=== PATIENT | female | born 2000 | race Caucasian/White ===

== ENCOUNTER → 2022-05-12 10:30 | Outpatient (BNVA) | payer MEDICAID, SELFPAY | PROVIDERS: PCP Nurse Practitioner Family; Referring Provider Nurse Practitioner Family; Visit Provider Internal Medicine | DX: E07.9 Disorder of thyroid, unspecified (principal); E03.8 Other specified hypothyroidism; E06.3 Autoimmune thyroiditis; Z98.890 Other specified postprocedural states; R53.83 Other fatigue | CPT/HCPCS: 36415; 82784; 83516; 84439; 84443; 84480 ==

== ENCOUNTER 2022-05-27 17:57 | Emergency (ER) | payer MEDICAID, SELFPAY ==
[2022-05-27 18:14] VITALS: PULSE 97; RESP 16; TEMP 36.8; O2SAT 98
[2022-05-27 19:12] LABS: Alanine Aminotransferase 10 U/L (0-33); Alkaline Phosphatase 49 U/L (35-105); Anion Gap 16.3 (5-19); Aspartate Amino Transferase 17 U/L (0-32); Blood Urea Nitrogen 10 mg/dL (6-20); Calcium 8.2 mg/dL (8.5-10.5); Carbon Dioxide 25 mmol/L (22-29); Chloride 104 mmol/L (98-107); Globulin 2.5 g/dL (1.3-4.6); Glomerular Filtration Rate 69.3 mL/min (90-130); Glucose 89 mg/dL (65-115); Lipase 26 U/L (13-60); Osmolality Calculated 291 mOsm/kg (285-295); Potassium 4.3 mmol/L (3.5-5.1); Sodium 141 mmol/L (136-145); Total Bilirubin 1.3 mg/dL (0.15-1.2); Total Protein 7.5 g/dL (6.6-8.7)
[2022-05-27 19:25] LABS: Basophils % 0.3 %; Eosinophils % 0.4 %; Hematocrit 39.9 % (37.0-47.0); Hemoglobin 13.1 g/dL (11.5-15.3); Lymphocytes # 0.7 10^3/uL (0.8-4.8); Lymphocytes % 7.7 %; Mean Corpuscular HGB Conc 32.8 g/dL (30.0-36.0); Mean Corpuscular Hemoglobin 30.3 pg (28.0-34.0); Mean Corpuscular Volume 92.1 fl (81-99); Mean Platelet Volume 10.1 fL (7.4-10.4); Monocytes # 0.3 10^3/uL (0.2-0.9); Monocytes % 3.6 %; Neutrophils # 8.31 10^3/uL (1.8-7.7); Nucleated Red Blood Cells % 0 %; Platelet Count 247 10^3/cmm (130-400); Red Blood Count 4.33 10^6/uL (4.1-5.3); Red Cell Distribution Width 16.1 % (12.1-15.1); White Blood Count 9.6 10^3/uL (4.0-10.0)
--- NOTE | 2022-05-27 21:38 | W.ED.ABDPA2 ---
HPI - Abdominal Pain General: Chief Complaint: Abdominal Pain Stated Complaint: left abd pain Time Seen by Provider: 05/27/22 21:38 [facility] ED PFSH: Surgical History History of thyroid surgery Course Vital Signs: Vital signs: Vital Signs Temperature 98.2 F 05/27/22 18:14 Pulse Rate 97 05/27/22 18:14 Respiratory Rate 16 05/27/22 18:14 Pulse Oximetry 98 05/27/22 18:14 MDM - Abdominal Pain Lab Data 05/27/22 18:30 05/27/22 18:30 Labs/Radiology: Laboratory Results WBC 9.6 10^3/uL (4.0-10.0) 05/27/22 18:30 RBC 4.33 10^6/uL (4.1-5.3) 05/27/22 18:30 Hgb 13.1 g/dL (11.5-15.3) 05/27/22 18:30 Hct 39.9 % (37.0-47.0) 05/27/22 18:30 MCV 92.1 fl (81-99) 05/27/22 18:30 MCH 30.3 pg (28.0-34.0) 05/27/22 18:30 MCHC 32.8 g/dL (30.0-36.0) 05/27/22 18:30 RDW 16.1 % (12.1-15.1) H 05/27/22 18:30 Plt Count 247 10^3/cmm (130-400) 05/27/22 18:30 MPV 10.1 fL (7.4-10.4) 05/27/22 18:30 Neut % (Auto) 87.0 % 05/27/22 18:30 Lymph % (Auto) 7.7 % 05/27/22 18:30 [place] % (Auto) 3.6 % 05/27/22 18:30 Eos % (Auto) 0.4 % 05/27/22 18:30 Baso % (Auto) 0.3 % 05/27/22 18:30 Neut # (Auto) 8.31 10^3/uL (1.8-7.7) H 05/27/22 18:30 Lymph # (Auto) 0.7 10^3/uL (0.8-4.8) L 05/27/22 18:30 [place] # (Auto) 0.3 10^3/uL (0.2-0.9) 05/27/22 18:30 Eos # (Auto) 0.0 10^3/uL (0.0-0.8) 05/27/22 18:30 Baso # (Auto) 0.0 10^3/uL (0.0-0.1) 05/27/22 18:30 Nucleated RBC % (auto) 0 % 05/27/22 18:30 Nucleated RBCs # 0.0 /100WBC 05/27/22 18:30 Sodium 141 mmol/L (136-145) 05/27/22 18:30 Potassium 4.3 mmol/L (3.5-5.1) 05/27/22 18:30 Chloride 104 mmol/L (98-107) 05/27/22 18:30 Carbon Dioxide 25 mmol/L (22-29) 05/27/22 18:30 Anion Gap 16.3 (5-19) 05/27/22 18:30 BUN 10 mg/dL (6-20) 05/27/22 18:30 Creatinine 1.0 mg/dL (0.5-0.9) H 05/27/22 18:30 GFR Calculation 69.3 mL/min (90-130) L 05/27/22 18:30 Glucose 89 mg/dL (65-115) 05/27/22 18:30 Calculated Osmolality 291 mOsm/kg (285-295) 05/27/22 18:30 Calcium 8.2 mg/dL (8.5-10.5) L 05/27/22 18:30 Total Bilirubin 1.3 mg/dL (0.15-1.2) H 05/27/22 18:30 AST 17 U/L (0-32) 05/27/22 18:30 ALT 10 U/L (0-33) 05/27/22 18:30 Alkaline Phosphatase 49 U/L (35-105) 05/27/22 18:30 Total Protein 7.5 g/dL (6.6-8.7) 05/27/22 18:30 Albumin 5.0 g/dL (3.5-5.2) 05/27/22 18:30 Globulin 2.5 g/dL (1.3-4.6) 05/27/22 18:30 Lipase 26 U/L (13-60) 05/27/22 18:30 Discharge Plan Discharge Condition: Stable Prescriptions: No Action levothyroxine [Synthroid] 200 mcg tablet 500 mcg PO DAILY prednisone 20 mg tablet 20 mg PO DAILY 7 Days Qty: 7 0RF Referrals: Annie Cadet FNP [Primary Care Provider] - Coding Level of Care Code ED [facility] for Ayazg Kadie
--- NOTE | 2022-05-27 22:20 | W.ED.ABDPA2 ---
HPI - Abdominal Pain General: Chief Complaint: Abdominal Pain Stated Complaint: left abd pain Time Seen by Provider: 05/27/22 21:38 Source: patient Mode of arrival: ambulatory Limitations: no limitations History of Present Illness: 21-year-old female states she been having left lower quadrant abdominal pain throughout the day states pain is been sharp in nature has been in for 4 out of 10 she has had an appendectomy she denies any fever denies any dysuria she denies any vomiting or diarrhea she denies any worsening improving factors. Associated Symptoms: Denies chills, dysuria and fever(s) Review of Systems Const: Denies: fever(s), chills, body aches or change in appetite Eyes: Denies: blurry vision or eye discomfort ENMT: Denies: throat pain or dental pain Card: Denies: chest pain Resp: Denies: dyspnea GI: Reports: abdominal pain : Denies: dysuria Musc: Denies: neck pain or back pain Skin/Breast: Denies: rash Neuro: Denies: headache(s) Psych: Denies: depression Alok/Lymph: Denies: easy bruising All/Imm: Denies: urticaria PFSH ED PFSH: Surgical History History of thyroid surgery Social History (Updated 05/27/22 @ 22:20 by Dev Portillo MD) Substance/Drug Use: never Physical Exam Const: COMMON NORMALS: no acute distress, patient oriented x3 and healthy appearing HENMT: COMMON NORMALS: normocephalic and atraumatic HEAD & SCALP: normocephalic and atraumatic Eye: COMMON NORMALS: Equal, round and reactive pupils present and EOMs intact bilaterally PUPIL: Yes Equal, round and reactive pupils present Neck/C-Spine: COMMON NORMALS: full ROM and supple Chest: COMMONS NORMALS: normal inspection of the chest and normal palpation of entire chest wall Resp: COMMON NORMALS: normal respiratory effort, No retractions, No use of accessory muscles and clear to auscultation bilaterally AUSCULTATION: clear to auscultation bilaterally Cardio: COMMON NORMALS: regular rate, regular rhythm and No murmurs present (Cardio) RATE: regular rate RHYTHM: regular rhythm GI: COMMON NORMALS: Normal to inspection, nondistended, normoactive bowel sounds present, Soft to palpation, non-tender and no masses PALPATION: Yes Soft to palpation Extremity: COMMON NORMALS: normal to inspection and full ROM Neuro: COMMON NORMALS: patient oriented x3, moves all extremities and no focal motor deficits Psych: COMMON NORMALS: mental status grossly normal, Normal thought process present and cooperative THOUGHT PROCESS: Normal thought process present Skin: COMMON NORMALS: no rashes or lesions noted and no wounds GENERAL SKIN EXAM: no rashes or lesions noted Course Vital Signs: Vital signs: Vital Signs Temperature 98.2 F 05/27/22 18:14 Pulse Rate 92 05/27/22 22:33 Respiratory Rate 17 05/27/22 22:33 Blood Pressure 109/68 05/27/22 22:33 Pulse Oximetry 95 05/27/22 22:33 Oxygen Delivery Me thod 05/27/22 22:33 MDM - Abdominal Pain Medical Decision Making Abdominal pain in the left lower quadrant could be an ovarian cyst. Her exam at discharge is benign she has no signs of acute surgical abdomen. Blood work here is normal urinalysis normal she is not she is stable for discharge she is to follow-up with PCP and return if worsening. Lab Data 05/27/22 18:30 05/27/22 18:30 Labs/Radiology: Laboratory Results WBC 9.6 10^3/uL (4.0-10.0) 05/27/22 18:30 RBC 4.33 10^6/uL (4.1-5.3) 05/27/22 18:30 Hgb 13.1 g/dL (11.5-15.3) 05/27/22 18:30 Hct 39.9 % (37.0-47.0) 05/27/22 18:30 MCV 92.1 fl (81-99) 05/27/22 18:30 MCH 30.3 pg (28.0-34.0) 05/27/22 18:30 MCHC 32.8 g/dL (30.0-36.0) 05/27/22 18:30 RDW 16.1 % (12.1-15.1) H 05/27/22 18:30 Plt Count 247 10^3/cmm (130-400) 05/27/22 18:30 MPV 10.1 fL (7.4-10.4) 05/27/22 18:30 Neut % (Auto) 87.0 % 05/27/22 18:30 Lymph % (Auto) 7.7 % 05/27/22 18:30 [place] % (Auto) 3.6 % 05/27/22 18:30 Eos % (Auto) 0.4 % 05/27/22 18:30 Baso % (Auto) 0.3 % 05/27/22 18:30 Neut # (Auto) 8.31 10^3/uL (1.8-7.7) H 05/27/22 18:30 Lymph # (Auto) 0.7 10^3/uL (0.8-4.8) L 05/27/22 18:30 [place] # (Auto) 0.3 10^3/uL (0.2-0.9) 05/27/22 18:30 Eos # (Auto) 0.0 10^3/uL (0.0-0.8) 05/27/22 18:30 Baso # (Auto) 0.0 10^3/uL (0.0-0.1) 05/27/22 18:30 Nucleated RBC % (auto) 0 % 05/27/22 18:30 Nucleated RBCs # 0.0 /100WBC 05/27/22 18:30 Sodium 141 mmol/L (136-145) 05/27/22 18:30 Potassium 4.3 mmol/L (3.5-5.1) 05/27/22 18:30 Chloride 104 mmol/L (98-107) 05/27/22 18:30 Carbon Dioxide 25 mmol/L (22-29) 05/27/22 18:30 Anion Gap 16.3 (5-19) 05/27/22 18:30 BUN 10 mg/dL (6-20) 05/27/22 18:30 Creatinine 1.0 mg/dL (0.5-0.9) H 05/27/22 18:30 GFR Calculation 69.3 mL/min (90-130) L 05/27/22 18:30 Glucose 89 mg/dL (65-115) 05/27/22 18:30 Calculated Osmolality 291 mOsm/kg (285-295) 05/27/22 18:30 Calcium 8.2 mg/dL (8.5-10.5) L 05/27/22 18:30 Total Bilirubin 1.3 mg/dL (0.15-1.2) H 05/27/22 18:30 AST 17 U/L (0-32) 05/27/22 18:30 ALT 10 U/L (0-33) 05/27/22 18:30 Alkaline Phosphatase 49 U/L (35-105) 05/27/22 18:30 Total Protein 7.5 g/dL (6.6-8.7) 05/27/22 18:30 Albumin 5.0 g/dL (3.5-5.2) 05/27/22 18:30 Globulin 2.5 g/dL (1.3-4.6) 05/27/22 18:30 Lipase 26 U/L (13-60) 05/27/22 18:30 HCG, Qual Negative (Negative) 05/27/22 22:13 Urine Color Dark yellow (Yellow) 05/27/22 22:13 Urine Appearance Clear (CLEAR) 05/27/22 22:13 Urine pH 5 (5-7) 05/27/22 22:13 Ur Specific [place] 1.020 (1.005-1.030) 05/27/22 22:13 Urine Protein Neg (Negative) 05/27/22 22:13 Urine Glucose (UA) Norm (Normal) 05/27/22 22:13 Urine Ketones Negative (Negative) 05/27/22 22:13 Urine Blood Neg (Negative) 05/27/22 22:13 Urine Nitrate Negative (Negative) 05/27/22 22:13 Urine Bilirubin Neg (Negative) 05/27/22 22:13 Urine Urobilinogen 1 mg/dL (Negative) H 05/27/22 22:13 Ur Leukocyte Esterase Negative (Negative) 05/27/22 22:13 Discharge Plan Discharge Patient Disposition: Home Clinical Impression: Abdominal pain Condition: Stable Prescriptions: New Naprosyn 500 mg tablet 500 mg PO BID PRN (Reason: pain) Qty: 20 0RF No Action levothyroxine [Synthroid] 200 mcg tablet 500 mcg PO DAILY prednisone 20 mg tablet 20 mg PO DAILY 7 Days Qty: 7 0RF Discharge Orders: Discharge ED (Routine); Ordered 05/27/22 Ordered By: Dev Portillo Referrals: Annie Cadet FNP [Primary Care Provider] - Discharge Diet: Advance as tolerated Discharge Activity: Resume usual activity Patient Instructions: Abdominal Pain (ED) Coding Level of Care Code ED Health Care / Medical [employer] Titles for Jim Engle
[2022-05-27 22:21] LABS: Add Urine Microscopic? NO; Charge for UA Resulting for Rev
[2022-05-27 22:28] VITALS: RESP 18
[2022-05-27] MEDS: morphine 4 mg/mL SDV 1 mL IVP (22:28)
[2022-05-27] MEDS: ondansetron 2 mg/ML SDV 2 mL 4 MG IVP (22:28)
[2022-05-27 22:32] LABS: Bilirubin Urine Neg (Negative); Blood Urine Neg (Negative); Glucose Urine UA Norm (Normal); Ketones Urine Negative (Negative); Leukocyte Esterase Urine Negative (Negative); Nitrate Urine Negative (Negative); Protein Urine Neg (Negative); Urine Appearance Clear (CLEAR); Urine Color Dark Yellow (Yellow); Urobilinogen Urine 1 mg/dL (Negative); pH Urine 5 (5-7)
[2022-05-27 22:33] VITALS: BP 109/68; PULSE 92; RESP 17; O2SAT 95
[2022-05-27 22:47] LABS: HCG Qualitative Urine. Negative (Negative)
[2022-05-27 23:21] VITALS: BP 98/64; PULSE 78; RESP 14; O2SAT 98
== END 2022-05-27 23:25 | disposition home or self-care (01) ==
PROVIDERS: Emergency Provider Emergency Medicine; PCP Nurse Practitioner Family
DX: R10.32 Left lower quadrant pain (principal)
CPT/HCPCS: 36415; 80053; 81003; 81025; 83690; 85025; 96374; 96375; 99284; J2270; J2405

== ENCOUNTER → 2022-06-01 14:31 | Outpatient (BNVA) | payer MEDICAID, SELFPAY | PROVIDERS: PCP Nurse Practitioner Family; Visit Provider Nurse Practitioner Family | DX: R10.9 Unspecified abdominal pain (principal); E07.9 Disorder of thyroid, unspecified | CPT/HCPCS: 74018; 84439 ==

== ENCOUNTER 2022-06-20 15:35 | Outpatient (CLI) | payer MEDICAID, SELFPAY ==
[2022-06-20 16:46] LABS: Free T4 Free Thyroxine 0.77 ng/dL (0.82-1.77)
== END 2022-06-20 15:36 | disposition home or self-care (01) ==
LOC: LAB 15:40
PROVIDERS: PCP Nurse Practitioner Family; Visit Provider Internal Medicine
DX: E07.9 Disorder of thyroid, unspecified (principal); E03.8 Other specified hypothyroidism; E06.3 Autoimmune thyroiditis; Z98.890 Other specified postprocedural states; R53.83 Other fatigue
CPT/HCPCS: 36415; 84439

== ENCOUNTER 2022-06-24 07:39 | Outpatient (CLI) | payer MEDICAID, SELFPAY ==
--- NOTE | 2022-06-24 07:49 | CTR_ITS ---
PROCEDURE INFORMATION: Exam: CT Abdomen And Pelvis Without Contrast Exam date and time: 06/24/2022 8:03 AM Age: 21 years old Clinical indication: Abdominal pain; Localized; Left upper quadrant (luq) TECHNIQUE: Imaging protocol: Computed tomography of the abdomen and pelvis without contrast. Radiation optimization: All CT scans at this facility use at least one of these dose optimization techniques: automated exposure control; mA and/or kV adjustment per patient size (includes targeted exams where dose is matched to clinical indication); or iterative reconstruction. REPORTING DATA: Count of CT and Cardiac NM exams in prior 12 months: This patient has received 0 known CTs and 0 known cardiac nuclear medicine studies in the 12 months prior to the current study. COMPARISON: CR XR KUB [id number] 06/01/2022 2:37 PM RADIATION DOSE METRICS: Total DLP (mGy-cm): 246.11 FINDINGS: Lungs: Lung bases are clear. Liver: Normal. No mass. Gallbladder and bile ducts: Gallbladder has been removed. Bile ducts are not appreciably dilated. Pancreas: Unremarkable. Main pancreatic duct is not significantly dilated. Spleen: Normal. No splenomegaly. Adrenal glands: Normal. No mass. Kidneys and ureters: Normal. No hydronephrosis. Stomach and bowel: There is a moderate degree of retained stool throughout the colon that may reflect some degree of constipation. Remainder of the GI tract is unremarkable. Appendix: No evidence of appendicitis. Intraperitoneal space: Unremarkable. No free air. No significant fluid collection. Vasculature: Unremarkable. No abdominal aortic aneurysm. Lymph nodes: Unremarkable. No enlarged lymph nodes. Urinary bladder: Tiny solitary air bubble within the nondependent portion the urinary bladder which is otherwise unremarkable and in the absence of recent instrumentation is often incidental in females and may be due to incompetent urethra. Reproductive: There is an IUD situated centrally within the uterus. Uterus is otherwise unremarkable. Bones/joints: Unremarkable. No acute fracture. Soft tissues: Unremarkable. CT/CT abdomen pelvis wo con [id number] IMPRESSION: 1. No acute findings within the abdomen or pelvis. 2. Moderate degree of retained stool throughout the large bowel. Please correlate for constipation. 3. Small solitary air bubble in the urinary bladder of doubtful clinical significance as discussed above.
== END 2022-06-24 07:40 | disposition home or self-care (01) ==
PROVIDERS: PCP Nurse Practitioner Family; Visit Provider Nurse Practitioner Family
DX: R10.9 Unspecified abdominal pain (principal)
CPT/HCPCS: 74176

== ENCOUNTER 2022-07-01 17:13 | Emergency (ER) | payer MEDICAID, SELFPAY ==
[2022-07-01 17:25] VITALS: BP 102/61; PULSE 77; RESP 14; TEMP 36.6; O2SAT 100; BMI 19.0
--- NOTE | 2022-07-01 17:57 | W.ED.HA ---
HPI - Headache General: Chief Complaint: Headache Stated Complaint: head pain Time Seen by Provider: 07/01/22 17:33 History of Present Illness: Patient is a 21-year-old female who comes to the ED with headache. Patient does not have a history of migraine headaches. She states that approximately 5 days ago she developed a headache with nausea and vomiting and light sensitivity and it went away within 24 hours and she was fine for the next couple days. Then yesterday she developed a severe headache that she rates a 10 out of 10 at its located behind her eyes bilaterally. She describes it as a throbbing type headache. She endorses nausea and vomiting and sensitivity to light. She went and saw walk-in clinic yesterday and they gave her a shot of a nausea med and Toradol and she states that it did not help her headache at all. Today she still having 10 out of 10 headache with nausea. Denies any neurological symptoms such as vision changes, numbness tingling or weakness to 1 side of her body or face. Denies any other symptoms. Patient did state that she used to have bad headaches when she was younger, but those went away once she got glasses at 10 years old. Associated symptoms: Reports nausea and vomiting; Deny chest pain, fever(s) or rash Review of Systems Const: Denies: fever(s), chills or fatigue Eyes: Reports: photophobia; Denies: change in vision or eye discomfort ENMT: Denies: throat pain, odynophagia, nasal discharge or nasal congestion Card: Denies: chest pain, palpitations, edema, swelling of feet/ankles, dyspnea on exertion or orthopnea Resp: Denies: dyspnea, productive cough or non-productive cough GI: Reports: nausea and vomiting; Denies: abdominal pain, diarrhea, constipation or hematochezia : Denies: flank pain, dysuria or hematuria Musc: Denies: neck pain, back pain or extremity swelling Skin/Breast: Denies: rash or new lesions Neuro: Reports: headache(s); Denies: numbness in extremities or weakness in extremities PFS ED PFSH: Medical History Celiac disease No pertinent family history Surgical History History of thyroid surgery Social History Substance/Drug Use: never Physical Exam Const: COMMON NORMALS: patient oriented x3, healthy appearing and alert GENERAL APPEARANCE: cooperative HENMT: COMMON NORMALS: normocephalic HEAD & SCALP: normocephalic MOUTH: Normal oral and palatal mucosa present THROAT: posterior oropharynx normal and uvula midline Eye: COMMON NORMALS: Equal, round and reactive pupils present, EOMs intact bilaterally and conjunctivae normal CONJUNCTIVA: Yes conjunctivae normal PUPIL: Yes Equal, round and reactive pupils present Neck/C-Spine: COMMON NORMALS: supple GENERAL: Yes normal visual inspection Resp: COMMON NORMALS: normal respiratory effort, No retractions, No use of accessory muscles and clear to auscultation bilaterally AUSCULTATION: clear to auscultation bilaterally Cardio: COMMON NORMALS: regular rate, regular rhythm, S1 normal heart sound present, S2 normal heart sound present, No gallops present (Cardio), No clicks present (Cardio), No murmurs present (Cardio) and Peripheral pulses 2+ throughout RATE: regular rate RHYTHM: regular rhythm HEART SOUNDS: S1 normal heart sound present and S2 normal heart sound present PERIPHERAL PULSES: Peripheral pulses 2+ throughout GI: COMMON NORMALS: Normal to inspection, nondistended, normoactive bowel sounds present, Soft to palpation, non-tender and no masses PALPATION: Yes Soft to palpation : COMMON NORMALS: Yes no CVA tenderness BLADDER/KIDNEY EXAM: Yes no CVA tenderness Back/Pelvis: COMMON NORMALS: no CVA tenderness Extremity: COMMON NORMALS: normal to inspection Neuro: COMMON NORMALS: patient oriented x3, CN's II-XII intact bilaterally, moves all extremities, no focal motor deficits and no sensory deficits noted SENSORIUM/ORIENTATION: Yes alert COORDINATION/BALANCE: [id number] test normal SPEECH: speech normal GAIT: Yes Normal gait present COORDINATION: [id number] test normal Skin: GENERAL SKIN EXAM: dry skin Course Vital Signs: Vital signs: Vital Signs Temperature 98 F 07/01/22 17:25 Pulse Rate 88 07/01/22 18:05 Respiratory Rate 16 07/01/22 18:05 Blood Pressure 110/75 07/01/22 18:05 Pulse Oximetry 99 07/01/22 18:05 Oxygen Delivery Me thod Room Air 07/01/22 18:05 MDM - Headache Medical Decision Making Patient is a 21-year-old female comes to the ED with migraine headache. She is having nausea, vomiting and sensitivity to light. Vitals are stable. Neuro exam shows no deficits. Rest of exam is benign and patient appears nontoxic in no acute distress or pain. Head CT was obtained since this is the first time she has had migraines. Head CT showed no acute findings. After patient received IV migraine meds her headache improved greatly. Her headache went from a 10 out of 10 to a 4 out of 10. She feels a lot better and is ready to be discharged home. She was diagnosed with migraine headache and told to follow-up with her PCP in the next week for reevaluation. Return to ED precautions given. Patient understood and agreed with plan. Lab Data Radiology Impressions Head CT 07/01/22 18:04 IMPRESSION: No acute intracranial abnormality. Laboratory Results HCG, Qual Negative (Negative) 07/01/22 18:17 Discharge Plan Discharge Patient Disposition: Home Clinical Impression: Migraine Qualifiers: Migraine type: without aura Status migrainosus presence: without status migrainosus Intractability: not intractable Qualified Code(s): G43.009 - Migraine without aura, not intractable, without status migrainosus Condition: Stable Prescriptions: No Action prednisone 20 mg tablet 20 mg PO DAILY 7 Days Qty: 7 0RF levothyroxine [Synthroid] 300 mcg tablet 600 mcg PO DAILY Qty: 180 1RF levothyroxine [Synthroid] 150 mcg tablet 150 mcg PO DAILY Qty: 90 1RF Naprosyn 500 mg tablet 500 mg PO BID PRN (Reason: pain) Qty: 20 0RF Discharge Orders: Discharge ED (Routine); Ordered 07/01/22 Ordered By: Clement Pearson Referrals: Annie Cadet FNP [Primary Care Provider] - Discharge Diet: Regular Discharge Activity: Increase activity as tolerated Patient Instructions: Migraine Headache (ED) Activity Restrictions/Additional Instructions: Follow-up with medical provider as directed in the next 5 to 7 days for reevaluation. Continue taking all home medications as previously prescribed. Return to the ER or your medical provider if condition worsens. Please read and understand discharge instructions. Thank you for choosing [facility] for your healthcare needs today. Please realize this is an emergency room and that we are providing you with a medical screening exam and this may not be complete and all inclusive of all the testing and or work up that you may need to determine your ailment or severity of your illness. It is very important that you follow up as instructed or that you return to the Emergency Department should you have concerns or if your condition changes or worsens in any way. Coding Level of Care Code ED [employer] for Jim Engle
--- NOTE | 2022-07-01 18:04 | CTR_ITS ---
PROCEDURE INFORMATION: Exam: CT Head Without Contrast Exam date and time: 07/01/2022 6:21 PM Age: 21 years old Clinical indication: Pain; Headache; Migraine; Without aura; Does respond to medication; Severity not specified; Patient HX: No recent trauma; Additional info: First migraine headache TECHNIQUE: Imaging protocol: Computed tomography of the head without contrast. Radiation optimization: All CT scans at this facility use at least one of these dose optimization techniques: automated exposure control; mA and/or kV adjustment per patient size (includes targeted exams where dose is matched to clinical indication); or iterative reconstruction. REPORTING DATA: Count of CT and Cardiac NM exams in prior 12 months: This patient has received [address] and 0 known cardiac nuclear medicine studies in the 12 months prior to the current study. COMPARISON: No relevant prior studies available. RADIATION DOSE METRICS: Total DLP (mGy-cm): 1093.68 FINDINGS: Brain: Normal. No hemorrhage. Unremarkable white matter. No mass effect. Cerebral ventricles: No ventriculomegaly. Paranasal sinuses: Visualized sinuses are unremarkable. No fluid levels. Mastoid air cells: Visualized mastoid air cells are well aerated. Bones/joints: Unremarkable. No acute fracture. Soft tissues: Unremarkable. CT/CT head wo con* [id number] IMPRESSION: No acute intracranial abnormality.
[2022-07-01 18:05] VITALS: BP 110/75; PULSE 88; RESP 16; O2SAT 99
[2022-07-01 18:41] LABS: HCG Qualitative Urine. Negative (Negative)
[2022-07-01] MEDS: metoclopramide 5 mg/mL SDV 2 mL 10 MG IVP (18:42)
[2022-07-01] MEDS: diphenhydrAMINE 50 mg/mL SDV 1mL 25 MG IVP (18:43)
[2022-07-01] MEDS: sodium chloride 0.9% 1,000 ML 999 ML IV (18:44)
[2022-07-01] MEDS: SUMAtriptan 6 mg/0.5 mL SDV SUBCUT (18:44)
== END 2022-07-01 20:07 | disposition home or self-care (01) ==
PROVIDERS: Emergency Provider Physician Assistant; PCP Nurse Practitioner Family
DX: G43.009 Migraine without aura, not intractable, without status migrainosus (principal)
CPT/HCPCS: 70450; 81025; 96372; 96374; 96375; 99284; J1200; J2765; J3030; J7030

== ENCOUNTER 2022-07-12 13:03 | Outpatient (CLI) | payer MEDICAID, SELFPAY ==
[2022-07-12 14:26] LABS: Free T4 Free Thyroxine 1.58 ng/dL (0.82-1.77)
== END 2022-07-12 13:04 | disposition home or self-care (01) ==
LOC: LAB 13:05
PROVIDERS: PCP Nurse Practitioner Family; Visit Provider Internal Medicine
DX: E03.8 Other specified hypothyroidism (principal); E06.3 Autoimmune thyroiditis
CPT/HCPCS: 36415; 84439

== ENCOUNTER 2022-09-06 08:43 | Outpatient (CLI) | payer OTHER, MEDICAID, SELFPAY ==
--- NOTE | 2022-09-06 08:55 | XRR_ITS ---
PROCEDURE INFORMATION: Exam: XR Right Hip Exam date and time: 09/06/2022 9:01 AM Age: 22 years old Clinical indication: Hip pain; Right hip; Additional info: Hip joint pain, right TECHNIQUE: Imaging protocol: Radiologic exam of the right hip. Views: 1 view hip with pelvis when performed. COMPARISON: CT abdomen pelvis wo con [id number] 06/24/2022 8:03 AM FINDINGS: Tubes, catheters and devices: An intrauterine device projects over the central pelvis. Bones/joints: Unremarkable. No acute fracture. Joint spaces are normal. Soft tissues: Unremarkable. XR/XR hip RT 2-3V wo/w pel* [id number] IMPRESSION: No acute findings.
== END 2022-09-06 08:44 | disposition home or self-care (01) ==
LOC: RAD 08:45
PROVIDERS: PCP Nurse Practitioner Family; Visit Provider Nurse Practitioner Family
DX: M25.551 Pain in right hip (principal)
CPT/HCPCS: 73502

== ENCOUNTER 2022-09-15 12:56 | Outpatient (CLI) | payer MEDICAID, SELFPAY | END 2022-09-15 12:57 | disposition home or self-care (01) | PROVIDERS: PCP Nurse Practitioner Family; Visit Provider Internal Medicine | DX: E03.8 Other specified hypothyroidism (principal); E06.3 Autoimmune thyroiditis | CPT/HCPCS: 36415; 84439 ==

== ENCOUNTER 2022-09-15 15:33 | Emergency (ER) | payer OTHER, MEDICAID, SELFPAY | END 2022-09-15 15:48 | disposition home or self-care (01) | LOC: ER 15:47 | PROVIDERS: Emergency Provider Family Medicine; PCP Nurse Practitioner Family | DX: E03.9 Hypothyroidism, unspecified (principal); E06.3 Autoimmune thyroiditis | CPT/HCPCS: 99282 ==

== ENCOUNTER 2022-09-15 16:03 | Emergency (ER) | payer OTHER, MEDICAID, SELFPAY ==
[2022-09-15 16:15] VITALS: BP 97/71; PULSE 93; RESP 15; O2SAT 99
[2022-09-15 16:17] VITALS: TEMP 37
--- NOTE | 2022-09-15 16:24 | ED_ITS ---
HPI - Recheck/Abnormal Lab/Rx General: Chief Complaint: Recheck/Abnormal Lab/Rx Stated Complaint: sent by ava Time Seen by Provider: 09/15/22 16:05 Source: patient Mode of arrival: ambulatory History of Present Illness: 22-year-old female with a known history of severe hypothyroidism. She had been being monitored by Dr. Goins and is on orals has been no change in her medicine recently but she has been more tired she is chronically constipated this is unchanged. She had a free T4 done today which is extremely low whereas her previous one was euthyroid. Your free T4 today was 0.1 ng/dL. Her previous free T4 in June of this year was 1.58 ng/dL. Returns today for: called because of abnormal lab/test Symptoms since prior visit: no new symptoms Associated symptoms: none Review of Systems Const: Denies: fever(s), chills, body aches, change in appetite, fatigue or malaise ENMT: Denies: throat pain, ear or mastoid pain, nasal discharge or nasal congestion Card: Denies: chest pain, edema, dyspnea on exertion or orthopnea Resp: Denies: dyspnea, productive cough or non-productive cough GI: Reports: constipation; Denies: abdominal pain, nausea, vomiting, hematemesis, coffee ground emesis, diarrhea, bloating, hematochezia or melena : Denies: flank pain, difficulty voiding, dysuria, urinary frequency or urinary urgency Skin/Breast: Denies: rash or pruritus PFSH ED PFSH: Medical History Celiac disease No pertinent family history Surgical History History of thyroid surgery Social History Substance/Drug Use: never Physical Exam Const: GENERAL APPEARANCE: cooperative and comfortable ORIE NTATION/CONSCIOUSNESS: Yes awake, Yes oriented to person, Yes oriented to place and Yes oriented to time HENMT: COMMON NORMALS: normocephalic, atraumatic and hearing grossly normal bilaterally HEAD & SCALP: normocephalic and atraumatic Resp: COMMON NORMALS: normal respiratory effort, No retractions, No use of accessory muscles and clear to auscultation bilaterally AUSCULTATION: clear to auscultation bilaterally Cardio: COMMON NORMALS: regular rate, regular rhythm and No murmurs present (Cardio) RATE: regular rate RHYTHM: regular rhythm GI: COMMON NORMALS: Soft to palpation and No hepatosplenomegaly present AUSCULTATION: Yes normoactive bowel sounds PALPATION: Yes Soft to palpation, No Tenderness to palpation present (GI), No Guarding due to palpation present (GI) and Yes No hepatosplenomegaly present : COMMON NORMALS: Yes no CVA tenderness BLADDER/KIDNEY EXAM: Yes no CVA tenderness Back/Pelvis: COMMON NORMALS: no CVA tenderness Extremity: COMMON NORMALS: normal to inspection, capillary refill normal, no clubbing, cyanosis or edema, no calf tenderness and no pedal edema Neuro: SENSORIUM/ORIENTATION: Yes oriented to person, Yes oriented to place and Yes oriented to time Skin: COMMON NORMALS: no rashes or lesions noted GENERAL SKIN EXAM: no rashes or lesions noted Course Vital Signs: Vital signs: Vital Signs Temperature 98.6 F 09/15/22 16:17 Pulse Rate 93 09/15/22 16:15 Respiratory Rate 15 09/15/22 16:15 Blood Pressure 97/71 09/15/22 16:15 Pulse Oximetry 99 09/15/22 16:15 Oxygen Delivery Me thod Room Air 09/15/22 16:15 MDM - Recheck/Abnormal Lab/Rx Medical Decision Making Patient is profoundly hypothyroid but she is not myxedematous at this point. She has previously had her T4 this low I discussed with Dr. Gonis previously it is a slow they doubled her Synthroid and recheck her in a week. I do not think she needs hospitalization at this point she is stable and comfortable no signs hyponatremia hypoglycemia or myxedema coma. She is awake and alert with no altered mental status Dr. Goins concurs recommends doubling her Synthroid and rechecking in a week in the office return if she has further problems we did give her handouts on signs and symptoms to watch for. Medical Records I reviewed the patient's medical records. Lab Data I reviewed the patient's lab results. 09/15/22 16:42 09/15/22 16:42 Laboratory Results WBC 6.5 10^3/uL (4.0-10.0) 09/15/22 16:42 RBC 4.39 10^6/uL (4.1-5.3) 09/15/22 16:42 Hgb 12.6 g/dL (11.5-15.3) 09/15/22 16:42 Hct 38.9 % (37.0-47.0) 09/15/22 16:42 MCV 88.6 fl (81-99) 09/15/22 16:42 MCH 28.7 pg (28.0-34.0) 09/15/22 16:42 MCHC 32.4 g/dL (30.0-36.0) 09/15/22 16:42 RDW 15.6 % (12.1-15.1) H 09/15/22 16:42 Plt Count 226 10^3/cmm (130-400) 09/15/22 16:42 MPV 10.5 fL (7.4-10.4) H 09/15/22 16:42 Neut % (Auto) 52.3 % 09/15/22 16:42 Lymph % (Auto) 41.5 % 09/15/22 16:42 [place] % (Auto) 4.6 % 09/15/22 16:42 Eos % (Auto) 0.8 % 09/15/22 16:42 Baso % (Auto) 0.5 % 09/15/22 16:42 Neut # (Auto) 3.38 10^3/uL (1.8-7.7) 09/15/22 16:42 Lymph # (Auto) 2.7 10^3/uL (0.8-4.8) 09/15/22 16:42 [place] # (Auto) 0.3 10^3/uL (0.2-0.9) 09/15/22 16:42 Eos # (Auto) 0.1 10^3/uL (0.0-0.8) 09/15/22 16:42 Baso # (Auto) 0.0 10^3/uL (0.0-0.1) 09/15/22 16:42 Nucleated RBC % (auto) 0 % 09/15/22 16:42 Nucleated RBCs # 0.0 /100WBC 09/15/22 16:42 Sodium 139 mmol/L (136-145) 09/15/22 16:42 Potassium 4.0 mmol/L (3.5-5.1) 09/15/22 16:42 Chloride 102 mmol/L (98-107) 09/15/22 16:42 Carbon Dioxide 28 mmol/L (22-29) 09/15/22 16:42 Anion Gap 13.0 (5-19) 09/15/22 16:42 BUN 10 mg/dL (6-20) 09/15/22 16:42 Creatinine 1.0 mg/dL (0.5-0.9) H 09/15/22 16:42 GFR Calculation 68.7 mL/min (90-130) L 09/15/22 16:42 Glucose 95 mg/dL (65-115) 09/15/22 16:42 Calculated Osmolality 287 mOsm/kg (285-295) 09/15/22 16:42 Calcium 8.1 mg/dL (8.5-10.5) L 09/15/22 16:42 Total Bilirubin 0.5 mg/dL (0.15-1.2) 09/15/22 16:42 AST 15 U/L (0-32) 09/15/22 16:42 ALT 7 U/L (0-33) 09/15/22 16:42 Alkaline Phosphatase 45 U/L (35-105) 09/15/22 16:42 Total Protein 7.0 g/dL (6.6-8.7) 09/15/22 16:42 Albumin 4.8 g/dL (3.5-5.2) 09/15/22 16:42 Globulin 2.2 g/dL (1.3-4.6) 09/15/22 16:42 TSH 363.30 uIU/mL (0.27-4.20) H 09/15/22 16:42 Random Cortisol 7.56 ug/dL (2.47-19.5) 09/15/22 16:42 Discharge Plan Discharge Patient Disposition: Home 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 Goins as well as your physical exam and presenting vital signs in the emergency room. At this time she recommends doubling your dose of Synthroid for 1 week and rechecking your levels in a week. You are given handouts regarding hypothyroidism and myxedema. If y ou develop any of the symptoms or noticed significant change return to the emergency room to be reevaluated. 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
[2022-09-15 16:47] LABS: Basophils % 0.5 %; Eosinophils # 0.1 10^3/uL (0.0-0.8); Eosinophils % 0.8 %; Hematocrit 38.9 % (37.0-47.0); Hemoglobin 12.6 g/dL (11.5-15.3); Lymphocytes # 2.7 10^3/uL (0.8-4.8); Lymphocytes % 41.5 %; Mean Corpuscular HGB Conc 32.4 g/dL (30.0-36.0); Mean Corpuscular Hemoglobin 28.7 pg (28.0-34.0); Mean Corpuscular Volume 88.6 fl (81-99); Mean Platelet Volume 10.5 fL (7.4-10.4); Monocytes # 0.3 10^3/uL (0.2-0.9); Monocytes % 4.6 %; Neutrophils # 3.38 10^3/uL (1.8-7.7); Neutrophils % 52.3 %; Nucleated Red Blood Cells % 0 %; Platelet Count 226 10^3/cmm (130-400); Red Blood Count 4.39 10^6/uL (4.1-5.3); Red Cell Distribution Width 15.6 % (12.1-15.1); White Blood Count 6.5 10^3/uL (4.0-10.0)
[2022-09-15 17:20] LABS: Cortisol Random 7.56 ug/dL (2.47-19.5)
[2022-09-15 17:21] LABS: Alanine Aminotransferase 7 U/L (0-33); Albumin Level 4.8 g/dL (3.5-5.2); Alkaline Phosphatase 45 U/L (35-105); Aspartate Amino Transferase 15 U/L (0-32); Blood Urea Nitrogen 10 mg/dL (6-20); Calcium 8.1 mg/dL (8.5-10.5); Carbon Dioxide 28 mmol/L (22-29); Chloride 102 mmol/L (98-107); Globulin 2.2 g/dL (1.3-4.6); Glomerular Filtration Rate 68.7 mL/min (90-130); Glucose 95 mg/dL (65-115); Osmolality Calculated 287 mOsm/kg (285-295); Sodium 139 mmol/L (136-145); Total Bilirubin 0.5 mg/dL (0.15-1.2)
== END 2022-09-15 18:09 | disposition home or self-care (01) ==
PROVIDERS: Emergency Provider Family Medicine; PCP Nurse Practitioner Family
DX: E03.9 Hypothyroidism, unspecified (principal); E06.3 Autoimmune thyroiditis
CPT/HCPCS: 36415; 80053; 82533; 84443; 85025; 99283

== ENCOUNTER 2022-09-22 06:42 | Day surgery (SDC) | payer OTHER, MEDICAID, SELFPAY ==
[2022-09-20 12:08] VITALS: BMI 21.1
--- NOTE | 2022-09-22 06:56 | P.ANESASSM_ITS ---
Pre-Anesthetic Assessment Height/Weight: Height 1.63 m Weight 55.792 kg Preop Diagnosis: celiac disease Operation Date: 09/22/22 07:50 Proposed Procedures p EGD [id number],K90(Not Applicable) - Clemente Billings MD Familial anesthetic complications: none Was Beta Maru taken within 24 hours: N/A Was Clonidine taken within 24 hours: N/A Social No alcohol and No tobacco Exam alert, oriented x 3, clear to auscultation bilaterally and regular rate & rhythm Airway Submandibular: within normal limits Cervical ROM: within normal limits Mallampati: Class II Dentition: full Comments: Comments: missing Pulmonary None reported CV/HEM None reported None reported Hepatic None reported GI None reported Metabolic Thyroid Disease [facility] [place] None reported Neuropsych None reported Anesthetic Plan ASA status: 2 Anesthesia: MAC Medications/Allergies Home Medications Medication Instructions Recorded Confirmed Last Taken Type lactulose 10 gram oral packet 10 g PO DAILY PRN constipation #15 08/09/22 09/20/22 09/15/22 Rx ea naproxen 500 mg tablet (Naprosyn) 500 mg PO BID PRN pain 09/13/22 09/20/22 Unknown History levothyroxine 200 mcg capsule 1,400 mcg PO DAILY 09/20/22 09/20/22 09/20/22 History (Tirosint) Allergies Allergy/AdvReac Type Severity Reaction Status Date / Time amoxicillin Allergy ADR-Nausea Verified 09/20/22 12:05 Penicillins Allergy ADR-Nausea Verified 09/20/22 12:05 [facility] Anesthesia Medical History Celiac disease No pertinent family history Surgical History History of thyroid surgery Social History Substance/Drug Use: never Female Reproductive History Date of last menstrual period: 11/23/21 Data Anesthesia Cardiac Studies: No Data to Display
[2022-09-22 07:01] VITALS: BP 100/75; PULSE 90; RESP 16; TEMP 36.8; O2SAT 98
--- NOTE | 2022-09-22 07:01 | W.PM.OPSUD ---
Surgery/Procedure H&P Update DATE OF PROCEDURE: September 22, 2022 DATE H&P PERFORMED: 09/13/22 CHANGES TO PREVIOUS DOCUMENTATION: I have evaluated the patient this morning, there is no changes since last hospital visit. No changes in physical exam. Procedure is still indicated. PREOP DIAGNOSIS: celiac disease PRIMARY INDICATION FOR PROCEDURE: Evaluation for celiac disease. PLANNED PROCEDURE: Operation Date: 09/22/22 07:50 Proposed Procedures p EGD [id number],K90(Not Applicable) - Clemente Billings MD
[2022-09-22] MEDS: sodium chloride 0.9% 1,000 ML 30 ML IV (07:09)
[2022-09-22 07:59] VITALS: BP 89/62; PULSE 76; RESP 17; TEMP 36.5; O2SAT 98
[2022-09-22 08:12] VITALS: BP 91/57; PULSE 75; RESP 17; TEMP 36.5; O2SAT 99
[2022-09-22 11:05] LABS: OR HCG Qualitative Urine Negative (Negative)
--- NOTE | 2022-09-22 15:18 | ANE.PACU2 ---
Inpatient post-anesthesia follow up: Airway intact: Yes Vital signs: Temperature 97.7 F Pulse Rate 75 Respiratory Rate 17 Blood Pressure 91/57 Pulse Oximetry 99 Oxygen Delivery Me thod Room Air Oxygen Flow Rate Fraction of Inspir ed Oxygen Hydration adequate: Yes Nausea and vomiting: No Pain level: 1 Mental status: Baseline
== END 2022-09-22 08:32 | disposition home or self-care (01) ==
PROVIDERS: Anesthesiology; PCP Nurse Practitioner Family; Visit Provider Surgery
PROC: 0DJ08ZZ Inspection of Upper Intestinal Tract, Via Natural or Artificial Opening Endoscopic (ICD-10-PCS; CPT 43235; principal; 2022-09-22 07:50)
DX: K90.0 Celiac disease (principal); K29.50 Unspecified chronic gastritis without bleeding; B96.81 Helicobacter pylori [H. pylori] as the cause of diseases classified elsewhere; E03.9 Hypothyroidism, unspecified
CPT/HCPCS: 12345; 43239; 81025; 84703; 88305; J2704; J7030

== ENCOUNTER 2022-09-23 16:17 | Outpatient (CLI) | payer OTHER, MEDICAID, SELFPAY ==
--- NOTE | 2022-09-23 16:26 | XRR_ITS ---
PROCEDURE INFORMATION: Exam: XR Complete Acute Abdomen Series Including Chest Exam date and time: 09/23/2022 4:28 PM Age: 22 years old Clinical indication: Abdominal pain; Generalized; Patient HX: Abdomen pain after edg and biopsy; Additional info: Abd pain after egd TECHNIQUE: Imaging protocol: Radiologic exam. Complete acute abdomen series, including 2 or more views of the abdomen and a single view chest. COMPARISON: CT abdomen pelvis con [id number] 06/24/2022 8:03 AM FINDINGS: Tubes, catheters and devices: An intrauterine device is seen in the central pelvis. Lungs: Normal. No consolidation. Pleural spaces: Normal. No pleural effusions. No pneumothorax. Heart/Mediastinum: Normal. No cardiomegaly. Gastrointestinal tract: Normal. No bowel dilation. Intraperitoneal space: There are right upper quadrant clips. No free air. Bones/joints: Normal. No acute fracture. Soft tissues: Normal. XR/XR abdomen 3V [id number] IMPRESSION: No acute findings.
== END 2022-09-23 16:18 | disposition home or self-care (01) ==
PROVIDERS: PCP Nurse Practitioner Family; Visit Provider Surgery
DX: R10.9 Unspecified abdominal pain (principal)
CPT/HCPCS: 74021

== ENCOUNTER 2022-09-26 13:16 | Outpatient (CLI) | payer OTHER, MEDICAID, SELFPAY | END 2022-09-26 13:17 | disposition home or self-care (01) | PROVIDERS: PCP Nurse Practitioner Family; Visit Provider Internal Medicine | DX: R53.83 Other fatigue (principal); E03.8 Other specified hypothyroidism; E06.3 Autoimmune thyroiditis | CPT/HCPCS: 84439; 84443 ==

== ENCOUNTER 2022-10-12 16:32 | Outpatient (CLI) | payer OTHER, MEDICAID, SELFPAY ==
[2022-10-12 20:37] LABS: Free T4 Free Thyroxine 0.22 ng/dL (0.82-1.77)
== END 2022-10-12 16:33 | disposition home or self-care (01) ==
PROVIDERS: PCP Nurse Practitioner Family; Visit Provider Internal Medicine
DX: R53.83 Other fatigue (principal)
CPT/HCPCS: 84439; 84443

== ENCOUNTER 2022-10-13 15:06 | Inpatient (IN) | payer OTHER, MEDICAID, SELFPAY ==
[2022-10-13 15:33] VITALS: BMI 22.1
[2022-10-13 16:00] VITALS: BP 104/68; PULSE 53; RESP 16; TEMP 36.6; O2SAT 98
[2022-10-13 17:46] VITALS: BP 104/68; PULSE 53; RESP 16; TEMP 36.6; O2SAT 98
[2022-10-13 18:04] VITALS: O2SAT 95
--- NOTE | 2022-10-13 18:09 | P.HP_ITS ---
Providers/Chief Complaint Admitting Physician: Gilles Berry MD Primary Care Provider: Annie Cadet Chief Complaint: Myxedema With out coma History of Present Illness Farhad Ardon is a 22 year old female with past medical history of hypothyroidism post thyroidectomy, recent diagnosis of H. pylori on treatment, Alireza's thyroiditis was sent in as a direct admit from endocrine office. Patient complains of feeling anxious, palpitations, tired, intolerance to cold which has been getting worse over last 2 to 3 weeks. Patient states her dose of levothyroxine as an outpatient has been trended up gradually over last few months because of uncontrolled hypothyroidism. Currently she is taking 1400 mcg of levothyroxine without any benefit. Patient denies of having uncontrolled hypothyroidism to this extent anytime in [facility]. She is 2 para 2 with youngest child born 11 months ago. She denies of having any headache, any breast discharge, dysuria, diarrhea but does complain of on and off constipation. Today as an outpatient she was found to have a TSH level of more than 200 hence admission was sought for IV levothyroxine treatment. Patient complains of feeling anxious. Review of Systems General: Reports: 10 or more systems reviewed and unremarkable except in HPI and below Const: Denies: fever(s), chills, body aches, change in appetite, change in weight, malaise, night sweats, diaphoresis, change in sleep pattern, daytime sleepiness or snoring Eyes: Denies: change in vision, blurry vision, photophobia, eye discomfort or eye discharge ENMT: Denies: throat pain, enlarged tonsils, hoarseness, mouth pain, oral sores, dry mouth, tinnitus, nasal congestion or post nasal drip Card: Denies: chest pain, palpitations, irregular heart rhythm, edema, swelling of feet/ankles, lightheadedness, syncope, pre-syncope, dyspnea on exertion, orthopnea, leg pain with exertion or acrocyanosis Resp: Denies: dyspnea, productive cough, non-productive cough, wheezing, stridor, pain on inspiration, change in phlegm color, hemoptysis or chest congestion GI: Denies: abdominal pain, nausea, vomiting, hematemesis, coffee ground emesis, dysphagia, heartburn, diarrhea, constipation, bloating, GI cramping, change in bowel habits, pain on defecation, hematochezia or melena : Denies: flank pain, dysuria, urinary frequency, urinary urgency, urinary hesitancy, nocturia or hematuria Musc: Denies: neck pain, back pain, extremity pain, joint pain, joint swelling, joint redness, joint stiffness or limited range of motion Neuro: Denies: headache(s), numbness in extremities, weakness in extremities, sensory changes, lack of coordination, difficulty walking, frequent falls, dizziness, vertigo, confusion, Slurred speech present, difficulty communicating thoughts or seizure-like activity Psych: Denies: anxiety, depression, mood swings, panic attacks, hopelessness or irritability Endo: Denies: polyuria, polydipsia, tired all the time, cold intolerance, excessive sweating, flushing or heat intolerance Alok/Lymph: Denies: easy bruising or easy bleeding All/Imm: Denies: tongue swelling, facial swelling or acute wheezing Medications/Allergies Home Medications Medication Instructions Recorded Confirmed Last Taken Type lactulose 10 gram oral packet 10 g PO DAILY PRN constipation #15 08/09/22 10/13/22 09/15/22 Rx ea naproxen 500 mg tablet (Naprosyn) 500 mg PO BID PRN pain 09/13/22 10/13/22 Unknown History levothyroxine 200 mcg capsule 1,400 mcg PO DAILY 09/20/22 10/13/22 09/21/22 History (Tirosint) clarithromycin 500 mg tablet 500 mg PO BID 14 days #28 tabs 10/06/22 10/13/22 Unknown Rx ketorolac 10 mg tablet 10 mg PO TID PRN 10/06/22 10/13/22 Unknown History metronidazole 500 mg tablet 500 mg PO BID 14 days #28 tabs 10/06/22 10/13/22 Unknown Rx pantoprazole 40 mg tablet,delayed 40 mg PO BID 14 days #28 tabs 10/06/22 10/13/22 Unknown Rx release (Protonix) sucralfate 1 gram tablet (Carafate) 1 g PO Q6H #14 tabs 10/06/22 10/13/22 Unknown Rx tizanidine 4 mg capsule 4 mg PO BID PRN 10/06/22 10/13/22 Unknown History Allergies Allergy/AdvReac Type Severity Reaction Status Date / Time amoxicillin Allergy ADR-Nausea Verified 10/13/22 14:03 Penicillins Allergy ADR-Nausea Verified 10/13/22 14:03 PFSH Acute PFSH: Medical History (Updated 10/13/22 @ 18:16 by Gilles Berry MD) Celiac disease 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 No pertinent family history Severe hypothyroidism Surgical History (Updated 10/13/22 @ 18:12 by Gilles Berry MD) History of laparoscopic appendectomy History of laparoscopic cholecystectomy History of myringotomy History of thyroid surgery History of tonsillectomy and adenoidectomy Social History (Updated 10/13/22 @ 18:17 by Gilles Berry MD) Smoking and tobacco status: never smoked Alcohol intake: never Substance/Drug Use: never Caregiver/support person: Yes Lives independently: Yes Household members: family Housing: House Marital status: Current occupational status: employed Vitals/I&O/Wt Last Vital Signs Temp 97.9 F 10/13/22 16:00 Pulse 53 L 10/13/22 16:00 Resp 16 10/13/22 16:00 BP 104/68 10/13/22 16:00 Pulse Ox 98 10/13/22 16:00 O2 Del Method Room Air 10/13/22 15:33 Weight last 48 hrs Weight 56.699 kg Physical Exam Narrative: General: No acute distress, AO x3, anxious HEENT: PERRLA, pupils bilaterally equal and reactive Chest: Normal vesicular breath sounds, no added sounds, equal good air entry bilaterally CVS: S1-S2 regular, no murmurs, bradycardia, no gallops, no rubs Abdomen: Soft, nontender, no organomegaly, bowel sounds present Neuro: No focal deficits, no facial deformity, AO x3, power 5/5 in all limbs A&P Assessment and plan (1) Severe hypothyroidism: (2) H. 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 pylori. Severe hypothyroidism: Patient complains of fatigue, anxiety, constipation, cold intolerance and found to have bradycardia. Patient is awake and alert. Appreciate TSH and free T4 levels. Check cortisol level. If cortisol level is appropriate we will start patient on levothyroxine at 65 mcg daily dose as per body weight and endocrine recommendations. We will check thyroid panel every 48 hours. Telemetry monitoring. Check anti-TPO, thyroglobulin. H. pylori: Recently diagnosed with biopsy. Continue outpatient treatment of erythromycin, metronidazole, pantoprazole and Carafate. Check iron panel, CBC, CMP, vitamin B12, folate, cortisol level, urinalysis, beta-hCG, Start on Xanax 0.5 twice daily as needed. Full code Regular diet. Low probability of VTE. Early ambulation. Attestations Medical Necessity Statement*: Admission for more than 2 midnights for management of severe hypothyroidism with symptoms concerning for myxedema without coma with failure of outpatient treatment Diagnoses Severe hypothyroidism E03.9 H. 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
[2022-10-13] MEDS: clarithromycin 500 mg Tablet PO (18:46)
[2022-10-13] MEDS: pantoprazole DR 40 mg Tablet PO (18:46)
[2022-10-13] MEDS: metroNIDAZOLE 500 MG Tablet PO (18:46)
[2022-10-13] MEDS: sucralfate 1 gm Tablet PO ×2 (18:46→23:27)
[2022-10-13] MEDS: sodium chloride 0.9% 1,000 ML 50 ML IV (18:49)
[2022-10-13 19:28] LABS: Basophils % 0.5 %; Eosinophils # 0.1 10^3/uL (0.0-0.8); Eosinophils % 2.2 %; Hematocrit 33.8 % (36-47); Lymphocytes # 3.1 10^3/uL (0.8-4.8); Lymphocytes % 52.4 %; Mean Corpuscular HGB Conc 33.1 g/dL (30-55); Mean Corpuscular Hemoglobin 29.6 pg (27-33); Mean Corpuscular Volume 89.4 fl (85-98); Mean Platelet Volume 10.4 fL (7.4-10.4); Monocytes # 0.2 10^3/uL (0.2-0.9); Monocytes % 4.1 %; Neutrophils # 2.39 10^3/uL (1.8-7.7); Neutrophils % 40.6 %; Nucleated Red Blood Cells % 0 %; Platelet Count 233 10^3/cmm (157-399); Red Blood Count 3.78 10^6/uL (3.85-5.65); Red Cell Distribution Width 17.4 % (12.1-15.1); White Blood Count 5.88 10^3/uL (3.29-11.43)
[2022-10-13 20:00] VITALS: BP 103/71; PULSE 82; RESP 17; TEMP 36.8; O2SAT 97
[2022-10-13 20:15] LABS: Procalcitonin 0.03 ng/mL (0-0.5); Vitamin B12 460 pg/mL (232-1245)
[2022-10-13] MEDS: ondansetron 2 mg/ML SDV 2 mL 4 MG IVP (20:23)
[2022-10-13] MEDS: ALPRAZolam 0.5 mg Tablet PO (20:24)
[2022-10-13 20:26] LABS: Alanine Aminotransferase 8 U/L (0-33); Albumin Level 4.6 g/dL (3.5-5.2); Alkaline Phosphatase 40 U/L (35-105); Anion Gap 14.8 (5-19); Aspartate Amino Transferase 17 U/L (0-32); Blood Urea Nitrogen 10 mg/dL (6-20); Calcium 8.3 mg/dL (8.5-10.5); Carbon Dioxide 26 mmol/L (22-29); Chloride 103 mmol/L (98-107); Creatinine Clr Calc Pharmacy 83.0586; Globulin 2.2 g/dL (1.3-4.6); Glomerular Filtration Rate 77.6 mL/min (90-130); Glucose 80 mg/dL (65-115); Iron 52 ug/dL (37-145); Osmolality Calculated 288 mOsm/kg (285-295); Percent Saturation 17.7 % (20-50); Potassium 3.8 mmol/L (3.5-5.1); Sodium 140 mmol/L (136-145); Total Bilirubin 0.7 mg/dL (0.15-1.2); Total Iron Binding Capacity 293 mcg/dl; Total Protein 6.8 g/dL (6.6-8.7); Unsaturated Iron Binding 241 ug/dL (112-347)
[2022-10-13 21:21] LABS: Cortisol Random 3.32 ug/dL (2.47-19.5)
[2022-10-13 22:00] VITALS: PULSE 56
[2022-10-13] MEDS: hydrocortisone 100 mg/2 mL SDV 50 MG IVP (22:09)
[2022-10-13] MEDS: levothyroxine 100 mcg SDV 65 MCG IVP (22:24)
[2022-10-13 23:47] VITALS: BP 107/76; PULSE 88; RESP 15; TEMP 36.8; O2SAT 97
[2022-10-14] VITALS (11 sets, daily range): BP systolic 93–109; BP diastolic 59–72; PULSE 53–84; RESP 15–19; TEMP 36.6–36.8; O2SAT 96–100; BMI 23.3
[2022-10-14 04:49] LABS: Basophils % 0.3 %; Eosinophils % 0.3 %; Hematocrit 34.8 % (36-47); Lymphocytes # 1.5 10^3/uL (0.8-4.8); Lymphocytes % 22.3 %; Mean Corpuscular HGB Conc 32.2 g/dL (30-55); Mean Corpuscular Hemoglobin 28.7 pg (27-33); Mean Corpuscular Volume 89.2 fl (85-98); Monocytes # 0.1 10^3/uL (0.2-0.9); Monocytes % 1.9 %; Neutrophils # 5.09 10^3/uL (1.8-7.7); Neutrophils % 74.6 %; Nucleated Red Blood Cells % 0 %; Platelet Count 232 10^3/cmm (157-399); Red Cell Distribution Width 17.3 % (12.1-15.1); White Blood Count 6.82 10^3/uL (3.29-11.43)
[2022-10-14 05:13] LABS: Alanine Aminotransferase 8 U/L (0-33); Albumin Level 4.3 g/dL (3.5-5.2); Alkaline Phosphatase 38 U/L (35-105); Anion Gap 13.3 (5-19); Aspartate Amino Transferase 17 U/L (0-32); Blood Urea Nitrogen 11 mg/dL (6-20); Calcium 8.1 mg/dL (8.5-10.5); Carbon Dioxide 25 mmol/L (22-29); Chloride 106 mmol/L (98-107); Globulin 2.2 g/dL (1.3-4.6); Glomerular Filtration Rate 55.7 mL/min (90-130); Glucose 112 mg/dL (65-115); Osmolality Calculated 290 mOsm/kg (285-295); Potassium 4.3 mmol/L (3.5-5.1); Sodium 140 mmol/L (136-145); Total Bilirubin 0.9 mg/dL (0.15-1.2); Total Protein 6.5 g/dL (6.6-8.7)
[2022-10-14 05:14] LABS: Chol HDL Ratio 2.14 mg/dL (0.0-4.40); Cholesterol 137 mg/dL (0-200); HDL Cholesterol 64 mg/dL (60-100); LDL Cholesterol Calculated 66 mg/dL (50-129); LDL HDL Ratio 1.03 RATIO (0.00-3.22); Magnesium 2.2 mg/dL (1.7-2.3); Phosphorus 4.3 mg/dL (2.5-4.5); Triglycerides 36 mg/dL (0-150); VLDL Cholestrol Calculation 7 mg/dL (0-30)
[2022-10-14 05:17] LABS: Estmated Average Glucose 105; Hemoglobin A1C 5.3 % (4.0-6.0)
[2022-10-14] MEDS: sucralfate 1 gm Tablet PO ×4 (05:20→22:45)
[2022-10-14 05:35] LABS: Folate Level 11.4 ng/mL (4.8-37.3)
[2022-10-14] MEDS: metroNIDAZOLE 500 MG Tablet PO ×2 (08:50→17:55)
[2022-10-14] MEDS: pantoprazole DR 40 mg Tablet PO ×2 (08:50→17:55)
[2022-10-14] MEDS: clarithromycin 500 mg Tablet PO ×2 (08:50→17:55)
--- NOTE | 2022-10-14 08:59 | PC.CHAP ---
Pastoral Care Encounter/Spiritual Assessment Type of Contact [] Declined recovery manager visit [] Patient/Family/Request visit [] Outpatient visit [] Follow-up visit [] Physician referral [] Code/Alert [x] Routine visit [] Staff referral [] Actively dying [] Patient sleeping [] Family support [] [] Out of room [] Palliative care [] [] Receiving care in room [] Pre-surgical visit [] Trauma [] Long length of stay [] ICU visit [] Other: Relational/Emotional Strength [x] Patient feels connected with others/family/visitors/staff [] Distress [] Loneliness/isolation [] Abandonment Spirituality of Patient [x] Person of [place] [] Attends Anglican of their [place] [x] Believes in Prayer [] Reads Bible or Amish materials [] There are Spiritual issues to be addressed Supervisory Lifeguard Interventions [x] Prayer [x] Active listening [] Non-anxious presence [x] Spiritual/emotional support [] Crisis/trauma care [] Spiritual counseling [] Bereavement support [] Provided bereavement packet [] Provided Bible/devotional materials [] Provided toy/stuffed animal, coloring book to patient or family member [] Provided Communion [] Anointing/[place] [] Salvation [x] Completed spiritual assessment [] Other: Impact on Illness or Injury [] Angry [] Fearful [] Anxious [] Often cries [] Exhaustion [] Unable to work [] Unable to attend zoroastrianism [] Unable to walk/stand [] Unable to read [] Unable to drive [] Unable to eat/drink [] Unable to sleep [] Unable to be with family [] Patient intubated [] Other: Summary Time spent with patient 5 min
[2022-10-14 10:05] LABS: Add Urine Microscopic? YES; Bilirubin Urine Neg (Negative); Blood Urine Neg (Negative); Glucose Urine UA Norm (Normal); Ketones Urine Negative (Negative); Leukocyte Esterase Urine Trace (Negative); Nitrate Urine Negative (Negative); Protein Urine Neg (Negative); Urine Appearance Clear (CLEAR); Urine Color Yellow (Yellow); Urobilinogen Urine Norm (Negative); pH Urine 6 (5-7)
[2022-10-14 10:06] LABS: Bacteria Urine 1+ /hpf; RBC Urine RARE /hpf (0-2); Squamous Epithelial Cell Urine 0-4 /hpf (0-5); WBC Urine 0-4 /hpf (0-5)
[2022-10-14] MEDS: ondansetron 2 mg/ML SDV 2 mL 4 MG IVP ×2 (10:09→18:04)
[2022-10-14] MEDS: morphine 4 mg/mL SDV 1 mL 2 MG IVP ×2 (11:24→19:42)
[2022-10-14] MEDS: sodium chloride 0.9% 1,000 ML 50 ML IV (15:11)
--- NOTE | 2022-10-14 16:19 | PM.PN ---
Subjective Subjective: Noted events overnight. Overnight patient had a restful night. Did had 1 episode of vomiting after taking her medications overnight. Today morning nauseous but no vomiting. Denies any headache. Blood work appreciated.Shows stable CBC, CMP showing mildly elevated creatinine of 1.2. Overnight patient did receive 50 mg of hydrocortisone and then IV levothyroxine. Vitals/I&O/Wt Last Vital Signs Temp 98.0 F 10/14/22 11:10 Pulse 74 10/14/22 14:00 Resp 16 10/14/22 11:24 BP 103/68 10/14/22 11:10 Pulse Ox 100 10/14/22 11:10 O2 Del Method Room Air 10/13/22 23:47 10/14/22 10/14/22 10/14/22 06:59 14:59 22:59 Intake Total 1480 / 1480 Balance 1480 / 1480 Weight last 48 hrs Weight 59.874 kg Weight 56.699 kg Physical Exam Narrative: General: No acute distress, AO x3, anxious HEENT: PERRLA, pupils bilaterally equal and reactive Chest: Normal vesicular breath sounds, no added sounds, equal good air entry bilaterally CVS: S1-S2 regular, no murmurs, bradycardia, no gallops, no rubs Abdomen: Soft, nontender, no organomegaly, bowel sounds present Neuro: No focal deficits, no facial deformity, AO x3, power 5/5 in all limbs Data 10/14/22 04:33 10/14/22 04:33 Micro: Microbiology 10/13/22 18:38 Blood Culture - Preliminary Blood SPECIMEN COLLECTED 10/13/22 18:38 Blood Culture - Preliminary Blood SPECIMEN COLLECTED A&P Assessment and plan (1) Severe hypothyroidism: (2) H. 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 pylori. Severe hypothyroidism: Patient complains of fatigue, anxiety, constipation, cold intolerance and found to have bradycardia. Patient is awake and alert. Less anxious today. Not bradycardic today. By temperature better controlled. Cortisol level borderline low. Given 50 mg of IV cortisone. Continue with levothyroxine at 65 mcg daily. We will check thyroid panel every 48 hours. Telemetry monitoring for arrhythmias or tachycardia. Check anti-TPO, thyroglobulin. H. pylori: Recently diagnosed with biopsy. Continue outpatient treatment of erythromycin, metronidazole, pantoprazole and Carafate. Zofran as needed for nausea and vomiting. Continue on Xanax 0.5 twice daily as needed. Full code Regular diet. Low probability of VTE. Early ambulation. Attestations Medical Necessity Statement*: Requires further hospitalization for management of severe hypothyroidism with failure to outpatient treatment while thyroid profile is monitored. Diagnoses Severe hypothyroidism E03.9 H. 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
[2022-10-14] MEDS: levothyroxine 100 mcg SDV 65 MCG IVP (17:17)
[2022-10-14] MEDS: ALPRAZolam 0.5 mg Tablet PO (18:04)
[2022-10-14] MEDS: tizanidine 4 mg Tablet PO (19:41)
[2022-10-15] VITALS (10 sets, daily range): BP systolic 90–99; BP diastolic 46–63; PULSE 52–83; RESP 15–18; TEMP 36.2–36.6; O2SAT 57–99; BMI 24.4
[2022-10-15 05:01] LABS: Basophils % 0.5 %; Eosinophils # 0.1 10^3/uL (0.0-0.8); Eosinophils % 1.6 %; Hematocrit 30.8 % (36-47); Lymphocytes # 2.7 10^3/uL (0.8-4.8); Lymphocytes % 43.8 %; Mean Corpuscular HGB Conc 32.1 g/dL (30-55); Mean Corpuscular Volume 90.3 fl (85-98); Mean Platelet Volume 10.7 fL (7.4-10.4); Monocytes # 0.3 10^3/uL (0.2-0.9); Monocytes % 4.7 %; Neutrophils # 3.05 10^3/uL (1.8-7.7); Neutrophils % 49.1 %; Nucleated Red Blood Cells % 0 %; Platelet Count 216 10^3/cmm (157-399); Red Blood Count 3.41 10^6/uL (3.85-5.65); Red Cell Distribution Width 17.6 % (12.1-15.1); White Blood Count 6.21 10^3/uL (3.29-11.43)
[2022-10-15 05:23] LABS: Phosphorus 3.4 mg/dL (2.5-4.5)
[2022-10-15 05:24] LABS: Alanine Aminotransferase 9 U/L (0-33); Albumin Level 3.7 g/dL (3.5-5.2); Alkaline Phosphatase 32 U/L (35-105); Anion Gap 9.8 (5-19); Aspartate Amino Transferase 15 U/L (0-32); Blood Urea Nitrogen 9 mg/dL (6-20); Calcium 7.1 mg/dL (8.5-10.5); Carbon Dioxide 26 mmol/L (22-29); Chloride 109 mmol/L (98-107); Globulin 1.7 g/dL (1.3-4.6); Glomerular Filtration Rate 46.6 mL/min (90-130); Glucose 91 mg/dL (65-115); Magnesium 2.1 mg/dL (1.7-2.3); Osmolality Calculated 290 mOsm/kg (285-295); Potassium 3.8 mmol/L (3.5-5.1); Sodium 141 mmol/L (136-145); Total Bilirubin 0.8 mg/dL (0.15-1.2); Total Protein 5.4 g/dL (6.6-8.7)
[2022-10-15 05:29] LABS: Cortisol Random 3.05 ug/dL (2.47-19.5)
[2022-10-15] MEDS: sucralfate 1 gm Tablet PO (06:12)
[2022-10-15] MEDS: cosyntropin 0.25 mg SDV IVP (08:28)
[2022-10-15] MEDS: levothyroxine 100 mcg SDV 65 MCG IVP (08:42)
[2022-10-15] MEDS: morphine 4 mg/mL SDV 1 mL 2 MG IVP ×2 (08:43→17:08)
[2022-10-15] MEDS: tizanidine 4 mg Tablet PO ×2 (08:43→20:40)
[2022-10-15] MEDS: hydrocortisone 100 mg/2 mL SDV IVP (08:43)
[2022-10-15] MEDS: ketorolac 10 mg Tablet PO ×2 (08:48→17:08)
[2022-10-15] MEDS: clarithromycin 500 mg Tablet PO ×2 (08:48→17:28)
[2022-10-15] MEDS: pantoprazole DR 40 mg Tablet PO ×2 (08:48→17:28)
[2022-10-15] MEDS: metroNIDAZOLE 500 MG Tablet PO ×2 (08:48→17:28)
[2022-10-15] MEDS: ondansetron 2 mg/ML SDV 2 mL 4 MG IVP ×2 (08:49→17:30)
[2022-10-15 09:05] LABS: Cosyntropin Baseline 12.76 mcg/dL
[2022-10-15 09:53] LABS: Potassium, Radom Urine 40 mmol/L; Urine Creatinine 336 mg/dL (28-217); Urine Random Chloride 111 mmol/L; Urine Random Sodium 102 mmol/L
[2022-10-15] MEDS: sodium chloride 0.9% 1,000 ML 50 ML IV (10:56)
[2022-10-15] MEDS: magnesium hydroxide 30 mL UDC PO (13:14)
[2022-10-15] MEDS: levothyroxine 100 mcg SDV 50 MCG IVP (14:03)
--- NOTE | 2022-10-15 14:56 | P.PN_ITS ---
Subjective Subjective: Overnight patient was hypotensive with systolic blood pressures in 80s though patient was asymptomatic. Today morning examination patient states she is feeling better, laying comfortably in bed complaining of constipation. States she is not feeling cold. On telemetry patient has been bradycardic. She is not really sure about the urine output but she thinks she peed less yesterday though since today morning has been to the bathroom twice. Patient denies of any bleeding. Blood work appreciated for hemoglobin of 9.9 down from 11.2 yesterday, CMP showing creatinine up to 1.4 from 1.2 yesterday, TSH of 353 and free T4 improving to 0.4, family service center director cortisol of 3.05. Vitals/I&O/Wt Last Vital Signs Temp 97.8 F 10/15/22 07:20 Pulse 52 L 10/15/22 11:07 Resp 18 10/15/22 11:07 BP 95/57 10/15/22 11:07 Pulse Ox 98 10/15/22 11:07 O2 Del Method Room Air 10/15/22 07:20 10/14/22 10/15/22 10/15/22 22:59 06:59 14:59 Intake Total 360 / 1840 1327.5 / 1327.5 Balance 360 / 1840 1327.5 / 1327.5 Weight last 48 hrs Weight 62.596 kg Weight 59.874 kg Weight 56.699 kg Physical Exam Narrative: General: No acute distress, AO x3, pallor present HEENT: PERRLA, pupils bilaterally equal and reactive Chest: Normal vesicular breath sounds, no added sounds, equal good air entry bilaterally CVS: S1-S2 regular, no murmurs, bradycardia, no gallops, no rubs Abdomen: Soft, nontender, no organomegaly, bowel sounds present Neuro: No focal deficits, no facial deformity, AO x3, power 5/5 in all limbs Data 10/15/22 04:14 10/15/22 04:14 Micro: Microbiology 10/13/22 18:38 Blood Culture - Preliminary Blood NEGATIVE TO DATE 10/13/22 18:38 Blood Culture - Preliminary Blood NEGATIVE TO DATE A&P Assessment and plan (1) Severe hypothyroidism: (2) H. 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 pylori. Severe hypothyroidism: Patient complains of fatigue, anxiety, constipation, cold intolerance and found to have bradycardia. Patient is awake and alert. Continues to have bradycardia, no hypothermia. No random family service center director cortisol level. Concerns for adrenal insufficiency in setting of severe hypothyroidism. ACTH stimulation test. Care discussed in detail with outpatient meteorological observer Dr. Goins. She recommends to repeat stimulation test once free T4 levels normal. Agreeable with starting patient on hydrocortisone 1 mg/kg body weight every 12 hourly. Increasing dose of levothyroxine to 88 mcg daily. Daily free T4 levels. We will stop Carafate. Check ESR, CRP. Acute kidney injury: Creatinine up to 1.4. Most likely in setting of relative hypotension along with hypothyroidism Medical reconciliation done for nephrotoxic drugs. Check urine lites, urine creatinine. Continue with IV fluids at 50 cc/h. Appreciate electrolyte levels. Mild hypocalcemia today to 7.1. Check renal ultrasound. Check PTH. H. pylori: Recently diagnosed with biopsy. Continue outpatient treatment of erythromycin, metronidazole, pantoprazole. Zofran as needed for nausea and vomiting. History of celiac disease: Anti-gliad IgG levels elevated. Bowel regimen. Continue on Xanax 0.5 twice daily as needed. Full code Regular diet. Low probability of VTE. Early ambulation. Patient's care plan discussed in detail with her at bedside. Tried calling her [id number] on [phone] but not able to get low. Have left a voice message. Attestations Medical Necessity Statement*: Requires further hospitalization for management of severe hypothyroidism with concerns for adrenal insufficiency with failure of outpatient treatment Diagnoses Severe hypothyroidism E03.9 H. 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
[2022-10-15 15:51] LABS: Calcium 7.2 mg/dL (8.5-10.5)
[2022-10-15 15:57] LABS: Parathyroid Hormone 37.6 pg/mL (15-65)
[2022-10-15] MEDS: calcium gluconate 0.9% NaCL 1 GM/50 ML PREMIX IV (16:15)
[2022-10-15] MEDS: hydrocortisone 100 mg/2 mL SDV 60 MG IVP (17:29)
[2022-10-15] MEDS: ALPRAZolam 0.5 mg Tablet PO (19:36)
[2022-10-15] MEDS: bisacodyl 5 mg Tablet 10 MG PO (19:52)
[2022-10-16] VITALS (11 sets, daily range): BP systolic 94–133; BP diastolic 57–83; PULSE 52–95; RESP 16–17; TEMP 36.2–37; O2SAT 96–98; BMI 24.4
[2022-10-16 04:57] LABS: Basophils % 0.1 %; Hematocrit 30.5 % (36-47); Lymphocytes # 1.4 10^3/uL (0.8-4.8); Lymphocytes % 13.2 %; Mean Corpuscular HGB Conc 32.8 g/dL (30-55); Mean Corpuscular Hemoglobin 29.4 pg (27-33); Mean Corpuscular Volume 89.7 fl (85-98); Mean Platelet Volume 10.6 fL (7.4-10.4); Monocytes # 0.4 10^3/uL (0.2-0.9); Neutrophils % 81.9 %; Nucleated Red Blood Cells % 0 %; Platelet Count 223 10^3/cmm (157-399); Red Cell Distribution Width 17.7 % (12.1-15.1); White Blood Count 10.37 10^3/uL (3.29-11.43)
[2022-10-16 05:31] LABS: Alanine Aminotransferase 12 U/L (0-33); Alkaline Phosphatase 34 U/L (35-105); Anion Gap 13.9 (5-19); Aspartate Amino Transferase 16 U/L (0-32); Blood Urea Nitrogen 12 mg/dL (6-20); Calcium 7.5 mg/dL (8.5-10.5); Carbon Dioxide 24 mmol/L (22-29); Chloride 109 mmol/L (98-107); Free T4 Free Thyroxine 0.58 ng/dL (0.82-1.77); Globulin 1.7 g/dL (1.3-4.6); Glomerular Filtration Rate 55.7 mL/min (90-130); Glucose 115 mg/dL (65-115); Magnesium 2.1 mg/dL (1.7-2.3); Osmolality Calculated 297 mOsm/kg (285-295); Potassium 3.9 mmol/L (3.5-5.1); Sodium 143 mmol/L (136-145); Total Bilirubin 0.7 mg/dL (0.15-1.2); Total Protein 5.7 g/dL (6.6-8.7)
[2022-10-16] MEDS: hydrocortisone 100 mg/2 mL SDV 60 MG IVP ×2 (05:35→18:10)
[2022-10-16] MEDS: levothyroxine 100 mcg SDV 88 MCG IVP (08:25)
[2022-10-16] MEDS: pantoprazole DR 40 mg Tablet PO ×2 (10:00→18:13)
[2022-10-16] MEDS: metroNIDAZOLE 500 MG Tablet PO ×2 (10:00→18:13)
[2022-10-16] MEDS: clarithromycin 500 mg Tablet PO ×2 (10:00→18:13)
[2022-10-16] MEDS: lactulose oral liq 20 gm/30 mL UDC 10 GM PO (10:02)
[2022-10-16] MEDS: ondansetron 2 mg/ML SDV 2 mL 4 MG IVP ×2 (11:20→18:18)
[2022-10-16] MEDS: ketorolac 10 mg Tablet PO (12:15)
--- NOTE | 2022-10-16 15:20 | P.PN_ITS ---
Subjective Subjective: No acute events overnight. Seen today morning sitting up in chair. Having her food. States feeling better but more tired today. Denies any nausea vomiting, headache. Had bowel movement today. Blood work shows stable CBC, CMP showing creatinine improving to 1.2, calcium improving to 7.5, T4 improving to 0.58 and free T3 of 1. Vitals/I&O/Wt Last Vital Signs Temp 98.5 F 10/16/22 12:00 Pulse 76 10/16/22 14:00 Resp 16 10/16/22 12:00 BP 101/65 10/16/22 12:00 Pulse Ox 97 10/16/22 12:00 O2 Del Method Room Air 10/16/22 12:00 10/16/22 10/16/22 10/16/22 06:59 14:59 22:59 Intake Total 110 / 2087.5 840 / 840 Output Total 200 / 200 Balance -90 / 1887.5 840 / 840 Weight last 48 hrs Weight 62.596 kg Weight 62.596 kg Physical Exam Narrative: General: No acute distress, AO x3, pallor present HEENT: PERRLA, pupils bilaterally equal and reactive Chest: Normal vesicular breath sounds, no added sounds, equal good air entry bilaterally CVS: S1-S2 regular, no murmurs, bradycardia, no gallops, no rubs Abdomen: Soft, nontender, no organomegaly, bowel sounds present Neuro: No focal deficits, no facial deformity, AO x3, power 5/5 in all limbs Data 10/16/22 04:35 10/16/22 04:35 A&P Assessment and plan (1) Severe hypothyroidism: (2) H. 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 pylori. Severe hypothyroidism: Patient complains of fatigue, anxiety, constipation, cold intolerance and found to have bradycardia. Patient is awake and alert. Continues to have bradycardia, no hypothermia. No random spanish language lecturer cortisol level. Concerns for adrenal insufficiency in setting of severe hypothyroidism. ACTH stimulation test. Care discussed in detail with outpatient document analyst Dr. Goins. She recommends to repeat stimulation test once free T4 levels normal. Agreeable with starting patient on hydrocortisone 1 mg/kg body weight every 12 hourly. Increasing dose of levothyroxine to 88 mcg daily. Daily free T4 levels. We will stop Carafate. Check ESR, CRP. Acute kidney injury: Creatinine up to 1.4. Most likely in setting of relative hypotension along with hypothyroidism Medical reconciliation done for nephrotoxic drugs. Check urine lites, urine creatinine. Continue with IV fluids at 50 cc/h. Appreciate electrolyte levels. Mild hypocalcemia today to 7.1. H. pylori: Recently diagnosed with biopsy. Continue outpatient treatment of erythromycin, metronidazole, pantoprazole. Zofran as needed for nausea and vomiting. History of celiac disease: Anti-gliad IgG levels elevated. Bowel regimen. Continue on Xanax 0.5 twice daily as needed. Full code Regular diet. Low probability of VTE. Early ambulation. Plan for the day: Discussed in detail with outpatient document analyst. Continue with current dose of levothyroxine at 88 mcg daily. Repeat free T4 levels tomorrow. If continue to improve can continue at 88 mcg daily otherwise will increase the dose to 100 mcg daily. Once free T4 levels are normal we will repeat cosyntropin stimulation test. Once free T4 levels are normal we will also do levothyroxine absorption test to rule out malabsorption in setting of celiac/H. pylori versus noncompliance. We will plan to give 1000 mcg of levothyroxine to patient and check free T4 levels pre and 2-hour post the dose. Continue with current dose of steroid. Day 2 today. We will cut down to 60 mg IV daily from tomorrow. Patient's care plan discussed in detail with her at bedside. Tried calling her [id number] on [phone] but not able to get low. Have left a voice message. Attestations Medical Necessity Statement*: Requires further hospitalization for management of severe hypothyroidism in setting of failure to outpatient treatment, adrenal insufficiency, NIKKO Diagnoses Severe hypothyroidism E03.9 H. 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
[2022-10-16] MEDS: morphine 4 mg/mL SDV 1 mL 2 MG IVP ×2 (15:54→20:39)
[2022-10-16] MEDS: tizanidine 4 mg Tablet PO (20:39)
[2022-10-16] MEDS: ALPRAZolam 0.5 mg Tablet PO (22:25)
[2022-10-16 23:56] LABS: Blood Urine Neg (Negative); Glucose Urine UA Norm (Normal); Ketones Urine Negative (Negative); Nitrate Urine Negative (Negative); Protein Urine Trace (Negative); Specific Gravity, Urine 1.015 (1.005-1.030); Urine Appearance Hazy (CLEAR); Urine Color Amber (Yellow); pH Urine 6 (5-7)
[2022-10-16 23:57] LABS: Add Urine Culture? No; Add Urine Microscopic? YES; Bacteria Urine 1+ /hpf; Bilirubin Urine Neg (Negative); Leukocyte Esterase Urine 1+ (Negative); RBC Urine 0-4 /hpf (0-2); Urobilinogen Urine Neg (Negative); WBC Urine 0-4 /hpf (0-5)
[2022-10-17] VITALS (11 sets, daily range): BP systolic 92–101; BP diastolic 50–69; PULSE 49–70; RESP 14–18; TEMP 36.5–36.8; O2SAT 94–99
[2022-10-17 05:28] LABS: Alanine Aminotransferase 12 U/L (0-33); Albumin Level 3.9 g/dL (3.5-5.2); Alkaline Phosphatase 35 U/L (35-105); Anion Gap 12.6 (5-19); Aspartate Amino Transferase 12 U/L (0-32); Blood Urea Nitrogen 10 mg/dL (6-20); Calcium 7.2 mg/dL (8.5-10.5); Carbon Dioxide 24 mmol/L (22-29); Chloride 107 mmol/L (98-107); Globulin 1.8 g/dL (1.3-4.6); Glomerular Filtration Rate 55.7 mL/min (90-130); Glucose 135 mg/dL (65-115); Osmolality Calculated 291 mOsm/kg (285-295); Potassium 3.6 mmol/L (3.5-5.1); Sodium 140 mmol/L (136-145); Total Bilirubin 0.6 mg/dL (0.15-1.2); Total Protein 5.7 g/dL (6.6-8.7)
[2022-10-17 06:03] LABS: Free T4 Free Thyroxine 0.68 ng/dL (0.82-1.77); T3 Free 1.1 PG/ML (2.0-4.4)
[2022-10-17] MEDS: hydrocortisone 100 mg/2 mL SDV 60 MG IVP ×2 (06:38→18:54)
[2022-10-17] MEDS: levothyroxine 100 mcg SDV 88 MCG IVP (08:44)
[2022-10-17] MEDS: tizanidine 4 mg Tablet PO ×2 (09:25→20:36)
[2022-10-17] MEDS: metroNIDAZOLE 500 MG Tablet PO ×2 (09:25→18:47)
[2022-10-17] MEDS: clarithromycin 500 mg Tablet PO ×2 (09:26→18:47)
[2022-10-17] MEDS: pantoprazole DR 40 mg Tablet PO ×2 (09:26→18:47)
[2022-10-17] MEDS: ondansetron 2 mg/ML SDV 2 mL 4 MG IVP ×2 (09:41→18:53)
[2022-10-17 10:24] LABS: Thyroid Peroxidase Antobodies 30 IU/mL (<9)
--- NOTE | 2022-10-17 15:50 | P.PN_ITS ---
Subjective Subjective: Farhad reports ongoing urinary symptoms. Endorses difficulty urinating with suprapubic discomfort. Eventually was able to urinate. Discussed thyroid numbers are slowly improving. Appetite remains poor. Vitals/I&O/Wt Last Vital Signs Temp 97.7 F 10/17/22 11:45 Pulse 55 L 10/17/22 11:45 Resp 14 10/17/22 11:45 BP 100/69 10/17/22 11:45 Pulse Ox 99 10/17/22 11:45 O2 Del Method Room Air 10/17/22 11:45 10/17/22 10/17/22 10/17/22 06:59 14:59 22:59 Intake Total 60 / 1500 600 / 600 Output Total 200 / 300 Balance -140 / 1200 600 / 600 Weight last 48 hrs Weight 62.596 kg Physical Exam Narrative: General: Patient is awake. Appears fatigued but very pleasant. Lying in bed. Head: Normocephalic. Atraumatic. EOM intact. Neck: No JVD. Cardiovascular: No heaves. No gallops. No murmurs. Lungs: Clear to auscultation, no use of accessory muscles, no crackles or wheezes. Skin: No jaundice. No rashes. Abdomen: Hypoactive bowel sounds, abdomen TTP. Genito Urinary: Suprapubic tenderness. Extremities: No cyanosis or clubbing. Musculoskeletal: No swollen or erythematous joints. Neurological: Moves all 4 extremities. No myoclonus. Data 10/16/22 04:35 10/17/22 04:18 A&P Assessment and plan (1) Severe hypothyroidism: TFTs improving, repeat daily testing daily, awaiting free T4 to normalize Continue Synthroid 88 mcg IV daily Continue IV steroids at current dose Planning on cosyntropin stim test and synthroid absorption test when free T4 normalizes Appreciate input from account receivable associate Dr. 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 pylori infection: Carafate discontinued due to concern for Synthroid absorption Continue clarithromycin Continue Flagyl Continue PPI (4) Fatigue: Likely multifactorial Treat underlying endocrinopathies Control pain (5) NIKKO (acute kidney injury): Renal function has improved Encourage oral intake (6) Anxiety: Continue Xanax as needed (7) Urinary pain: Etiology unclear, possibly medication side effect Bladder scan as needed Strict I's and O's Daily weights Analgesics suggested Plan DVT prophylaxis: Encourage ambulation CODE STATUS: Full code Attestations Medical Necessity Statement*: Patient requires ongoing hospitalization for treatment of her severe endocrinopathies requiring IV steroids and IV levothyroxine. 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 pylori infection A04.8 Fatigue R53.83 NIKKO (acute kidney injury) N17.9 Anxiety F41.9 Urinary pain R30.9
[2022-10-17] MEDS: oxyCODONE 5 mg IR Tab/Cap PO ×2 (16:24→20:36)
[2022-10-17 16:48] LABS: Urine Appearance Clear (CLEAR); Urine Color Yellow (Yellow)
[2022-10-17 16:49] LABS: Add Urine Microscopic? YES; Bacteria Urine TRACE /hpf; Bilirubin Urine Neg (Negative); Blood Urine Neg (Negative); Glucose Urine UA Norm (Normal); Ketones Urine Negative (Negative); Leukocyte Esterase Urine Trace (Negative); Nitrate Urine Negative (Negative); Protein Urine Neg (Negative); Urobilinogen Urine Norm (Negative); WBC Urine 0-4 /hpf (0-5); pH Urine 6.5 (5-7)
[2022-10-17 16:50] LABS: Add Urine Culture? No
[2022-10-17] MEDS: ALPRAZolam 0.5 mg Tablet PO (20:36)
[2022-10-18] VITALS (11 sets, daily range): BP systolic 96–111; BP diastolic 59–74; PULSE 52–77; RESP 15–18; TEMP 36.5–36.8; O2SAT 96–98; BMI 23.0
[2022-10-18] MEDS: oxyCODONE 5 mg IR Tab/Cap PO ×4 (03:51→19:34)
[2022-10-18] MEDS: hydrocortisone 100 mg/2 mL SDV 60 MG IVP ×2 (05:06→17:19)
[2022-10-18 06:08] LABS: Basophils % 0.1 %; Hematocrit 29.7 % (36-47); Lymphocytes # 1.8 10^3/uL (0.8-4.8); Mean Corpuscular HGB Conc 33.3 g/dL (30-55); Mean Platelet Volume 10.6 fL (7.4-10.4); Monocytes # 0.4 10^3/uL (0.2-0.9); Monocytes % 3.4 %; Neutrophils # 8.09 10^3/uL (1.8-7.7); Neutrophils % 78.3 %; Nucleated Red Blood Cells % 0 %; Platelet Count 220 10^3/cmm (157-399); Red Cell Distribution Width 18.2 % (12.1-15.1); White Blood Count 10.33 10^3/uL (3.29-11.43)
[2022-10-18 06:28] LABS: Albumin Level 3.7 g/dL (3.5-5.2); Anion Gap 10.6 (5-19); Blood Urea Nitrogen 10 mg/dL (6-20); Calcium 7.2 mg/dL (8.5-10.5); Carbon Dioxide 26 mmol/L (22-29); Chloride 105 mmol/L (98-107); Glomerular Filtration Rate 68.7 mL/min (90-130); Glucose 119 mg/dL (65-115); Potassium 3.6 mmol/L (3.5-5.1); Sodium 138 mmol/L (136-145)
[2022-10-18 06:40] LABS: Free T4 Free Thyroxine 0.72 ng/dL (0.82-1.77)
[2022-10-18] MEDS: levothyroxine 100 mcg SDV 88 MCG IVP (08:48)
[2022-10-18] MEDS: ondansetron 2 mg/ML SDV 2 mL 4 MG IVP ×2 (09:01→17:19)
[2022-10-18] MEDS: metroNIDAZOLE 500 MG Tablet PO ×2 (09:12→17:19)
[2022-10-18] MEDS: clarithromycin 500 mg Tablet PO ×2 (09:12→17:19)
[2022-10-18] MEDS: pantoprazole DR 40 mg Tablet PO ×2 (09:13→17:19)
--- NOTE | 2022-10-18 11:09 | PM.PN ---
Subjective Subjective: Patient states she's still having some urinary symptoms. Pain somewhat similar to yesterday. Trying oxycodone to see if helps. Discussed thyroid hormone levels are improving, approaching goal. Her significant other is bedside and supportive. Vitals/I&O/Wt Last Vital Signs Temp 98.2 F 10/18/22 07:11 Pulse 64 10/18/22 07:11 Resp 18 10/18/22 09:16 BP 96/59 10/18/22 07:11 Pulse Ox 98 10/18/22 07:11 O2 Del Method Room Air 10/18/22 07:11 10/17/22 10/18/22 10/18/22 22:59 06:59 14:59 Intake Total 240 / 840 Balance 240 / 840 Weight last 48 hrs Weight 59.024 kg Physical Exam Narrative: General: Patient is awake. Lying in bed. Pleasant. Head: Normocephalic. Atraumatic. EOM intact. Neck: No JVD. Cardiovascular: No heaves. No gallops. No murmurs. Lungs: Clear to auscultation, no use of accessory muscles, no crackles or wheezes. Skin: No jaundice. No rashes. Abdomen: Normoactive bowel sounds, no guarding. Genito Urinary: Suprapubic tenderness. Extremities: No cyanosis or clubbing. Musculoskeletal: No swollen or erythematous joints. Neurological: Moves all 4 extremities. No myoclonus. Data 10/18/22 05:44 10/18/22 05:44 A&P Assessment and plan (1) Severe hypothyroidism: Free T4 continues to improve, approaching normal range, hopefully will be there in 24-48 hrs Continue current dose w/ Synthroid 88 mcg IV daily Continue IV steroids at current dose Planning on cosyntropin stim test and synthroid absorption test when free T4 normalizes Appreciate ongoing input from environmental sciences professor Dr. 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 pylori infection: Continue clarithromycin Continue Flagyl Continue PPI (4) Fatigue: Likely multifactorial Treat underlying endocrinopathies Control pain (5) NIKKO (acute kidney injury): Improved (6) Anxiety: Continue Xanax as needed (7) Urinary pain: Still symptomatic Continue to monitor Analgesics as needed Plan DVT prophylaxis: Encourage ambulation CODE STATUS: Full code Attestations Medical Necessity Statement*: Patient requires ongoing hospitalization for ongoing titrate of her levothyroxine dosing IV steroids, and supportive care. 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 pylori infection A04.8 Fatigue R53.83 NIKKO (acute kidney injury) N17.9 Anxiety F41.9 Urinary pain R30.9
[2022-10-18] MEDS: ALPRAZolam 0.5 mg Tablet PO (19:34)
[2022-10-19] VITALS (11 sets, daily range): BP systolic 93–118; BP diastolic 46–74; PULSE 53–85; RESP 15–18; TEMP 36.6–37.1; O2SAT 96–99
[2022-10-19] MEDS: hydrocortisone 100 mg/2 mL SDV 60 MG IVP ×2 (05:09→17:31)
[2022-10-19 05:13] LABS: Basophils % 0.1 %; Hematocrit 30.5 % (36-47); Lymphocytes # 1.9 10^3/uL (0.8-4.8); Lymphocytes % 20.5 %; Mean Corpuscular HGB Conc 32.8 g/dL (30-55); Mean Corpuscular Hemoglobin 29.5 pg (27-33); Mean Platelet Volume 10.2 fL (7.4-10.4); Monocytes # 0.4 10^3/uL (0.2-0.9); Neutrophils # 6.84 10^3/uL (1.8-7.7); Neutrophils % 73.9 %; Nucleated Red Blood Cells % 0 %; Platelet Count 224 10^3/cmm (157-399); Red Blood Count 3.39 10^6/uL (3.85-5.65); Red Cell Distribution Width 18.5 % (12.1-15.1); White Blood Count 9.26 10^3/uL (3.29-11.43)
[2022-10-19 05:32] LABS: Albumin Level 3.9 g/dL (3.5-5.2); Anion Gap 9.6 (5-19); Blood Urea Nitrogen 9 mg/dL (6-20); Calcium 7.3 mg/dL (8.5-10.5); Carbon Dioxide 29 mmol/L (22-29); Chloride 104 mmol/L (98-107); Glomerular Filtration Rate 68.7 mL/min (90-130); Glucose 114 mg/dL (65-115); Potassium 3.6 mmol/L (3.5-5.1); Sodium 139 mmol/L (136-145)
[2022-10-19 05:43] LABS: Free T4 Free Thyroxine 0.82 ng/dL (0.82-1.77); T3 Free 1.1 PG/ML (2.0-4.4)
[2022-10-19] MEDS: clarithromycin 500 mg Tablet PO ×2 (08:07→17:31)
[2022-10-19] MEDS: pantoprazole DR 40 mg Tablet PO ×2 (08:07→17:31)
[2022-10-19] MEDS: metroNIDAZOLE 500 MG Tablet PO ×2 (08:07→17:31)
[2022-10-19] MEDS: oxyCODONE 5 mg IR Tab/Cap PO ×2 (08:10→20:21)
[2022-10-19] MEDS: ondansetron 2 mg/ML SDV 2 mL 4 MG IVP ×2 (08:11→17:34)
[2022-10-19] MEDS: levothyroxine 100 mcg SDV 88 MCG IVP (09:14)
--- NOTE | 2022-10-19 18:12 | P.PN_ITS ---
Subjective Subjective: Patient reports she feels about the same as yesterday. Still having some urinary symptoms improved with analgesic. Appetite remains poor. Free T4 now borderline low-normal. Medications: Reviewed: Yes Vitals/I&O/Wt Last Vital Signs Temp 98.5 F 10/19/22 15:28 Pulse 78 10/19/22 15:28 Resp 15 10/19/22 15:28 BP 105/69 10/19/22 15:28 Pulse Ox 98 10/19/22 15:28 O2 Del Method Room Air 10/19/22 15:28 10/19/22 10/19/22 10/19/22 06:59 14:59 22:59 Intake Total 480 / 480 240 / 720 Balance 480 / 480 240 / 720 Weight last 48 hrs Weight 58.967 kg Weight 59.024 kg Physical Exam Narrative: General: Patient is awake. Alert. Pleasant. Head: Normocephalic. Atraumatic. Neck: No JVD. Cardiovascular: No heaves. No gallops. No murmurs. Lungs: Clear to auscultation, no use of accessory muscles, no crackles or wheezes. Skin: No jaundice. No rashes. Abdomen: Normoactive bowel sounds, no guarding. Extremities: No cyanosis or clubbing. Musculoskeletal: No swollen or erythematous joints. Neurological: Moves all 4 extremities. No myoclonus. Data 10/19/22 04:45 10/19/22 04:45 Micro: Microbiology 10/13/22 18:38 Blood Culture - Final Blood NO GROWTH AFTER 5 DAYS 10/13/22 18:38 Blood Culture - Final Blood NO GROWTH AFTER 5 DAYS A&P Assessment and plan (1) Severe hypothyroidism: Free T4 now borderline low, continue daily measurements Continue current dose w/ Synthroid 88 mcg IV daily Continue IV steroids at current dose Levothyroxine absorption test will be done outpatient per endo recommendation Appreciate ongoing input from supervisor photoengraving Dr. 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 pylori infection: Continue clarithromycin Continue Flagyl Continue PPI (4) Fatigue: Likely multifactorial Treat underlying endocrinopathies Control pain (5) NIKKO (acute kidney injury): Improved (6) Anxiety: Continue Xanax as needed (7) Urinary pain: Analgesics as needed Plan DVT prophylaxis: Encourage ambulation CODE STATUS: Full code Attestations Medical Necessity Statement*: Patient requires ongoing hospitalization for ongoing titrate of levothyroxine, IV steroids, and supportive care. 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 pylori infection A04.8 Fatigue R53.83 NIKKO (acute kidney injury) N17.9 Anxiety F41.9 Urinary pain R30.9
[2022-10-19] MEDS: ALPRAZolam 0.5 mg Tablet PO (20:21)
[2022-10-20] VITALS (10 sets, daily range): BP systolic 91–114; BP diastolic 47–77; PULSE 64–92; RESP 15–18; TEMP 36.6–36.8; O2SAT 97–98
[2022-10-20] MEDS: hydrocortisone 100 mg/2 mL SDV 60 MG IVP (06:08)
[2022-10-20 07:12] LABS: Albumin Level 3.7 g/dL (3.5-5.2); Anion Gap 12.5 (5-19); Blood Urea Nitrogen 11 mg/dL (6-20); Calcium 7.4 mg/dL (8.5-10.5); Carbon Dioxide 28 mmol/L (22-29); Chloride 104 mmol/L (98-107); Glomerular Filtration Rate 68.7 mL/min (90-130); Glucose 99 mg/dL (65-115); Phosphorus 4.2 mg/dL (2.5-4.5); Potassium 3.5 mmol/L (3.5-5.1); Sodium 141 mmol/L (136-145)
[2022-10-20 07:14] LABS: Free T4 Free Thyroxine 0.81 ng/dL (0.82-1.77); T3 Free 1.1 PG/ML (2.0-4.4)
[2022-10-20] MEDS: oxyCODONE 5 mg IR Tab/Cap PO ×3 (08:23→20:44)
[2022-10-20] MEDS: ondansetron 2 mg/ML SDV 2 mL 4 MG IVP ×2 (08:23→17:30)
[2022-10-20] MEDS: clarithromycin 500 mg Tablet PO ×2 (08:23→17:28)
[2022-10-20] MEDS: levothyroxine 100 mcg SDV 88 MCG IVP (08:23)
[2022-10-20] MEDS: metroNIDAZOLE 500 MG Tablet PO ×2 (08:24→17:28)
[2022-10-20] MEDS: pantoprazole DR 40 mg Tablet PO ×2 (08:24→17:28)
--- NOTE | 2022-10-20 15:16 | PM.PN ---
Subjective Subjective: Reports ongoing urinary symptoms. Appetite is a bit better. TFTs are essentially the same today. Discussed w/ endo. Fortunately, he outpt medication has gotten approved. Will plan for acth stim test tomorrow. Medications: Reviewed: Yes Vitals/I&O/Wt Last Vital Signs Temp 98 F 10/20/22 14:43 Pulse 92 10/20/22 14:43 Resp 18 10/20/22 14:43 BP 102/71 10/20/22 14:43 Pulse Ox 98 10/20/22 14:43 O2 Del Method Room Air 10/20/22 14:43 10/20/22 10/20/22 10/20/22 06:59 14:59 22:59 Intake Total 960 / 960 Balance 960 / 960 Weight last 48 hrs Weight 58.967 kg Physical Exam Narrative: General: Patient is awake. Alert. Pleasant. In bed. Conversational. Head: Normocephalic. Atraumatic. Neck: No JVD. Cardiovascular: No heaves. No gallops. No murmurs. Lungs: Clear to auscultation, no use of accessory muscles, no crackles or wheezes. Skin: No jaundice. No rashes. Abdomen: Normoactive bowel sounds, no guarding. Extremities: No cyanosis or clubbing. Musculoskeletal: No erythematous joints. Neurological: No myoclonus. 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 pylori infection: Continue clarithromycin Continue Flagyl Continue PPI (4) Fatigue: Likely multifactorial Treat underlying endocrinopathies Control pain (5) NIKKO (acute kidney injury): Resolved Oral intake seems adequate (6) Anxiety: Continue Xanax as needed (7) Urinary pain: Analgesics as needed Plan DVT prophylaxis: Encourage ambulation CODE STATUS: Full code Attestations Medical Necessity Statement*: Patient requires ongoing hospitalization for ongoing titrate of levothyroxine, IV steroids, and supportive care. 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 pylori infection A04.8 Fatigue R53.83 NIKKO (acute kidney injury) N17.9 Anxiety F41.9 Urinary pain R30.9
[2022-10-20 15:25] LABS: Thyroglobulin Level <0.4 ng/mL
[2022-10-20] MEDS: ALPRAZolam 0.5 mg Tablet PO (20:44)
[2022-10-20] MEDS: tizanidine 4 mg Tablet PO (20:44)
[2022-10-20 22:50] LABS: Adrenocorticotropic Hormone 22 pg/mL (6-50)
[2022-10-21] VITALS (8 sets, daily range): BP systolic 96–131; BP diastolic 54–89; PULSE 60–73; RESP 15–18; TEMP 36.5–37.1; O2SAT 96–98
[2022-10-21 08:13] LABS: Basophils % 0.1 %; Eosinophils # 0.1 10^3/uL (0.0-0.8); Eosinophils % 0.7 %; Hematocrit 31.8 % (36-47); Lymphocytes # 3.7 10^3/uL (0.8-4.8); Lymphocytes % 45.5 %; Mean Corpuscular HGB Conc 32.4 g/dL (30-55); Mean Corpuscular Hemoglobin 29.2 pg (27-33); Mean Corpuscular Volume 90.1 fl (85-98); Mean Platelet Volume 9.9 fL (7.4-10.4); Monocytes # 0.4 10^3/uL (0.2-0.9); Monocytes % 4.7 %; Neutrophils # 3.81 10^3/uL (1.8-7.7); Neutrophils % 47.4 %; Nucleated Red Blood Cells % 0 %; Platelet Count 214 10^3/cmm (157-399); Red Blood Count 3.53 10^6/uL (3.85-5.65); Red Cell Distribution Width 18.2 % (12.1-15.1); White Blood Count 8.06 10^3/uL (3.29-11.43)
[2022-10-21 08:39] LABS: Albumin Level 3.6 g/dL (3.5-5.2); Anion Gap 12.2 (5-19); Blood Urea Nitrogen 9 mg/dL (6-20); Calcium 7.2 mg/dL (8.5-10.5); Carbon Dioxide 29 mmol/L (22-29); Chloride 103 mmol/L (98-107); Glomerular Filtration Rate 61.6 mL/min (90-130); Glucose 100 mg/dL (65-115); Phosphorus 3.4 mg/dL (2.5-4.5); Potassium 3.2 mmol/L (3.5-5.1); Sodium 141 mmol/L (136-145)
[2022-10-21 08:43] LABS: Free T4 Free Thyroxine 0.97 ng/dL (0.82-1.77); T3 Free 1.2 PG/ML (2.0-4.4)
[2022-10-21 08:45] LABS: Cortisol Random 1.81 ug/dL (2.47-19.5)
[2022-10-21] MEDS: levothyroxine 100 mcg SDV 88 MCG IVP (08:49)
[2022-10-21] MEDS: clarithromycin 500 mg Tablet PO ×2 (08:49→18:20)
[2022-10-21] MEDS: metroNIDAZOLE 500 MG Tablet PO ×2 (08:49→18:20)
[2022-10-21] MEDS: pantoprazole DR 40 mg Tablet PO ×2 (08:49→18:20)
[2022-10-21] MEDS: oxyCODONE 5 mg IR Tab/Cap PO ×2 (08:52→21:30)
[2022-10-21] MEDS: ondansetron 2 mg/ML SDV 2 mL 4 MG IVP ×2 (08:52→18:20)
[2022-10-21] MEDS: cosyntropin 0.25 mg SDV IVP (09:47)
[2022-10-21 10:30] LABS: Cosyntropin Baseline 1.66 mcg/dL
[2022-10-21 11:09] LABS: Cosyntropin 30 Minute 7.99 mcg/dL
[2022-10-21] MEDS: potassium chloride ER 20 mEq Tablet 40 MEQ PO (11:32)
[2022-10-21 11:41] LABS: Cosyntropin 1 Hour 10.17 mcg/dL
[2022-10-21] MEDS: tizanidine 4 mg Tablet PO ×2 (12:54→21:30)
--- NOTE | 2022-10-21 17:34 | P.PN_ITS ---
Subjective Subjective: Farhad is undergoing stim testing this morning. Reports symptoms are about the same. Still having urinary pain at times. Discussed trying to obtain medication from pharmacy today given we are entering holiday weekend. Medications: Reviewed: Yes Vitals/I&O/Wt Last Vital Signs Temp 97.8 F 10/21/22 15:41 Pulse 61 10/21/22 15:41 Resp 18 10/21/22 15:41 BP 99/62 10/21/22 15:41 Pulse Ox 98 10/21/22 15:41 O2 Del Method Room Air 10/21/22 15:41 10/21/22 10/21/22 10/21/22 06:59 14:59 22:59 Intake Total 480 / 480 Balance 480 / 480 Physical Exam Narrative: General: Patient is awake. Alert. Pleasant. In bed. Conversational. Head: Normocephalic. Atraumatic. Neck: No JVD. Cardiovascular: No heaves. No gallops. No murmurs. Lungs: Clear to auscultation, no use of accessory muscles, no crackles or wheezes. Skin: No jaundice. No rashes. Abdomen: Normoactive bowel sounds/ Extremities: No cyanosis or clubbing. Neurological: No myoclonus. 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 pylori infection A04.8 Fatigue R53.83 Anxiety F41.9 Urinary pain R30.9
[2022-10-22 03:00] VITALS: BP 98/58; PULSE 65; RESP 16; TEMP 36.9; O2SAT 96
[2022-10-22 05:56] LABS: Albumin Level 3.5 g/dL (3.5-5.2); Anion Gap 9.4 (5-19); Blood Urea Nitrogen 8 mg/dL (6-20); Calcium 7.2 mg/dL (8.5-10.5); Carbon Dioxide 33 mmol/L (22-29); Chloride 100 mmol/L (98-107); Glomerular Filtration Rate 61.6 mL/min (90-130); Glucose 91 mg/dL (65-115); Magnesium 1.9 mg/dL (1.7-2.3); Phosphorus 4.2 mg/dL (2.5-4.5); Potassium 3.4 mmol/L (3.5-5.1); Sodium 139 mmol/L (136-145)
[2022-10-22 06:08] LABS: Free T4 Free Thyroxine 1.06 ng/dL (0.82-1.77); T3 Free 1.4 PG/ML (2.0-4.4)
[2022-10-22 07:00] VITALS: BP 95/55; PULSE 85; RESP 16; TEMP 36.6; O2SAT 92
[2022-10-22] MEDS: levothyroxine 100 mcg SDV 88 MCG IVP (09:17)
[2022-10-22] MEDS: clarithromycin 500 mg Tablet PO (09:20)
[2022-10-22] MEDS: metroNIDAZOLE 500 MG Tablet PO (09:20)
[2022-10-22] MEDS: pantoprazole DR 40 mg Tablet PO (09:20)
[2022-10-22 09:22] VITALS: RESP 17
[2022-10-22] MEDS: ondansetron 2 mg/ML SDV 2 mL 4 MG IVP (09:22)
[2022-10-22] MEDS: oxyCODONE 5 mg IR Tab/Cap PO (09:22)
[2022-10-22 11:00] VITALS: BP 106/70; PULSE 83; RESP 16; TEMP 36.7; O2SAT 98
--- NOTE | 2022-10-22 13:06 | P.DS_ITS ---
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 pylori infection: Status: Acute (4) Fatigue: Status: Acute (5) Anxiety: Status: Acute (6) Urinary pain: Status: Acute Reason for Visit Reason for Visit: Myxedema With out coma Hospital Course Hospital Course Farhad Ardon is a 22-year-old male with a past medical history significant for hypothyroidism with history of thyroidectomy, recently diagnosed with H. pylori on treatment, and Alireza's thyroiditis?who presented from endocrinology clinic with severe hypothyroidism. She was treated with IV levothyroxine and IV steroids. Hospitalist team worked with labor union business representative, Dr Goins, to coordinate care. Her free thyroxine levels improved to normal with IV treatment. Her labor union business representative office coordination of initiation of Tirosint. She underwent cosyntropin stimulation test with post stimulation showing improvement but not reaching 18 ?g/dL. Patient started on hydrocortisone 20 mg twice daily (morning, noon). Hospital course complicated by transient acute kidney injury which resolved prior to discharge. She was also noted to have significant anxiety surrounding her acute illness treated with Xanax. She also suffered urinary pain of unclear etiology. UTI was considered but UA found to be negative for infection. She was treated with analgesics. Patient discharged to home in stable condition. She is to follow up with PCP and endocrine clinic. Physical Exam Narrative: General: Patient is awake.? Alert. ? No acute distress. Head:? Normocephalic. Atraumatic. Neck: No JVD. Cardiovascular: Normal peripheral perfusion. Lungs: No respiratory distress. No accessory muscle use. Non-labored on room air. Skin: No jaundice. No rashes. Abdomen: Not distended. Extremities: No cyanosis or clubbing. Neurological:? No myoclonus. Discharge Data Studies Completed and Pending Laboratory Results WBC 8.06 10^3/uL (3.29-11.43) 10/21/22 08:01 RBC 3.53 10^6/uL (3.85-5.65) L 09/01/23 08:01 Hgb 10.30 g/dL (11.27-16.99) L 10/21/22 08:01 Hct 31.8 % (36-47) L 10/21/22 08:01 MCV 90.1 fl (85-98) 10/21/22 08:01 MCH 29.2 pg (27-33) 10/21/22 08:01 MCHC 32.4 g/dL (30-55) 10/21/22 08:01 RDW 18.2 % (12.1-15.1) H 10/21/22 08:01 Plt Count 214 10^3/cmm (157-399) 10/21/22 08:01 MPV 9.9 fL (7.4-10.4) 10/21/22 08:01 Neut % (Auto) 47.4 % 10/21/22 08:01 Lymph % (Auto) 45.5 % 10/21/22 08:01 [facility] % (Auto) 4.7 % 10/21/22 08:01 Eos % (Auto) 0.7 % 10/21/22 08:01 Baso % (Auto) 0.1 % 10/21/22 08:01 Neut # (Auto) 3.81 10^3/uL (1.8-7.7) 10/21/22 08:01 Lymph # (Auto) 3.7 10^3/uL (0.8-4.8) 10/21/22 08:01 [facility] # (Auto) 0.4 10^3/uL (0.2-0.9) 10/21/22 08:01 Eos # (Auto) 0.1 10^3/uL (0.0-0.8) 10/21/22 08:01 Baso # (Auto) 0.0 10^3/uL (0.0-0.1) 10/21/22 08:01 Nucleated RBC % (auto) 0 % 10/21/22 08:01 Nucleated RBCs # 0.0 /100WBC 10/21/22 08:01 Sodium 139 mmol/L (136-145) 10/22/22 04:35 Potassium 3.4 mmol/L (3.5-5.1) L 10/22/22 04:35 Chloride 100 mmol/L (98-107) 10/22/22 04:35 Carbon Dioxide 33 mmol/L (22-29) H 10/22/22 04:35 Anion Gap 9.4 (5-19) 10/22/22 04:35 BUN 8 mg/dL (6-20) 10/22/22 04:35 Creatinine 1.1 mg/dL (0.5-0.9) H 10/22/22 04:35 GFR Calculation 61.6 mL/min (90-130) L 10/22/22 04:35 Glucose 91 mg/dL (65-115) 10/22/22 04:35 Estimat Average Glucose 105 10/14/22 04:33 Hemoglobin A1c 5.3 % (4.0-6.0) 10/14/22 04:33 Calculated Osmolality 291 mOsm/kg (285-295) 10/17/22 04:18 Calcium 7.2 mg/dL (8.5-10.5) L 10/22/22 04:35 Ionized Calcium [place] 1.0 mmol/L (1.1-1.4) L 10/15/22 16:05 Phosphorus 4.2 mg/dL (2.5-4.5) 10/22/22 04:35 Magnesium 1.9 mg/dL (1.7-2.3) 10/22/22 04:35 Iron 52 ug/dL (37-145) 10/13/22 18:38 TIBC 293 mcg/dl 10/13/22 18:38 % Saturation 17.7 % (20-50) L 10/13/22 18:38 Unsat Iron Binding 241 ug/dL (112-347) 10/13/22 18:38 Total Bilirubin 0.6 mg/dL (0.15-1.2) 10/17/22 04:18 AST 12 U/L (0-32) 10/17/22 04:18 ALT 12 U/L (0-33) 10/17/22 04:18 Alkaline Phosphatase 35 U/L (35-105) 10/17/22 04:18 Total Protein 5.7 g/dL (6.6-8.7) L 10/17/22 04:18 Albumin 3.5 g/dL (3.5-5.2) 10/22/22 04:35 Globulin 1.8 g/dL (1.3-4.6) 10/17/22 04:18 Triglycerides 36 mg/dL (0-150) 10/14/22 04:33 Cholesterol 137 mg/dL (0-200) 10/14/22 04:33 LDL Cholesterol, Calc 66 mg/dL (50-129) 10/14/22 04:33 Total VLDL Cholesterol 7 mg/dL (0-30) 10/14/22 04:33 HDL Cholesterol 64 mg/dL (60-100) 10/14/22 04:33 LDL/HDL Ratio 1.03 RATIO (0.00-3.22) 10/14/22 04:33 Cholesterol/HDL Ratio 2.14 mg/dL (0.0-4.40) 10/14/22 04:33 Vitamin B12 460 pg/mL (232-1245) 10/13/22 18:38 Folate 11.4 ng/mL (4.8-37.3) 10/14/22 04:33 Procalcitonin 0.03 ng/mL (0-0.5) 10/13/22 18:38 TSH 353.80 uIU/mL (0.27-4.20) H 10/15/22 08:27 Free T4 1.06 ng/dL (0.82-1.77) 10/22/22 04:35 Free T3 1.4 PG/ML (2.0-4.4) L 10/22/22 04:35 Thyroglobulin <0.4 ng/mL 10/13/22 18:38 PTH Intact 37.6 pg/mL (15-65) 10/15/22 09:28 Calcium (PTH Intact) 7.2 mg/dL (8.5-10.5) L 10/15/22 09:28 Random Cortisol Cancelled 10/21/22 09:50 Cortisol Response 10/21/22 09:50 ACTH 22 pg/mL (6-50) 10/15/22 08:27 Urine Color Yellow (Yellow) 10/17/22 16:20 Urine Appearance Clear (CLEAR) 10/17/22 16:20 Urine pH 6.5 (5-7) 10/17/22 16:20 Ur Specific [place] 1.010 (1.005-1.030) 10/17/22 16:20 Urine Protein Neg (Negative) 10/17/22 16:20 Urine Glucose (UA) Norm (Normal) 10/17/22 16:20 Urine Ketones Negative (Negative) 10/17/22 16:20 Urine Blood Neg (Negative) 10/17/22 16:20 Urine Nitrate Negative (Negative) 10/17/22 16:20 Urine Bilirubin Neg (Negative) 10/17/22 16:20 Urine Urobilinogen Norm mg/dL (Negative) 10/17/22 16:20 Ur Leukocyte Esterase Trace (Negative) H 10/17/22 16:20 Urine RBC None /hpf (0-2) 10/17/22 16:20 Urine WBC 0-4 /hpf (0-5) H 10/17/22 16:20 Ur Squamous Epith Cells 5-10 /hpf (0-5) H 10/17/22 16:20 Amorphous Sediment Not Reportable 10/17/22 16:20 Urine Bacteria Trace /hpf (NONE) 10/17/22 16:20 Urine Yeast Trace /hpf 10/17/22 16:20 Ur Random Sodium 102 mmol/L 10/15/22 08:10 Ur Random Potassium 40 mmol/L 10/15/22 08:10 Ur Random Chloride 111 mmol/L 10/15/22 08:10 Urine Creatinine 336 mg/dL (28-217) H 10/15/22 08:10 Thyroid Peroxidase Ab 30 IU/mL (<9) H 10/13/22 18:38 Vitals Last Vital Signs Temp 98.1 F 10/22/22 11:00 Pulse 83 10/22/22 11:00 Resp 16 10/22/22 11:00 BP 106/70 10/22/22 11:00 Pulse Ox 98 10/22/22 11:00 O2 Del Method Room Air 10/22/22 03:00 Discharge Plan Discharge Patient Disposition: Home Prescriptions: New alprazolam 0.5 mg Tablet 0.5 mg PO QID PRN (Reason: Anxiety) 5 Days Qty: 20 0RF oxycodone 5 mg Tablet 5 mg PO Q4H PRN (Reason: Moderate Pain) 5 Days Qty: 20 0RF Rx Instructions: Do not exceed 5 tabs in 24 hours. hydrocortisone 20 mg tablet 20 mg PO BID Qty: 60 0RF Rx Instructions: Take 20 mg orally twice daily in the morning and at noon. Continued lactulose 10 gram packet 10 g PO DAILY PRN (Reason: constipation) Qty: 15 0RF ketorolac 10 mg tablet 10 mg PO TID PRN (Reason: Pain) tizanidine 4 mg capsule 4 mg PO BID PRN (Reason: Muscle Spasm) clarithromycin 500 mg tablet 500 mg PO BID 14 Days Qty: 28 0RF metronidazole 500 mg tablet 500 mg PO BID 14 Days Qty: 28 0RF pantoprazole [Protonix] 40 mg tablet,delayed release (DR/EC) 40 mg PO BID 14 Days Qty: 28 0RF sucralfate [Carafate] 1 gram tablet 1 g PO Q6H Qty: 14 0RF levothyroxine [Tirosint] 200 mcg capsule 800 mcg PO DAILY Qty: 120 2RF Rx Instructions: Take 800mcg daily tirosint brand only patient cannot absorb levothyroxine or synthroid. Discharge Orders: Discharge Order (Routine); Ordered 10/22/22 Ordered By: Clement Hanna Referrals: Bradley Goins MD [Physician] - 1 week Discharge Diet: Advance as tolerated and Usual diet Discharge Activity: Resume usual activity and Increase activity as tolerated Patient Instructions: Alprazolam (By mouth), Hypothyroidism (ED), Myxedema Coma (GEN), Opioid Safety Activity Restrictions/Additional Instructions: 1. Increase activity as tolerated. 2. No driving or operating heavy machinery while on Xanax or opiates. 3. Follow up with primary care provider and endocrinology clinic. 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 pylori infection A04.8 Fatigue R53.83 Anxiety F41.9 Urinary pain R30.9
[2022-10-22 13:59] VITALS: BP 106/70; PULSE 83; RESP 16; TEMP 36.7; O2SAT 98
== END 2022-10-22 13:57 | disposition home or self-care (01) | DRG 644 ==
PROVIDERS: Family Medicine; Admitting Provider Student in an Organized Health Care Education/Training Program; PCP Nurse Practitioner Family; Visit Provider Internal Medicine
DX: E06.3 Autoimmune thyroiditis (principal); A04.8 Other specified bacterial intestinal infections; N17.9 Acute kidney failure, unspecified; E89.0 Postprocedural hypothyroidism; F06.4 Anxiety disorder due to known physiological condition; R30.9 Painful micturition, unspecified
CPT/HCPCS: 36415; 80053; 80061; 80069; 81001; 82024; 82310; 82330; 82436; 82533; 82570; 82607; 82746; 83036; 83540; 83550; 83735; 83970; 84100; 84133; 84145; 84300; 84432; 84439; 84443; 84481; 85025; 86376; 86800; 87040; 94664; J0610; J0834; J1720; J2270; J2405; J3490; J7030

== ENCOUNTER → 2022-12-02 16:40 | Outpatient (BNVA) | payer OTHER, MEDICAID, SELFPAY | PROVIDERS: PCP Nurse Practitioner Family; Visit Provider Internal Medicine | DX: E03.8 Other specified hypothyroidism (principal); E06.3 Autoimmune thyroiditis; E27.40 Unspecified adrenocortical insufficiency | CPT/HCPCS: 36415; 80048; 84439 ==

== ENCOUNTER 2022-12-27 13:31 | Outpatient (CLI) | payer OTHER, MEDICAID, SELFPAY | END 2022-12-27 13:32 | disposition home or self-care (01) | PROVIDERS: PCP Nurse Practitioner Family; Visit Provider Internal Medicine | DX: E03.8 Other specified hypothyroidism (principal); E06.3 Autoimmune thyroiditis | CPT/HCPCS: 36415; 84439 ==

== ENCOUNTER 2023-01-23 14:38 | Outpatient (CLI) | payer OTHER, MEDICAID, SELFPAY | END 2023-01-23 14:39 | disposition home or self-care (01) | PROVIDERS: PCP Nurse Practitioner Family; Visit Provider Nurse Practitioner Family | DX: Z01.89 Encounter for other specified special examinations (principal) | CPT/HCPCS: 36415; 84702 ==

== ENCOUNTER 2023-01-27 12:20 | Outpatient (CLI) | payer OTHER, MEDICAID, SELFPAY | END 2023-01-27 12:21 | disposition home or self-care (01) | PROVIDERS: PCP Nurse Practitioner Family; Visit Provider Nurse Practitioner Women's Health | DX: N92.6 Irregular menstruation, unspecified (principal) | CPT/HCPCS: 36415; 84702 ==

== ENCOUNTER 2023-01-30 08:10 | Outpatient (CLI) | payer OTHER, MEDICAID, SELFPAY ==
[2023-01-30 09:15] LABS: Chol HDL Ratio 3.78 mg/dL (0.0-4.40); Cholesterol 291 mg/dL (0-200); Free T4 Free Thyroxine 0.52 ng/dL (0.82-1.77); Glomerular Filtration Rate 50.8 mL/min (90-130); HDL Cholesterol 77 mg/dL (60-100); LDL Cholesterol Calculated 199 mg/dL (50-129); LDL HDL Ratio 2.58 RATIO (0.00-3.22); Triglycerides 74 mg/dL (0-150)
== END 2023-01-30 08:11 | disposition home or self-care (01) ==
PROVIDERS: PCP Nurse Practitioner Family; Visit Provider Internal Medicine
DX: E27.40 Unspecified adrenocortical insufficiency (principal)
CPT/HCPCS: 36415; 80061; 82565; 84439

== ENCOUNTER 2023-02-06 07:55 | Outpatient (CLI) | payer OTHER, MEDICAID, SELFPAY ==
[2023-02-06 08:30] LABS: Anion Gap 10.1 (5-19); Blood Urea Nitrogen 14 mg/dL (6-20); Calcium 8.9 mg/dL (8.5-10.5); Carbon Dioxide 30 mmol/L (22-29); Chloride 102 mmol/L (98-107); Glomerular Filtration Rate 61.6 mL/min (90-130); Glucose 112 mg/dL (65-115); Osmolality Calculated 287 mOsm/kg (285-295); Potassium 4.1 mmol/L (3.5-5.1); Sodium 138 mmol/L (136-145)
[2023-02-06 08:36] LABS: Free T4 Free Thyroxine 1.09 ng/dL (0.82-1.77)
== END 2023-02-06 07:56 | disposition home or self-care (01) ==
PROVIDERS: PCP Nurse Practitioner Family; Visit Provider Internal Medicine
DX: E27.40 Unspecified adrenocortical insufficiency (principal)
CPT/HCPCS: 36415; 80048; 84439

== ENCOUNTER 2023-02-14 16:00 | Oncology outpatient (recurring) (ONCR) | payer OTHER, MEDICAID, SELFPAY ==
[2023-01-24] MEDS: levothyroxine 100 mcg/mL SDV 500 MCG IM (09:01)
[2023-01-31] MEDS: levothyroxine 100 mcg/mL SDV 600 MCG IM (12:43)
[2023-02-07 16:09] VITALS: BP 114/81; PULSE 76; RESP 18; TEMP 36.8; O2SAT 99
[2023-02-07 16:11] VITALS: BP 114/82; PULSE 71; RESP 18; TEMP 36.8; O2SAT 98
[2023-02-07] MEDS: levothyroxine 100 mcg/mL SDV 600 MCG IM (16:30)
[2023-02-07 16:37] VITALS: BP 114/81; PULSE 76; RESP 17; TEMP 36.8; O2SAT 99
[2023-02-14 15:56] VITALS: BP 111/75; PULSE 67; RESP 16; TEMP 36.2; O2SAT 99
[2023-02-14] MEDS: levothyroxine 100 mcg/mL SDV 600 MCG IM (16:04)
== END 2023-02-19 23:59 | disposition home or self-care (01) ==
PROVIDERS: PCP Nurse Practitioner Family; Visit Provider Internal Medicine
DX: E27.40 Unspecified adrenocortical insufficiency (principal); Z53.9 Procedure and treatment not carried out, unspecified reason
CPT/HCPCS: 96372

== ENCOUNTER 2023-02-15 14:04 | Outpatient (CLI) | payer OTHER, MEDICAID, SELFPAY | END 2023-02-15 14:05 | disposition home or self-care (01) | LOC: LAB 14:08 | PROVIDERS: PCP Nurse Practitioner Family; Visit Provider Nurse Practitioner Family | DX: Z01.89 Encounter for other specified special examinations (principal) | CPT/HCPCS: 36415; 84702 ==

== ENCOUNTER → 2023-02-22 15:00 | Outpatient (BNVA) | payer OTHER, MEDICAID, SELFPAY | PROVIDERS: PCP Nurse Practitioner Family; Visit Provider Nurse Practitioner Women's Health | DX: N91.2 Amenorrhea, unspecified (principal) | CPT/HCPCS: 82670; 83001; 84702 ==

== ENCOUNTER 2023-03-01 15:45 | Outpatient (CLI) | payer OTHER, MEDICAID, SELFPAY ==
--- NOTE | 2023-03-01 16:04 | XR_ITS ---
WS: [id number] XR lumbar spine min 4V [id number] REASON FOR EXAM: M54.50 FINDINGS: Lumbar spinal curvatures are normal. No vertebral body abnormality. Intervertebral disc spaces are intact and well preserved. No spondylolysis or significant spondylolisthesis. IMPRESSION: No significant abnormality.
== END 2023-03-01 15:46 | disposition home or self-care (01) ==
PROVIDERS: PCP Nurse Practitioner Family; Visit Provider General Practice
DX: M54.50 Low back pain, unspecified (principal)
CPT/HCPCS: 72110

== ENCOUNTER 2023-03-21 16:00 | Oncology outpatient (recurring) (ONCR) | payer OTHER, MEDICAID, SELFPAY ==
[2023-02-21 16:10] VITALS: BP 109/68; PULSE 81; RESP 16; TEMP 36.7; O2SAT 100
[2023-02-21] MEDS: levothyroxine 100 mcg/mL SDV 600 MCG IM (16:23)
[2023-02-28 16:26] VITALS: BP 93/66; PULSE 79; RESP 16; TEMP 36.3; O2SAT 100
[2023-02-28] MEDS: levothyroxine 100 mcg/mL SDV 600 MCG IM (16:27)
[2023-03-07] MEDS: levothyroxine 100 mcg/mL SDV 600 MCG IM (16:09)
[2023-03-14 16:11] VITALS: BP 99/64; PULSE 70; RESP 16; TEMP 36.6; O2SAT 99
[2023-03-14] MEDS: levothyroxine 100 mcg/mL SDV 600 MCG IM (16:17)
[2023-03-21 14:26] VITALS: BP 101/74; PULSE 88; RESP 16; TEMP 36.4; O2SAT 98
[2023-03-21] MEDS: levothyroxine 100 mcg/mL SDV 600 MCG IM (14:46)
== END 2023-03-22 23:59 | disposition home or self-care (01) ==
PROVIDERS: PCP Nurse Practitioner Family; Visit Provider Internal Medicine
DX: E27.40 Unspecified adrenocortical insufficiency (principal); Z53.9 Procedure and treatment not carried out, unspecified reason
CPT/HCPCS: 96372

== ENCOUNTER 2023-03-27 17:26 | Emergency (ER) | payer OTHER, MEDICAID, SELFPAY ==
[2023-03-27 18:17] VITALS: BP 113/73; PULSE 103; RESP 14; TEMP 36.8; O2SAT 96; BMI 24.0
[2023-03-27 19:17] LABS: Add Urine Culture? No; Add Urine Microscopic? YES; Bacteria Urine TRACE /hpf; Bilirubin Urine 1+ (Negative); Blood Urine Neg (Negative); Glucose Urine UA Norm (Normal); Ketones Urine 2+ (Negative); Leukocyte Esterase Urine Trace (Negative); Mucus Urine 1+ /hpf; Nitrate Urine Negative (Negative); Protein Urine Trace (Negative); RBC Urine 0-4 /hpf (0-2); Specific Gravity, Urine 1.007 (1.005-1.030); Urine Appearance Clear (CLEAR); Urine Color Yellow (Yellow); Urobilinogen Urine 4 mg/dL (Negative); pH Urine 5 (5-7)
--- NOTE | 2023-03-27 20:02 | CTR_ITS ---
PROCEDURE INFORMATION: Exam: CT Abdomen And Pelvis With Contrast Exam date and time: 03/27/2023 8:23 PM Age: 22 years old Clinical indication: Abdominal pain; Flank; Left; Additional info: Left flank pain, ua no bacteria but bili/urobili- no gallbladder TECHNIQUE: Imaging protocol: Computed tomography of the abdomen and pelvis with contrast. Radiation optimization: All CT scans at this facility use at least one of these dose optimization techniques: automated exposure control; mA and/or kV adjustment per patient size (includes targeted exams where dose is matched to clinical indication); or iterative reconstruction. Contrast material: OMNI 350; Contrast volume: 100 ml; Contrast route: INTRAVENOUS (IV); COMPARISON: CT abdomen pelvis wo con [id number] 06/24/2022 8:03 AM RADIATION DOSE METRICS: Total DLP (mGy-cm): 375.33 FINDINGS: Liver: Normal. No mass. Gallbladder and bile ducts: Patient is post cholecystectomy with no biliary dilatation. Pancreas: Normal. No ductal dilation. Spleen: Normal. No splenomegaly. Adrenal glands: Normal. No mass. Kidneys and ureters: Normal. No hydronephrosis. Stomach and bowel: Unremarkable. No obstruction. No mucosal thickening. Appendix: Surgical clips in the right lower quadrant to be correlated with prior history of appendectomy. Intraperitoneal space: Unremarkable. No free air. No significant fluid collection. Vasculature: There is left pelvic phleboliths. Lymph nodes: Unremarkable. No enlarged lymph nodes. Urinary bladder: Unremarkable as visualized. Reproductive: Unremarkable as visualized. Bones/joints: Unremarkable. No acute fracture. Soft tissues: There is a small umbilical hernia containing and small bowel loops. CT/CT abdomen pelvis w con* [id number] IMPRESSION: No acute intra-abdominal process.
[2023-03-27 20:19] LABS: HCG Qualitative Urine. Negative (Negative)
[2023-03-27 20:28] LABS: Amphetamines Screen Urine Negative (Negative); Barbiturates Screen Urine Negative (Negative); Benzodiazepines Screen Urine Negative (Negative); Cocaine Screen Urine Negative (Negative); Opiate Screen Urine Negative (Negative); PCP Screen Urine Negative (Negative); THC Screen Urine Negative (Negative)
--- NOTE | 2023-03-27 20:34 | ED_ITS ---
HPI - Female Genitourinary 2 General: Chief complaint: Urogenital-Female Stated complaint: lower left back pain Time Seen by Provider: 03/27/23 18:22 Source: patient Mode of arrival: ambulatory Limitations: no limitations History of Present Illness: Patient presents emergency department today for evaluation treatment of complaints of left flank pain. Patient reports pain now for about a week that is constantly getting worse. She reports new onset dysuria. Patient denies vomiting but has felt nauseated. She reports multiple bowel movements daily which is normal for her. No reported fevers. Chart review as patient was seen on 03/13 by family practice for complaints of left-sided sciatica. Patient was given tizanidine, prednisone burst, Toradol shot and dexamethasone shot. Patient was seen back on 03/16 to establish care with primary. Patient has specially care for Alireza's. It indicated that she has chronic pain and was given oxycodone's in the past. Primary care started the patient on duloxetine. 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 Adrenal insufficiency No pertinent family history Surgical History History of tonsillectomy and adenoidectomy History of myringotomy twice as a child History of laparoscopic appendectomy History of laparoscopic cholecystectomy History of cleft palate with cleft lip History of thyroid surgery (~2020) Full thyroidectomy-- performed in [place] Family History Grandmother Diabetes mellitus, type 2 MGM Hypertension PGM Grandfather Hypertension PGF Denies family history of Colon cancer Ovarian cancer Prostate cancer CAD (coronary artery disease) Hyperlipidemia Chronic kidney disease (CKD) Breast cancer Bleeding disorder Family history of premature coronary artery disease Uterine cancer Thyroid disease Social History Smoking and tobacco/nicotine status: never used tobacco/nicotine Second hand smoke exposure: No Alcohol intake: current Alcohol intake frequency: holidays/special occasions only Substance/Drug Use: never Adopted: No Caregiver/support person: No Lives independently: Yes Household members: spouse and children Housing: House Marital status: Highest education level completed: High School Graduate service: No Current occupational status: employed 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 Current occupational exposures/hazards: No Physical Exam 2 Const: COMMON NORMALS: no acute distress, patient oriented x3 and alert HENMT: COMMON NORMALS: normocephalic, atraumatic, hearing grossly normal bilaterally and moist oral mucous membranes HEAD & SCALP: normocephalic and atraumatic Eye: COMMON NORMALS: Equal, round and reactive pupils present, EOMs intact bilaterally and conjunctivae normal CONJUNCTIVA: Yes conjunctivae normal P UPIL: Yes Equal, round and reactive pupils present Neck/C-Spine: COMMON NORMALS: full ROM and no JVD Lymph: LYMPHATIC: no lymphadenopathy noted Resp: COMMON NORMALS: normal respiratory effort, No retractions, No use of accessory muscles and clear to auscultation bilaterally AUSCULTATION: clear to auscultation bilaterally Cardio: COMMON NORMALS: no JVD, regular rate and regular rhythm RATE: r egular rate RHYTHM: regular rhythm : COMMON NORMALS: Yes no CVA tenderness (Pain is slightly lower on the left side) BLADDER/KIDNEY EXAM: Yes no CVA tenderness (Pain is slightly lower on the left side) Back/Pelvis: COMMON NORMALS: no CVA tenderness (Pain is slightly lower on the left side), no thoracic nor lumbar tenderness and thoraco-lumbar ROM normal O THER: Left mid/left flank pain. No specific left CVA tenderness. Extremity: COMMON NORMALS: normal to inspection, full ROM and capillary refill normal Neuro: COMMON NORMALS: patient oriented x3 SENSORIUM/ORIENTATION: Yes alert Psych: COMMON NORMALS: mental status grossly normal, Normal thought process present, cooperative, normal affect and activity/motor behavior normal T HOUGHT PROCESS: Normal thought process present Skin: COMMON NORMALS: no rashes or lesions noted and no wounds GENERAL SKIN EXAM: no rashes or lesions noted Course 2 Vital Signs: Vital signs: Vital Signs Temperature 98.2 F 03/27/23 21:59 Pulse Rate 85 03/27/23 21:59 Respiratory Rate 14 03/27/23 21:59 Blood Pressure 113/73 03/27/23 21:59 Pulse Oximetry 96 03/27/23 21:59 Oxygen Delivery Me thod Room Air 03/27/23 18:17 MDM - Female Medical Decision Making Patient presented to the ER today with complaints of flank pain. This does appear to be a different distribution of pain from what she described to her doctor in 03/13. She also indicates that she is having dysuria. However, patient's urinalysis showed no obvious signs of a urinary tract infection. She has got bili and urobilinogen which could be due to urine concentration but, specific gravity is within normal limits. Patient does not have a gallbladder. I did speak with Dr. Yung regarding these findings. He indicated that with her history and nonspecific urinalysis, would recommend offering further evaluation for this patient. We did discuss lab work and imaging which she agreed to proceed. She is asking for something for pain. States her is here and can drive her. Patient is given a muscle relaxer. She shows an allergy to shellfish and do not see any documented prior CTs with contrast. Patient was premedicated for her CT examination. CT was negative for any acute concerns or findings. Discussed with patient we have no definitive reason for her discomfort or the findings in her urinalysis. It is recommended she have a repeat urinalysis in a couple of days with her primary care doctor to recheck for improvement or continued abnormal findings in her urine. However, strict return precautions were given. Patient was offered a note for her employer to be off work tomorrow however, she indicates she needs to go to work. She is asking for pain medication prior to discharge however, Dr. Yung indicates that without any obvious findings and, as primary care has refused narcotic pain medication for her already, would recommend she stick with the muscle relaxer she already has and supplement with Tylenol/ibuprofen/heat/ice. Differential Diagnosis Likely abdominal pain; Unlikely acute appendicitis, calculus of kidney, constipation, diverticulitis, gastroenteritis, pancreatitis or small bowel obstruction Lab Data 03/27/23 20:13 03/27/23 20:13 Radiology Impressions Abdomen/Pelvis CT 03/27/23 20:02 IMPRESSION: No acute intra-abdominal process. Laboratory Results WBC 10.24 10^3/uL (3.29-11.43) 03/27/23 20:13 RBC 4.02 10^6/uL (3.85-5.65) 03/27/23 20:13 Hgb 12.00 g/dL (11.27-16.99) 03/27/23 20:13 Hct 35.9 % (36-47) L 03/27/23 20:13 MCV 89.3 fl (85-98) 03/27/23 20:13 MCH 29.9 pg (27-33) 03/27/23 20:13 MCHC 33.4 g/dL (30-55) 03/27/23 20:13 RDW 13.1 % (12.1-15.1) 03/27/23 20:13 Plt Count 277 10^3/cmm (157-399) 03/27/23 20:13 MPV 10.3 fL (7.4-10.4) 03/27/23 20:13 Neut % (Auto) 77.2 % 03/27/23 20:13 Lymph % (Auto) 14.3 % 03/27/23 20:13 [place] % (Auto) 7.4 % 03/27/23 20:13 Eos % (Auto) 0.5 % 03/27/23 20:13 Baso % (Auto) 0.2 % 03/27/23 20:13 Neut # (Auto) 7.91 10^3/uL (1.8-7.7) H 03/27/23 20:13 Lymph # (Auto) 1.5 10^3/uL (0.8-4.8) 03/27/23 20:13 [place] # (Auto) 0.8 10^3/uL (0.2-0.9) 03/27/23 20:13 Eos # (Auto) 0.1 10^3/uL (0.0-0.8) 03/27/23 20:13 Baso # (Auto) 0.0 10^3/uL (0.0-0.1) 03/27/23 20:13 Nucleated RBC % (auto) 0 % 03/27/23 20:13 Nucleated RBCs # 0.0 /100WBC 03/27/23 20:13 Sodium 139 mmol/L (136-145) 03/27/23 20:13 Potassium 3.3 mmol/L (3.5-5.1) L 03/27/23 20:13 Chloride 103 mmol/L (98-107) 03/27/23 20:13 Carbon Dioxide 23 mmol/L (22-29) 03/27/23 20:13 Anion Gap 16.3 (5-19) 03/27/23 20:13 BUN 7 mg/dL (6-20) 03/27/23 20:13 Creatinine 0.6 mg/dL (0.5-0.9) 03/27/23 20:13 GFR Calculation 123.9 mL/min (90-130) 03/27/23 20:13 Glucose 91 mg/dL (65-115) 03/27/23 20:13 Calculated Osmolality 286 mOsm/kg (285-295) 03/27/23 20:13 Calcium 8.3 mg/dL (8.5-10.5) L 03/27/23 20:13 Total Bilirubin 0.4 mg/dL (0.15-1.2) 03/27/23 20:13 AST 15 U/L (0-32) 03/27/23 20:13 ALT 15 U/L (0-33) 03/27/23 20:13 Alkaline Phosphatase 79 U/L (35-105) 03/27/23 20:13 Total Protein 6.8 g/dL (6.6-8.7) 03/27/23 20:13 Albumin 4.0 g/dL (3.5-5.2) 03/27/23 20:13 Globulin 2.8 g/dL (1.3-4.6) 03/27/23 20:13 HCG, Qual Negative (Negative) 03/27/23 18:26 Urine Color Yellow (Yellow) 03/27/23 18:26 Urine Appearance Clear (CLEAR) 03/27/23 18:26 Urine pH 5 (5-7) 03/27/23 18:26 Ur Specific [place] 1.007 (1.005-1.030) 03/27/23 18:26 Urine Protein Trace (Negative) 03/27/23 18:26 Urine Glucose (UA) Norm (Normal) 03/27/23 18:26 Urine Ketones 2+ (Negative) H 03/27/23 18:26 Urine Blood Neg (Negative) 03/27/23 18:26 Urine Nitrate Negative (Negative) 03/27/23 18:26 Urine Bilirubin 1+ (Negative) H 03/27/23 18:26 Urine Urobilinogen 4 mg/dL (Negative) H 03/27/23 18:26 Ur Leukocyte Esterase Trace (Negative) H 03/27/23 18:26 Urine RBC 0-4 /hpf (0-2) H 03/27/23 18:26 Urine WBC 5-10 /hpf (0-5) H 03/27/23 18:26 Ur Squamous Epith Cells 5-10 /hpf (0-5) H 03/27/23 18:26 Amorphous Sediment Not Reportable 03/27/23 18:26 Urine Bacteria Trace /hpf (NONE) 03/27/23 18:26 Urine Mucus 1+ /hpf 03/27/23 18:26 Urine Opiates Screen Negative ng/mL (Negative) 03/27/23 18:26 Ur Barbiturates Screen Negative ng/mL (Negative) 03/27/23 18:26 Ur Phencyclidine Scrn Negative ng/mL (Negative) 03/27/23 18:26 Ur Amphetamines Screen Negative ng/mL (Negative) 03/27/23 18:26 U Benzodiazepines Scrn Negative ng/mL (Negative) 03/27/23 18:26 Urine Cocaine Screen Negative ng/mL (Negative) 03/27/23 18:26 U Marijuana (THC) Screen Negative ng/mL (Negative) 03/27/23 18:26 All radiology interpretation(s) finalized by discharge Discharge Plan Discharge Patient Disposition: Home Clinical Impression: Acute left flank pain, Dysuria Condition: Stable Prescriptions: No Action prednisone 20 mg tablet 40 mg PO DAILY 5 Days Qty: 10 0RF tizanidine 6 mg capsule 6 mg PO BID PRN (Reason: muscle spasticity) Qty: 14 0RF duloxetine 30 mg capsule,delayed release(DR/EC) 30 mg PO DAILY Qty: 30 1RF levothyroxine 500 mcg recon soln 6.25 mcg IM DAILY hydroxyzine HCl 10 mg tablet 10 mg PO ONCE Qty: 30 0RF Discharge Orders: Discharge ED (Routine); Ordered 03/27/23 Ordered By: Genesis Lee Referrals: Herminio Wayne MD [Primary Care Provider] - Discharge Diet: Usual diet Discharge Activity: Increase activity as tolerated Activity Restrictions/Additional Instructions: Given the symptoms of flank pain and dysuria we did check your urine upon arrival. However, you do not show any signs of infection. There are other unexpected findings in your urine including bilirubin and urobilinogen which are often associated with gallbladder issues but, as you have had your gallbladder removed was a bit of a mystery. After speaking with Dr. Yung, he did recommend evaluating further which is why we obtain lab work and imaging. Lab work revealed no acute concerns and the imaging today showed no obvious findings in the left flank area to cause your pain. You were treated with several medications here in the emergency department to help with your pain which can overlap and cause some drowsiness and sedation. This can last several hours. We do request that you have a follow-up appoint with your primary care doctor in the next couple of days for recheck of your urine to see if the findings from today are still present. You may require further evaluation at that time if you continue to have these findings. However, if you spike a high fever, begin vomiting, have blood in your urine we recommend you return back to the emergency department. I did speak with Dr. Yung regarding your request for pain medication however, with a negative evaluation here in the emergency department and a prescription for tizanidine at home, he recommends using your tizanidine, and using Tylenol and ibuprofen and an adjunct therapy. You can also apply heating pad to the left flank region for 15 to 20 minutes, multiple times throughout the day. 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
[2023-03-27] MEDS: diphenhydrAMINE 50 mg/mL SDV 1mL IVP (20:37)
[2023-03-27] MEDS: methylPREDNISolone sod succ 125 mg/2 mL INJ IVP (20:37)
[2023-03-27] MEDS: orphenadrine 30 mg/mL Inj 2 mL 60 MG IVP (20:37)
[2023-03-27 20:43] LABS: Basophils % 0.2 %; Eosinophils # 0.1 10^3/uL (0.0-0.8); Eosinophils % 0.5 %; Hematocrit 35.9 % (36-47); Lymphocytes # 1.5 10^3/uL (0.8-4.8); Lymphocytes % 14.3 %; Mean Corpuscular HGB Conc 33.4 g/dL (30-55); Mean Corpuscular Hemoglobin 29.9 pg (27-33); Mean Corpuscular Volume 89.3 fl (85-98); Mean Platelet Volume 10.3 fL (7.4-10.4); Monocytes # 0.8 10^3/uL (0.2-0.9); Monocytes % 7.4 %; Neutrophils # 7.91 10^3/uL (1.8-7.7); Neutrophils % 77.2 %; Nucleated Red Blood Cells % 0 %; Platelet Count 277 10^3/cmm (157-399); Red Blood Count 4.02 10^6/uL (3.85-5.65); Red Cell Distribution Width 13.1 % (12.1-15.1); White Blood Count 10.24 10^3/uL (3.29-11.43)
[2023-03-27 21:05] LABS: Alanine Aminotransferase 15 U/L (0-33); Alkaline Phosphatase 79 U/L (35-105); Anion Gap 16.3 (5-19); Aspartate Amino Transferase 15 U/L (0-32); Blood Urea Nitrogen 7 mg/dL (6-20); Calcium 8.3 mg/dL (8.5-10.5); Carbon Dioxide 23 mmol/L (22-29); Chloride 103 mmol/L (98-107); Creatinine Clr Calc Pharmacy 134.0301; Globulin 2.8 g/dL (1.3-4.6); Glomerular Filtration Rate 123.9 mL/min (90-130); Glucose 91 mg/dL (65-115); Osmolality Calculated 286 mOsm/kg (285-295); Potassium 3.3 mmol/L (3.5-5.1); Sodium 139 mmol/L (136-145); Total Bilirubin 0.4 mg/dL (0.15-1.2); Total Protein 6.8 g/dL (6.6-8.7)
[2023-03-27 21:59] VITALS: BP 113/73; PULSE 85; RESP 14; TEMP 36.8; O2SAT 96
[2023-03-27] MEDS: iohexol 350 mg/mL 500 mL Btl (per mL) IV (22:46)
== END 2023-03-27 22:00 | disposition home or self-care (01) ==
PROVIDERS: Emergency Provider Physician Assistant; PCP Family Medicine
DX: R10.9 Unspecified abdominal pain (principal); R30.0 Dysuria
CPT/HCPCS: 36415; 74177; 80053; 80306; 81001; 81025; 85025; 96374; 96375; 99285; J1200; J2360; J2930; Q9967

== ENCOUNTER 2023-04-01 06:36 | Outpatient (CLI) | payer OTHER, MEDICAID, SELFPAY ==
[2023-04-01 07:30] LABS: Calcium 7.9 mg/dL (8.5-10.5)
[2023-04-01 07:44] LABS: Calcium 8.3 mg/dL (8.5-10.5)
[2023-04-01 09:08] LABS: Parathyroid Hormone 25.8 pg/mL (15-65)
== END 2023-04-01 06:37 | disposition home or self-care (01) ==
PROVIDERS: PCP Family Medicine; Visit Provider Internal Medicine
DX: E03.8 Other specified hypothyroidism (principal); E06.3 Autoimmune thyroiditis
CPT/HCPCS: 36415; 82310; 83970

== ENCOUNTER → 2023-04-03 12:26 | Outpatient (BNVA) | payer OTHER, MEDICAID, SELFPAY | PROVIDERS: PCP Family Medicine; Visit Provider Family Medicine | DX: N12 Tubulo-interstitial nephritis, not specified as acute or chronic (principal); R39.9 Unspecified symptoms and signs involving the genitourinary system | CPT/HCPCS: 81000 ==

== ENCOUNTER 2023-04-04 06:40 | Outpatient (CLI) | payer OTHER, MEDICAID, SELFPAY ==
[2023-04-04 07:38] LABS: 25 Hydroxy Vitamin D 10 ng/mL (30-100); Estradiol 32.3 pg/mL; Follicle Stimulating Hormone 5.3 mIU/mL; Luteinizing Hormone 4.7 mIU/mL (0.5-41.7); Prolactin 20.34 ng/mL (4.8-23.3)
[2023-04-13 00:59] LABS: GAD 65 IA-2 Antibody <5.4 U/mL (<5.4); GAD Insulin Autoantibody <0.4 U/mL (<0.4); Glutamic Acid Decarboxylase 65 <5 IU/mL (<5)
== END 2023-04-04 06:41 | disposition home or self-care (01) ==
LOC: LAB 06:41
PROVIDERS: PCP Family Medicine; Visit Provider Internal Medicine
DX: E03.8 Other specified hypothyroidism (principal); E06.3 Autoimmune thyroiditis; Z98.890 Other specified postprocedural states; R53.83 Other fatigue; E27.40 Unspecified adrenocortical insufficiency; E31.8 Other polyglandular dysfunction; N92.6 Irregular menstruation, unspecified; E20.9 Hypoparathyroidism, unspecified; E55.9 Vitamin D deficiency, unspecified
CPT/HCPCS: 36415; 82306; 82670; 83001; 83002; 84146; 86337; 86341

== ENCOUNTER 2023-04-11 06:22 | Outpatient (CLI) | payer OTHER, MEDICAID, SELFPAY ==
[2023-04-11 07:10] LABS: Free T4 Free Thyroxine 1.59 ng/dL (0.82-1.77); Thyroid Stimulating Hormone 0.06 uIU/mL (0.27-4.20)
[2023-04-18 15:38] LABS: GAD 65 IA-2 Antibody <5.4 U/mL (<5.4); GAD Insulin Autoantibody <0.4 U/mL (<0.4); Glutamic Acid Decarboxylase 65 5 IU/mL (<5)
== END 2023-04-11 06:23 | disposition home or self-care (01) ==
LOC: LAB 06:23
PROVIDERS: PCP Family Medicine; Visit Provider Internal Medicine
DX: E03.8 Other specified hypothyroidism (principal); Z98.890 Other specified postprocedural states; R53.83 Other fatigue; E27.40 Unspecified adrenocortical insufficiency; E31.8 Other polyglandular dysfunction; N92.6 Irregular menstruation, unspecified; E20.9 Hypoparathyroidism, unspecified; E55.9 Vitamin D deficiency, unspecified
CPT/HCPCS: 84439; 84443; 86337; 86341

== ENCOUNTER 2023-04-18 15:01 | Outpatient (CLI) | payer OTHER, MEDICAID, SELFPAY | END 2023-04-18 15:02 | disposition home or self-care (01) | LOC: LAB 15:03 | PROVIDERS: PCP Family Medicine; Visit Provider Nurse Practitioner Family | DX: Z01.89 Encounter for other specified special examinations (principal) | CPT/HCPCS: 36415; 84702 ==

== ENCOUNTER 2023-04-19 16:00 | Oncology outpatient (recurring) (ONCR) | payer OTHER, MEDICAID, SELFPAY ==
[2023-03-29 15:11] VITALS: BP 109/73; PULSE 81; RESP 16; TEMP 37.1; O2SAT 99
[2023-03-29] MEDS: levothyroxine 100 mcg/mL SDV 600 MCG IM (15:17)
[2023-03-29 16:42] LABS: Anion Gap 14.3 (5-19); Blood Urea Nitrogen 10 mg/dL (6-20); Calcium 7.8 mg/dL (8.5-10.5); Carbon Dioxide 26 mmol/L (22-29); Chloride 103 mmol/L (98-107); Chol HDL Ratio 2.95 mg/dL (0.0-4.40); Cholesterol 112 mg/dL (0-200); Free T4 Free Thyroxine 2.47 ng/dL (0.82-1.77); Glomerular Filtration Rate 103.7 mL/min (90-130); Glucose 88 mg/dL (65-115); HDL Cholesterol 38 mg/dL (60-100); LDL Cholesterol Calculated 57 mg/dL (50-129); Osmolality Calculated 288 mOsm/kg (285-295); Potassium 3.3 mmol/L (3.5-5.1); Sodium 140 mmol/L (136-145); Thyroid Stimulating Hormone 0.13 uIU/mL (0.27-4.20); Triglycerides 83 mg/dL (0-150)
[2023-04-07 08:04] VITALS: BP 100/66; PULSE 65; RESP 18; TEMP 36.1; O2SAT 100
[2023-04-07] MEDS: levothyroxine 100 mcg/mL SDV 500 MCG IM (08:16)
[2023-04-12] MEDS: levothyroxine 100 mcg/mL SDV 500 MCG IM (15:30)
[2023-04-12 15:40] VITALS: BP 103/68; PULSE 66; RESP 20; TEMP 36.8
[2023-04-19 16:05] VITALS: BP 115/58; PULSE 78; RESP 16; TEMP 36.6; O2SAT 100
[2023-04-19] MEDS: levothyroxine 100 mcg/mL SDV 500 MCG IM (16:21)
== END 2023-04-20 23:59 | disposition home or self-care (01) ==
PROVIDERS: PCP Family Medicine; Visit Provider Internal Medicine
DX: E27.40 Unspecified adrenocortical insufficiency (principal); Z53.9 Procedure and treatment not carried out, unspecified reason
CPT/HCPCS: 80048; 80061; 84439; 84443

== ENCOUNTER 2023-04-25 17:09 | Emergency (ER) | payer OTHER, MEDICAID, SELFPAY ==
[2023-04-25 17:17] VITALS: BP 106/59; PULSE 95; RESP 16; TEMP 36.6; O2SAT 100; BMI 20.9
[2023-04-25 17:53] LABS: Basophils % 0.3 %; Eosinophils # 0.1 10^3/uL (0.0-0.8); Eosinophils % 0.8 %; Hematocrit 35.8 % (36-47); Lymphocytes # 1.2 10^3/uL (0.8-4.8); Lymphocytes % 16.5 %; Mean Corpuscular HGB Conc 32.7 g/dL (30-55); Mean Corpuscular Volume 85.6 fl (85-98); Mean Platelet Volume 10.6 fL (7.4-10.4); Monocytes # 0.4 10^3/uL (0.2-0.9); Monocytes % 5.5 %; Neutrophils # 5.68 10^3/uL (1.8-7.7); Neutrophils % 76.6 %; Nucleated Red Blood Cells % 0 %; Platelet Count 266 10^3/cmm (157-399); Red Blood Count 4.18 10^6/uL (3.85-5.65); Red Cell Distribution Width 12.6 % (12.1-15.1); White Blood Count 7.41 10^3/uL (3.29-11.43)
[2023-04-25 18:17] LABS: Alanine Aminotransferase 9 U/L (0-33); Albumin Level 4.2 g/dL (3.5-5.2); Alkaline Phosphatase 84 U/L (35-105); Anion Gap 12.2 (5-19); Aspartate Amino Transferase 14 U/L (0-32); Blood Urea Nitrogen 9 mg/dL (6-20); Calcium 8.5 mg/dL (8.5-10.5); Carbon Dioxide 26 mmol/L (22-29); Chloride 106 mmol/L (98-107); Creatinine Clr Calc Pharmacy 126.5115; Globulin 2.5 g/dL (1.3-4.6); Glomerular Filtration Rate 123.9 mL/min (90-130); Glucose 95 mg/dL (65-115); Osmolality Calculated 288 mOsm/kg (285-295); Potassium 4.2 mmol/L (3.5-5.1); Sodium 140 mmol/L (136-145); Total Bilirubin 0.4 mg/dL (0.15-1.2); Total Protein 6.7 g/dL (6.6-8.7)
[2023-04-25 18:19] LABS: HCG, Serum Qual Negative (Negative)
[2023-04-25] MEDS: sodium chloride 0.9% 1,000 ML 999 ML IV (19:19)
[2023-04-25] MEDS: diphenhydrAMINE 50 mg/mL SDV 1mL 30 MG IVP (19:21)
[2023-04-25] MEDS: ondansetron 2 mg/ML SDV 2 mL 4 MG IVP (19:21)
[2023-04-25] MEDS: dexamethasone 4 mg/mL INJ 8 MG IVP (19:21)
[2023-04-25 19:35] VITALS: BP 104/63
[2023-04-25 19:42] LABS: Add Urine Microscopic? NO; Charge for UA Resulting for Rev
--- NOTE | 2023-04-25 19:43 | W.ED.HA ---
Documented by User: CLARE Robertson 04/25/23 22:24 HPI - Headache General: Chief Complaint: Headache Stated Complaint: pelvic pain, headache, nausea Time Seen by Provider: 04/25/23 17:45 Source: patient Mode of arrival: ambulatory Limitations: no limitations History of Present Illness: Patient is a 22-year-old female presents to the emergency department complaining of migraine headache onset 1 day. Patient states migraine came on gradually last night and that her head is painful all over. It is worsened by light exposure, and she states that she has not been any relief from her sumatriptan she took at home. She reports history of migraines, but states she has not had one in a while. She also complains of severe nausea, and some pelvic pain and spotting that has occurred simultaneously. Last menstrual period was 4 weeks ago and she states she is due to start it in 2 days. test is negative. Patient has surgical history of appendectomy and cholecystectomy. She denies any syncope, chest pain, palpitations, lightheadedness or dizziness, or any other symptoms. MD elicited complaint: migraine Onset (ago): day(s) Onset description: gradually Location: diffuse Severity: moderate Quality & Timing: aching Exacerbating factors: light Relieving factors: nothing Associated symptoms: Reports nausea; Deny chest pain, fever(s), lightheadedness or rash Treatments prior to arrival: other (Imitrex) Review of Systems General: Reports: 10 or more systems reviewed and unremarkable except in HPI and below Const: Denies: fever(s), chills or fatigue Eyes: Denies: change in vision ENMT: Denies: throat pain, ear or mastoid pain or nasal discharge Card: Denies: chest pain, palpitations, swelling of feet/ankles or lightheadedness Resp: Denies: dyspnea, productive cough or wheezing GI: Reports: nausea : Reports: pelvic pain and other (Vaginal spotting); Denies: flank pain, difficulty voiding, dysuria, urinary frequency, urinary urgency, urinary hesitancy, dribbling, oliguria, urinary incontinence or dysmenorrhea Musc: Denies: neck pain, back pain or joint pain Skin/Breast: Denies: rash Neuro: Reports: headache(s); Denies: numbness in extremities or weakness in extremities PFS ED PFSH: Medical History Anxiety 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 Adrenal insufficiency No pertinent family history Surgical History History of tonsillectomy and adenoidectomy History of myringotomy twice as a child History of laparoscopic appendectomy History of laparoscopic cholecystectomy History of cleft palate with cleft lip History of thyroid surgery (~2020) Full thyroidectomy-- performed in [place] Family History Grandmother Diabetes mellitus, type 2 MGM Hypertension PGM Grandfather Hypertension PGF Denies family history of Colon cancer Ovarian cancer Prostate cancer CAD (coronary artery disease) Hyperlipidemia Chronic kidney disease (CKD) Breast cancer Bleeding disorder Family history of premature coronary artery disease Uterine cancer Thyroid disease Social History Smoking and tobacco/nicotine status: never used tobacco/nicotine Second hand smoke exposure: No Alcohol intake: current Alcohol intake frequency: holidays/special occasions only Substance/Drug Use: never Adopted: No Caregiver/support person: No Lives independently: Yes Household members: spouse and children Housing: House Marital status: Highest education level completed: High School Graduate service: No Current occupational status: employed Current occupation: [employer] Current occupational exposures/hazards: No Physical Exam Const: COMMON NORMALS: no acute distress, average body habitus, patient oriented x3, no limitations, healthy appearing, alert and well nourished GENERAL APPEARANCE: cooperative and comfortable ORIENTATION/CONSCIOUSNESS: Yes awake HENMT: COMMON NORMALS: normocephalic, atraumatic, hearing grossly normal bilaterally, external ears normal, Normal external nose present, Normal nasal mucous membranes and turbinates present and moist oral mucous membranes HEAD & SCALP: normocephalic and atraumatic NOSE: Normal external nose present and Normal nasal mucous membranes and turbinates present EXTERNAL EAR: Yes external ears normal Eye: COMMON NORMALS: Equal, round and reactive pupils present, EOMs intact bilaterally, conjunctivae normal and normal visual núñez by confrontation CONJUNCTIVA: Yes conjunctivae normal PUPIL: Yes Equal, round and reactive pupils present Neck/C-Spine: COMMON NORMALS: full ROM, supple, no meningeal signs and no JVD Resp: COMMON NORMALS: normal respiratory effort, No retractions, No use of accessory muscles and clear to auscultation bilaterally AUSCULTATION: clear to auscultation bilaterally, no crackles, no rales, no rhonchi and no wheezes Cardio: COMMON NORMALS: no JVD, regular rate, regular rhythm, S1 normal heart sound present, S2 normal heart sound present, No gallops present (Cardio), No clicks present (Cardio), No murmurs present (Cardio), No rub (Cardio) and Peripheral pulses 2+ throughout RATE: regular rate RHYTHM: regular rhythm HEART SOUNDS: S1 normal heart sound present and S2 normal heart sound present PERIPHERAL PULSES: Peripheral pulses 2+ throughout GI: COMMON NORMALS: Normal to inspection, nondistended, normoactive bowel sounds present, Soft to palpation, No hepatosplenomegaly present and no masses AUSCULTATION: Yes normoactive bowel sounds PALPATION: Yes Soft to palpation, Yes Tenderness to palpation present (GI) (Suprapubic), No Guarding due to palpation present (GI), No Rigid due to palpation and Yes No hepatosplenomegaly present RECTAL EXAM: deferred : COMMON NORMALS: Yes no CVA tenderness BLADDER/KIDNEY EXAM: Yes no CVA tenderness Back/Pelvis: COMMON NORMALS: no CVA tenderness Extremity: COMMON NORMALS: normal to inspection and full ROM Neuro: COMMON NORMALS: patient oriented x3, CN's II-XII intact bilaterally, moves all extremities, no focal motor deficits and no sensory deficits noted SENSORIUM/ORIENTATION: Yes alert MENINGEAL SIGNS: Yes no meningeal signs SPEECH: speech normal GAIT: Yes Normal gait present MOTOR EXAM: 5/5 motor strength present throughout Psych: COMMON NORMALS: mental status grossly normal, cooperative and speech normal SPEECH: Yes normal speech Skin: COMMON NORMALS: no rashes or lesions noted GENERAL SKIN EXAM: no rashes or lesions noted Course Vital Signs: Vital signs: Vital Signs Temperature 97.9 F 04/25/23 17:17 Pulse Rate 78 04/25/23 22:41 Respiratory Rate 14 04/25/23 22:41 Blood Pressure 99/56 04/25/23 22:41 Pulse Oximetry 99 04/25/23 22:41 Oxygen Delivery Me thod Room Air 04/25/23 22:00 MDM - Headache Medical Decision Making Patient was seen and evaluated in the emergency department today for a migraine headache for the past 24 hours as well as some pelvic pain. Patient reports history of migraine headaches when she has a prescription for sumatriptan, which reportedly has not helped her symptoms. Patient's vitals on arrival were normal. Physical exam did not reveal any acute neurological deficits, and she had some mild tenderness to palpation of the suprapubic region. Her test was negative. I started her on a migraine cocktail, which on recheck improved her symptoms greatly. However, she was still complaining of pelvic pain so I ordered a transvaginal ultrasound after her laboratory tests failed to show any acute findings. Ultrasound findings of thickened endometrium correlates to her stage intermenstrual cycle, as she states she is due to start her period in 2 days. Otherwise, ultrasound is negative. On recheck, patient states she feels better but still has some pain. Prior to discharge, she will be given an IV dose of Reglan and morphine and discharged home with instruction to follow-up with her primary care doctor. Patient agrees with this plan. Medical Records I reviewed the patient's medical records. Lab Data I reviewed the patient's lab results. 04/25/23 17:34 04/25/23 17:34 Radiology Impressions Transvaginal US 04/25/23 20:36 IMPRESSION: 1. Endometrium is thickened measuring up 10 mm. Correlate with stage of menses. 2. The ovaries are unremarkable. Laboratory Results WBC 7.41 10^3/uL (3.29-11.43) 04/25/23 17:34 RBC 4.18 10^6/uL (3.85-5.65) 04/25/23 17:34 Hgb 11.70 g/dL (11.27-16.99) 04/25/23 17:34 Hct 35.8 % (36-47) L 04/25/23 17:34 MCV 85.6 fl (85-98) 04/25/23 17:34 MCH 28.0 pg (27-33) 04/25/23 17:34 MCHC 32.7 g/dL (30-55) 04/25/23 17:34 RDW 12.6 % (12.1-15.1) 04/25/23 17:34 Plt Count 266 10^3/cmm (157-399) 04/25/23 17:34 MPV 10.6 fL (7.4-10.4) H 04/25/23 17:34 Neut % (Auto) 76.6 % 04/25/23 17:34 Lymph % (Auto) 16.5 % 04/25/23 17:34 [place] % (Auto) 5.5 % 04/25/23 17:34 Eos % (Auto) 0.8 % 04/25/23 17:34 Baso % (Auto) 0.3 % 04/25/23 17:34 Neut # (Auto) 5.68 10^3/uL (1.8-7.7) 04/25/23 17:34 Lymph # (Auto) 1.2 10^3/uL (0.8-4.8) 04/25/23 17:34 [place] # (Auto) 0.4 10^3/uL (0.2-0.9) 04/25/23 17:34 Eos # (Auto) 0.1 10^3/uL (0.0-0.8) 04/25/23 17:34 Baso # (Auto) 0.0 10^3/uL (0.0-0.1) 04/25/23 17:34 Nucleated RBC % (auto) 0 % 04/25/23 17:34 Nucleated RBCs # 0.0 /100WBC 04/25/23 17:34 Sodium 140 mmol/L (136-145) 04/25/23 17:34 Potassium 4.2 mmol/L (3.5-5.1) 04/25/23 17:34 Chloride 106 mmol/L (98-107) 04/25/23 17:34 Carbon Dioxide 26 mmol/L (22-29) 04/25/23 17:34 Anion Gap 12.2 (5-19) 04/25/23 17:34 BUN 9 mg/dL (6-20) 04/25/23 17:34 Creatinine 0.6 mg/dL (0.5-0.9) 04/25/23 17:34 GFR Calculation 123.9 mL/min (90-130) 04/25/23 17:34 Glucose 95 mg/dL (65-115) 04/25/23 17:34 Calculated Osmolality 288 mOsm/kg (285-295) 04/25/23 17:34 Calcium 8.5 mg/dL (8.5-10.5) 04/25/23 17:34 Total Bilirubin 0.4 mg/dL (0.15-1.2) 04/25/23 17:34 AST 14 U/L (0-32) 04/25/23 17:34 ALT 9 U/L (0-33) 04/25/23 17:34 Alkaline Phosphatase 84 U/L (35-105) 04/25/23 17:34 Total Protein 6.7 g/dL (6.6-8.7) 04/25/23 17:34 Albumin 4.2 g/dL (3.5-5.2) 04/25/23 17:34 Globulin 2.5 g/dL (1.3-4.6) 04/25/23 17:34 HCG, Qual Negative (Negative) 04/25/23 17:34 Urine Color Yellow (Yellow) 04/25/23 19:34 Urine Appearance Clear (CLEAR) 04/25/23 19:34 Urine pH 6 (5-7) 04/25/23 19:34 Ur Specific [place] 1.015 (1.005-1.030) 04/25/23 19:34 Urine Protein Neg (Negative) 04/25/23 19:34 Urine Glucose (UA) Norm (Normal) 04/25/23 19:34 Urine Ketones 2+ (Negative) H 04/25/23 19:34 Urine Blood Neg (Negative) 04/25/23 19:34 Urine Nitrate Negative (Negative) 04/25/23 19:34 Urine Bilirubin Neg (Negative) 04/25/23 19:34 Urine Urobilinogen Norm mg/dL (Negative) 04/25/23 19:34 Ur Leukocyte Esterase Negative (Negative) 04/25/23 19:34 All radiology interpretation(s) finalized by discharge Discharge Plan Discharge Patient Disposition: Home Clinical Impression: Pelvic pain Migraine Qualifiers: Migraine type: unspecified Status migrainosus presence: without status migrainosus Intractability: intractable Qualified Code(s): G43.919 - Migraine, unspecified, intractable, without status migrainosus Condition: Stable Prescriptions: No Action tizanidine 6 mg capsule 6 mg PO BID PRN (Reason: muscle spasticity) Qty: 14 0RF duloxetine 30 mg capsule,delayed release(DR/EC) 30 mg PO DAILY Qty: 30 1RF ciprofloxacin HCl 500 mg tablet 500 mg PO BID Qty: 14 0RF levothyroxine 500 mcg recon soln 6.25 mcg IM DAILY hydroxyzine HCl 10 mg tablet 10 mg PO ONCE Qty: 30 0RF cholecalciferol (vitamin D3) 1,250 mcg (50,000 unit) capsule 50,000 unit PO .weekly Qty: 20 0RF Rx Instructions: for 2 months Discharge Orders: Discharge ED (Routine); Ordered 04/25/23 Ordered By: Clemente Estrella Referrals: Herminio Wayne MD [Primary Care Provider] - Discharge Diet: Usual diet Discharge Activity: Increase activity as tolerated Patient Instructions: Migraine Headache (ED), Pelvic Pain in Women (ED) Activity Restrictions/Additional Instructions: Plenty of fluids. NSAIDs for pain. Follow-up with your primary care provider. Return if you develop any new or worsening symptoms. 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 Adrenal insufficiency No pertinent family history Surgical History History of tonsillectomy and adenoidectomy History of myringotomy twice as a child History of laparoscopic appendectomy History of laparoscopic cholecystectomy History of cleft palate with cleft lip History of thyroid surgery (~2020) Full thyroidectomy-- performed in [place] Family History Grandmother Diabetes mellitus, type 2 MGM Hypertension PGM Grandfather Hypertension PGF Denies family history of Colon cancer Ovarian cancer Prostate cancer CAD (coronary artery disease) Hyperlipidemia Chronic kidney disease (CKD) Breast cancer Bleeding disorder Family history of premature coronary artery disease Uterine cancer Thyroid disease Social History Smoking and tobacco/nicotine status: never used tobacco/nicotine Second hand smoke exposure: No Alcohol intake: current Alcohol intake frequency: holidays/special occasions only Substance/Drug Use: never Adopted: No Caregiver/support person: No Lives independently: Yes Household members: spouse and children Housing: House Marital status: Highest education level completed: High School Graduate service: No Current occupational status: employed Current occupation: [employer] Current occupational exposures/hazards: No Course Vital Signs: Vital signs: Vital Signs Temperature 97.9 F 04/25/23 17:17 Pulse Rate 78 04/25/23 22:41 Respiratory Rate 14 04/25/23 22:41 Blood Pressure 99/56 04/25/23 22:41 Pulse Oximetry 99 04/25/23 22:41 Oxygen Delivery Me thod Room Air 04/25/23 22:00 MDM - Headache Medical Decision Making Patient was seen and evaluated in the emergency department today for a migraine headache for the past 24 hours as well as some pelvic pain. Patient reports history of migraine headaches when she has a prescription for sumatriptan, which reportedly has not helped her symptoms. Patient's vitals on arrival were normal. Physical exam did not reveal any acute neurological deficits, and she had some mild tenderness to palpation of the suprapubic region. Her test was negative. I started her on a migraine cocktail, which on recheck improved her symptoms greatly. However, she was still complaining of pelvic pain so I ordered a transvaginal ultrasound after her laboratory tests failed to show any acute findings. Ultrasound findings of thickened endometrium correlates to her stage intermenstrual cycle, as she states she is due to start her period in 2 days. Otherwise, ultrasound is negative. On recheck, patient states she feels better but still has some pain. Prior to discharge, she will be given an IV dose of Reglan and morphine and discharged home with instruction to follow-up with her primary care doctor. Patient agrees with this plan. Chart reviewed and patient discussed with midlevel. Agree with assessment and plan. Lab Data 04/25/23 17:34 04/25/23 17:34 Radiology Impressions Transvaginal US 04/25/23 20:36 IMPRESSION: 1. Endometrium is thickened measuring up 10 mm. Correlate with stage of menses. 2. The ovaries are unremarkable. Laboratory Results WBC 7.41 10^3/uL (3.29-11.43) 04/25/23 17:34 RBC 4.18 10^6/uL (3.85-5.65) 04/25/23 17:34 Hgb 11.70 g/dL (11.27-16.99) 04/25/23 17:34 Hct 35.8 % (36-47) L 04/25/23 17:34 MCV 85.6 fl (85-98) 04/25/23 17:34 MCH 28.0 pg (27-33) 04/25/23 17:34 MCHC 32.7 g/dL (30-55) 04/25/23 17:34 RDW 12.6 % (12.1-15.1) 04/25/23 17:34 Plt Count 266 10^3/cmm (157-399) 04/25/23 17:34 MPV 10.6 fL (7.4-10.4) H 04/25/23 17:34 Neut % (Auto) 76.6 % 04/25/23 17:34 Lymph % (Auto) 16.5 % 04/25/23 17:34 [place] % (Auto) 5.5 % 04/25/23 17:34 Eos % (Auto) 0.8 % 04/25/23 17:34 Baso % (Auto) 0.3 % 04/25/23 17:34 Neut # (Auto) 5.68 10^3/uL (1.8-7.7) 04/25/23 17:34 Lymph # (Auto) 1.2 10^3/uL (0.8-4.8) 04/25/23 17:34 [place] # (Auto) 0.4 10^3/uL (0.2-0.9) 04/25/23 17:34 Eos # (Auto) 0.1 10^3/uL (0.0-0.8) 04/25/23 17:34 Baso # (Auto) 0.0 10^3/uL (0.0-0.1) 04/25/23 17:34 Nucleated RBC % (auto) 0 % 04/25/23 17:34 Nucleated RBCs # 0.0 /100WBC 04/25/23 17:34 Sodium 140 mmol/L (136-145) 04/25/23 17:34 Potassium 4.2 mmol/L (3.5-5.1) 04/25/23 17:34 Chloride 106 mmol/L (98-107) 04/25/23 17:34 Carbon Dioxide 26 mmol/L (22-29) 04/25/23 17:34 Anion Gap 12.2 (5-19) 04/25/23 17:34 BUN 9 mg/dL (6-20) 04/25/23 17:34 Creatinine 0.6 mg/dL (0.5-0.9) 04/25/23 17:34 GFR Calculation 123.9 mL/min (90-130) 04/25/23 17:34 Glucose 95 mg/dL (65-115) 04/25/23 17:34 Calculated Osmolality 288 mOsm/kg (285-295) 04/25/23 17:34 Calcium 8.5 mg/dL (8.5-10.5) 04/25/23 17:34 Total Bilirubin 0.4 mg/dL (0.15-1.2) 04/25/23 17:34 AST 14 U/L (0-32) 04/25/23 17:34 ALT 9 U/L (0-33) 04/25/23 17:34 Alkaline Phosphatase 84 U/L (35-105) 04/25/23 17:34 Total Protein 6.7 g/dL (6.6-8.7) 04/25/23 17:34 Albumin 4.2 g/dL (3.5-5.2) 04/25/23 17:34 Globulin 2.5 g/dL (1.3-4.6) 04/25/23 17:34 HCG, Qual Negative (Negative) 04/25/23 17:34 Urine Color Yellow (Yellow) 04/25/23 19:34 Urine Appearance Clear (CLEAR) 04/25/23 19:34 Urine pH 6 (5-7) 04/25/23 19:34 Ur Specific [place] 1.015 (1.005-1.030) 04/25/23 19:34 Urine Protein Neg (Negative) 04/25/23 19:34 Urine Glucose (UA) Norm (Normal) 04/25/23 19:34 Urine Ketones 2+ (Negative) H 04/25/23 19:34 Urine Blood Neg (Negative) 04/25/23 19:34 Urine Nitrate Negative (Negative) 04/25/23 19:34 Urine Bilirubin Neg (Negative) 04/25/23 19:34 Urine Urobilinogen Norm mg/dL (Negative) 04/25/23 19:34 Ur Leukocyte Esterase Negative (Negative) 04/25/23 19:34 Discharge Plan Discharge Patient Disposition: Home Clinical Impression: Pelvic pain Migraine Qualifiers: Migraine type: unspecified Status migrainosus presence: without status migrainosus Intractability: intractable Qualified Code(s): G43.919 - Migraine, unspecified, intractable, without status migrainosus Condition: Stable Prescriptions: No Action tizanidine 6 mg capsule 6 mg PO BID PRN (Reason: muscle spasticity) Qty: 14 0RF duloxetine 30 mg capsule,delayed release(DR/EC) 30 mg PO DAILY Qty: 30 1RF ciprofloxacin HCl 500 mg tablet 500 mg PO BID Qty: 14 0RF levothyroxine 500 mcg recon soln 6.25 mcg IM DAILY hydroxyzine HCl 10 mg tablet 10 mg PO ONCE Qty: 30 0RF cholecalciferol (vitamin D3) 1,250 mcg (50,000 unit) capsule 50,000 unit PO .weekly Qty: 20 0RF Rx Instructions: for 2 months Discharge Orders: Discharge ED (Routine); Ordered 04/25/23 Ordered By: Clemente Estrella Referrals: Herminio Wayne MD [Primary Care Provider] - Discharge Diet: Usual diet Discharge Activity: Increase activity as tolerated Patient Instructions: Migraine Headache (ED), Pelvic Pain in Women (ED) Activity Restrictions/Additional Instructions: Plenty of fluids. NSAIDs for pain. Follow-up with your primary care provider. Return if you develop any new or worsening symptoms. 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
[2023-04-25 19:49] LABS: Urine Appearance Clear (CLEAR); Urine Color Yellow (Yellow)
[2023-04-25 19:50] LABS: Bilirubin Urine Neg (Negative); Blood Urine Neg (Negative); Glucose Urine UA Norm (Normal); Ketones Urine 2+ (Negative); Leukocyte Esterase Urine Negative (Negative); Nitrate Urine Negative (Negative); Protein Urine Neg (Negative); Specific Gravity, Urine 1.015 (1.005-1.030); Urobilinogen Urine Norm (Negative); pH Urine 6 (5-7)
[2023-04-25 20:00] VITALS: BP 98/62; RESP 14; O2SAT 98
--- NOTE | 2023-04-25 20:36 | USR_ITS ---
PROCEDURE INFORMATION: Exam: US Pelvis, Transvaginal Exam date and time: 04/25/2023 8:06 PM Age: 22 years old Clinical indication: Pelvic pain; Prior surgery; Surgery date: 6+ months; Surgery type: Appendectomy 2009 LABS AND CLINICAL REPORTS: Last menstrual period start date: 03/02/2023 TECHNIQUE: Imaging protocol: Real-time transvaginal pelvic ultrasound with image documentation. Transvaginal imaging was used for better evaluation of the endometrium, adnexa, and/or cervix. COMPARISON: CT abdomen pelvis w con* [id number] 03/27/2023 8:23 PM FINDINGS: Uterus: Uterus measures 8.7 cm x 6.03 cm x 4.07 cm. Endometrium is thickened measuring up 10 mm. Correlate with stage of menses. Right ovary/adnexa: Right ovary measures 2.2 cm x 3.4 cm x 1.9 cm. Right ovarian volume is 7.3 mL. Left ovary/adnexa: Left ovary measures 4.5 cm x 2.4 cm x 3 cm. Left ovarian volume is 17.1 mL. Intraperitoneal space: No free fluid. Other findings: The ovaries are unremarkable. US/US transvaginal [id number] IMPRESSION: 1. Endometrium is thickened measuring up 10 mm. Correlate with stage of menses. 2. The ovaries are unremarkable.
[2023-04-25 22:00] VITALS: BP 105/60; PULSE 94; RESP 14; O2SAT 99
[2023-04-25] MEDS: metoclopramide 5 mg/mL SDV 2 mL 10 MG IVP (22:29)
[2023-04-25 22:30] VITALS: RESP 14
[2023-04-25] MEDS: morphine 4 mg/mL SDV 1 mL IVP (22:30)
[2023-04-25 22:41] VITALS: BP 99/56; PULSE 78; RESP 14; O2SAT 99
== END 2023-04-25 22:42 | disposition home or self-care (01) ==
PROVIDERS: Emergency Medicine; Emergency Provider Physician Assistant; PCP Family Medicine
DX: G43.919 Migraine, unspecified, intractable, without status migrainosus (principal); R10.2 Pelvic and perineal pain
CPT/HCPCS: 76830; 80053; 81003; 84703; 85025; 96361; 96374; 96375; 99284; J1100; J1200; J2270; J2405; J2765; J7030

== ENCOUNTER 2023-05-03 16:07 | Outpatient (CLI) | payer OTHER, MEDICAID, SELFPAY ==
[2023-05-03 17:20] LABS: HCG Quantitative 20.62 mIU/mL
== END 2023-05-03 16:08 | disposition home or self-care (01) ==
LOC: LAB 16:10
PROVIDERS: PCP Family Medicine
DX: Z32.01 Encounter for pregnancy test, result positive (principal)
CPT/HCPCS: 36415; 84702

== ENCOUNTER 2023-05-05 06:42 | Outpatient (CLI) | payer OTHER, MEDICAID, SELFPAY ==
[2023-05-05 09:07] LABS: HCG Quantitative 72.29 mIU/mL
== END 2023-05-05 06:43 | disposition home or self-care (01) ==
PROVIDERS: PCP Family Medicine; Visit Provider Nurse Practitioner Family
DX: Z32.01 Encounter for pregnancy test, result positive (principal)
CPT/HCPCS: 84702

== ENCOUNTER → 2023-05-11 11:36 | Outpatient (BNVA) | payer OTHER, MEDICAID, SELFPAY | PROVIDERS: PCP Family Medicine; Visit Provider Internal Medicine | DX: E03.8 Other specified hypothyroidism (principal); E06.3 Autoimmune thyroiditis; Z98.890 Other specified postprocedural states; E20.9 Hypoparathyroidism, unspecified; E55.9 Vitamin D deficiency, unspecified; R53.83 Other fatigue; E27.40 Unspecified adrenocortical insufficiency | CPT/HCPCS: 36415; 80053; 82310; 83970; 84439; 84443 ==

== ENCOUNTER 2023-05-17 14:30 | Oncology outpatient (recurring) (ONCR) | payer OTHER, MEDICAID, SELFPAY ==
[2023-04-26 14:23] VITALS: BP 104/66; PULSE 88; RESP 16; TEMP 36.5; O2SAT 98
[2023-04-26] MEDS: levothyroxine 100 mcg/mL SDV 500 MCG IM (14:25)
[2023-05-03 15:56] VITALS: BP 97/61; PULSE 74; RESP 16; TEMP 36.3; O2SAT 98
[2023-05-03] MEDS: levothyroxine 100 mcg/mL SDV 500 MCG IM (16:01)
[2023-05-10 12:33] VITALS: BP 116/72; PULSE 88; RESP 16; O2SAT 100
[2023-05-10] MEDS: levothyroxine 100 mcg/mL SDV 500 MCG IM (12:33)
[2023-05-17 15:06] VITALS: BP 106/68; PULSE 72; RESP 16; O2SAT 99
[2023-05-17] MEDS: levothyroxine 100 mcg/mL SDV 450 MCG IM (15:16)
== END 2023-05-21 23:59 | disposition home or self-care (01) ==
PROVIDERS: PCP Family Medicine; Visit Provider Internal Medicine
DX: E27.40 Unspecified adrenocortical insufficiency (principal); Z53.9 Procedure and treatment not carried out, unspecified reason

== ENCOUNTER 2023-05-20 21:15 | Emergency (ER) | payer OTHER, MEDICAID, SELFPAY ==
[2023-05-20 21:19] VITALS: BP 96/63; PULSE 98; RESP 17; TEMP 36.6; O2SAT 98; BMI 21.9
--- NOTE | 2023-05-20 21:57 | USR_ITS ---
PROCEDURE INFORMATION: Exam: US , Transvaginal Exam date and time: 05/20/2023 10:52 PM Age: 22 years old Clinical indication: complicated by abdominal or pelvic pain; Lower; First trimester (<14 weeks 0 days); Gestational age or lmp: 5w5d; ; Additional info: Pelvic pain/7 weeks preg LABS AND CLINICAL REPORTS: Last menstrual period start date: 04/02/2023 Gestational age (Established): 6 w 6 d Estimated due date (Established): 01/07/2024 TECHNIQUE: Imaging protocol: Real-time transvaginal obstetrical ultrasound of the maternal pelvis with image documentation. Transvaginal imaging was used for better evaluation of the fetus, adnexa, and/or cervix. COMPARISON: US transvaginal [id number] 04/25/2023 8:06 PM FINDINGS: Gestation: Single live intrauterine gestation. Yolk sac measures 2.2 mm. heart rate: 96 bpm. BIOMETRY: Gestational age (AUA): 5 weeks 5 days Estimated due date (AUA): 01/15/2024 [place] length (CRL): 0.21 cm MATERNAL: Cervix: Cervical length measures 3.8 cm. Right ovary/adnexa: Unremarkable. Blood flow to right ovary seen. Arterial inflow and venous outflow waveforms noted. Left ovary/adnexa: Unremarkable. Blood flow to left ovary seen. Arterial inflow and venous outflow waveforms noted. Elongated cyst noted in the left ovary, measuring approximately 1.10.7 x 3.2 cm. Intraperitoneal space: Trace amount of fluid noted in pelvis, likely physiologic. US/US OB transvaginal [id number] IMPRESSION: Single live intrauterine gestation with estimated age of 5 weeks 5 days.
--- NOTE | 2023-05-20 22:04 | ED_ITS ---
Documented by User: CLARE Robertson 05/20/23 23:58 HPI - Female Genitourinary 2 General: Chief complaint: Urogenital-Female Stated complaint: Cramps\7 Weeks Preg Time Seen by Provider: 05/20/23 21:51 Source: patient Mode of arrival: ambulatory Limitations: no limitations History of Present Illness: Patient is a 22-year-old female who is currently 7 weeks and presents to the emergency department complaining of pelvic pain onset today. Patient notes she had some spotting earlier in the week, but no pain then. However she notes sudden onset of pelvic pain with associated nausea tonight. She has not had a confirmatory ultrasound for , and states that this appointment is on Monday in . She also reports she had 1 episode of vomiting. No urinary symptoms. No other symptoms to report at this time. Associated symptoms: Reports nausea; Deny abdominal pain or headache(s) Date of Last Menstrual Period: 04/02/23 Review of Systems 2 General: Reports: 10 or more systems reviewed and unremarkable except in HPI and below Const: Denies: fever(s), chills, change in appetite, change in weight or diaphoresis ENMT: Denies: throat pain or hoarseness Card: Denies: chest pain, palpitations or lightheadedness Resp: Denies: dyspnea, productive cough or wheezing GI: Reports: nausea and vomiting; Denies: abdominal pain, diarrhea, constipation, bloating, change in stool character or hematochezia : Reports: pelvic pain; Denies: flank pain, difficulty voiding, dysuria, urinary frequency or urinary urgency Musc: Denies: neck pain or back pain Skin/Breast: Denies: rash or new lesions Neuro: Denies: headache(s) or dizziness PFSH ED 2 PFSH: Medical History Migraine Anxiety 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 Adrenal insufficiency No pertinent family history Surgical History History of tonsillectomy and adenoidectomy History of myringotomy twice as a child History of laparoscopic appendectomy History of laparoscopic cholecystectomy History of cleft palate with cleft lip History of thyroid surgery (~2020) Full thyroidectomy-- performed in [place] Family History Grandmother Diabetes mellitus, type 2 MGM Hypertension PGM Grandfather Hypertension PGF Denies family history of Colon cancer Ovarian cancer Prostate cancer CAD (coronary artery disease) Hyperlipidemia Chronic kidney disease (CKD) Breast cancer Bleeding disorder Family history of premature coronary artery disease Uterine cancer Thyroid disease Social History Smoking and tobacco/nicotine status: never used tobacco/nicotine Second hand smoke exposure: No Alcohol intake: current Alcohol intake frequency: holidays/special occasions only Substance/Drug Use: never Adopted: No Caregiver/support person: No Lives independently: Yes Household members: spouse and children Housing: House Marital status: Highest education level completed: High School Graduate service: No Current occupational status: employed Current occupation: [employer] Current occupational exposures/hazards: No Female Reproductive History: Date of last menstrual period: 04/02/23 Physical Exam 2 Const: COMMON NORMALS: average body habitus, patient oriented x3, no limitations, healthy appearing, alert and well nourished GENERAL APPEARANCE: cooperative and anxious ORIENTATION/CONSCIOUSNESS: Yes awake HENMT: COMMON NORMALS: normocephalic, atraumatic, hearing grossly normal bilaterally, external ears normal, Normal external nose present, Normal nasal mucous membranes and turbinates present and moist oral mucous membranes HEAD & SCALP: normocephalic and atraumatic NOSE: Normal external nose present and Normal nasal mucous membranes and turbinates present EXTERNAL EAR: Yes external ears normal Eye: COMMON NORMALS: Equal, round and reactive pupils present, EOMs intact bilaterally, conjunctivae normal and normal visual núñez by confrontation C ONJUNCTIVA: Yes conjunctivae normal PUPIL: Yes Equal, round and reactive pupils present Neck/C-Spine: COMMON NORMALS: full ROM, supple, no meningeal signs and no JVD Resp: COMMON NORMALS: normal respiratory effort, No retractions, No use of accessory muscles and clear to auscultation bilaterally AUSCULTATION: clear to auscultation bilaterally, no crackles, no rales, no rhonchi and no wheezes Cardio: COMMON NORMALS: no JVD, regular rate, regular rhythm, S1 normal heart sound present, S2 normal heart sound present, No gallops present (Cardio), No clicks present (Cardio), No murmurs present (Cardio), No rub (Cardio) and Peripheral pulses 2+ throughout RATE: regular rate RHYTHM: regular rhythm HEART SOUNDS: S1 normal heart sound present and S2 normal heart sound present PERIPHERAL PULSES: Peripheral pulses 2+ throughout GI: COMMON NORMALS: Normal to inspection, nondistended, normoactive bowel sounds present, Soft to palpation, No hepatosplenomegaly present and no masses AUSCULTATION: Yes normoactive bowel sounds PALPATION: Yes Soft to palpation, Yes Tenderness to palpation present (GI) (Suprapubic), Yes Guarding due to palpation present (GI) (Voluntary), No Rigid due to palpation and Yes No hepatosplenomegaly present RECTAL EXAM: deferred : COMMON NORMALS: Yes no CVA tenderness BLADDER/KIDNEY EXAM: Yes no CVA tenderness Back/Pelvis: COMMON NORMALS: no CVA tenderness Extremity: COMMON NORMALS: normal to inspection and full ROM Neuro: COMMON NORMALS: patient oriented x3, moves all extremities, no focal motor deficits and no sensory deficits noted SENSORIUM/ORIENTATION: Yes alert MENINGEAL SIGNS: Yes no meningeal signs Psych: COMMON NORMALS: mental status grossly normal, cooperative and speech normal SPEECH: Yes normal speech Skin: COMMON NORMALS: no rashes or lesions noted GENERAL SKIN EXAM: no rashes or lesions noted Course 2 Vital Signs: Vital signs: Vital Signs Temperature 97.9 F 05/20/23 21:19 Pulse Rate 90 05/21/23 00:00 Respiratory Rate 16 05/21/23 00:00 Blood Pressure 96/63 05/20/23 21:19 Pulse Oximetry 98 05/21/23 00:00 Oxygen Delivery Me thod Room Air 05/20/23 21:19 MDM - Female Medical Decision Making This patient was seen and evaluated for pelvic pain occurring tonight. Patient reports she is . On arrival patient's vitals normal and have been stable throughout ED visit. Examination showed an anxious patient who had some mild tenderness to palpation of the suprapubic region, though with voluntary guarding. Rest of her exam was unremarkable. CBC showed some decrease in hemoglobin that appears to be chronic when compared to previous. Her UA was negative. Serum hCG correlated a quantity with approximately 5-6 weeks gestation when compared to findings on transvaginal ultrasound. Ultrasound also showed a single live intrauterine gestation with no abnormalities noted. I informed patient that she needs to keep her follow-up on Monday that she has with her INSTRUMENT REPAIR SPECIALIST. I believe patient's pain is physiologic in and I do not see reason for further testing at this time. Patient informed of reasons to return, such as significant bleeding or significant worsening of her pain. Patient agrees with this plan and will be discharged home. Lab Data I reviewed the patient's lab results. 05/20/23 22:20 Radiology Impressions Transvaginal US 05/20/23 21:57 IMPRESSION: Single live intrauterine gestation with estimated age of 5 weeks 5 days. Laboratory Results WBC 9.06 10^3/uL (3.29-11.43) 05/20/23 22:20 RBC 3.91 10^6/uL (3.85-5.65) 05/20/23 22:20 Hgb 10.40 g/dL (11.27-16.99) L 05/20/23 22:20 Hct 32.4 % (36-47) L 05/20/23 22:20 MCV 82.9 fl (85-98) L 05/20/23 22:20 MCH 26.6 pg (27-33) L 05/20/23 22:20 MCHC 32.1 g/dL (30-55) 05/20/23 22:20 RDW 14.5 % (12.1-15.1) 05/20/23 22:20 Plt Count 251 10^3/cmm (157-399) 05/20/23 22:20 MPV 10.8 fL (7.4-10.4) H 05/20/23 22:20 Neut % (Auto) 72.0 % 05/20/23 22:20 Lymph % (Auto) 18.7 % 05/20/23 22:20 Clark % (Auto) 7.5 % 05/20/23 22:20 Eos % (Auto) 1.3 % 05/20/23 22:20 Baso % (Auto) 0.2 % 05/20/23 22:20 Neut # (Auto) 6.52 10^3/uL (1.8-7.7) 05/20/23 22:20 Lymph # (Auto) 1.7 10^3/uL (0.8-4.8) 05/20/23 22:20 Clark # (Auto) 0.7 10^3/uL (0.2-0.9) 05/20/23 22:20 Eos # (Auto) 0.1 10^3/uL (0.0-0.8) 05/20/23 22:20 Baso # (Auto) 0.0 10^3/uL (0.0-0.1) 05/20/23 22:20 Nucleated RBC % (auto) 0 % 05/20/23 22:20 Nucleated RBCs # 0.0 /100WBC 05/20/23 22:20 Ser , Semi-Qnt 05983.00 mIU/mL 05/20/23 22:20 Urine Color Yellow (Yellow) 05/20/23 22:10 Urine Appearance Clear (CLEAR) 05/20/23 22:10 Urine pH 6.5 (5-7) 05/20/23 22:10 Ur Specific [place] 1.005 (1.005-1.030) 05/20/23 22:10 Urine Protein Neg (Negative) 05/20/23 22:10 Urine Glucose (UA) Norm (Normal) 05/20/23 22:10 Urine Ketones 1+ (Negative) H 05/20/23 22:10 Urine Blood Neg (Negative) 05/20/23 22:10 Urine Nitrate Negative (Negative) 05/20/23 22:10 Urine Bilirubin Neg (Negative) 05/20/23 22:10 Urine Urobilinogen Neg mg/dL (Negative) 05/20/23 22:10 Ur Leukocyte Esterase Negative (Negative) 05/20/23 22:10 All radiology interpretation(s) finalized by discharge Discharge Plan Discharge Patient Disposition: Home Clinical Impression: Pelvic pain during Condition: Stable Prescriptions: No Action tizanidine 6 mg capsule 6 mg PO BID PRN (Reason: muscle spasticity) Qty: 14 0RF duloxetine 30 mg capsule,delayed release(DR/EC) 30 mg PO DAILY Qty: 30 1RF sumatriptan succinate 50 mg tablet See Rx Instructions PO .COMPLEX Qty: 10 0RF Rx Instructions: take 1 tab at onset of headache; if no relief may repeat 1 tab after at least 2 hrs; max = 4 tabs/24 hr PO ondansetron 4 mg tablet,disintegrating 4 mg PO Q8H PRN (Reason: nausea and vomiting) Qty: 10 0RF levothyroxine 500 mcg recon soln 6.25 mcg IM DAILY hydroxyzine HCl 10 mg tablet 10 mg PO ONCE Qty: 30 0RF cholecalciferol (vitamin D3) 1,250 mcg (50,000 unit) capsule 50,000 unit PO .weekly Qty: 20 0RF Rx Instructions: for 2 months Discharge Orders: Discharge ED (Routine); Ordered 05/20/23 Ordered By: Clemente Estrella Referrals: Herminio Wayne MD [Primary Care Provider] - Discharge Diet: Usual diet Discharge Activity: Increase activity as tolerated Patient Instructions: Pelvic Pain in Women (ED) Activity Restrictions/Additional Instructions: Tylenol for any pain. Heating pads for comfort. Follow-up on Monday with INSTRUMENT REPAIR SPECIALIST as planned. Return with any new or concerning symptoms. 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 Adrenal insufficiency No pertinent family history Surgical History History of tonsillectomy and adenoidectomy History of myringotomy twice as a child History of laparoscopic appendectomy History of laparoscopic cholecystectomy History of cleft palate with cleft lip History of thyroid surgery (~2020) Full thyroidectomy-- performed in [place] Family History Grandmother Diabetes mellitus, type 2 MGM Hypertension PGM Grandfather Hypertension PGF Denies family history of Colon cancer Ovarian cancer Prostate cancer CAD (coronary artery disease) Hyperlipidemia Chronic kidney disease (CKD) Breast cancer Bleeding disorder Family history of premature coronary artery disease Uterine cancer Thyroid disease Social History Smoking and tobacco/nicotine status: never used tobacco/nicotine Second hand smoke exposure: No Alcohol intake: current Alcohol intake frequency: holidays/special occasions only Substance/Drug Use: never Adopted: No Caregiver/support person: No Lives independently: Yes Household members: spouse and children Housing: House Marital status: Highest education level completed: High School Graduate service: No Current occupational status: employed Current occupation: [employer] Current occupational exposures/hazards: No Course 2 Vital Signs: Vital signs: Vital Signs Temperature 97.9 F 05/20/23 21:19 Pulse Rate 90 05/21/23 00:00 Respiratory Rate 16 05/21/23 00:00 Blood Pressure 96/63 05/20/23 21:19 Pulse Oximetry 98 05/21/23 00:00 Oxygen Delivery Me thod Room Air 05/20/23 21:19 MDM - Female Medical Decision Making This patient was seen and evaluated for pelvic pain occurring tonight. Patient reports she is . On arrival patient's vitals normal and have been stable throughout ED visit. Examination showed an anxious patient who had some mild tenderness to palpation of the suprapubic region, though with voluntary guarding. Rest of her exam was unremarkable. CBC showed some decrease in hemoglobin that appears to be chronic when compared to previous. Her UA was negative. Serum hCG correlated a quantity with approximately 5-6 weeks gestation when compared to findings on transvaginal ultrasound. Ultrasound also showed a single live intrauterine gestation with no abnormalities noted. I informed patient that she needs to keep her follow-up on Monday that she has with her INSTRUMENT REPAIR SPECIALIST. I believe patient's pain is physiologic in and I do not see reason for further testing at this time. Patient informed of reasons to return, such as significant bleeding or significant worsening of her pain. Patient agrees with this plan and will be discharged home. Chart reviewed Medical Records I reviewed the patient's medical records. Lab Data 05/20/23 22:20 Radiology Impressions Transvaginal US 05/20/23 21:57 IMPRESSION: Single live intrauterine gestation with estimated age of 5 weeks 5 days. Laboratory Results WBC 9.06 10^3/uL (3.29-11.43) 05/20/23 22:20 RBC 3.91 10^6/uL (3.85-5.65) 05/20/23 22:20 Hgb 10.40 g/dL (11.27-16.99) L 05/20/23 22:20 Hct 32.4 % (36-47) L 05/20/23 22:20 MCV 82.9 fl (85-98) L 05/20/23 22:20 MCH 26.6 pg (27-33) L 05/20/23 22:20 MCHC 32.1 g/dL (30-55) 05/20/23 22:20 RDW 14.5 % (12.1-15.1) 05/20/23 22:20 Plt Count 251 10^3/cmm (157-399) 05/20/23 22:20 MPV 10.8 fL (7.4-10.4) H 05/20/23 22:20 Neut % (Auto) 72.0 % 05/20/23 22:20 Lymph % (Auto) 18.7 % 05/20/23 22:20 Clark % (Auto) 7.5 % 05/20/23 22:20 Eos % (Auto) 1.3 % 05/20/23 22:20 Baso % (Auto) 0.2 % 05/20/23 22:20 Neut # (Auto) 6.52 10^3/uL (1.8-7.7) 05/20/23 22:20 Lymph # (Auto) 1.7 10^3/uL (0.8-4.8) 05/20/23 22:20 Clark # (Auto) 0.7 10^3/uL (0.2-0.9) 05/20/23 22:20 Eos # (Auto) 0.1 10^3/uL (0.0-0.8) 05/20/23 22:20 Baso # (Auto) 0.0 10^3/uL (0.0-0.1) 05/20/23 22:20 Nucleated RBC % (auto) 0 % 05/20/23 22:20 Nucleated RBCs # 0.0 /100WBC 05/20/23 22:20 Ser , Semi-Qnt 89970.00 mIU/mL 05/20/23 22:20 Urine Color Yellow (Yellow) 05/20/23 22:10 Urine Appearance Clear (CLEAR) 05/20/23 22:10 Urine pH 6.5 (5-7) 05/20/23 22:10 Ur Specific [place] 1.005 (1.005-1.030) 05/20/23 22:10 Urine Protein Neg (Negative) 05/20/23 22:10 Urine Glucose (UA) Norm (Normal) 05/20/23 22:10 Urine Ketones 1+ (Negative) H 05/20/23 22:10 Urine Blood Neg (Negative) 05/20/23 22:10 Urine Nitrate Negative (Negative) 05/20/23 22:10 Urine Bilirubin Neg (Negative) 05/20/23 22:10 Urine Urobilinogen Neg mg/dL (Negative) 05/20/23 22:10 Ur Leukocyte Esterase Negative (Negative) 05/20/23 22:10 Discharge Plan Discharge Patient Disposition: Home Clinical Impression: Pelvic pain during Condition: Stable Prescriptions: No Action tizanidine 6 mg capsule 6 mg PO BID PRN (Reason: muscle spasticity) Qty: 14 0RF duloxetine 30 mg capsule,delayed release(DR/EC) 30 mg PO DAILY Qty: 30 1RF sumatriptan succinate 50 mg tablet See Rx Instructions PO .COMPLEX Qty: 10 0RF Rx Instructions: take 1 tab at onset of headache; if no relief may repeat 1 tab after at least 2 hrs; max = 4 tabs/24 hr PO ondansetron 4 mg tablet,disintegrating 4 mg PO Q8H PRN (Reason: nausea and vomiting) Qty: 10 0RF levothyroxine 500 mcg recon soln 6.25 mcg IM DAILY hydroxyzine HCl 10 mg tablet 10 mg PO ONCE Qty: 30 0RF cholecalciferol (vitamin D3) 1,250 mcg (50,000 unit) capsule 50,000 unit PO .weekly Qty: 20 0RF Rx Instructions: for 2 months Discharge Orders: Discharge ED (Routine); Ordered 05/20/23 Ordered By: Clemente Estrella Referrals: Herminio Wayne MD [Primary Care Provider] - Discharge Diet: Usual diet Discharge Activity: Increase activity as tolerated Patient Instructions: Pelvic Pain in Women (ED) Activity Restrictions/Additional Instructions: Tylenol for any pain. Heating pads for comfort. Follow-up on Monday with INSTRUMENT REPAIR SPECIALIST as planned. Return with any new or concerning symptoms. Coding Level of Care Code ED Testing And Regulating Technician for Jim Engle
[2023-05-20] MEDS: metoclopramide 5 mg/mL SDV 2 mL 10 MG IM (22:10)
[2023-05-20 22:14] LABS: Add Urine Microscopic? NO; Charge for UA Resulting for Rev
[2023-05-20 22:15] LABS: Bilirubin Urine Neg (Negative); Blood Urine Neg (Negative); Glucose Urine UA Norm (Normal); Ketones Urine 1+ (Negative); Leukocyte Esterase Urine Negative (Negative); Nitrate Urine Negative (Negative); Protein Urine Neg (Negative); Specific Gravity, Urine 1.005 (1.005-1.030); Urine Appearance Clear (CLEAR); Urine Color Yellow (Yellow); Urobilinogen Urine Neg (Negative); pH Urine 6.5 (5-7)
[2023-05-20 22:34] LABS: Basophils % 0.2 %; Eosinophils # 0.1 10^3/uL (0.0-0.8); Eosinophils % 1.3 %; Hematocrit 32.4 % (36-47); Lymphocytes # 1.7 10^3/uL (0.8-4.8); Lymphocytes % 18.7 %; Mean Corpuscular HGB Conc 32.1 g/dL (30-55); Mean Corpuscular Hemoglobin 26.6 pg (27-33); Mean Corpuscular Volume 82.9 fl (85-98); Mean Platelet Volume 10.8 fL (7.4-10.4); Monocytes # 0.7 10^3/uL (0.2-0.9); Monocytes % 7.5 %; Neutrophils # 6.52 10^3/uL (1.8-7.7); Nucleated Red Blood Cells % 0 %; Platelet Count 251 10^3/cmm (157-399); Red Blood Count 3.91 10^6/uL (3.85-5.65); Red Cell Distribution Width 14.5 % (12.1-15.1); White Blood Count 9.06 10^3/uL (3.29-11.43)
[2023-05-21] VITALS: PULSE 90; RESP 16; O2SAT 98
== END 2023-05-20 23:58 | disposition home or self-care (01) ==
PROVIDERS: Emergency Provider Physician Assistant; PCP Family Medicine
DX: O26.891 Other specified pregnancy related conditions, first trimester (principal); R10.2 Pelvic and perineal pain; Z3A.01 Less than 8 weeks gestation of pregnancy
CPT/HCPCS: 36415; 76817; 81003; 84702; 85025; 96372; 99284; J2765

== ENCOUNTER 2023-06-01 16:24 | Outpatient (CLI) | payer OTHER, MEDICAID, SELFPAY ==
[2023-06-01 18:08] LABS: Alanine Aminotransferase 12 U/L (0-33); Albumin Level 4.4 g/dL (3.5-5.2); Alkaline Phosphatase 54 U/L (35-105); Anion Gap 15.5 (5-19); Aspartate Amino Transferase 15 U/L (0-32); Blood Urea Nitrogen 8 mg/dL (6-20); Calcium 8.8 mg/dL (8.5-10.5); Carbon Dioxide 23 mmol/L (22-29); Chloride 106 mmol/L (98-107); Globulin 2.6 g/dL (1.3-4.6); Glomerular Filtration Rate 152.9 mL/min (90-130); Glucose 87 mg/dL (65-115); Osmolality Calculated 290 mOsm/kg (285-295); Potassium 3.5 mmol/L (3.5-5.1); Sodium 141 mmol/L (136-145); Thyroid Stimulating Hormone 1.46 uIU/mL (0.27-4.20); Total Bilirubin 0.2 mg/dL (0.15-1.2)
[2023-06-01 21:20] LABS: Free T4 Free Thyroxine 1.35 ng/dL (0.82-1.77)
== END 2023-06-01 16:25 | disposition home or self-care (01) ==
LOC: LAB 16:30
PROVIDERS: PCP Family Medicine; Visit Provider Internal Medicine
DX: E03.8 Other specified hypothyroidism (principal); E06.3 Autoimmune thyroiditis; Z98.890 Other specified postprocedural states; R53.83 Other fatigue; E27.40 Unspecified adrenocortical insufficiency; E20.9 Hypoparathyroidism, unspecified
CPT/HCPCS: 36415; 80053; 84439; 84443

== ENCOUNTER 2023-06-14 12:03 | Oncology outpatient (recurring) (ONCR) | payer OTHER, MEDICAID, SELFPAY ==
[2023-05-24 15:03] VITALS: BP 95/60; PULSE 70; RESP 16; O2SAT 99
[2023-05-24] MEDS: levothyroxine 100 mcg/mL SDV 450 MCG IM (15:11)
[2023-05-31 12:25] VITALS: BP 100/67; PULSE 82; RESP 16; TEMP 36.3; O2SAT 100
[2023-05-31] MEDS: levothyroxine 100 mcg/mL SDV 450 MCG IM (12:26)
[2023-06-09] MEDS: levothyroxine 100 mcg/mL SDV 450 MCG IM (11:37)
== END 2023-06-20 23:59 | disposition home or self-care (01) ==
PROVIDERS: PCP Family Medicine; Visit Provider Internal Medicine
DX: Z53.9 Procedure and treatment not carried out, unspecified reason (principal)
CPT/HCPCS: 96372

== ENCOUNTER 2023-07-19 12:00 | Oncology outpatient (recurring) (ONCR) | payer OTHER, MEDICAID, SELFPAY ==
[2023-06-21 12:38] VITALS: BP 103/61; PULSE 73; RESP 16; TEMP 36.8; O2SAT 98
[2023-06-21] MEDS: levothyroxine 100 mcg/mL SDV 450 MCG IM (12:39)
[2023-06-28] MEDS: levothyroxine 100 mcg/mL SDV 450 MCG IM (12:26)
[2023-06-28 12:31] VITALS: BP 112/68; PULSE 68; RESP 16; TEMP 36.6; O2SAT 99
[2023-07-05 08:16] VITALS: BP 105/71; PULSE 65; RESP 16; O2SAT 100
[2023-07-05] MEDS: levothyroxine 100 mcg/mL SDV 475 MCG IM (08:25)
[2023-07-12 12:42] VITALS: BP 113/76; PULSE 77; RESP 16; TEMP 36.3; O2SAT 99
[2023-07-12] MEDS: levothyroxine 100 mcg/mL SDV 475 MCG IM (12:43)
[2023-07-19 12:18] VITALS: BP 103/61; PULSE 67; RESP 16; O2SAT 100
[2023-07-19] MEDS: levothyroxine 100 mcg/mL SDV 475 MCG IM (12:19)
== END 2023-07-21 23:59 | disposition home or self-care (01) ==
PROVIDERS: PCP Family Medicine; Visit Provider Internal Medicine
DX: Z53.9 Procedure and treatment not carried out, unspecified reason (principal); E03.8 Other specified hypothyroidism; E06.3 Autoimmune thyroiditis

== ENCOUNTER 2023-08-16 12:00 | Oncology outpatient (recurring) (ONCR) | payer MEDICAID, SELFPAY ==
[2023-07-26] MEDS: levothyroxine 100 mcg/mL SDV 475 MCG IM (14:10)
[2023-08-02] MEDS: levothyroxine 100 mcg/mL SDV 475 MCG IM (14:05)
[2023-08-02 14:06] VITALS: BP 105/63; PULSE 69; RESP 16; TEMP 36.9; O2SAT 99
[2023-08-09 13:21] VITALS: BP 96/58; PULSE 80; RESP 16; TEMP 36.8; O2SAT 99
[2023-08-09] MEDS: levothyroxine 100 mcg/mL SDV 475 MCG IM (13:23)
[2023-08-16 12:55] VITALS: BP 72/41; PULSE 74; RESP 16; O2SAT 99
[2023-08-16 13:01] VITALS: BP 78/40; PULSE 62
--- NOTE | 2023-08-16 13:13 | PC.NURSE ---
patient transported to ER via wheelchair by GARFIELD Aguilera.
== END 2023-08-20 23:59 | disposition home or self-care (01) ==
PROVIDERS: PCP Family Medicine; Visit Provider Internal Medicine
DX: Z53.9 Procedure and treatment not carried out, unspecified reason (principal)

== ENCOUNTER 2023-08-16 13:16 | Emergency (ER) | payer MEDICAID, SELFPAY ==
[2023-08-16 13:28] VITALS: BP 85/51; PULSE 62; RESP 14; TEMP 36.4; O2SAT 100
--- NOTE | 2023-08-16 13:31 | ECG_ITS ---
[facility] Test Date: 2023-08-16 Pat Name: Farhad Ardon Department: Room: Gender: Female Larry Car Operator: : 2000 Requested By: Ricardo Gary Order Number: [id number] Fadia MD: Elvira Guillory M.D. Measurements Intervals [place] Rate: 65 P: 58 VA: 131 QRS: 87 QRSD: 79 T: 69 QT: 425 QTc: 442 Interpretive Statements SINUS RHYTHM POSSIBLE RIGHT VENTRICULAR CONDUCTION DELAY [RSR (QR) IN V1/V2] No previous ECG available for comparison Electronically Signed On 08-17-2023 0:08:19 CDT by Elvira Guillory M.D. [email or web address]
== END 2023-08-16 16:12 | disposition left against medical advice (07) ==
PROVIDERS: Emergency Provider Family Medicine; PCP Obstetrics & Gynecology
DX: Z53.21 Procedure and treatment not carried out due to patient leaving prior to being seen by health care provider (principal)
CPT/HCPCS: 93005

== ENCOUNTER 2023-09-20 12:00 | Oncology outpatient (recurring) (ONCR) | payer MEDICAID, SELFPAY ==
[2023-08-23 12:50] VITALS: BP 99/63; PULSE 76; RESP 18; TEMP 36.8; O2SAT 99
[2023-08-23] MEDS: levothyroxine 100 mcg/mL SDV 475 MCG IM (12:52)
[2023-08-30] MEDS: levothyroxine 100 mcg SDV 475 MCG XX (11:48)
[2023-08-30 11:49] VITALS: BP 93/59; PULSE 84; RESP 17; TEMP 36.6; O2SAT 99
[2023-09-06] MEDS: levothyroxine 100 mcg SDV 475 MCG XX (12:17)
[2023-09-06 12:23] VITALS: BP 96/58; PULSE 75; RESP 16; TEMP 36.3; O2SAT 99
[2023-09-13] MEDS: levothyroxine 100 mcg SDV 475 MCG XX (09:10)
[2023-09-13 09:15] VITALS: BP 97/59; PULSE 84; RESP 16; TEMP 36.6; O2SAT 99
[2023-09-20] MEDS: levothyroxine 100 mcg SDV 475 MCG XX (12:13)
[2023-09-20 12:17] VITALS: BP 100/56; PULSE 100; RESP 16; TEMP 36.5; O2SAT 99
== END 2023-09-20 23:59 | disposition home or self-care (01) ==
PROVIDERS: PCP Obstetrics & Gynecology; Visit Provider Internal Medicine
DX: E27.40 Unspecified adrenocortical insufficiency (principal); Z53.9 Procedure and treatment not carried out, unspecified reason
CPT/HCPCS: 81000; 87086; J3490

== ENCOUNTER 2023-10-18 10:15 | Oncology outpatient (recurring) (ONCR) | payer MEDICAID, SELFPAY ==
[2023-10-04 09:37] VITALS: BP 96/60; PULSE 87; RESP 18; TEMP 36.4; O2SAT 99
[2023-10-04] MEDS: levothyroxine 100 mcg SDV 475 MCG XX (09:44)
[2023-10-04 09:50] VITALS: BP 95/78; PULSE 74; RESP 18; TEMP 36.6; O2SAT 100
[2023-10-11] MEDS: levothyroxine 100 mcg SDV 475 MCG XX (11:51)
[2023-10-11 12:01] VITALS: BP 88/58; PULSE 78; RESP 16; TEMP 36.5; O2SAT 97
[2023-10-18 10:26] VITALS: BP 106/70; PULSE 110; RESP 16; TEMP 36.7; O2SAT 99
[2023-10-18] MEDS: levothyroxine 200 mcg SDV 475 MCG IM (10:29)
== END 2023-10-21 23:59 | disposition home or self-care (01) ==
PROVIDERS: PCP Obstetrics & Gynecology; Visit Provider Internal Medicine
DX: E03.9 Hypothyroidism, unspecified; Z53.9 Procedure and treatment not carried out, unspecified reason; Z79.899 Other long term (current) drug therapy
CPT/HCPCS: 96372; J0650; J3490

== ENCOUNTER 2023-10-22 07:22 | Outpatient (CLI) | payer MEDICAID, SELFPAY ==
[2023-10-22 08:04] LABS: Glucose Fasting Gestational 92 mg/dL (65-115)
[2023-10-22 09:42] LABS: Glucose 1 Hour 132 mg/dL
[2023-10-22 11:06] LABS: Glucose 2 Hour 92 mg/dL
[2023-10-22 12:13] LABS: Glucose 3 Hour 94 mg/dL
== END 2023-10-22 07:23 | disposition home or self-care (01) ==
PROVIDERS: PCP Obstetrics & Gynecology; Visit Provider Obstetrics & Gynecology
DX: O99.810 Abnormal glucose complicating pregnancy (principal)
CPT/HCPCS: 36415; 82951; 82952

== ENCOUNTER 2023-11-06 23:04 | Outpatient (CLI) | payer MEDICAID, SELFPAY ==
[2023-11-06 23:22] VITALS: BP 106/55; PULSE 83
[2023-11-06 23:40] VITALS: BMI 23.6
[2023-11-06 23:42] VITALS: BP 90/54; PULSE 81
[2023-11-06 23:57] LABS: Nitrazine Paper, PH Negative
[2023-11-07 00:03] VITALS: BP 93/45; PULSE 77
[2023-11-07 00:22] VITALS: BP 86/47; PULSE 74
[2023-11-07 00:43] VITALS: BP 92/48; PULSE 69
[2023-11-07 00:44] LABS: Bilirubin Urine Neg (Negative); Blood Urine Neg (Negative); Glucose Urine UA Norm (Normal); Ketones Urine Negative (Negative); Leukocyte Esterase Urine Negative (Negative); Nitrate Urine Negative (Negative); Protein Urine Neg (Negative); Specific Gravity, Urine 1.005 (1.005-1.030); Urine Appearance Clear (CLEAR); Urine Color Yellow (Yellow); Urobilinogen Urine Neg (Negative); pH Urine 7 (5-7)
[2023-11-07 00:46] LABS: Add Urine Culture? No; Squamous Epithelial Cell Urine 0-4 /hpf (0-5)
== END 2023-11-07 01:06 | disposition home or self-care (01) ==
LOC: OPOB 23:12 → OBGYN 23:15
PROVIDERS: PCP Obstetrics & Gynecology; Visit Provider Family Medicine
DX: O26.899 Other specified pregnancy related conditions, unspecified trimester (principal); Z3A.00 Weeks of gestation of pregnancy not specified; N89.8 Other specified noninflammatory disorders of vagina
CPT/HCPCS: 59025; 81001; 83986; 99211

== ENCOUNTER 2023-11-15 08:15 | Oncology outpatient (recurring) (ONCR) | payer MEDICAID, SELFPAY ==
[2023-10-25] MEDS: levothyroxine 100 mcg SDV 500 MCG XX (12:01)
[2023-10-25 12:04] VITALS: BP 97/60; PULSE 83; RESP 16; TEMP 36.8; O2SAT 100
[2023-11-01] MEDS: levothyroxine 200 mcg SDV 500 MCG IM (11:49)
[2023-11-01 11:50] VITALS: BP 98/59; PULSE 86; RESP 16; TEMP 36.5; O2SAT 98
[2023-11-08] MEDS: levothyroxine 100 mcg SDV 500 MCG XX (10:46)
[2023-11-08 10:49] VITALS: BP 98/58; PULSE 100; RESP 16; TEMP 36.5; O2SAT 99
[2023-11-15] MEDS: levothyroxine 200 mcg SDV 500 MCG IM (08:45)
[2023-11-15 08:48] VITALS: BP 92/55; PULSE 96; RESP 16; TEMP 36.3; O2SAT 98
== END 2023-11-20 23:59 | disposition home or self-care (01) ==
PROVIDERS: PCP Obstetrics & Gynecology; Visit Provider Internal Medicine
DX: Z53.9 Procedure and treatment not carried out, unspecified reason; Z79.899 Other long term (current) drug therapy; E27.40 Unspecified adrenocortical insufficiency
CPT/HCPCS: 96372; J0650; J3490

== ENCOUNTER 2023-12-06 11:37 | Oncology outpatient (recurring) (ONCR) | payer MEDICAID, SELFPAY ==
[2023-11-22] MEDS: levothyroxine 200 mcg SDV 500 MCG IM (11:18)
[2023-11-22 11:21] VITALS: BP 99/62; PULSE 98; RESP 16; O2SAT 98
[2023-11-29] MEDS: levothyroxine 200 mcg SDV 500 MCG IM (09:56)
[2023-12-06 11:49] VITALS: BP 97/63; PULSE 105; RESP 18; TEMP 36.4; O2SAT 98
[2023-12-06] MEDS: levothyroxine 200 mcg SDV 500 MCG IM (12:11)
== END 2023-12-21 23:59 | disposition home or self-care (01) ==
PROVIDERS: PCP Obstetrics & Gynecology; Visit Provider Internal Medicine
DX: Z79.899 Other long term (current) drug therapy; E27.40 Unspecified adrenocortical insufficiency; Z53.9 Procedure and treatment not carried out, unspecified reason
CPT/HCPCS: 96372; J0650

== ENCOUNTER 2023-12-19 19:05 | Emergency (ER) | payer MEDICAID, SELFPAY ==
--- NOTE | 2023-12-19 19:07 | USR_ITS ---
PROCEDURE INFORMATION: Exam: US Duplex Left Lower Extremity Veins, Limited Exam date and time: 12/19/2023 7:46 PM Age: 23 years old Clinical indication: Edema, localized; Lower extremity, left; Additional info: Swelling TECHNIQUE: Imaging protocol: Real-time duplex ultrasound of the left extremity with 2-D keating scale, color Doppler flow and spectral waveform analysis including responses to compression and other maneuvers (when performed) with image documentation. Limited exam focused on the left lower extremity veins. COMPARISON: US OB transvaginal [id number] 05/20/2023 10:52 PM FINDINGS: Left deep veins: Unremarkable. The common femoral, femoral, proximal profunda femoral and popliteal veins are patent without thrombus. Normal Doppler waveforms. Normal compressibility and/or augmentation response. Superficial veins: Greater saphenous vein at the saphenofemoral junction is patent without thrombus. Soft tissues: Unremarkable. US/[place] [id number] IMPRESSION: No evidence of deep vein thrombosis.
[2023-12-19 19:36] VITALS: BP 127/86; PULSE 84; RESP 16; TEMP 36.8; O2SAT 100
--- NOTE | 2023-12-19 21:33 | W.ED.EXTPRO ---
HPI - Extremity Problem General: Chief complaint: Extremity Problem,Nontraumatic Stated complaint: urgent care sent, left leg blood clot possible Time Seen by Provider: 12/19/23 21:23 Source: patient Mode of arrival: ambulatory Limitations: no limitations History of Present Illness: 23-year-old female states been having left leg pain and swelling. Patient states that she had gave 5 days ago states she had some swelling in bilateral extremities states she fell like she had some increased swelling her left leg with pain did worsen today she is sent here from urgent care to rule out for DVT she denies any fever denies any injuries no history of preeclampsia her blood pressure here is normal Associated symptoms: Deny chest pain, fever(s) or rash Related Data Home Medications Medication Instructions Recorded Confirmed buspirone 10 mg tablet 10 mg PO DAILY 07/02/23 12/19/23 Previous Rx's Medication Instructions Recorded duloxetine 30 mg capsule,delayed 30 mg PO DAILY #30 caps 03/16/23 release hydroxyzine HCl 10 mg tablet 10 mg PO ONCE #30 tabs 03/16/23 cholecalciferol (vitamin D3) 1,250 50,000 unit PO .weekly #20 caps 04/04/23 mcg (50,000 unit) capsule ondansetron 4 mg disintegrating 4 mg PO Q8H PRN nausea and 05/15/23 tablet vomiting #10 tabs sumatriptan succinate 50 mg tablet See Rx Instructions PO .COMPLEX 05/15/23 #10 tabs fluticasone propionate 50 2 spray intranasal DAILY PRN 05/27/23 mcg/actuation nasal allergy symptoms #16 grams spray,suspension (Flonase Allergy Relief) tizanidine 6 mg capsule 6 mg PO BID PRN muscle spasticity 06/26/23 #14 caps miconazole nitrate 2 % topical 1 applic topical .NIGHTLY 7 days 09/27/23 cream #14 grams hydrocodone 5 mg-acetaminophen 325 1 tab PO Q6H PRN pain 4 days #15 11/04/23 mg tablet tabs Allergies Allergy/AdvReac Type Severity Reaction Status Date / Time amoxicillin Allergy ADR-Nausea Verified 12/19/23 19:39 Fish Containing Products Allergy ADR-Nausea Verified 12/19/23 19:39 Penicillins Allergy ADR-Nausea Verified 12/19/23 19:39 shellfish derived Allergy ADR-Itching Verified 12/19/23 19:39 Review of Systems Const: Denies: fever(s), chills, body aches or change in appetite ENMT: Denies: throat pain or dental pain Card: Denies: chest pain Resp: Denies: dyspnea GI: Denies: abdominal pain, nausea, vomiting or diarrhea Musc: Reports: extremity pain and extremity swelling; Denies: neck pain or back pain Skin/Breast: Denies: rash Neuro: Denies: headache(s) 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 Adrenal insufficiency No pertinent family history Surgical History History of tonsillectomy and adenoidectomy History of myringotomy twice as a child History of laparoscopic appendectomy History of laparoscopic cholecystectomy History of cleft palate with cleft lip History of thyroid surgery (~2020) Full thyroidectomy-- performed in [place] Family History Grandmother Diabetes mellitus, type 2 MGM Hypertension PGM Grandfather Hypertension PGF Denies family history of Colon cancer Ovarian cancer Prostate cancer CAD (coronary artery disease) Hyperlipidemia Chronic kidney disease (CKD) Breast cancer Bleeding disorder Family history of premature coronary artery disease Uterine cancer Thyroid disease Social History Smoking and tobacco/nicotine status: never used tobacco/nicotine Second hand smoke exposure: No Alcohol intake: current Alcohol intake frequency: holidays/special occasions only Substance/Drug Use: never Adopted: No Caregiver/support person: No Lives independently: Yes Household members: spouse and children Housing: House Marital status: Highest education level completed: High School Graduate service: No Current occupational status: employed Current occupation: [employer] Current occupational exposures/hazards: No Physical Exam Const: COMMON NORMALS: no acute distress, patient oriented x3 and healthy appearing HENMT: COMMON NORMALS: normocephalic and atraumatic HEAD & SCALP: normocephalic and atraumatic Eye: COMMON NORMALS: conjunctivae normal CONJUNCTIVA: Yes conjunctivae normal Neck/C-Spine: COMMON NORMALS: full ROM Chest: COMMONS NORMALS: normal inspection of the chest Resp: COMMON NORMALS: normal respiratory effort Cardio: COMMON NORMALS: regular rate, regular rhythm and No murmurs present (Cardio) RATE: regular rate RHYTHM: regular rhythm Extremity: COMMON NORMALS: full ROM NARRATIVE EXTREMITY EXAM: Slight swelling to bilateral lower extremities left greater than right no tenderness to the left leg no warmth to touch distal pulses intact Neuro: COMMON NORMALS: patient oriented x3, moves all extremities and no focal motor deficits Psych: COMMON NORMALS: mental status grossly normal, Normal thought process present and cooperative THOUGHT PROCESS: Normal thought process present Skin: COMMON NORMALS: no rashes or lesions noted and no wounds GENERAL SKIN EXAM: no rashes or lesions noted Course Vital Signs: Vital signs: Vital Signs Temperature 98.2 F 12/19/23 19:36 Pulse Rate 84 12/19/23 19:36 Respiratory Rate 16 12/19/23 19:36 Blood Pressure 127/86 12/19/23 19:36 Pulse Oximetry 100 12/19/23 19:36 Oxygen Delivery Me thod Room Air 12/19/23 19:36 MDM - Extremity (Nontraumatic) Medical Decision Making Patient presents for left leg swelling likely dependent edema ultrasound showed no DVT she has good pulses her blood pressure is normal did not instruct her to elevate her feet to wear compression stocking she is to follow-up with her PCP return if worsening she understands agrees to plan Medical Records I reviewed the patient's medical records. Lab Data Radiology Impressions Venous Duplex 12/19/23 19:07 IMPRESSION: No evidence of deep vein thrombosis. All radiology interpretation(s) finalized by discharge Discharge Plan Discharge Patient Disposition: Home Clinical Impression: Left leg pain Condition: Stable Prescriptions: No Action duloxetine 30 mg capsule,delayed release(DR/EC) 30 mg PO DAILY Qty: 30 1RF sumatriptan succinate 50 mg tablet See Rx Instructions PO .COMPLEX Qty: 10 0RF Rx Instructions: take 1 tab at onset of headache; if no relief may repeat 1 tab after at least 2 hrs; max = 4 tabs/24 hr PO ondansetron 4 mg tablet,disintegrating 4 mg PO Q8H PRN (Reason: nausea and vomiting) Qty: 10 0RF buspirone 10 mg tablet 10 mg PO DAILY hydroxyzine HCl 10 mg tablet 10 mg PO ONCE Qty: 30 0RF fluticasone propionate [Flonase Allergy Relief] 50 mcg/actuation spray,suspension 2 spray intranasal DAILY PRN (Reason: allergy symptoms) Qty: 16 0RF Rx Instructions: administer into each nostril hydrocodone-acetaminophen 5-325 mg tablet 1 tab PO Q6H PRN (Reason: pain) 4 Days Qty: 15 0RF cholecalciferol (vitamin D3) 1,250 mcg (50,000 unit) capsule 50,000 unit PO .weekly Qty: 20 0RF Rx Instructions: for 2 months tizanidine 6 mg capsule 6 mg PO BID PRN (Reason: muscle spasticity) Qty: 14 0RF miconazole nitrate 2 % cream 1 applic topical .NIGHTLY 7 Days Qty: 14 0RF Discharge Orders: Discharge ED (Routine); Ordered 12/19/23 Ordered By: Dev Portillo Referrals: Radha Lutz MD [Primary Care Provider] - Discharge Diet: Advance as tolerated Discharge Activity: Resume usual activity Patient Instructions: Edema (ED) Coding Level of Care Code ED Public Health Engineer for Jim Engle
[2023-12-19 21:34] VITALS: BP 117/78; PULSE 77; O2SAT 99
[2023-12-19 21:37] VITALS: BP 117/78; PULSE 72; O2SAT 99
== END 2023-12-19 21:38 | disposition home or self-care (01) ==
PROVIDERS: Emergency Provider Emergency Medicine; PCP Obstetrics & Gynecology
DX: M79.605 Pain in left leg (principal)
CPT/HCPCS: 93971; 99284

== ENCOUNTER 2023-12-31 19:45 | Emergency (ER) | payer MEDICAID, SELFPAY ==
[2023-12-31 19:49] VITALS: BP 110/64; PULSE 101; RESP 18; TEMP 36.8; O2SAT 98; BMI 24.6
--- NOTE | 2023-12-31 20:22 | ED_ITS ---
HPI - Back Pain/Injury General: Chief Complaint: Back Pain/Injury Stated Complaint: back pain Time Seen by Provider: 12/31/23 20:09 History of Present Illness: This patient is a 23-year-old white female who presents to the emergency department complaining of low back pain that radiates into the left leg. Patient states that this started after she gave 2 weeks ago. 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 She has been on anti- inflammatories, steroids and muscle relaxers without any relief. She has not had any incontinence of urine or stool. Related Data Home Medications Medication Instructions Recorded Confirmed buspirone 10 mg tablet 10 mg PO DAILY 07/02/23 12/19/23 cyclobenzaprine 10 mg tablet 10 mg PO TID 12/24/23 12/24/23 ibuprofen 800 mg tablet 800 mg PO Q6H 12/24/23 12/24/23 Previous Rx's Medication Instructions Recorded hydrocodone 5 mg-acetaminophen 325 1 tab PO Q6H PRN pain 4 days #15 11/04/23 mg tablet tabs prednisone 20 mg tablet 60 mg (3 x 20 mg) PO DAILY 5 days 12/24/23 #15 tabs hydrocodone 5 mg-acetaminophen 325 1 tab PO Q4H PRN pain #20 tabs 12/31/23 mg tablet Allergies Allergy/AdvReac Type Severity Reaction Status Date / Time amoxicillin Allergy ADR-Nausea Verified 12/31/23 19:53 Fish Containing Products Allergy ADR-Nausea Verified 12/31/23 19:53 Penicillins Allergy ADR-Nausea Verified 12/31/23 19:53 shellfish derived Allergy ADR-Itching Verified 12/31/23 19:53 Review of Systems General: Reports: 10 or more systems reviewed and unremarkable except in HPI and below Musc: Reports: back pain 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 Adrenal insufficiency No pertinent family history Surgical History History of tonsillectomy and adenoidectomy History of myringotomy twice as a child History of laparoscopic appendectomy History of laparoscopic cholecystectomy History of cleft palate with cleft lip History of thyroid surgery (~2020) Full thyroidectomy-- performed in [place] Family History Grandmother Diabetes mellitus, type 2 MGM Hypertension PGM Grandfather Hypertension PGF Denies family history of Colon cancer Ovarian cancer Prostate cancer CAD (coronary artery disease) Hyperlipidemia Chronic kidney disease (CKD) Breast cancer Bleeding disorder Family history of premature coronary artery disease Uterine cancer Thyroid disease Social History Smoking and tobacco/nicotine status: never used tobacco/nicotine Second hand smoke exposure: No Alcohol intake: current Alcohol intake frequency: holidays/special occasions only Substance/Drug Use: never Adopted: No Caregiver/support person: No Lives independently: Yes Household members: spouse and children Housing: House Marital status: Highest education level completed: High School Graduate service: No Current occupational status: employed 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 Current occupational exposures/hazards: No Physical Exam Const: COMMON NORMALS: patient oriented x3 and no limitations GENERAL A PPEARANCE: cooperative and comfortable HENMT: COMMON NORMALS: normocephalic, atraumatic, Normal nasal mucous membranes and turbinates present, moist oral mucous membranes and oropharynx normal HEAD & SCALP: normal to inspection, normocephalic and atraumatic FACE & SINUS: normal facial exam NOSE: Normal nasal mucous membranes and turbinates present Eye: COMMON NORMALS: Equal, round and reactive pupils present, EOMs intact bilaterally and conjunctivae normal GENERAL EYE: appearance normal, both eyes and all related structures CONJUNCTIVA: Yes conjunctivae normal PUPIL: Yes Equal, round and reactive pupils present Neck/C-Spine: COMMON NORMALS: supple and no JVD Chest: COMMONS NORMALS: normal inspection of the chest Resp: COMMON NORMALS: normal respiratory effort and clear to auscultation bilaterally AUSCULTATION: clear to auscultation bilaterally Cardio: COMMON NORMALS: no JVD, regular rate, regular rhythm, No gallops present (Cardio), No murmurs present (Cardio) and No rub (Cardio) RATE: regular rate RHYTHM: regular rhythm GI: COMMON NORMALS: Normal to inspection, nondistended, normoactive bowel sounds present, Soft to palpation and non-tender AUSCULTATION: Yes normoactive bowel sounds PALPATION: Yes Soft to palpation Back/Pelvis: LUMBAR SPINE/LOWER BACK: Yes lumbar spinal tenderness and Yes straight leg raise negative bilaterally Extremity: COMMON NORMALS: normal to inspection Neuro: COMMON NORMALS: patient oriented x3 and CN's II-XII intact bilaterally Psych: COMMON NORMALS: mental status grossly normal, Normal thought process present and cooperative THOUGHT PROCESS: Normal thought process present Skin: COMMON NORMALS: no rashes or lesions noted, turgor normal and no jaundice GENERAL SKIN EXAM: no rashes or lesions noted and turgor normal Course Vital Signs: Vital signs: Vital Signs Temperature 98.2 F 12/31/23 19:49 Pulse Rate 101 H 12/31/23 19:49 Respiratory Rate 18 12/31/23 19:49 Blood Pressure 110/64 12/31/23 19:49 Pulse Oximetry 98 12/31/23 19:49 Oxygen Delivery Me thod Room Air 12/31/23 19:49 MDM - Back Pain/Injury Medical Decision Making Patient was given injections of morphine and Toradol in the emergency department for her pain. I did place her on hydrocodone. Recommended she follow-up with her primary care provider soon as possible for ongoing management. She may need an MRI of her lumbar spine. No radiology studies performed this visit Discharge Plan Discharge Patient Disposition: Home Clinical Impression: Lumbar radiculopathy Condition: Stable Prescriptions: New hydrocodone-acetaminophen 5-325 mg tablet 1 tab PO Q4H PRN (Reason: pain) Qty: 20 0RF No Action buspirone 10 mg tablet 10 mg PO DAILY cyclobenzaprine 10 mg tablet 10 mg PO TID ibuprofen 800 mg tablet 800 mg PO Q6H prednisone 20 mg tablet 60 mg PO DAILY 5 Days Qty: 15 0RF hydrocodone-acetaminophen 5-325 mg tablet 1 tab PO Q6H PRN (Reason: pain) 4 Days Qty: 15 0RF Discharge Orders: Discharge ED (Routine); Ordered 12/31/23 Ordered By: Hamilton Johnson Referrals: Radha Lutz MD [Primary Care Provider] - Patient Instructions: Opioid Safety, Pain Management, Sciatica Activity Restrictions/Additional Instructions: Follow-up with your primary care provider for ongoing management. You may need an MRI of your lumbar spine. Coding Level of Care Code ED Laborer [place] for Jim Engle
[2023-12-31] MEDS: morphine 4 mg/mL SDV 1 mL IM (20:31)
[2023-12-31] MEDS: ondansetron 4 MG Tablet PO (20:31)
[2023-12-31] MEDS: ketorolac 60 mg/2 mL INJ IM (20:31)
[2023-12-31 20:39] VITALS: BP 120/80; PULSE 67; O2SAT 99
== END 2023-12-31 20:40 | disposition home or self-care (01) ==
PROVIDERS: Emergency Provider Emergency Medicine; PCP Obstetrics & Gynecology
DX: M54.16 Radiculopathy, lumbar region (principal)
CPT/HCPCS: 96372; 99284; J1885; J2270; Q0162

== ENCOUNTER → 2024-01-04 14:12 | Outpatient (BNVA) | payer MEDICAID, SELFPAY | PROVIDERS: PCP Obstetrics & Gynecology; Visit Provider Family Medicine | DX: S69.91XA Unspecified injury of right wrist, hand and finger(s), initial encounter (principal); X58.XXXA Exposure to other specified factors, initial encounter | CPT/HCPCS: 73130 ==

== ENCOUNTER 2024-01-15 16:05 | Oncology outpatient (recurring) (ONCR) | payer MEDICAID, SELFPAY ==
[2024-01-08] MEDS: levothyroxine 200 mcg SDV 500 MCG IM (15:27)
[2024-01-08 15:37] VITALS: BP 103/64; PULSE 66; RESP 16; O2SAT 99
[2024-01-15 16:08] VITALS: BP 94/51; PULSE 102; RESP 16; TEMP 36.4; O2SAT 99
[2024-01-15] MEDS: levothyroxine 200 mcg SDV 500 MCG IM (16:11)
== END 2024-01-20 23:59 | disposition home or self-care (01) ==
PROVIDERS: PCP Obstetrics & Gynecology; Visit Provider Internal Medicine
DX: E27.40 Unspecified adrenocortical insufficiency (principal); Z79.899 Other long term (current) drug therapy; Z53.9 Procedure and treatment not carried out, unspecified reason
CPT/HCPCS: 96372; J0650

== ENCOUNTER 2024-01-21 20:54 | Emergency (ER) | payer MEDICAID, SELFPAY ==
[2024-01-21 20:59] VITALS: BP 107/73; PULSE 92; RESP 16; TEMP 36.8; O2SAT 100; BMI 25.0
[2024-01-21 21:19] LABS: Bilirubin Urine Negative (Negative); Blood Urine Negative (Negative); Glucose Urine UA Negative (Normal); HCG Qualitative Urine. Negative (Negative); Ketones Urine Negative (Negative); Leukocyte Esterase Urine Negative (Negative); Nitrate Urine Negative (Negative); Protein Urine Negative (Negative); Specific Gravity, Urine 1.021 (1.005-1.030); Urine Appearance Clear (CLEAR); Urine Color Yellow (Yellow)
[2024-01-21 21:24] LABS: Add Urine Microscopic? YES; Bacteria Urine None Seen /hpf; Hyaline Casts Urine 0-4 /lpf; RBC Urine 0-2 /hpf (0-2); Squamous Epithelial Cell Urine 0-5 /hpf (0-5); WBC Urine 0-5 /hpf (0-5)
--- NOTE | 2024-01-21 21:24 | W.ED.FEMALGU ---
HPI - Female Genitourinary General: Chief complaint: Urogenital-Female Stated complaint: flank pain, pain when pee n/v Time Seen by Provider: 01/21/24 21:11 History of Present Illness: 23-year-old female complaining of right flank pain, dysuria, and nausea and vomiting today. She has not noticed blood in her urine. She does have a history of both urinary tract infection and kidney stones she says. She denies fever. She has vomited 3 times. She has had some diarrhea. No blood in the stool. No vaginal discharge. She is 1 month , and states she has not been bleeding. She has a history of appendectomy and cholecystectomy. Related Data Home Medications Medication Instructions Recorded Confirmed buspirone 10 mg tablet 10 mg PO DAILY 07/02/23 01/04/24 cyclobenzaprine 10 mg tablet 10 mg PO TID 12/24/23 01/04/24 ibuprofen 800 mg tablet 800 mg PO Q6H 12/24/23 01/04/24 Previous Rx's Medication Instructions Recorded hydrocodone 5 mg-acetaminophen 325 1 tab PO Q4H PRN pain #7 tabs 01/21/24 mg tablet ondansetron 4 mg disintegrating 4 mg PO Q6H PRN nausea and 01/21/24 tablet vomiting #14 tabs Allergies Allergy/AdvReac Type Severity Reaction Status Date / Time amoxicillin Allergy ADR-Nausea Verified 01/04/24 14:03 Fish Containing Products Allergy ADR-Nausea Verified 01/04/24 14:03 Penicillins Allergy ADR-Nausea Verified 01/04/24 14:03 shellfish derived Allergy ADR-Itching Verified 01/04/24 14:03 [facility]: Medical History Migraine Anxiety 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 Adrenal insufficiency No pertinent family history Surgical History History of tonsillectomy and adenoidectomy History of myringotomy twice as a child History of laparoscopic appendectomy History of laparoscopic cholecystectomy History of cleft palate with cleft lip History of thyroid surgery (~2020) Full thyroidectomy-- performed in [place] Family History Grandmother Diabetes mellitus, type 2 MGM Hypertension PGM Grandfather Hypertension PGF Denies family history of Colon cancer Ovarian cancer Prostate cancer CAD (coronary artery disease) Hyperlipidemia Chronic kidney disease (CKD) Breast cancer Bleeding disorder Family history of premature coronary artery disease Uterine cancer Thyroid disease Social History Smoking and tobacco/nicotine status: never used tobacco/nicotine Second hand smoke exposure: No Alcohol intake: current Alcohol intake frequency: holidays/special occasions only Substance/Drug Use: never Adopted: No Caregiver/support person: No Lives independently: Yes Household members: spouse and children Housing: House Marital status: Highest education level completed: High School Graduate service: No Current occupational status: employed 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 Current occupational exposures/hazards: No Physical Exam Const: COMMON NORMALS: no acute distress GENERAL APPEARANCE: cooperative; not ill appearing and not frail appearing HENMT: COMMON NORMALS: normocephalic, atraumatic and Normal external nose present HEAD & SCALP: normocephalic and atraumatic FACE & SINUS: normal facial exam and face symmetric NOSE: Normal external nose present Eye: COMMON NORMALS: Equal, round and reactive pupils present and EOMs intact bilaterally PUPIL: Yes Equal, round and reactive pupils present Neck/C-Spine: GENERAL: Yes trachea midline Chest: CHEST: Yes Symmetrical chest wall rise Resp: COMMON NORMALS: normal respiratory effort, No retractions, No use of accessory muscles and clear to auscultation bilaterally AUSCULTATION: clear to auscultation bilaterally Cardio: COMMON NORMALS: regular rate and regular rhythm RATE: regular rate RHYTHM: regular rhythm GI: COMMON NORMALS: Normal to inspection, nondistended, normoactive bowel sounds present : BLADDER/KIDNEY EXAM: Yes CVA tenderness on the right Back/Pelvis: GENERAL BACK: Yes CVA tenderness Extremity: COMMON NORMALS: no pedal edema Neuro: GORDON COMA SCALE: document GCS findings Gordon coma scale eye opening: Spontaneous [place] coma scale verbal response: Orientated [place] coma scale motor response: Obey commands [place] coma scale total score: 15 SENSORY EXAM: Yes extremities (intact) Psych: COMMON NORMALS: speech normal SPEECH: Yes normal speech Skin: COMMON NORMALS: no rashes or lesions noted GENERAL SKIN EXAM: no rashes or lesions noted Course Vital Signs: Vital signs: Vital Signs Temperature 98.3 F 01/21/24 20:59 Pulse Rate 76 01/21/24 23:52 Respiratory Rate 16 01/21/24 23:04 Blood Pressure 102/68 01/21/24 23:52 Pulse Oximetry 98 01/21/24 23:52 Oxygen Delivery Me thod Room Air 01/21/24 23:04 MDM - Female Medical Decision Making Hemoglobin is 10 which is stable for the patient. Other laboratory not remarkable. She is afebrile. Vitals are stable. CRP is 3. Urinalysis shows no significant hematuria or infection. CT renal stone protocol shows no nephrolithiasis or obstructive uropathy. No acute findings. There is some undigested food in her stomach and duodenum. Pain is improved. She will be allowed discharge. Short course of pain medication nausea medication for renal colic. This may be recently passed stone. She knows to return for worsening symptoms. Lab Data 01/21/24 21:25 01/21/24 21:25 Radiology Impressions Abdomen/Pelvis CT 01/21/24 22:35 IMPRESSION: 1. No nephrolithiasis or evidence of obstructive uropathy. 2. Small pneumobilia may be related to prior surgical changes. 3. Status post cholecystectomy. Laboratory Results WBC 6.92 10^3/uL (3.29-11.43) 01/21/24 21: RBC 4.40 10^6/uL (3.85-5.65) 01/21/24 21:25 Hgb 10.30 g/dL (11.27-16.99) L 01/21/24: Hct 33.8 % (36-47) L 01/21/24: MCV 76.8 fl (85-98) L 01/21/24 21: MCH 23.4 pg (27-33) L 01/21/24 21: MCHC 30.5 g/dL (30-55) 01/21/24 21: RDW 24.4 % (12.1-15.1) H 01/21/24 21: Plt Count 278 10^3/cmm (157-399) 01/21/24 21: MPV 9.7 fL (7.4-10.4) 01/21/24: Neut % (Auto) 45.0 % 12/01/24 21:25 Lymph % (Auto) 44.5 % 01/21/24 21:25 [place] % (Auto) 5.6 % 01/21/24 21:25 Eos % (Auto) 4.2 % 01/21/24 21:25 Baso % (Auto) 0.4 % 01/21/24 21:25 Neut # (Auto) 3.11 10^3/uL (1.8-7.7) 01/21/24 21: Lymph # (Auto) 3.1 10^3/uL (0.8-4.8) 01/21/24 21:25 [place] # (Auto) 0.4 10^3/uL (0.2-0.9) 01/21/24 21:25 Eos # (Auto) 0.3 10^3/uL (0.0-0.8) 01/21/24 21: Baso # (Auto) 0.0 10^3/uL (0.0-0.1) 01/21/24 21:25 Nucleated RBC % (auto) 0 % 01/21/24 21: Nucleated RBCs # 0.0 /100WBC 01/21/24 21:25 Sodium 141 mmol/L (136-145) 01/21/24 21:25 Potassium 4.1 mmol/L (3.5-5.1) 01/21/24 21:25 Chloride 103 mmol/L (98-107) 01/21/24 21:25 Carbon Dioxide 25 mmol/L (22-29) 01/21/24 21:25 Anion Gap 17.1 (5-19) 01/21/24 21:25 BUN 16 mg/dL (6-20) 01/21/24 21:25 Creatinine 0.9 mg/dL (0.5-0.9) 01/21/24 21:25 GFR Calculation 76.9 mL/min (90-130) L 01/21/24 21:25 Glucose 94 mg/dL (65-115) 01/21/24 21:25 Calculated Osmolality 293 mOsm/kg (285-295) 01/21/24 21:25 Calcium 7.9 mg/dL (8.5-10.5) L 01/21/24 21:25 Total Bilirubin 0.2 mg/dL (0.15-1.2) 01/21/24 21:25 AST 18 U/L (0-32) 01/21/24 21:25 ALT 17 U/L (0-33) 01/21/24 21:25 Alkaline Phosphatase 84 U/L (35-105) 01/21/24 21:25 C-Reactive Protein 3.0 mg/L (0.0-4.9) 01/21/24 21:25 Total Protein 6.8 g/dL (6.6-8.7) 01/21/24 21:25 Albumin 4.5 g/dL (3.5-5.2) 01/21/24 21:25 Globulin 2.3 g/dL (1.3-4.6) 01/21/24 21:25 Lipase 53 U/L (13-60) 01/21/24 21:25 HCG, Qual Negative (Negative) 01/21/24 21:10 Urine Color Yellow (Yellow) 01/21/24 21:10 Urine Appearance Clear (CLEAR) 01/21/24 21:10 Urine pH 7.0 (5-7) 01/21/24 21:10 Ur Specific [place] 1.021 (1.005-1.030) 01/21/24 21:10 Urine Protein Negative (Negative) 01/21/24 21:10 Urine Glucose (UA) Negative (Normal) 01/21/24 21:10 Urine Ketones Negative (Negative) 01/21/24 21:10 Urine Blood Negative (Negative) 01/21/24 21:10 Urine Nitrate Negative (Negative) 01/21/24 21:10 Urine Bilirubin Negative (Negative) 01/21/24 21:10 Urine Urobilinogen 1.0 mg/dL (Negative) 01/21/24 21:10 Ur Leukocyte Esterase Negative (Negative) 01/21/24 21:10 Urine RBC 0-2 /hpf (0-2) 01/21/24 21:10 Urine WBC 0-5 /hpf (0-5) 01/21/24 21:10 Ur Squamous Epith Cells 0-5 /hpf (0-5) 01/21/24 21:10 Amorphous Sediment Not Reportable 01/21/24 21:10 Urine Bacteria None seen /hpf (NONE) 01/21/24 21:10 Hyaline Casts 0-4 /lpf H 12/01/24 21:10 All radiology interpretation(s) finalized by discharge Discharge Plan Discharge Patient Disposition: Home Clinical Impression: Renal colic on right side Condition: Stable Prescriptions: New ondansetron 4 mg tablet,disintegrating 4 mg PO Q6H PRN (Reason: nausea and vomiting) Qty: 14 0RF Continued hydrocodone-acetaminophen 5-325 mg tablet 1 tab PO Q4H PRN (Reason: pain) Qty: 7 0RF Discontinued hydrocodone-acetaminophen 5-325 mg tablet 1 tab PO Q6H PRN (Reason: pain) 4 Days Qty: 15 0RF No Action buspirone 10 mg tablet 10 mg PO DAILY cyclobenzaprine 10 mg tablet 10 mg PO TID ibuprofen 800 mg tablet 800 mg PO Q6H Discharge Orders: Discharge ED (Routine); Ordered 01/21/24 Ordered By: Philip Santiago Referrals: Herminio Wayne MD [Primary Care Provider] - 1-3 days Patient Instructions: Renal Colic (ED), Opioid Safety, Pain Management Activity Restrictions/Additional Instructions: Return to the emergency department for worsening pain despite treatment, vomiting liquids or medications, blood in the urine, fever greater than 100, any other concerning symptoms. See your doctor this week. Call tomorrow for an appointment. Follow a liquid diet for the next 12 to 24 hours. Take nausea medication every 4 hours scheduled for the first 24 hours, then as needed. Coding Level of Care Code ED [employer] Supervisor for Jim Engle
[2024-01-21 21:32] LABS: Basophils % 0.4 %; Eosinophils # 0.3 10^3/uL (0.0-0.8); Eosinophils % 4.2 %; Hematocrit 33.8 % (36-47); Lymphocytes # 3.1 10^3/uL (0.8-4.8); Lymphocytes % 44.5 %; Mean Corpuscular HGB Conc 30.5 g/dL (30-55); Mean Corpuscular Hemoglobin 23.4 pg (27-33); Mean Corpuscular Volume 76.8 fl (85-98); Mean Platelet Volume 9.7 fL (7.4-10.4); Monocytes # 0.4 10^3/uL (0.2-0.9); Monocytes % 5.6 %; Neutrophils # 3.11 10^3/uL (1.8-7.7); Nucleated Red Blood Cells % 0 %; Platelet Count 278 10^3/cmm (157-399); Red Cell Distribution Width 24.4 % (12.1-15.1); White Blood Count 6.92 10^3/uL (3.29-11.43)
[2024-01-21] MEDS: morphine 4 mg/mL SDV 1 mL IVP ×2 (21:34→22:39)
[2024-01-21] MEDS: ondansetron 2 mg/ML SDV 2 mL 4 MG IVP (21:34)
[2024-01-21] MEDS: ketorolac 30 mg/mL INJ IVP (21:34)
[2024-01-21 21:49] VITALS: BP 136/75; PULSE 87; O2SAT 97
[2024-01-21 21:51] LABS: Alanine Aminotransferase 17 U/L (0-33); Albumin Level 4.5 g/dL (3.5-5.2); Alkaline Phosphatase 84 U/L (35-105); Anion Gap 17.1 (5-19); Aspartate Amino Transferase 18 U/L (0-32); Blood Urea Nitrogen 16 mg/dL (6-20); Calcium 7.9 mg/dL (8.5-10.5); Carbon Dioxide 25 mmol/L (22-29); Chloride 103 mmol/L (98-107); Creatinine Clr Calc Pharmacy 93.4503; Globulin 2.3 g/dL (1.3-4.6); Glomerular Filtration Rate 76.9 mL/min (90-130); Glucose 94 mg/dL (65-115); Lipase 53 U/L (13-60); Osmolality Calculated 293 mOsm/kg (285-295); Potassium 4.1 mmol/L (3.5-5.1); Sodium 141 mmol/L (136-145); Total Bilirubin 0.2 mg/dL (0.15-1.2); Total Protein 6.8 g/dL (6.6-8.7)
--- NOTE | 2024-01-21 22:35 | CTR_ITS ---
PROCEDURE INFORMATION: Exam: CT Abdomen And Pelvis Without Contrast Exam date and time: 01/21/2024 10:43 PM Age: 23 years old Clinical indication: Abdominal pain; Right; Prior surgery; Surgery date: 6+ months; Surgery type: Gb. Appy; Patient HX: RT flank pain with dysuria. ; Additional info: R flank pain TECHNIQUE: Imaging protocol: Computed tomography of the abdomen and pelvis without contrast. Radiation optimization: All CT scans at this facility use at least one of these dose optimization techniques: automated exposure control; mA and/or kV adjustment per patient size (includes targeted exams where dose is matched to clinical indication); or iterative reconstruction. COMPARISON: CT abdomen pelvis w con* [id number] 03/27/2023 8:23 PM RADIATION DOSE METRICS: Total DLP (mGy-cm): 447.29 FINDINGS: Liver: Normal. No mass. Gallbladder and biliary ducts: Status post cholecystectomy. Prominent common bile duct is likely related to prior cholecystectomy. Small pneumobilia. Pancreas: Normal. No ductal dilation. Spleen: Normal. No splenomegaly. Adrenal glands: Normal. No mass. Kidneys and ureters: Normal. No hydronephrosis. Stomach and bowel: Unremarkable. No obstruction. No mucosal thickening. Appendix: No evidence of appendicitis. Intraperitoneal space: Unremarkable. No free air. No significant fluid collection. Vasculature: Unremarkable. No abdominal aortic aneurysm. Several calcified phleboliths are seen bilaterally. Lymph nodes: Unremarkable. No enlarged lymph nodes. Urinary bladder: Unremarkable as visualized. Reproductive: Unremarkable as visualized. Bones/joints: Unremarkable. No acute fracture. Soft tissues: Small fat containing umbilical hernia. CT/CT kidney stone [id number] IMPRESSION: 1. No nephrolithiasis or evidence of obstructive uropathy. 2. Small pneumobilia may be related to prior surgical changes. 3. Status post cholecystectomy.
[2024-01-21 23:04] VITALS: BP 105/70; PULSE 79; RESP 16; O2SAT 96
[2024-01-21 23:52] VITALS: BP 102/68; PULSE 76; O2SAT 98
== END 2024-01-21 23:53 | disposition home or self-care (01) ==
PROVIDERS: Emergency Provider Emergency Medicine; PCP Family Medicine
DX: N23 Unspecified renal colic (principal)
CPT/HCPCS: 74176; 80053; 81001; 81025; 83690; 85025; 86140; 96374; 96375; 96376; 99285; J1885; J2270; J2405

== ENCOUNTER 2024-01-28 11:41 | Emergency (ER) | payer MEDICAID, SELFPAY ==
[2024-01-28 11:57] VITALS: BP 118/75; PULSE 82; RESP 18; TEMP 36.4; O2SAT 100; BMI 25.0
--- NOTE | 2024-01-28 14:08 | XRR_ITS ---
PROCEDURE INFORMATION: Exam: XR Lumbosacral Spine Exam date and time: 01/28/2024 2:28 PM Age: 23 years old Clinical indication: Low back pain; Patient HX: Persistent lower back pain after epidural/delivery x 2mo ago TECHNIQUE: Imaging protocol: Radiologic exam of the lumbosacral spine. Views: 2 or 3 views. COMPARISON: CT kidney stone [id number] 01/21/2024 10:43 PM FINDINGS: Bones/joints: Lumbar vertebral body heights appear maintained. Disc spaces appear maintained. Straightening of the lumbar lordosis is seen on the lateral view. Alignment is otherwise unremarkable. No fracture or subluxation is seen. SI joints appear unremarkable. Soft tissues: No significant soft tissue abnormality. Intraperitoneal space: Surgical clips right upper quadrant. XR/XR lumbar spine 2-3V* [id number] IMPRESSION: Straightening of the lumbar lordosis on the lateral view. This can be associated with muscle spasm/tension. No acute findings.
--- NOTE | 2024-01-28 14:08 | ED_ITS ---
HPI - Back Pain/Injury General: Chief Complaint: Back Pain/Injury Stated Complaint: back pain Time Seen by Provider: 01/28/24 13:39 Source: patient Mode of arrival: ambulatory Limitations: no limitations History of Present Illness: 23-year-old female states been having lo wer back pain over the last 2 weeks states it is in the low back across both sides worse with palpation and movement she was seen here a week ago had a CT of her abdomen blood work that were all normal states pain is continuous rates the pain a 4 out of 10 denies any bowel or bladder incontinence. She has no difficulty ambulating Associated symptoms: Deny abdominal pain, chills, fever(s), nausea or vomiting Related Data Home Medications Medication Instructions Recorded Confirmed buspirone 10 mg tablet 10 mg PO DAILY 07/02/23 01/04/24 cyclobenzaprine 10 mg tablet 10 mg PO TID 12/24/23 01/04/24 ibuprofen 800 mg tablet 800 mg PO Q6H 12/24/23 01/04/24 Previous Rx's Medication Instructions Recorded hydrocodone 5 mg-acetaminophen 325 1 tab PO Q4H PRN pain #7 tabs 01/21/24 mg tablet ondansetron 4 mg disintegrating 4 mg PO Q6H PRN nausea and 01/21/24 tablet vomiting #14 tabs methocarbamol 750 mg tablet 750 mg PO Q6H PRN spasms #20 tabs 01/28/24 naproxen 500 mg tablet (Naprosyn) 500 mg PO BID PRN pain #20 tabs 01/28/24 Allergies Allergy/AdvReac Type Severity Reaction Status Date / Time amoxicillin Allergy ADR-Nausea Verified 01/04/24 14:03 Fish Containing Products Allergy ADR-Nausea Verified 01/04/24 14:03 Penicillins Allergy ADR-Nausea Verified 01/04/24 14:03 shellfish derived Allergy ADR-Itching Verified 01/04/24 14:03 Review of Systems Const: Denies: fever(s) or chills ENMT: Denies: throat pain or dental pain Card: Denies: chest pain Resp: Denies: dyspnea GI: Denies: abdominal pain, nausea, vomiting or diarrhea Musc: Reports: back pain; Denies: neck pain Skin/Breast: Denies: rash Neuro: Denies: headache(s) 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 Adrenal insufficiency No pertinent family history Surgical History History of tonsillectomy and adenoidectomy History of myringotomy twice as a child History of laparoscopic appendectomy History of laparoscopic cholecystectomy History of cleft palate with cleft lip History of thyroid surgery (~2020) Full thyroidectomy-- performed in [place] Family History Grandmother Diabetes mellitus, type 2 MGM Hypertension PGM Grandfather Hypertension PGF Denies family history of Colon cancer Ovarian cancer Prostate cancer CAD (coronary artery disease) Hyperlipidemia Chronic kidney disease (CKD) Breast cancer Bleeding disorder Family history of premature coronary artery disease Uterine cancer Thyroid disease Social History Smoking and tobacco/nicotine status: never used tobacco/nicotine Second hand smoke exposure: No Alcohol intake: current Alcohol intake frequency: holidays/special occasions only Substance/Drug Use: never Adopted: No Caregiver/support person: No Lives independently: Yes Household members: spouse and children Housing: House Marital status: Highest education level completed: High School Graduate service: No Current occupational status: employed 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 Current occupational exposures/hazards: No Physical Exam Const: COMMON NORMALS: no acute distress, patient oriented x3 and healthy appearing HENMT: COMMON NORMALS: normocephalic and atraumatic HEAD & SCALP: normocephalic and atraumatic Eye: COMMON NORMALS: conjunctivae normal CONJUNCTIVA: Yes conjunctivae normal Neck/C-Spine: COMMON NORMALS: full ROM and supple Chest: COMMONS NORMALS: normal inspection of the chest Resp: COMMON NORMALS: normal respiratory effort Cardio: COMMON NORMALS: regular rate, regular rhythm and No murmurs present (Cardio) RATE: regular rate RHYTHM: regular rhythm GI: COMMON NORMALS: Normal to inspection, nondistended, normoactive bowel sounds present, Soft to palpation, non-tender and no masses PALPATION: Yes Soft to palpation Back/Pelvis: OTHER: Paraspinal tenderness to the low back no midline tenderness no saddle anesthesia Extremity: COMMON NORMALS: normal to inspection and full ROM Neuro: COMMON NORMALS: patient oriented x3, moves all extremities and no focal motor deficits Psych: COMMON NORMALS: mental status grossly normal, Normal thought process present and cooperative THOUGHT PROCESS: Normal thought process present Skin: COMMON NORMALS: no rashes or lesions noted and no wounds GENERAL SKIN EXAM: no rashes or lesions noted Course Vital Signs: Vital signs: Vital Signs Temperature 97.6 F 01/28/24 11:57 Pulse Rate 82 01/28/24 11:57 Respiratory Rate 18 01/28/24 11:57 Blood Pressure 118/75 01/28/24 11:57 Pulse Oximetry 100 01/28/24 11:57 Oxygen Delivery Me thod Room Air 01/28/24 11:57 MDM - Back Pain/Injury Medical Decision Making Patient presents with low back pain x-ray here is negative is likely muscular patient stable for discharge follow-up PCP return if worsening. Medical Records I reviewed the patient's medical records. Labs I reviewed the patient's lab results. Laboratory Results HCG, Qual Negative (Negative) 01/28/24 14:50 Urine Color Yellow (Yellow) 01/28/24 14:50 Urine Appearance Clear (CLEAR) 01/28/24 14:50 Urine pH 7.0 (5-7) 01/28/24 14:50 Ur Specific [place] 1.022 (1.005-1.030) 01/28/24 14:50 Urine Protein Negative (Negative) 01/28/24 14:50 Urine Glucose (UA) Negative (Normal) 01/28/24 14:50 Urine Ketones Negative (Negative) 01/28/24 14:50 Urine Blood Negative (Negative) 01/28/24 14:50 Urine Nitrate Negative (Negative) 01/28/24 14:50 Urine Bilirubin Negative (Negative) 01/28/24 14:50 Urine Urobilinogen 1.0 mg/dL (Negative) 01/28/24 14:50 Ur Leukocyte Esterase Negative (Negative) 01/28/24 14:50 Amorphous Sediment Not Reportable 01/28/24 14:50 XR interpretation done by ED provider, pending radiology final review ED provider radiology interpretation(s): xr lumbar: no acute abnormality Discharge Plan Discharge Patient Disposition: Home Clinical Impression: Low back pain Condition: Stable Prescriptions: New methocarbamol 750 mg tablet 750 mg PO Q6H PRN (Reason: spasms) Qty: 20 0RF naproxen [Naprosyn] 500 mg tablet 500 mg PO BID PRN (Reason: pain) Qty: 20 0RF No Action buspirone 10 mg tablet 10 mg PO DAILY cyclobenzaprine 10 mg tablet 10 mg PO TID ibuprofen 800 mg tablet 800 mg PO Q6H ondansetron 4 mg tablet,disintegrating 4 mg PO Q6H PRN (Reason: nausea and vomiting) Qty: 14 0RF hydrocodone-acetaminophen 5-325 mg tablet 1 tab PO Q4H PRN (Reason: pain) Qty: 7 0RF Discharge Orders: Discharge ED (Routine); Ordered 01/28/24 Ordered By: Dev Portillo Referrals: Herminio Wayne MD [Primary Care Provider] - 4-7 days Discharge Diet: Advance as tolerated Discharge Activity: Resume usual activity Patient Instructions: Back Pain (ED) Coding Level of Care Code ED [employer] for Jim Engle
[2024-01-28] MEDS: methocarbamol 750 mg Tablet 1500 MG PO (14:23)
[2024-01-28] MEDS: dexamethasone 10 mg/mL INJ IM (14:24)
[2024-01-28] MEDS: ketorolac 60 mg/2 mL INJ IM (14:38)
[2024-01-28 14:58] LABS: Bilirubin Urine Negative (Negative); Blood Urine Negative (Negative); Glucose Urine UA Negative (Normal); Ketones Urine Negative (Negative); Leukocyte Esterase Urine Negative (Negative); Nitrate Urine Negative (Negative); Protein Urine Negative (Negative); Specific Gravity, Urine 1.022 (1.005-1.030); Urine Appearance Clear (CLEAR); Urine Color Yellow (Yellow)
[2024-01-28 14:59] LABS: HCG Qualitative Urine. Negative (Negative)
[2024-01-28 15:15] VITALS: BP 125/73; PULSE 85; O2SAT 98
[2024-01-28 15:15] LABS: Add Urine Microscopic? YES; Bacteria Urine 1+ /hpf; Mucus Urine TRACE /hpf; RBC Urine 0-4 /hpf (0-2); Squamous Epithelial Cell Urine 0-4 /hpf (0-5); UA Manual Slide Review YES; WBC Urine 0-4 /hpf (0-5)
== END 2024-01-28 15:15 | disposition home or self-care (01) ==
PROVIDERS: Emergency Provider Emergency Medicine; PCP Family Medicine
DX: M54.50 Low back pain, unspecified (principal)
CPT/HCPCS: 72100; 81001; 81025; 96372; 99284; J1100; J1885

== ENCOUNTER 2024-01-29 08:22 | Oncology outpatient (recurring) (ONCR) | payer MEDICAID, SELFPAY ==
[2024-01-29] MEDS: levothyroxine 200 mcg SDV 500 MCG IM (09:20)
[2024-01-29 09:22] VITALS: BP 124/78; PULSE 81; RESP 16; TEMP 36.8; O2SAT 96
== END 2024-02-20 23:59 | disposition home or self-care (01) ==
LOC: ONCMED 08:22
PROVIDERS: PCP Family Medicine; Visit Provider Internal Medicine
DX: E27.40 Unspecified adrenocortical insufficiency (principal); Z79.899 Other long term (current) drug therapy
CPT/HCPCS: 96372; J0650

== ENCOUNTER 2024-02-02 21:17 | Emergency (ER) | payer MEDICAID, SELFPAY ==
[2024-02-02 21:19] VITALS: BP 108/71; PULSE 89; RESP 17; TEMP 36.6; O2SAT 99; BMI 25.2
[2024-02-02 22:35] VITALS: BP 101/62; PULSE 83; RESP 16; O2SAT 100
--- NOTE | 2024-02-02 22:43 | XRR_ITS ---
PROCEDURE INFORMATION: Exam: XR Abdomen Exam date and time: 02/02/2024 10:53 PM Age: 23 years old Clinical indication: Nausea and vomiting; Abdominal pain; Localized; Prior surgery; Surgery date: 6+ months; Surgery type: Gb. Appy. Patient HX: C/O lower abd pain with n/v TECHNIQUE: Imaging protocol: Radiologic exam of the abdomen. Views: Frontal supine view of the abdomen. 1 View. COMPARISON: CT kidney stone [id number] 01/21/2024 10:43 PM FINDINGS: Gastrointestinal tract: Normal. No bowel dilation. Organs: There has been a cholecystectomy. Bones/joints: Unremarkable. XR/XR KUB portable [id number] IMPRESSION: There are no acute concerning abnormalities.
--- NOTE | 2024-02-02 22:44 | W.ED.NAVMDI ---
HPI - Nausea/Vomiting/Diarrhea General: Chief complaint: Nausea/Vomiting/Diarrhea Stated complaint: Abd\N\V Time Seen by Provider: 02/02/24 22:33 Source: patient Mode of arrival: ambulatory Limitations: no limitations History of Present Illness: Patient is a 23-year-old female well-known to the emergency department here presenting to the emergency department complaining of lower abdominal pain beginning yesterday. She is 1 month , states she was a high risk . She notes sudden onset of pain to the lower quadrants, feels like a cramping. Also is reporting some vaginal discharge, denies any new partners or risk of sexually transmitted diseases. Denies any vaginal bleeding, urinary symptoms, fever/chills. She does note she has been nauseous all day, with episodes of vomiting and diarrhea. Also notes a history of 2 abdominal procedures, had her gallbladder removed as well as her appendix. States she has not been constipated and has been passing gas/stool. She comfortable at this time, vitals are normal. Denies any blood in her vomit or diarrhea. MD elicited complaint: nausea, vomiting, diarrhea and abdominal pain Onset (ago): day(s) Associated nausea: Yes Associated abdominal pain: Yes Location of pain: RLQ, LLQ and Suprapubic Pain consistency: constant Severity: mild Quality: cramping Exacerbating factors: none Relieving factors: none Associated symtoms: Reports nausea; Denies chest pain, diaphoresis, dizziness, dysuria, headache(s) or palpitations Related Data Home Medications Medication Instructions Recorded Confirmed buspirone 10 mg tablet 10 mg PO DAILY 07/02/23 02/01/24 ibuprofen 800 mg tablet 800 mg PO Q6H 12/24/23 02/01/24 Previous Rx's Medication Instructions Recorded ondansetron 4 mg disintegrating 4 mg PO Q6H PRN nausea and 01/21/24 tablet vomiting #14 tabs methocarbamol 750 mg tablet 750 mg PO Q6H PRN spasms #20 tabs 01/28/24 naproxen 500 mg tablet (Naprosyn) 500 mg PO BID PRN pain #20 tabs 01/28/24 duloxetine 30 mg capsule,delayed 30 mg PO DAILY #30 caps 02/01/24 release Allergies Allergy/AdvReac Type Severity Reaction Status Date / Time amoxicillin Allergy ADR-Nausea Verified 02/02/24 21:26 Fish Containing Products Allergy ADR-Nausea Verified 02/02/24 21:26 Penicillins Allergy ADR-Nausea Verified 02/02/24 21:26 shellfish derived Allergy ADR-Itching Verified 02/02/24 21:26 Review of Systems General: Reports: 10 or more systems reviewed and unremarkable except in HPI and below Const: Denies: fever(s), chills, change in appetite, change in weight or diaphoresis ENMT: Denies: throat pain or hoarseness Card: Denies: chest pain, palpitations or lightheadedness Resp: Denies: dyspnea, productive cough or wheezing GI: Reports: abdominal pain, nausea, vomiting and diarrhea; Denies: hematemesis, coffee ground emesis, constipation or hematochezia : Denies: flank pain, difficulty voiding, dysuria, urinary frequency or urinary urgency Musc: Denies: neck pain or back pain Skin/Breast: Denies: rash or new lesions Neuro: Denies: headache(s) or dizziness 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 Adrenal insufficiency No pertinent family history Surgical History History of tonsillectomy and adenoidectomy History of myringotomy twice as a child History of laparoscopic appendectomy History of laparoscopic cholecystectomy History of cleft palate with cleft lip History of thyroid surgery (~2020) Full thyroidectomy-- performed in [place] Family History Grandmother Diabetes mellitus, type 2 MGM Hypertension PGM Grandfather Hypertension PGF Denies family history of Colon cancer Ovarian cancer Prostate cancer CAD (coronary artery disease) Hyperlipidemia Chronic kidney disease (CKD) Breast cancer Bleeding disorder Family history of premature coronary artery disease Uterine cancer Thyroid disease Social History Smoking and tobacco/nicotine status: tobacco/nicotine user, details unknown Second hand smoke exposure: No Alcohol intake: current Alcohol intake frequency: holidays/special occasions only Substance/Drug Use: never Adopted: No Caregiver/support person: No Lives independently: Yes Household members: spouse and children Housing: House Marital status: Highest education level completed: High School Graduate service: No Current occupational status: employed 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 Current occupational exposures/hazards: No Female Reproductive History: Date of last menstrual period: 12/14/23 Physical Exam Const: COMMON NORMALS: no acute distress, average body habitus, no limitations, healthy appearing and well nourished GENERAL APPEARANCE: cooperative and comfortable ORIENTATION/CONSCIOUSNESS: Yes awake HENMT: COMMON NORMALS: normocephalic, atraumatic, hearing grossly normal bilaterally, external ears normal, Normal external nose present, Normal nasal mucous membranes and turbinates present and moist oral mucous membranes HEAD & SCALP: normocephalic and atraumatic NOSE: Normal external nose present and Normal nasal mucous membranes and turbinates present EXTERNAL EAR: Yes external ears normal Eye: COMMON NORMALS: Equal, round and reactive pupils present, EOMs intact bilaterally, conjunctivae normal and normal visual núñez by confrontation CONJUNCTIVA: Yes conjunctivae normal PUPIL: Yes Equal, round and reactive pupils present Neck/C-Spine: COMMON NORMALS: full ROM, supple and no JVD Resp: COMMON NORMALS: normal respiratory effort, No retractions, No use of accessory muscles and clear to auscultation bilaterally AUSCULTATION: clear to auscultation bilaterally, no crackles, no rales, no rhonchi and no wheezes Cardio: COMMON NORMALS: no JVD, regular rate, regular rhythm, S1 normal heart sound present, S2 normal heart sound present, No gallops present (Cardio), No clicks present (Cardio), No murmurs present (Cardio), No rub (Cardio) and Peripheral pulses 2+ throughout RATE: regular rate RHYTHM: regular rhythm HEART SOUNDS: S1 normal heart sound present and S2 normal heart sound present PERIPHERAL PULSES: Peripheral pulses 2+ throughout GI: COMMON NORMALS: Normal to inspection, nondistended, normoactive bowel sounds present, Soft to palpation, non-tender, No hepatosplenomegaly present and no masses AUSCULTATION: Yes normoactive bowel sounds PALPATION: Yes Soft to palpation, No Rigid due to palpation and Yes No hepatosplenomegaly present RECTAL EXAM: deferred OTHER: Bilateral lower quadrant tenderness to palpation with voluntary guarding : COMMON NORMALS: Yes no CVA tenderness BLADDER/KIDNEY EXAM: Yes no CVA tenderness Back/Pelvis: COMMON NORMALS: no CVA tenderness Extremity: COMMON NORMALS: normal to inspection and full ROM Psych: COMMON NORMALS: mental status grossly normal, cooperative and speech normal SPEECH: Yes normal speech Skin: COMMON NORMALS: no rashes or lesions noted GENERAL SKIN EXAM: no rashes or lesions noted Course Vital Signs: Vital signs: Vital Signs Temperature 97.9 F 02/02/24 21:19 Pulse Rate 74 02/02/24 23:48 Respiratory Rate 16 02/02/24 23:48 Blood Pressure 107/70 02/02/24 23:48 Pulse Oximetry 100 02/02/24 23:48 Oxygen Delivery Me thod Room Air 02/02/24 23:48 MDM - Nausea/Vomiting/Diarrhea Medical Decision Making Patient presented with lower abdominal pain associate with nausea vomiting diarrhea. Vitals were stable. Physical exam overall normal, had some tenderness to palpation to her lower abdomen with voluntary guarding. KUB unremarkable. Her lab work all completely normal including negative urinalysis. Very little concern for any acute abdominal etiology, this likely poses a viral gastroenteritis but I encourage patient to treat conservatively with. Also encouraged her to closely monitor her condition and return with any new or worsening. She notes improvement of symptoms after receiving Zofran here. Lab Data 02/02/24 23:11 02/02/24 23:11 Radiology Impressions KUB X-Ray 02/02/24 22:43 IMPRESSION: There are no acute concerning abnormalities. Laboratory Results WBC 7.93 10^3/uL (3.29-11.43) 02/02/24 23:11 RBC 4.33 10^6/uL (3.85-5.65) 02/02/24 23:11 Hgb 10.30 g/dL (11.27-16.99) L 02/02/24 23:11 Hct 34.0 % (36-47) L 02/02/24 23:11 MCV 78.5 fl (85-98) L 02/02/24 23:11 MCH 23.8 pg (27-33) L 02/02/24 23:11 MCHC 30.3 g/dL (30-55) 02/02/24 23:11 RDW 24.6 % (12.1-15.1) H 02/02/24 23:11 Plt Count 280 10^3/cmm (157-399) 02/02/24 23:11 MPV 9.7 fL (7.4-10.4) 02/02/24 23:11 Neut % (Auto) 42.7 % 02/02/24 23:11 Lymph % (Auto) 47.4 % 02/02/24 23:11 [place] % (Auto) 6.7 % 02/02/24 23:11 Eos % (Auto) 2.1 % 02/02/24 23:11 Baso % (Auto) 0.5 % 02/02/24 23:11 Neut # (Auto) 3.38 10^3/uL (1.8-7.7) 02/02/24 23:11 Lymph # (Auto) 3.8 10^3/uL (0.8-4.8) 02/02/24 23:11 [place] # (Auto) 0.5 10^3/uL (0.2-0.9) 02/02/24 23:11 Eos # (Auto) 0.2 10^3/uL (0.0-0.8) 02/02/24 23:11 Baso # (Auto) 0.0 10^3/uL (0.0-0.1) 02/02/24 23:11 Nucleated RBC % (auto) 0 % 02/02/24 23:11 Nucleated RBCs # 0.0 /100WBC 02/02/24 23:11 Sodium 137 mmol/L (136-145) 02/02/24 23:11 Potassium 4.2 mmol/L (3.5-5.1) 02/02/24 23:11 Chloride 102 mmol/L (98-107) 02/02/24 23:11 Carbon Dioxide 27 mmol/L (22-29) 02/02/24 23:11 Anion Gap 12.2 (5-19) 02/02/24 23:11 BUN 13 mg/dL (6-20) 02/02/24 23:11 Creatinine 0.8 mg/dL (0.5-0.9) 02/02/24 23:11 GFR Calculation 88.1 mL/min (90-130) L 02/02/24 23:11 Glucose 107 mg/dL (65-115) 02/02/24 23:11 Calculated Osmolality 285 mOsm/kg (285-295) 02/02/24 23:11 Calcium 8.0 mg/dL (8.5-10.5) L 02/02/24 23:11 Total Bilirubin 0.2 mg/dL (0.15-1.2) 02/02/24 23:11 AST 16 U/L (0-32) 02/02/24 23:11 ALT 14 U/L (0-33) 02/02/24 23:11 Alkaline Phosphatase 74 U/L (35-105) 02/02/24 23:11 Total Protein 6.4 g/dL (6.6-8.7) L 02/02/24 23:11 Albumin 4.2 g/dL (3.5-5.2) 02/02/24 23:11 Globulin 2.2 g/dL (1.3-4.6) 02/02/24 23:11 Lipase 42 U/L (13-60) 02/02/24 23:11 HCG, Qual Negative (Negative) 02/02/24 23:11 Urine Color Yellow (Yellow) 02/02/24 23:38 Urine Appearance Clear (CLEAR) 02/02/24 23:38 Urine pH 6.5 (5-7) 02/02/24 23:38 Ur Specific [place] 1.013 (1.005-1.030) 02/02/24 23:38 Urine Protein Negative (Negative) 02/02/24 23:38 Urine Glucose (UA) Negative (Normal) 02/02/24 23:38 Urine Ketones Negative (Negative) 02/02/24 23:38 Urine Blood Negative (Negative) 02/02/24 23:38 Urine Nitrate Negative (Negative) 02/02/24 23:38 Urine Bilirubin Negative (Negative) 02/02/24 23:38 Urine Urobilinogen 0.2 mg/dL (Negative) 02/02/24 23:38 Ur Leukocyte Esterase Negative (Negative) 02/02/24 23:38 Urine RBC 0-2 /hpf (0-2) 02/02/24 23:38 Urine WBC 0-5 /hpf (0-5) 02/02/24 23:38 Ur Squamous Epith Cells 0-5 /hpf (0-5) 02/02/24 23:38 Amorphous Sediment Not Reportable 02/02/24 23:38 Urine Bacteria None seen /hpf (NONE) 02/02/24 23:38 Hyaline Casts 0-4 /lpf H 02/02/24 23:38 All radiology interpretation(s) finalized by discharge Discharge Plan Discharge Patient Disposition: Home Clinical Impression: Viral gastroenteritis Condition: Stable Prescriptions: No Action buspirone 10 mg tablet 10 mg PO DAILY ibuprofen 800 mg tablet 800 mg PO Q6H duloxetine 30 mg capsule,delayed release(DR/EC) 30 mg PO DAILY Qty: 30 0RF ondansetron 4 mg tablet,disintegrating 4 mg PO Q6H PRN (Reason: nausea and vomiting) Qty: 14 0RF methocarbamol 750 mg tablet 750 mg PO Q6H PRN (Reason: spasms) Qty: 20 0RF naproxen [Naprosyn] 500 mg tablet 500 mg PO BID PRN (Reason: pain) Qty: 20 0RF Discharge Orders: Discharge ED (Routine); Ordered 02/03/24 Ordered By: Clemente Estrella Referrals: Herminio Wayne MD [Primary Care Provider] - Patient Instructions: Gastroenteritis (ED) Activity Restrictions/Additional Instructions: See attached patient instructions for further education. Drink plenty of fluids. Tylenol/ibuprofen for any pain. Please monitor your condition closely and return with any new or concerning symptoms. Follow-up with primary care as needed. Coding Level of Care Code ED Road Worker for Jim Engle
[2024-02-02 23:34] LABS: Basophils % 0.5 %; Eosinophils # 0.2 10^3/uL (0.0-0.8); Eosinophils % 2.1 %; Lymphocytes # 3.8 10^3/uL (0.8-4.8); Lymphocytes % 47.4 %; Mean Corpuscular HGB Conc 30.3 g/dL (30-55); Mean Corpuscular Hemoglobin 23.8 pg (27-33); Mean Corpuscular Volume 78.5 fl (85-98); Mean Platelet Volume 9.7 fL (7.4-10.4); Monocytes # 0.5 10^3/uL (0.2-0.9); Monocytes % 6.7 %; Neutrophils # 3.38 10^3/uL (1.8-7.7); Neutrophils % 42.7 %; Nucleated Red Blood Cells % 0 %; Platelet Count 280 10^3/cmm (157-399); Red Blood Count 4.33 10^6/uL (3.85-5.65); Red Cell Distribution Width 24.6 % (12.1-15.1); White Blood Count 7.93 10^3/uL (3.29-11.43)
[2024-02-02 23:44] LABS: HCG, Serum Qual Negative (Negative)
[2024-02-02 23:46] LABS: Alanine Aminotransferase 14 U/L (0-33); Albumin Level 4.2 g/dL (3.5-5.2); Alkaline Phosphatase 74 U/L (35-105); Anion Gap 12.2 (5-19); Aspartate Amino Transferase 16 U/L (0-32); Blood Urea Nitrogen 13 mg/dL (6-20); Carbon Dioxide 27 mmol/L (22-29); Chloride 102 mmol/L (98-107); Creatinine Clr Calc Pharmacy 105.7526; Globulin 2.2 g/dL (1.3-4.6); Glomerular Filtration Rate 88.1 mL/min (90-130); Glucose 107 mg/dL (65-115); Lipase 42 U/L (13-60); Osmolality Calculated 285 mOsm/kg (285-295); Potassium 4.2 mmol/L (3.5-5.1); Sodium 137 mmol/L (136-145); Total Bilirubin 0.2 mg/dL (0.15-1.2); Total Protein 6.4 g/dL (6.6-8.7)
[2024-02-02] MEDS: ondansetron 4 MG Tablet PO (23:47)
[2024-02-02 23:48] VITALS: BP 107/70; PULSE 74; RESP 16; O2SAT 100
[2024-02-02 23:54] LABS: Bacteria Urine None Seen /hpf; Hyaline Casts Urine 0-4 /lpf; RBC Urine 0-2 /hpf (0-2); Squamous Epithelial Cell Urine 0-5 /hpf (0-5); WBC Urine 0-5 /hpf (0-5)
[2024-02-03 00:05] LABS: Add Urine Microscopic? YES; Bilirubin Urine Negative (Negative); Blood Urine Negative (Negative); Glucose Urine UA Negative (Normal); Ketones Urine Negative (Negative); Leukocyte Esterase Urine Negative (Negative); Nitrate Urine Negative (Negative); Protein Urine Negative (Negative); Specific Gravity, Urine 1.013 (1.005-1.030); Urine Appearance Clear (CLEAR); Urine Color Yellow (Yellow); Urobilinogen Urine 0.2 mg/dL (Negative); pH Urine 6.5 (5-7)
== END 2024-02-03 00:29 | disposition home or self-care (01) ==
PROVIDERS: Emergency Provider Physician Assistant; PCP Family Medicine
DX: A08.4 Viral intestinal infection, unspecified (principal)
CPT/HCPCS: 36415; 74018; 80053; 81001; 83690; 84703; 85025; 99284; Q0162

== ENCOUNTER 2024-06-07 20:53 | Emergency (ER) | payer BC, MEDICAID, SELFPAY ==
[2024-06-07 20:56] VITALS: BP 111/70; PULSE 63; RESP 14; TEMP 36.8; O2SAT 98; BMI 27.4
--- NOTE | 2024-06-07 21:19 | CTR_ITS ---
PROCEDURE INFORMATION: Exam: CT Abdomen And Pelvis With Contrast Exam date and time: 06/07/2024 10:14 PM Age: 23 years old Clinical indication: Abdominal pain; Localized; Left lower quadrant (llq); Prior surgery; Surgery date: 6+ months; Surgery type: Gb. Appy; C/O llq pain TECHNIQUE: Imaging protocol: Computed tomography of the abdomen and pelvis with contrast. Radiation optimization: All CT scans at this facility use at least one of these dose optimization techniques: automated exposure control; mA and/or kV adjustment per patient size (includes targeted exams where dose is matched to clinical indication); or iterative reconstruction. Contrast material: OMNI 350; Contrast volume: 100 ml; Contrast route: INTRAVENOUS (IV); COMPARISON: CT kidney stone [id number] 01/21/2024 10:43 PM RADIATION DOSE METRICS: Total DLP (mGy-cm): 492.53 FINDINGS: Pleural spaces: Trace bilateral pleural effusions. Liver: Normal. No mass. Gallbladder and biliary ducts: Postcholecystectomy changes. Mild pneumobilia. Pancreas: Normal. No ductal dilation. Spleen: Normal. No splenomegaly. Adrenal glands: Normal. No mass. Kidneys and ureters: Normal. No hydronephrosis. Stomach and bowel: Scattered colon diverticula. No inflammatory change identified involving the GI tract. No signs of bowel obstruction. Mild fecal stasis Appendix: The appendix is surgically absent. Intraperitoneal space: Unremarkable. No free air. No significant fluid collection. Vasculature: Unremarkable. No abdominal aortic aneurysm. Lymph nodes: Unremarkable. No enlarged lymph nodes. Urinary bladder: Mild diffuse urinary bladder wall thickening Reproductive: Unremarkable as visualized. Bones/joints: Unremarkable. No acute fracture. Soft tissues: Small periumbilical hernia containing fat only CT/CT abdomen pelvis w con* [id number] IMPRESSION: 1. Mild diffuse urinary bladder wall thickening. Clinical correlation for cystitis. 2. Fecal stasis 3. Trace bilateral pleural effusions
--- NOTE | 2024-06-07 21:19 | W.ED.ABDPA2 ---
HPI - Abdominal Pain General: Chief Complaint: Abdominal Pain Stated Complaint: pain swelling low left abd Time Seen by Provider: 06/07/24 21:06 History of Present Illness: 23-year-old female comes in today for pain and tenderness in the left lower quadrant of abdomen. Patient points to more her left pelvis versus her abdomen. Patient appears nontoxic. Patient has a history of hypothyroidism secondary to thyroid removal and nodule. Gallbladder removal, appendectomy, tonsillectomy and adenoidectomy. Patient takes medications for low thyroid. Patient's last menstrual cycle was last week but it was light. Patient's last meal was 1700. Patient does have a history of ovarian cysts. Patient reports nausea without vomiting. Related Data Home Medications ?Medication ?Instructions ?Recorded ?Confirmed buspirone 10 mg tablet 10 mg PO DAILY 07/02/23 04/27/24 ibuprofen 800 mg tablet 800 mg PO Q6H 12/24/23 04/27/24 Previous Rx's ?Medication ?Instructions ?Recorded ondansetron 4 mg disintegrating 4 mg PO Q6H PRN nausea and 01/21/24 tablet vomiting #14 tabs methocarbamol 750 mg tablet 750 mg PO Q6H PRN spasms #20 tabs 01/28/24 naproxen 500 mg tablet (Naprosyn) 500 mg PO BID PRN pain #20 tabs 01/28/24 duloxetine 30 mg capsule,delayed 30 mg PO DAILY #30 caps 02/01/24 release triamcinolone acetonide 0.1 % 1 applic topical TID #80 grams 04/27/24 topical ointment nitrofurantoin 100 mg PO BID 5 days #10 caps 06/07/24 monohydrate/macrocrystals 100 mg capsule polyethylene glycol 3350 17 17 g PO DAILY #510 grams 06/07/24 gram/dose oral powder (Miralax) Allergies Allergy/AdvReac Type Severity Reaction Status Date / Time amoxicillin Allergy ADR-Nausea Verified 06/07/24 20:57 Fish Containing Products Allergy ADR-Nausea Verified 06/07/24 20:57 Penicillins Allergy ADR-Nausea Verified 06/07/24 20:57 shellfish derived Allergy ADR-Itching Verified 06/07/24 20:57 Review of Systems General: Reports: 10 or more systems reviewed and unremarkable except in HPI and below 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 Adrenal insufficiency No pertinent family history Surgical History History of tonsillectomy and adenoidectomy History of myringotomy twice as a child History of laparoscopic appendectomy History of laparoscopic cholecystectomy History of cleft palate with cleft lip History of thyroid surgery (~2020) Full thyroidectomy-- performed in [place] Family History Grandmother Diabetes mellitus, type 2 MGM Hypertension PGM Grandfather Hypertension PGF Denies family history of Colon cancer Ovarian cancer Prostate cancer CAD (coronary artery disease) Hyperlipidemia Chronic kidney disease (CKD) Breast cancer Bleeding disorder Family history of premature coronary artery disease Uterine cancer Thyroid disease Social History Smoking and tobacco/nicotine status: never used tobacco/nicotine Second hand smoke exposure: No Alcohol intake: current Alcohol intake frequency: holidays/special occasions only Substance/Drug Use: never Adopted: No Caregiver/support person: No Lives independently: Yes Household members: spouse and children Housing: House Marital status: Highest education level completed: High School Graduate service: No Current occupational status: employed 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 Current occupational exposures/hazards: No Physical Exam Const: COMMON NORMALS: alert HENMT: COMMON NORMALS: normocephalic HEAD & SCALP: normocephalic Neck/C-Spine: COMMON NORMALS: full ROM Resp: COMMON NORMALS: normal respiratory effort Cardio: COMMON NORMALS: regular rate RATE: regular rate GI: COMMON NORMALS: Soft to palpation AUSCULTATION: Yes normoactive bowel sounds PALPATION: Yes Soft to palpation and Yes Tenderness to palpation present (GI) Details: LLQ : COMMON NORMALS: Yes no CVA tenderness BLADDER/KIDNEY EXAM: Yes no CVA tenderness Back/Pelvis: COMMON NORMALS: no CVA tenderness and thoracic and lumbar spine normal to inspection Extremity: COMMON NORMALS: no pedal edema Neuro: SENSORIUM/ORIENTATION: Yes alert Skin: COMMON NORMALS: turgor normal GENERAL SKIN EXAM: turgor normal Course Vital Signs: Vital signs: Vital Signs Temperature 98.2 F 06/07/24 20:56 Pulse Rate 60 06/07/24 22:01 Respiratory Rate 16 06/07/24 22:01 Blood Pressure 111/70 06/07/24 20:56 Pulse Oximetry 99 06/07/24 22:01 Oxygen Delivery Me thod Room Air 06/07/24 20:56 MDM - Abdominal Pain Medical Decision Making 23-year-old female comes in today for complaints of left lower quadrant abdominal pain. On exam abdomen soft with some left lower inguinal tenderness. No palpable mass or swelling is noted. Vital signs are normal. Differential diagnosis includes renal calculi, ovarian cyst, constipation, diverticulitis. CBC had trace leukocyte esterases and white blood cells in it. CMP and CBC were unremarkable except for some mild anemia. Patient was placed on some Macrobid for a probable urinary tract infection and recommended to use MiraLAX daily for constipation. Encourage fluids rest and follow-up with primary care. Lab Data 06/07/24 21:44 06/07/24 21:44 Labs/Radiology: Radiology Impressions Abdomen/Pelvis CT 06/07/24 21:19 IMPRESSION: 1. Mild diffuse urinary bladder wall thickening. Clinical correlation for cystitis. 2. Fecal stasis 3. Trace bilateral pleural effusions Laboratory Results WBC 7.06 10^3/uL (3.29-11.43) 06/07/24 21:44 RBC 3.69 10^6/uL (3.85-5.65) L 06/07/24 21:44 Hgb 10.00 g/dL (11.27-16.99) L 06/07/24 21:44 Hct 31.6 % (36-47) L 06/07/24 21:44 MCV 85.6 fl (85-98) 06/07/24 21:44 MCH 27.1 pg (27-33) 06/07/24 21:44 MCHC 31.6 g/dL (30-55) 06/07/24 21:44 RDW 19.8 % (12.1-15.1) H 06/07/24 21:44 Plt Count 231 10^3/cmm (157-399) 06/07/24 21:44 MPV 10.9 fL (7.4-10.4) H 06/07/24 21:44 Neut % (Auto) 47.6 % 06/07/24 21:44 Lymph % (Auto) 44.2 % 06/07/24 21:44 [place] % (Auto) 5.4 % 06/07/24 21:44 Eos % (Auto) 1.6 % 06/07/24 21:44 Baso % (Auto) 0.6 % 06/07/24 21:44 Neut # (Auto) 3.37 10^3/uL (1.8-7.7) 06/07/24 21:44 Lymph # (Auto) 3.1 10^3/uL (0.8-4.8) 06/07/24 21:44 [place] # (Auto) 0.4 10^3/uL (0.2-0.9) 06/07/24 21:44 Eos # (Auto) 0.1 10^3/uL (0.0-0.8) 06/07/24 21:44 Baso # (Auto) 0.0 10^3/uL (0.0-0.1) 06/07/24 21:44 Nucleated RBC % (auto) 0 % 06/07/24 21:44 Nucleated RBCs # 0.0 /100WBC 06/07/24 21:44 Sodium 139 mmol/L (136-145) 06/07/24 21:44 Potassium 3.5 mmol/L (3.5-5.1) 06/07/24 21:44 Chloride 101 mmol/L (98-107) 06/07/24 21:44 Carbon Dioxide 26 mmol/L (22-29) 06/07/24 21:44 Anion Gap 15.5 (5-19) 06/07/24 21:44 BUN 11 mg/dL (6-20) 06/07/24 21:44 Creatinine 1.2 mg/dL (0.5-0.9) H 06/07/24 21:44 GFR Calculation 55.2 mL/min (90-130) L 06/07/24 21:44 Glucose 84 mg/dL (65-115) 06/07/24 21:44 Calculated Osmolality 287 mOsm/kg (285-295) 06/07/24 21:44 Calcium 8.2 mg/dL (8.5-10.5) L 06/07/24 21:44 Total Bilirubin 0.3 mg/dL (0.15-1.2) 06/07/24 21:44 AST 26 U/L (0-32) 06/07/24 21:44 ALT 25 U/L (0-33) 06/07/24 21:44 Alkaline Phosphatase 55 U/L (35-105) 06/07/24 21:44 Total Protein 6.5 g/dL (6.6-8.7) L 06/07/24 21:44 Albumin 4.3 g/dL (3.5-5.2) 06/07/24: Globulin 2.2 g/dL (1.3-4.6) 06/07/24 21: Lipase 36 U/L (13-60) 06/07/24 21:44 HCG, Qual Negative (Negative) 06/07/24:44 Urine Color Yellow (Yellow) 06/07/24 21:40 Urine Appearance Clear (CLEAR) 06/07/24 21:40 Urine pH 7.0 (5-7) 06/07/24 21:40 Ur Specific [place] 1.011 (1.005-1.030) 06/07/24 21:40 Urine Protein Negative (Negative) 06/07/24 21:40 Urine Glucose (UA) Negative (Normal) 06/07/24 21:40 Urine Ketones Negative (Negative) 06/07/24 21:40 Urine Blood Negative (Negative) 06/07/24 21:40 Urine Nitrate Negative (Negative) 06/07/24 21:40 Urine Bilirubin Negative (Negative) 06/07/24 21:40 Urine Urobilinogen 0.2 mg/dL (Negative) 06/07/24 21:40 Ur Leukocyte Esterase Trace (Negative) A 06/07/24 21:40 Urine RBC 3-5 /hpf (0-2) 06/07/24 21:40 Urine WBC 0-5 /hpf (0-5) 06/07/24 21:40 Ur Squamous Epith Cells 6-10 /hpf (0-5) 06/07/24 21:40 Amorphous Sediment Not Reportable 06/07/24 21:40 Urine Bacteria None seen /hpf (NONE) 06/07/24 21:40 Hyaline Casts 0-4 /lpf H 06/07/24 21:40 No radiology studies performed this visit Discharge Plan Discharge Patient Disposition: Home Clinical Impression: Cystitis Constipation Qualifiers: Constipation type: unspecified constipation type Qualified Code(s): K59.00 - Constipation, unspecified Condition: Stable Prescriptions: New nitrofurantoin monohyd/m-cryst 100 mg capsule 100 mg PO BID 5 Days Qty: 10 0RF Rx Instructions: must administer with a meal/food polyethylene glycol 3350 [Miralax] 17 gram/dose powder 17 g PO DAILY Qty: 510 0RF No Action buspirone 10 mg tablet 10 mg PO DAILY ibuprofen 800 mg tablet 800 mg PO Q6H triamcinolone acetonide 0.1 % ointment 1 applic topical TID Qty: 80 1RF duloxetine 30 mg capsule,delayed release(DR/EC) 30 mg PO DAILY Qty: 30 0RF ondansetron 4 mg tablet,disintegrating 4 mg PO Q6H PRN (Reason: nausea and vomiting) Qty: 14 0RF methocarbamol 750 mg tablet 750 mg PO Q6H PRN (Reason: spasms) Qty: 20 0RF naproxen [Naprosyn] 500 mg tablet 500 mg PO BID PRN (Reason: pain) Qty: 20 0RF Discharge Orders: Discharge ED (Routine); Ordered 06/07/24 Ordered By: Michael Godinez Referrals: Herminio Wayne MD [Primary Care Provider] - Discharge Diet: Usual diet Discharge Activity: Increase activity as tolerated Patient Instructions: Urinary Tract Infection in Women (ED) Activity Restrictions/Additional Instructions: Drink plenty of water and fluids. Healthy diet and activity. Take Macrobid for 5 days for the cystitis. Take MiraLAX daily to help with constipation. Follow-up with primary care for further instructions. Print Language: Upper Sorbian Coding Level of Care Code ED Prison Warden for Jim Engle
[2024-06-07 21:43] LABS: Bilirubin Urine Negative (Negative); Blood Urine Negative (Negative); Glucose Urine UA Negative (Normal); Ketones Urine Negative (Negative); Leukocyte Esterase Urine Trace (Negative); Nitrate Urine Negative (Negative); Protein Urine Negative (Negative); Specific Gravity, Urine 1.011 (1.005-1.030); Urine Appearance Clear (CLEAR); Urine Color Yellow (Yellow); Urobilinogen Urine 0.2 mg/dL (Negative)
[2024-06-07 21:50] LABS: Basophils % 0.6 %; Eosinophils # 0.1 10^3/uL (0.0-0.8); Eosinophils % 1.6 %; Hematocrit 31.6 % (36-47); Lymphocytes # 3.1 10^3/uL (0.8-4.8); Lymphocytes % 44.2 %; Mean Corpuscular HGB Conc 31.6 g/dL (30-55); Mean Corpuscular Hemoglobin 27.1 pg (27-33); Mean Corpuscular Volume 85.6 fl (85-98); Mean Platelet Volume 10.9 fL (7.4-10.4); Monocytes # 0.4 10^3/uL (0.2-0.9); Monocytes % 5.4 %; Neutrophils # 3.37 10^3/uL (1.8-7.7); Neutrophils % 47.6 %; Nucleated Red Blood Cells % 0 %; Platelet Count 231 10^3/cmm (157-399); Red Blood Count 3.69 10^6/uL (3.85-5.65); Red Cell Distribution Width 19.8 % (12.1-15.1); White Blood Count 7.06 10^3/uL (3.29-11.43)
[2024-06-07 22:00] LABS: Add Urine Microscopic? YES; Bacteria Urine None Seen /hpf; Hyaline Casts Urine 0-4 /lpf; WBC Urine 0-5 /hpf (0-5)
[2024-06-07 22:01] VITALS: PULSE 60; RESP 16; O2SAT 99
[2024-06-07 22:06] LABS: HCG, Serum Qual Negative (Negative)
[2024-06-07 22:08] LABS: Alanine Aminotransferase 25 U/L (0-33); Albumin Level 4.3 g/dL (3.5-5.2); Alkaline Phosphatase 55 U/L (35-105); Anion Gap 15.5 (5-19); Aspartate Amino Transferase 26 U/L (0-32); Blood Urea Nitrogen 11 mg/dL (6-20); Calcium 8.2 mg/dL (8.5-10.5); Carbon Dioxide 26 mmol/L (22-29); Chloride 101 mmol/L (98-107); Creatinine Clr Calc Pharmacy 70.5834; Globulin 2.2 g/dL (1.3-4.6); Glomerular Filtration Rate 55.2 mL/min (90-130); Glucose 84 mg/dL (65-115); Lipase 36 U/L (13-60); Osmolality Calculated 287 mOsm/kg (285-295); Potassium 3.5 mmol/L (3.5-5.1); Sodium 139 mmol/L (136-145); Total Bilirubin 0.3 mg/dL (0.15-1.2); Total Protein 6.5 g/dL (6.6-8.7)
[2024-06-07] MEDS: iohexol 350 mg/mL 500 mL Btl (per mL) IV (22:18)
[2024-06-07 23:09] VITALS: BP 105/65; PULSE 62; O2SAT 96
== END 2024-06-07 23:09 | disposition home or self-care (01) ==
PROVIDERS: Emergency Provider Nurse Practitioner Family; PCP Family Medicine
DX: N30.90 Cystitis, unspecified without hematuria (principal); K59.00 Constipation, unspecified
CPT/HCPCS: 36415; 74177; 80053; 81001; 83690; 84703; 85025; 99285

== ENCOUNTER 2024-06-28 18:10 | Emergency (ER) | payer BC, MEDICAID, SELFPAY ==
[2024-06-28 18:20] VITALS: BP 97/58; PULSE 67; RESP 16; TEMP 36.4; O2SAT 100; BMI 25.7
[2024-06-28 18:30] LABS: Basophils % 0.7 %; Eosinophils # 0.1 10^3/uL (0.0-0.8); Eosinophils % 1.1 %; Hematocrit 35.6 % (36-47); Lymphocytes # 3.1 10^3/uL (0.8-4.8); Lymphocytes % 51.1 %; Mean Corpuscular HGB Conc 31.7 g/dL (30-55); Mean Corpuscular Hemoglobin 28.1 pg (27-33); Mean Corpuscular Volume 88.6 fl (85-98); Mean Platelet Volume 10.5 fL (7.4-10.4); Monocytes # 0.3 10^3/uL (0.2-0.9); Monocytes % 4.7 %; Neutrophils # 2.59 10^3/uL (1.8-7.7); Neutrophils % 42.1 %; Nucleated Red Blood Cells % 0 %; Platelet Count 248 10^3/cmm (157-399); Red Blood Count 4.02 10^6/uL (3.85-5.65); Red Cell Distribution Width 20.1 % (12.1-15.1); White Blood Count 6.15 10^3/uL (3.29-11.43)
--- NOTE | 2024-06-28 18:34 | CTR_ITS ---
PROCEDURE INFORMATION: Exam: CT Abdomen And Pelvis With Contrast Exam date and time: 06/28/2024 6:55 PM Age: 23 years old Clinical indication: Abdominal pain; Right; Prior surgery; Surgery date: 6+ months; Surgery type: Gb. Appy; C/O RT flank pain with dysuria x 3 days. History of pcos. ; Additional info: R flank pain TECHNIQUE: Imaging protocol: Computed tomography of the abdomen and pelvis with contrast. Radiation optimization: All CT scans at this facility use at least one of these dose optimization techniques: automated exposure control; mA and/or kV adjustment per patient size (includes targeted exams where dose is matched to clinical indication); or iterative reconstruction. Contrast material: OMNI 350; Contrast volume: 100 ml; Contrast route: INTRAVENOUS (IV); COMPARISON: CT abdomen pelvis w con* [id number] 06/07/2024 10:14 PM RADIATION DOSE METRICS: Total DLP (mGy-cm): 452.53 FINDINGS: Liver: Normal. No mass. Gallbladder and biliary ducts: Cholecystectomy. No ductal dilation. Pancreas: Normal. No ductal dilation. Spleen: Normal. No splenomegaly. Adrenal glands: Normal. No mass. Kidneys and ureters: Normal. No hydronephrosis. Stomach and bowel: Mild mucosal hyperenhancement and wall thickening throughout the colon. No obstruction. No mucosal thickening. Appendix: Appendectomy. Intraperitoneal space: Unremarkable. No free air. No significant fluid collection. Vasculature: Unremarkable. No abdominal aortic aneurysm. Lymph nodes: Unremarkable. No enlarged lymph nodes. Urinary bladder: Unremarkable as visualized. Reproductive: Unremarkable as visualized. Bones/joints: No acute fracture. Soft tissues: Unremarkable. CT/CT abdomen pelvis w con* [id number] IMPRESSION: Findings suggestive of colitis.
--- NOTE | 2024-06-28 18:35 | W.ED.FEMALGU ---
HPI - Female Genitourinary General: Chief complaint: Urogenital-Female Stated complaint: R sandraney pain hard to pee Time Seen by Provider: 06/28/24 18:26 Source: patient Mode of arrival: ambulatory Limitations: no limitations History of Present Illness: 23-year-old female states she has been having right sided flank pain for the last 2 days along with difficulty and pain with urinating. States pain sharp in nature worse with palpation she denies any vaginal discharge she denies any fever has had some nausea denies any vomiting. Rates her pain a 5 out of 10 currently Related Data Home Medications ?Medication ?Instructions ?Recorded ?Confirmed buspirone 10 mg tablet 10 mg PO DAILY 07/02/23 04/27/24 ibuprofen 800 mg tablet 800 mg PO Q6H 12/24/23 04/27/24 Previous Rx's ?Medication ?Instructions ?Recorded ondansetron 4 mg disintegrating 4 mg PO Q6H PRN nausea and 01/21/24 tablet vomiting #14 tabs methocarbamol 750 mg tablet 750 mg PO Q6H PRN spasms #20 tabs 01/28/24 naproxen 500 mg tablet (Naprosyn) 500 mg PO BID PRN pain #20 tabs 01/28/24 duloxetine 30 mg capsule,delayed 30 mg PO DAILY #30 caps 02/01/24 release triamcinolone acetonide 0.1 % 1 applic topical TID #80 grams 04/27/24 topical ointment polyethylene glycol 3350 17 17 g PO DAILY #510 grams 06/07/24 gram/dose oral powder (Miralax) ciprofloxacin HCl 500 mg tablet 500 mg PO BID #14 tabs 06/28/24 (Cipro) hydrocodone 5 mg-acetaminophen 325 1 tab PO Q6H PRN pain #14 tabs 06/28/24 mg tablet metronidazole 500 mg tablet 500 mg PO Q8H 7 days #21 tabs 06/28/24 ondansetron 4 mg disintegrating 4 mg PO Q6H PRN nausea and 06/28/24 tablet vomiting #14 tabs Allergies Allergy/AdvReac Type Severity Reaction Status Date / Time amoxicillin Allergy ADR-Nausea Verified 06/07/24 20:57 Fish Containing Products Allergy ADR-Nausea Verified 06/07/24 20:57 Penicillins Allergy ADR-Nausea Verified 06/07/24 20:57 shellfish derived Allergy ADR-Itching Verified 06/07/24 20:57 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 Adrenal insufficiency No pertinent family history Surgical History History of tonsillectomy and adenoidectomy History of myringotomy twice as a child History of laparoscopic appendectomy History of laparoscopic cholecystectomy History of cleft palate with cleft lip History of thyroid surgery (~2020) Full thyroidectomy-- performed in [place] Family History Grandmother Diabetes mellitus, type 2 MGM Hypertension PGM Grandfather Hypertension PGF Denies family history of Colon cancer Ovarian cancer Prostate cancer CAD (coronary artery disease) Hyperlipidemia Chronic kidney disease (CKD) Breast cancer Bleeding disorder Family history of premature coronary artery disease Uterine cancer Thyroid disease Social History Smoking and tobacco/nicotine status: never used tobacco/nicotine Second hand smoke exposure: No Alcohol intake: current Alcohol intake frequency: holidays/special occasions only Substance/Drug Use: never Adopted: No Caregiver/support person: No Lives independently: Yes Household members: spouse and children Housing: House Marital status: Highest education level completed: High School Graduate service: No Current occupational status: employed 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 Medical Records I reviewed the patient's medical records. Lab Data I reviewed the patient's lab results. 06/28/24 18:23 06/28/24 18:23 Radiology Impressions Abdomen/Pelvis CT 06/28/24 18:34 IMPRESSION: Findings suggestive of colitis. Laboratory Results WBC 6.15 10^3/uL (3.29-11.43) 06/28/24 18:23 RBC 4.02 10^6/uL (3.85-5.65) 06/28/24 18:23 Hgb 11.30 g/dL (11.27-16.99) 06/28/24 18:23 Hct 35.6 % (36-47) L 06/28/24 18:23 MCV 88.6 fl (85-98) 06/28/24 18:23 MCH 28.1 pg (27-33) 06/28/24 18:23 MCHC 31.7 g/dL (30-55) 06/28/24 18:23 RDW 20.1 % (12.1-15.1) H 06/28/24 18:23 Plt Count 248 10^3/cmm (157-399) 06/28/24 18:23 MPV 10.5 fL (7.4-10.4) H 06/28/24 18:23 Neut % (Auto) 42.1 % 06/28/24 18:23 Lymph % (Auto) 51.1 % 06/28/24 18:23 [place] % (Auto) 4.7 % 06/28/24 18:23 Eos % (Auto) 1.1 % 06/28/24 18:23 Baso % (Auto) 0.7 % 06/28/24 18:23 Neut # (Auto) 2.59 10^3/uL (1.8-7.7) 06/28/24 18:23 Lymph # (Auto) 3.1 10^3/uL (0.8-4.8) 06/28/24 18:23 [place] # (Auto) 0.3 10^3/uL (0.2-0.9) 06/28/24 18:23 Eos # (Auto) 0.1 10^3/uL (0.0-0.8) 06/28/24 18:23 Baso # (Auto) 0.0 10^3/uL (0.0-0.1) 06/28/24 18:23 Nucleated RBC % (auto) 0 % 06/28/24 18:23 Nucleated RBCs # 0.0 /100WBC 06/28/24 18:23 Sodium 141 mmol/L (136-145) 06/28/24 18:23 Potassium 3.9 mmol/L (3.5-5.1) 06/28/24 18:23 Chloride 103 mmol/L (98-107) 06/28/24 18:23 Carbon Dioxide 24 mmol/L (22-29) 06/28/24 18:23 Anion Gap 17.9 (5-19) 06/28/24 18:23 BUN 10 mg/dL (6-20) 06/28/24 18:23 Creatinine 1.5 mg/dL (0.5-0.9) H 06/28/24 18:23 GFR Calculation 42.7 mL/min (90-130) L 06/28/24 18:23 Glucose 90 mg/dL (65-115) 06/28/24 18:23 Calculated Osmolality 291 mOsm/kg (285-295) 06/28/24 18:23 Calcium 8.9 mg/dL (8.5-10.5) 06/28/24 18:23 Total Bilirubin 0.7 mg/dL (0.15-1.2) 06/28/24 18:23 AST 26 U/L (0-32) 06/28/24 18:23 ALT 16 U/L (0-33) 06/28/24 18:23 Alkaline Phosphatase 50 U/L (35-105) 06/28/24 18:23 Total Protein 7.5 g/dL (6.6-8.7) 06/28/24 18:23 Albumin 4.8 g/dL (3.5-5.2) 06/28/24 18:23 Globulin 2.7 g/dL (1.3-4.6) 06/28/24 18:23 Lipase 33 U/L (13-60) 06/28/24 18:23 HCG, Qual Negative (Negative) 06/28/24 18:23 Urine Color Yellow (Yellow) 06/28/24 19:20 Urine Appearance Cloudy (CLEAR) A 06/28/24 19:20 Urine pH 6.5 (5-7) 06/28/24 19:20 Ur Specific [place] 1.023 (1.005-1.030) 06/28/24 19:20 Urine Protein Negative (Negative) 06/28/24 19:20 Urine Glucose (UA) Negative (Normal) 06/28/24 19:20 Urine Ketones Negative (Negative) 06/28/24 19:20 Urine Blood Negative (Negative) 06/28/24 19:20 Urine Nitrate Negative (Negative) 06/28/24 19:20 Urine Bilirubin Negative (Negative) 06/28/24 19:20 Urine Urobilinogen 1.0 mg/dL (Negative) 06/28/24 19:20 Ur Leukocyte Esterase Trace (Negative) A 06/28/24 19:20 Urine RBC 0-2 /hpf (0-2) 06/28/24 19:20 Urine WBC 11-20 /hpf (0-5) H 06/28/24 19:20 Ur Squamous Epith Cells 21-50 /hpf (0-5) H 06/28/24 19:20 Amorphous Sediment Not Reportable 06/28/24 19:20 Urine Bacteria 4+ /hpf (NONE) H 06/28/24 19:20 Hyaline Casts 1.21 /lpf 06/28/24 19:20 All radiology interpretation(s) finalized by discharge Discharge Plan Discharge Patient Disposition: Home Clinical Impression: Colitis Condition: Stable Prescriptions: New hydrocodone-acetaminophen 5-325 mg tablet 1 tab PO Q6H PRN (Reason: pain) Qty: 14 0RF metronidazole 500 mg tablet 500 mg PO Q8H 7 Days Qty: 21 0RF ciprofloxacin HCl [Cipro] 500 mg tablet 500 mg PO BID Qty: 14 0RF ondansetron 4 mg tablet,disintegrating 4 mg PO Q6H PRN (Reason: nausea and vomiting) Qty: 14 0RF No Action buspirone 10 mg tablet 10 mg PO DAILY ibuprofen 800 mg tablet 800 mg PO Q6H triamcinolone acetonide 0.1 % ointment 1 applic topical TID Qty: 80 1RF duloxetine 30 mg capsule,delayed release(DR/EC) 30 mg PO DAILY Qty: 30 0RF ondansetron 4 mg tablet,disintegrating 4 mg PO Q6H PRN (Reason: nausea and vomiting) Qty: 14 0RF methocarbamol 750 mg tablet 750 mg PO Q6H PRN (Reason: spasms) Qty: 20 0RF naproxen [Naprosyn] 500 mg tablet 500 mg PO BID PRN (Reason: pain) Qty: 20 0RF polyethylene glycol 3350 [Miralax] 17 gram/dose powder 17 g PO DAILY Qty: 510 0RF Discharge Orders: Discharge ED (Routine); Ordered 06/28/24 Ordered By: Dev Portillo Referrals: Herminio Wayne MD [Primary Care Provider, [facility]] - 4-7 days Discharge Diet: Advance as tolerated Discharge Activity: Resume usual activity Patient Instructions: Colitis (ED), Opioid Safety Print Language: [place] Coding Level of Care Code ED Flight Test Data Acquisition Technician for Jim Engle
[2024-06-28 18:41] LABS: HCG, Serum Qual Negative (Negative)
[2024-06-28 18:45] LABS: Alanine Aminotransferase 16 U/L (0-33); Albumin Level 4.8 g/dL (3.5-5.2); Alkaline Phosphatase 50 U/L (35-105); Anion Gap 17.9 (5-19); Aspartate Amino Transferase 26 U/L (0-32); Blood Urea Nitrogen 10 mg/dL (6-20); Calcium 8.9 mg/dL (8.5-10.5); Carbon Dioxide 24 mmol/L (22-29); Chloride 103 mmol/L (98-107); Creatinine Clr Calc Pharmacy 54.8103; Globulin 2.7 g/dL (1.3-4.6); Glomerular Filtration Rate 42.7 mL/min (90-130); Glucose 90 mg/dL (65-115); Lipase 33 U/L (13-60); Osmolality Calculated 291 mOsm/kg (285-295); Potassium 3.9 mmol/L (3.5-5.1); Sodium 141 mmol/L (136-145); Total Bilirubin 0.7 mg/dL (0.15-1.2); Total Protein 7.5 g/dL (6.6-8.7)
[2024-06-28] MEDS: iohexol 350 mg/mL 500 mL Btl (per mL) IV (18:59)
[2024-06-28] MEDS: ondansetron 2 mg/ML SDV 2 mL 4 MG IVP (19:14)
[2024-06-28 19:15] VITALS: BP 98/64; PULSE 57; RESP 18; O2SAT 96; O2SAT 97
[2024-06-28] MEDS: morphine 4 mg/mL SDV 1 mL IVP (19:15)
[2024-06-28] MEDS: sodium chloride 0.9% 1,000 ML 999 ML IV (19:17)
[2024-06-28 19:25] LABS: Bilirubin Urine Negative (Negative); Blood Urine Negative (Negative); Glucose Urine UA Negative (Normal); Ketones Urine Negative (Negative); Leukocyte Esterase Urine Trace (Negative); Nitrate Urine Negative (Negative); Protein Urine Negative (Negative); Specific Gravity, Urine 1.023 (1.005-1.030); Urine Appearance Cloudy (CLEAR); Urine Color Yellow (Yellow); pH Urine 6.5 (5-7)
[2024-06-28 19:30] LABS: Add Urine Microscopic? YES; Bacteria Urine 4+ /hpf; Hyaline Casts Urine 1.21 /lpf; RBC Urine 0-2 /hpf (0-2); Squamous Epithelial Cell Urine 21-50 /hpf (0-5)
[2024-06-28 19:43] LABS: Add Urine Culture? No
[2024-06-28 20:09] VITALS: BP 95/62; PULSE 65; O2SAT 99
== END 2024-06-28 20:05 | disposition home or self-care (01) ==
PROVIDERS: Emergency Provider Emergency Medicine; PCP Family Medicine
DX: K52.9 Noninfective gastroenteritis and colitis, unspecified (principal)
CPT/HCPCS: 36415; 74177; 80053; 81001; 83690; 84703; 85025; 96361; 96374; 96375; 99285; J2270; J2405; J7030

== ENCOUNTER 2024-07-11 05:47 | Emergency (ER) | payer BC, MEDICAID, SELFPAY ==
[2024-07-11 06:15] VITALS: BP 98/68; PULSE 68; RESP 15; TEMP 36.6; O2SAT 98; BMI 26.6
--- NOTE | 2024-07-11 07:41 | ED_ITS ---
HPI - General Adult 2 General: Chief complaint: Vaginal Bleeding Stated complaint: heavy bleeding large clots cramping 2nd this month Time Seen by Provider: 07/11/24 06:00 History of Present Illness: 24-year-old female presents to the [facility] ency room with complaints of heavy vaginal bleeding. She has been having some clots it has been irregular. She had already had a period earlier this month the last couple of days she has had heavy bleeding she has not taken a test. She has some mild dysuria as well as some cramping. She has had this ovarian cyst several years ago and it resolved on its own and she did not need to have any surgical intervention. No fever sweats or chills no vomiting or diarrhea. Associated symptoms: Deny chest pain, dyspnea or rash Related Data Home Medications ?Medication ?Instructions ?Recorded ?Confirmed buspirone 15 mg tablet 15 mg PO BID 07/11/24 clindamycin HCl 300 mg capsule 300 mg PO TID 07/11/24 07/11/24 levothyroxine 200 mcg tablet 200 mcg PO DAILY 07/11/24 07/11/24 Previous Rx's ?Medication ?Instructions ?Recorded polyethylene glycol 3350 17 17 g PO DAILY #510 grams 0 06/07/24 gram/dose oral powder (Miralax) ondansetron 4 mg disintegrating 4 mg PO Q6H PRN nausea and 06/28/24 tablet vomiting #14 tabs medroxyprogesterone 10 mg tablet 10 mg PO DAILY 7 days #7 tabs 07/11/24 Allergies Allergy/AdvReac Type Severity Reaction Status Date / Time amoxicillin Allergy ADR-Nausea Verified 06/07/24 20:57 Fish Containing Products Allergy ADR-Nausea Verified 06/07/24 20:57 Penicillins Allergy ADR-Nausea Verified 06/07/24 20:57 shellfish derived Allergy ADR-Itching Verified 06/07/24 20:57 Review of Systems 2 Const: Denies: fever(s) or chills Card: Denies: chest pain Resp: Denies: dyspnea GI: Denies: abdominal pain : Reports: vaginal bleeding; Denies: dysuria, urinary frequency or urinary urgency Musc: Denies: neck pain or back pain Skin/Breast: Denies: rash PFSH ED 2 PFSH: Medical History Migraine Anxiety 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 Adrenal insufficiency No pertinent family history Surgical History History of tonsillectomy and adenoidectomy History of myringotomy twice as a child History of laparoscopic appendectomy History of laparoscopic cholecystectomy History of cleft palate with cleft lip History of thyroid surgery (~2020) Full thyroidectomy-- performed in [place] Family History Grandmother Diabetes mellitus, type 2 MGM Hypertension PGM Grandfather Hypertension PGF Denies family history of Colon cancer Ovarian cancer Prostate cancer CAD (coronary artery disease) Hyperlipidemia Chronic kidney disease (CKD) Breast cancer Bleeding disorder Family history of premature coronary artery disease Uterine cancer Thyroid disease Social History Smoking and tobacco/nicotine status: never used tobacco/nicotine Second hand smoke exposure: No Alcohol intake: current Alcohol intake frequency: holidays/special occasions only Substance/Drug Use: never Adopted: No Caregiver/support person: No Lives independently: Yes Household members: spouse and children Housing: House Marital status: Highest education level completed: High School Graduate service: No Current occupational status: employed Current occupation: [employer] Current occupational exposures/hazards: No Female Reproductive History: Date of last menstrual period: 07/07/24 Physical Exam 2 Const: GENERAL APPEARANCE: cooperative ORIENTATION/CONSCIOUSNESS: Yes awake, Yes oriented to person, Yes oriented to place and Yes oriented to time HENMT: COMMON NORMALS: normocephalic, atraumatic and hearing grossly normal bilaterally HEAD & SCALP: normocephalic and atraumatic Resp: COMMON NORMALS: normal respiratory effort, No retractions, No use of accessory muscles and clear to auscultation bilaterally AUSCULTATION: clear to auscultation bilaterally Cardio: COMMON NORMALS: regular rate, regular rhythm and No murmurs present (Cardio) RATE: regular rate RHYTHM: regular rhythm GI: COMMON NORMALS: Soft to palpation and No hepatosplenomegaly present A USCULTATION: Yes normoactive bowel sounds PALPATION: Yes Soft to palpation, No Tenderness to palpation present (GI), No Guarding due to palpation present (GI) and Yes No hepatosplenomegaly present Extremity: COMMON NORMALS: normal to inspection, capillary refill normal, no clubbing, cyanosis or edema, no calf tenderness and no pedal edema Neuro: SENSORIUM/ORIENTATION: Yes oriented to person, Yes oriented to place and Yes oriented to time Skin: COMMON NORMALS: no rashes or lesions noted GENERAL SKIN EXAM: no rashes or lesions noted Course 2 Vital Signs: Vital signs: Vital Signs Temperature 97.9 F 07/11/24 06:15 Pulse Rate 66 07/11/24 08:56 Respiratory Rate 15 07/11/24 06:15 Blood Pressure 102/62 07/11/24 08:56 Pulse Oximetry 99 07/11/24 08:56 Oxygen Delivery Me thod Room Air 07/11/24 06:15 MDM - General Adult Medical Decision Making Serum qualitative hCG negative. Patient is anemic. Chronically. Is at about the same range as she has been in the past. Will discharge home on medroxyprogesterone course. Follow-up with gynecology Lab Data 07/11/24 08:00 07/11/24 08:00 Laboratory Results WBC 4.95 10^3/uL (3.29-11.43) 07/11/24 08:00 RBC 3.64 10^6/uL (3.85-5.65) L 07/11/24 08:00 Hgb 10.40 g/dL (11.27-16.99) L 07/11/24 08:00 Hct 33.2 % (36-47) L 07/11/24 08:00 MCV 91.2 fl (85-98) 07/11/24 08:00 MCH 28.6 pg (27-33) 07/11/24 08:00 MCHC 31.3 g/dL (30-55) 07/11/24 08:00 RDW 19.9 % (12.1-15.1) H 07/11/24 08:00 Plt Count 176 10^3/cmm (157-399) 07/11/24 08:00 MPV 11.0 fL (7.4-10.4) H 07/11/24 08:00 Neut % (Auto) 40.2 % 07/11/24 08:00 Lymph % (Auto) 51.9 % 07/11/24 08:00 [place] % (Auto) 5.9 % 07/11/24 08:00 Eos % (Auto) 1.4 % 07/11/24 08:00 Baso % (Auto) 0.6 % 07/11/24 08:00 Neut # (Auto) 1.99 10^3/uL (1.8-7.7) 07/11/24 08:00 Lymph # (Auto) 2.6 10^3/uL (0.8-4.8) 07/11/24 08:00 Woodruff # (Auto) 0.3 10^3/uL (0.2-0.9) 07/11/24 08:00 Eos # (Auto) 0.1 10^3/uL (0.0-0.8) 07/11/24 08:00 Baso # (Auto) 0.0 10^3/uL (0.0-0.1) 07/11/24 08:00 Nucleated RBC % (auto) 0 % 07/11/24 08:00 Nucleated RBCs # 0.0 /100WBC 07/11/24 08:00 Sodium 138 mmol/L (136-145) 07/11/24 08:00 Potassium 3.9 mmol/L (3.5-5.1) 07/11/24 08:00 Chloride 103 mmol/L (98-107) 07/11/24 08:00 Carbon Dioxide 25 mmol/L (22-29) 07/11/24 08:00 Anion Gap 13.9 (5-19) 07/11/24 08:00 BUN 10 mg/dL (6-20) 07/11/24 08:00 Creatinine 1.3 mg/dL (0.5-0.9) H 07/11/24 08:00 GFR Calculation 49.9 mL/min (90-130) L 07/11/24 08:00 Glucose 95 mg/dL (65-115) 07/11/24 08:00 Calculated Osmolality 285 mOsm/kg (285-295) 07/11/24 08:00 Calcium 7.8 mg/dL (8.5-10.5) L 07/11/24 08:00 Total Bilirubin 0.6 mg/dL (0.15-1.2) 07/11/24 08:00 AST 28 U/L (0-32) 07/11/24 08:00 ALT 15 U/L (0-33) 07/11/24 08:00 Alkaline Phosphatase 49 U/L (35-105) 07/11/24 08:00 Total Protein 7.1 g/dL (6.6-8.7) 07/11/24 08:00 Albumin 4.5 g/dL (3.5-5.2) 07/11/24 08:00 Globulin 2.6 g/dL (1.3-4.6) 07/11/24 08:00 HCG, Qual Negative (Negative) 07/11/24 08:00 Urine Color Yellow (Yellow) 07/11/24 08:11 Urine Appearance Clear (CLEAR) 07/11/24 08:11 Urine pH 5.5 (5-7) 07/11/24 08:11 Ur Specific [place] 1.026 (1.005-1.030) 07/11/24 08:11 Urine Protein Negative (Negative) 07/11/24 08:11 Urine Glucose (UA) Negative (Normal) 07/11/24 08:11 Urine Ketones Negative (Negative) 07/11/24 08:11 Urine Blood Negative (Negative) 07/11/24 08:11 Urine Nitrate Negative (Negative) 07/11/24 08:11 Urine Bilirubin Negative (Negative) 07/11/24 08:11 Urine Urobilinogen 1.0 mg/dL (Negative) 07/11/24 08:11 Ur Leukocyte Esterase Negative (Negative) 07/11/24 08:11 Urine RBC 0-2 /hpf (0-2) 07/11/24 08:11 Urine WBC 0-5 /hpf (0-5) 07/11/24 08:11 Ur Squamous Epith Cells 6-10 /hpf (0-5) 07/11/24 08:11 Amorphous Sediment Not Reportable 07/11/24 08:11 Urine Bacteria Trace /hpf (NONE) 07/11/24 08:11 Hyaline Casts 0.81 /lpf 07/11/24 08:11 No radiology studies performed this visit Discharge Plan Discharge Patient Disposition: Home Clinical Impression: Menometrorrhagia Condition: Stable Prescriptions: New medroxyprogesterone 10 mg tablet 10 mg PO DAILY 7 Days Qty: 7 0RF No Action clindamycin HCl 300 mg capsule 300 mg PO TID levothyroxine 200 mcg tablet 200 mcg PO DAILY buspirone 15 mg tablet 15 mg PO BID polyethylene glycol 3350 [Miralax] 17 gram/dose powder 17 g PO DAILY Qty: 510 0RF ondansetron 4 mg tablet,disintegrating 4 mg PO Q6H PRN (Reason: nausea and vomiting) Qty: 14 0RF Discharge Orders: Discharge ED (Routine); Ordered 07/11/24 Ordered By: Uri Paredes Referrals: Herminio Wayne MD [Primary Care Provider, Family Practice] Discharge Diet: Usual diet Discharge Activity: Increase activity as tolerated Patient Instructions: Opioid Safety, Pain Management Activity Restrictions/Additional Instructions: Thank you [facility] choosing [facility] your healthcare needs today. It is very important that you follow up as instructed or that you return to the Emergency Department should you have concerns or if your condition changes or worsens in any way. You are seen emergency room with heavy bleeding. Hemoglobin is slightly low but where it has been in the past.Your creatinine is also slightly elevated but this has been trending this way for a time. You should follow-up 1 your hemoglobin and your creatinine with your primary care doc within the next 2 weeks. For your heavy vaginal bleeding recommend taking medroxyprogesterone 10 mg once daily for 7 days this will stabilize lining your uterus at the end of the 7 days you will have another heavy. This should reset your cycle. You should contact your primary care doctor. Stand Alone Forms: Work/School Release Print Language: Yakut Coding Level of Care Code ED Child Custody Evaluator for Jim Engle
--- NOTE | 2024-07-11 08:03 | PC.NURSE ---
pt refusing cath urine, states wants to attempt clean catch first. this nurse instructed to clean very well with provided wipes. educated pt for possible need for second urine sample if first one was contaminated.
[2024-07-11 08:13] LABS: Basophils % 0.6 %; Eosinophils # 0.1 10^3/uL (0.0-0.8); Eosinophils % 1.4 %; Hematocrit 33.2 % (36-47); Lymphocytes # 2.6 10^3/uL (0.8-4.8); Lymphocytes % 51.9 %; Mean Corpuscular HGB Conc 31.3 g/dL (30-55); Mean Corpuscular Hemoglobin 28.6 pg (27-33); Mean Corpuscular Volume 91.2 fl (85-98); Monocytes # 0.3 10^3/uL (0.2-0.9); Monocytes % 5.9 %; Neutrophils # 1.99 10^3/uL (1.8-7.7); Neutrophils % 40.2 %; Nucleated Red Blood Cells % 0 %; Platelet Count 176 10^3/cmm (157-399); Red Blood Count 3.64 10^6/uL (3.85-5.65); Red Cell Distribution Width 19.9 % (12.1-15.1); White Blood Count 4.95 10^3/uL (3.29-11.43)
[2024-07-11 08:25] LABS: Bilirubin Urine Negative (Negative); Blood Urine Negative (Negative); Glucose Urine UA Negative (Normal); Ketones Urine Negative (Negative); Leukocyte Esterase Urine Negative (Negative); Nitrate Urine Negative (Negative); Protein Urine Negative (Negative); Specific Gravity, Urine 1.026 (1.005-1.030); Urine Appearance Clear (CLEAR); Urine Color Yellow (Yellow); pH Urine 5.5 (5-7)
[2024-07-11 08:28] LABS: HCG, Serum Qual Negative (Negative)
[2024-07-11 08:30] LABS: Add Urine Microscopic? YES; Bacteria Urine Trace /hpf; Hyaline Casts Urine 0.81 /lpf; RBC Urine 0-2 /hpf (0-2); WBC Urine 0-5 /hpf (0-5)
[2024-07-11 08:31] LABS: Alanine Aminotransferase 15 U/L (0-33); Albumin Level 4.5 g/dL (3.5-5.2); Alkaline Phosphatase 49 U/L (35-105); Anion Gap 13.9 (5-19); Aspartate Amino Transferase 28 U/L (0-32); Blood Urea Nitrogen 10 mg/dL (6-20); Calcium 7.8 mg/dL (8.5-10.5); Carbon Dioxide 25 mmol/L (22-29); Chloride 103 mmol/L (98-107); Creatinine Clr Calc Pharmacy 66.0335; Globulin 2.6 g/dL (1.3-4.6); Glomerular Filtration Rate 49.9 mL/min (90-130); Glucose 95 mg/dL (65-115); Osmolality Calculated 285 mOsm/kg (285-295); Potassium 3.9 mmol/L (3.5-5.1); Sodium 138 mmol/L (136-145); Total Bilirubin 0.6 mg/dL (0.15-1.2); Total Protein 7.1 g/dL (6.6-8.7)
[2024-07-11 08:56] VITALS: BP 102/62; PULSE 66; O2SAT 99
== END 2024-07-11 09:03 | disposition home or self-care (01) ==
PROVIDERS: Emergency Provider Family Medicine; PCP Family Medicine
DX: N92.1 Excessive and frequent menstruation with irregular cycle (principal); E89.0 Postprocedural hypothyroidism; Z79.890 Hormone replacement therapy
CPT/HCPCS: 36415; 80053; 81001; 84703; 85025; 99283

== ENCOUNTER 2024-08-30 05:54 | Emergency (ER) | payer BC, MEDICAID, SELFPAY ==
--- OUTSIDE RECORDS SUMMARY | 2023-12-16 04:00 | XMS_ITS ---
Author Organization [facility] Address [address] [place] [address] Care Team Providers Care Grout Machine Tender Name Role Phone Herminio Shoemaker Primary Care Provider Unavailabl e Migration, Provider Unavailable Unavailable REASON FOR VISIT EMR-Jovon Encounters Encounter Location Date Provider Diagnosis Migrated_Facility 0 0 12/16/2023 Provider Migration Plan Of Treatment No Information Progress Notes * Farhad BUITRAGOeeDOB: (24 yo F)Acc No.[id number]:12/16/2023 Patient: Farhad KENYON :2000 A ge:23 Y S ex:Female Address:[address] [place] [address], [id number] Subjective: * Chief Complaints: * E MR-Jovon * Medical History: * Surgical History: * Hospitalization/Major Diagno stic Procedure: * Medications: Objective: * Vitals: * Physical Examination: Assessment: Plan: * Treatment: * Procedure Codes: * * Date:
--- OUTSIDE RECORDS SUMMARY | 2023-12-17 04:00 | XMS_ITS ---
Author Organization [facility] Address [address] [place] [address] Care Team Providers Care Nursing Unit Manager Name Role Phone Herminio Shoemakre Primary Care Provider Unavailabl e Migration, Provider Unavailable Unavailable Allergies Allergen (clinical drug ingredient) Drug/Non Drug Allergy documented on EMR Reaction Allergy Type Onset Date Status amoxicillin Amoxicillin Vomiting, Itching Drug Allergy Active Substance with penicillin structure and antibacterial mechanism of action (substance) Penicillins Vomiting, Itching Drug Allergy Active REASON FOR VISIT [place] [place] Medication SIG (Take, Route, Frequency, Duration) Notes Start Date End Date Status hydrOXYzine HCl *[facility]* Active tizanidine *Reorder from [facility] for eRx and Interaction Alerts* Active duloxetine *[facility] and Interaction Alerts* Active Ketorolac *[facility] and Interaction Alerts* Active Ibuprofen *Pick strength-f orm from [facility]* Active Tirosint *Pick strength-f orm [facility]* Active Encounters Encounter Location Date Provider Diagnosis Migrated_Facility 0 0 12/17/2023 Provider Migration Plan Of Treatment No Information Progress Notes * Farhad BUITRAGOeeDOB: (24 yo F)Acc No.[id number]:12/17/2023 Patient: Farhad KENYON :2000 A ge:23 Y S ex:Female Address:[address] [place] [address], [id number] Subjective: * Chief Complaints: * E MR-Jovon * Medical History: * Surgical History: c left palate and lip Since 1999 2000Ear tube placement Since 2000 2002Tonsillectomy Since denoidectomy Since ppendectomy Since 2012cholecystectomy Since 2020Total thyroidectomy Since 2020 * Hospitalization/Major Diagno stic Procedure: * Family History: M igrated Family History: [...] Pharmacist: *Pick strength-form from [facility] for eRX*Taking Ketorolac , Notes to Pharmacist: *Reorder from [facility] for eRx and Interaction Alerts*Taking duloxetine , Notes to Pharmacist: *Reorder from [facility] for eRx and Interaction Alerts* * Allergies: A moxicillin: Vomiting, Itching - AllergyPenicillins: Vomiting, Itching - Allergy Objective: * Vitals: * Physical Examination: Assessment: Plan: * Treatment: * Procedure Codes: * * Date:
--- OUTSIDE RECORDS SUMMARY | 2024-02-19 09:40 | XMS_ITS ---
Author Organization [facility] Address [address] [place] [address] Care Team Providers Care Infection Control Specialist Name Role Phone Herminio Shoemaker Primary Care Provider UnavailMalachi Delgado Unavailable REASON FOR VISIT Est care Encounters Encounter Location Date Provider Diagnosis [facility] [address] [place] [phone] 02/19/2024 Malachi Pierce Plan Of Treatment No Information Progress Notes * Farhad BUITRAGOeeDOB: (24 yo F)Acc No.[id number]:02/19/2024 Progress Notes Patient: Farhad KENYON Provider: Reny Pierce MD :2000 A ge:23 Y S ex:Female Date:02/19/2024 Address:[address] [place], [place] [id number] Pcp:Herminio Shoemaker Subjective: * Chief Complaints: * 1 . Est care. * Medical History: Objective: * Vitals: Assessment: Plan: * Treatment: Forms: Care Plan: * Problems: * Billing Information: * Visit Code: * Procedure Codes: * Electronic signature of Joanie Pierce MD on 08/30/2024 at 05:58 AM CDT Sign off status: Pending * Provider: Reny Pierce MD Date: Generated for iFto orozco/Fasurya/eTransmitting on: 08/30/2024 05:58 AM CDT
--- OUTSIDE RECORDS SUMMARY | 2024-08-09 10:30 | XMS_ITS ---
Author Organization [facility] Address [address] [place] [address] Care Team Providers Care Grinder Set Up Operator Internal Name Role Phone ( [facility] ), PHYSICIAN NOT IDENTIFIED Primary Care Provider Mian Verdin Unavailable [phone] REASON FOR VISIT Ref/Pano/ car issues Encounters Encounter Location Date Provider Diagnosis [facility] [address] [place] [address] 08/09/2024 Mian Damon Plan Of Treatment No Information Progress Notes * Carter ARDONisDOB: 0 (24 yo F)Acc No.[id number]:08/09/2024 Patient: Farhad Nava Provider: Cali Damon DDS :2000 A ge:24 Y S ex:Female Date:08/09/2024 Phone: Address:[address] [place], [place] [id number] Pcp:PHYSICIAN NOT IDENTIFIED ( [facility] ) Subjective: * Chief Complaints: * R ef/Pano/ car issues Billing Information: * Procedure Codes: * Electronic signature of Zenon Damon on 08/30/2024 at 05:57 AM CDT Sign off status: Pending * Provider: Cali Damon DDS Date: 08/09/2024 Generated for Fito ng/Fapillog/eTransmitting on: 0 08/30/2024 05:57 AM CDT
--- OUTSIDE RECORDS SUMMARY | 2024-08-30 05:57 | XMS_ITS | Clinical Summary ---
Author Organization [facility] Address [address] [place] [address] Phone Care Team Providers Care Archivist Military History Name Role Phone Unavailable Primary Care Provider Unavailabl e Allergies Active Allergy Reactions Criticality Noted Date Comments Penicillins Nausea and Vomiting Low 04/16/2023 Shellfish Containing Products Hives,Nausea and Vomiting High 04/16/2023 Medications levothyroxine 500 mcg Recon Soln Inject 500 mcg by intramuscular injection every 7 days. Active Social History Tobacco Use Types Packs/Day Years Used Date Smoking Tobacco: Never Smokeless Tobacco: Never Tobacco Cessation:Counseling Given: Not Answered Alcohol Use Standard Drinks/Week Comments Yes 0 (1 standard drink = 0.6 oz pur e alcohol) occasional Feeling Safe Answer Date Recorded Are you in a relationship wi th someone who hurts you emotionally and/or physically? No 04/16/2023 Comments No Sex and Gender Information Value Date Recorded Sex Assigned at Not on file Legal Sex Female 5:32 PM UNIFORMER Gender Identity Not on file Sexual Orientation Not on file Last Filed Vital Signs Vital Sign Reading Time Taken Comments Blood Pressure 125/72 04/16/2023 6:42 PM UNIFORMER Pulse 82 04/16/2023 6:30 PM UNIFORMER Temperature 36.9 C (98.4 F) 04/16/2023 6:42 PM UNIFORMER Respiratory Rate 16 04/16/2023 6:42 PM UNIFORMER Oxygen Saturation 100% 04/16/2023 6:42 PM UNIFORMER Inhaled Oxygen Concentration - - Weight 60.8 kg (134 lb) 04/16/2023 5:47 PM UNIFORMER Height 162.6 cm (5' 4 ) 04/16/2023 5:47 PM UNIFORMER Body Mass Index 23 04/16/2023 5:47 PM UNIFORMER Plan of Treatment Health Maintenance Due Date Last Done Comments HPV VACCINES (1 - 3-dose series) 07/03/2014 DTAP/TDAP/TD VACCINES (1 - Tdap) 07/03/2018 HEPATITIS B VACCINES (1 of 3 - 19+ 3-dose series) 06/20 CERVICAL CANCER SCREENING 07/03/2020 HPV/Cotest (21-29) 07/03/2020 PAP SMEAR 07/03/2020 INFLUENZA VACCINE (#1) 2024 Insurance [facility] [id number] [employer]ET[employer] CHOICE POS II
--- OUTSIDE RECORDS SUMMARY | 2024-08-30 05:58 | XMS_ITS | Patient Health Record ---
Author Organization [facility] Address [address] [place] [address] Care Team Providers Care Rehab Specialist Name Role Phone NIGELCHIVO GAMEZEL Unavailable [phone] Allergies Allergen (clinical drug ingredient) Drug/Non Drug Allergy documented on EMR Reaction Allergy Type Onset Date Status amoxicillin Amoxicillin Nausea / Vomiting Drug Allergy Active Penicillin Nausea / Vomiting Drug Allergy Active Reason For Referral No Information Medications Medication SIG (Take, Route, Fr equency, Duration) Notes Start Date End Date Status predniSONE 10 MG 1 tablet Orally Once a day for 10 days 01/30/2024 Active Methocarbamol 750 MG TAKE 1 TABLET BY MO UT EVERY 6 HOURS NEEDED FOR SPASMS Oral for 5 Days Active Naproxen 500 MG TAKE 1 TABLET BY ELPIDIO TWICE DAILY NEEDED FOR PAIN Oral for 10 Days Active predniSONE 20 MG TAKE 3 TABLETS BY MO UTH ONCE DAILY FOR 3 DAYS THEN 2 ONCE DAILY FOR 3 DAYS THEN 1 ONCE DAILY FOR 3 DAYS THEN 1/2 (ONE-HALF) ONCE DAILY FOR 2 DAYS Oral for 7 Days Active Ondansetron 4 MG DISSOLVE 1 TABLET IN MOUTH EVERY 6 HOURS NEEDED FOR NAUSEA AND VOMITING Oral for 4 Days Active Social History Tobacco Use: Social History Observation Description Date Details (start date - stop date) Never Smoker NA - NA Tobacco Control (Standard) Question Answer Notes Tobacco use: Nonsmoker Vital Signs Height 65 in 01/30/2024 Patient Reported Low Blood Pressure Patient Reported Normal Temperature Weight 150 lbs 01/30/2024 Patient Reported Low Blood Pressure Patient Reported Normal Temperature BMI 24.96 kg/m2 01/30/2024 Patient Reported Low Blood Pressure Patient Reported Normal Temperature Encounters Encounter Location Date Provider Diagnosis [facility] [address] [place] [address] 01/30/2024 VISH SOARES Arthralgia, unspecified joint M25.50 Assessments Encounter Date Diagnosis (ICD Code) Assessment Notes Treatment Notes Treatment Clinical Notes Section Notes 01/30/2024 Arthralgia, unspecified joint (ICD-10 - M25.50) TREATMENT PLAN Patient presents with musculoskeletal pain. There are no new neurologic symptoms this patient is reporting requiring urgent in-person evaluation. Pain appears to be most likely musculoskeletal but there may be a component of nerve pain present in this complex scenario. We can only provide supportive care that focuses on MSK pain. 1. We do not newly pr escribe gabapentin, lyrica (pregabalin), opiods, or any state/federal controlled medicines. 2. We can offer oral meloxicam, diclofenac, or celecoxib as needed for a short course (dont take other NSAIDS with this like ibuprofen/aleve/na proxen). In rare instances, we can provide oral steroids though these come with side effects and frequent usage of steroids can be detrimental to the joints and bones. 3. Robaxin 500-1000mg every 8 hours or flexeril (cyclobenzaprine) can be considered as needed for muscle spasms 4. If localized pain, try over the counter topical diclofenac 1% gel a few times per day (if not allergic). 5. Please followup with your PCP or an in-person physician for any imaging or stronger medications. If at any time you develop numbness, weakness of your extremities, or lose control of your bowels or bladder you need to be seen in the nearest emergency department.PATIENT EDUCATION Overview Many people have minor aches and pains from overuse or injury to muscles and joints. Joint injuries often happen during sports or recreation, work tasks, or projects around the home. An overuse injury can happen when you put too much stress on a joint or when you do an activity that stresses the joint over and over, such as using the computer or rowing a boat. You can take action at home to help your muscles and joints get better. You should feel better in 1 to 2 weeks, but it can take 3 months or more to heal completely. Follow-up care is a weinberg part of your treatment and safety. Be sure to make and go to all appointments, and call your doctor if you are having problems. It's also a good idea to know your test results and keep a list of the medicines you take. How can you care for yourself at home? Do not put weight on the injured joint for at least a day or two. Wrap the injury in an elastic bandage. Do not wrap it too tightly because this can cause more swelling. Put ice or a cold pack on the sore joint for 10 to 20 minutes at a time. Try to do this every 1 to 2 hours for the next 3 days (when you are awake). Put a thin cloth between the ice and your skin. Prop up the sore joint on a pillow when you ice it or anytime you sit or lie down during the next 3 days. Try to keep it above the level of your heart. This will help reduce swelling. After 2 or 3 days, you can try applying heat to the area that hurts. Apply heat for 10 to 20 minutes at a time, several times a day. Types of heat therapy include microwavable packs and disposable heating patches. You might also try switching between ice and heat. Ask your doctor if you can take an [id number]-[id number]-[id number] pain medicine, such as acetaminophen (Tylenol), ibuprofen (Advil, Motrin), or naproxen (Aleve). Be safe with medicines. Read and follow all instructions on the label. Do not take two or more pain medicines at the same time unless the doctor told you to. Many pain medicines have acetaminophen, which is Tylenol. Too much acetaminophen (Tylenol) can be harmful. After 1 or 2 days of rest, begin moving the joint gently. While the joint is still healing, you can begin to exercise using activities that do not strain or hurt the painful joint. When should you call for help? Call your doctor now or seek immediate medical care if: You have signs of infection, such as: Increased pain, swelling, warmth, and redness. Red streaks leading from the joint. A fever. Watch closely for changes in your health, and be sure to contact your doctor if: Your movement or symptoms are not getting better after 1 to 2 weeks of home treatment. 01/30/2024 Other Follow the treatment plan as indicated by the provider. Take any medications as prescribed. If you have any questions about your prescription, ask the pharmacist. This treatment plan is based on the information you have provided to us today. Incomplete disclosure of your medical history, past treatments, or current medications may affect the effectiveness of this treatment. Call 911 anytime you think you may need emergency care. For example, call if:You have severe trouble breathing.You have a seizure.Call your doctor now or seek immediate medical care if:You have trouble breathing.You have a fever with a stiff neck or a severe headache.You have pain or pressure in your chest or belly.You have a fever or cough that returns after getting better.You feel very sleepy, dizzy, or confused.You are not urinating.You have severe muscle pain.You have severe weakness, or you are unsteady.You have medical conditions that are getting worse.Watch closely for changes in your health, and be sure to contact your doctor if:You do not get better as expected.You are having a problem with your medicine. You participated in a [facility] Rx request, considered an asynchronous visit where you provide your symptoms and medical history, and a treatment plan is formulated based on your submission. A treatment plan and patient education were provided based on your submission. If symptoms persist or worsen, you should seek in-person care or call 911 immediately for further evaluation. Plan Of Treatment No Information Insurance Providers Payer Name Payer Address Payer Phone Subscriber Number Group Number Insured Name Patient Relationship to Insured Coverage Start Date Coverage End Date [facility] [address] [place] [phone] [id number] Duglas Farhad Self - patient is the insured Medical (General) History Medical History History ICD Code Hypothyroidism 11/2021 Chronic pain
--- OUTSIDE RECORDS SUMMARY | 2024-08-30 05:58 | XMS_ITS | Data Portability ---
Author Organization DAY[facility] [place] [facility] Address [address] [place] [phone] Assessment No assessment recorded. Plan of Treatment Reminders Order Date Submit Date Provider Last Modified By Organization Details Last Modified Time Details Appointments None recorded. Lab None recorded. Referral None recorded. Procedures None recorded. Surgeries None recorded. Imaging None recorded. Medication Orders ketorolac 30 mg/mL (1 mL) injection solution 2023 024 [email or web address] Not available 4 12:48:30 betamethaso ne acetate and sodium phos 6 mg/mL suspension for injection 2023 024 [email or web address] Not available 4 12:49:29 triamcinolo ne acetonide 0.1 % topical cream 2023 024 [facility] [address] [place], [address], 4 09:51:53 clotrimazol e 1 % topical cream 2023 024 [facility] [address] [place], [address], 4 09:53:22 ketorolac 30 mg/mL (1 mL) injection solution 2022 023 [email or web address] Not available 4 09:31:19 Patient TargetsNo targets recorded. Patient Instructions Encounter Date Encounter Id Patient Instructions Last Modified By Organization Details Last Modified Time 08/27/2022 [id number] JORGE. Patient to follow with PCP on Monday [email or web address] Not available 08/27/2022 15:18:07 11/11/2023 [id number] Follow up for worsening or no improvement [email or web address] Not available 11/11/2023 10:28:49 Reason for Referral None Reported. Procedures Surgical History Date Name Laterality Status Provider Name and Address Organization Details Recorded Time Tonsillectomy completed [facility]LT[facility] 11/11/2023 09:34:31 Appendectomy completed [facility], L.LD[facility] 11/11/2023 09:34:37 Gallbladder Surgery completed [facility], LDuranLDuranCDuran 11/11/2023 09:34:44 operation on oral cavity completed [facility], LDuranLDuranCDuran 11/11/2023 09:34:57 Imaging Results None recorded. Procedure Notes None recorded. Medical Equipment None Reported. Allergies Allergen ID Allergen Name Allergen Category Reaction Reaction Severity Criticality Documentation Date Start Date Code Code System Note Provider Name and Address Organization Details Recorded Time 5149 Product containin g penicilli n (product) medicatio n anaphylax is Not available Not available 08/27/2022 53130 8001 SNOMED Throa t swell ing. MAZIN PORTER [facility] L[facility] 14:53:40 Medications Name Sig Start Date Stop Date Status Note LastModified by Organization Details LastModified Time cyclobenz aprine 10 mg tablet TAKE 1 TABLET BY MOUTH EVERY 8 HOURS NEEDED FOR PAIN 08/27 completed Not Available Not Available Not Available clindamyc in HCl 300 mg capsule TAKE 1 CAPSULE BY MOUTH THREE TIMES DAILY UNTIL GONE 08/27 completed Not Available Not Available Not Available azithromy marla 250 mg tablet TAKE 2 TABLETS BY MOUTH ON DAY 1, AND THEN TAKE 1 TABLET BY MOUTH ONCE A DAY ON DAY 2 THROUGH DAY 5 08/27 completed Not Available Not Available Not Available ibuprofen 800 mg tablet TAKE 1 TABLET BY MOUTH EVERY 8 HOURS NEEDED FOR PAIN 08/27 completed Not Available Not Available Not Available sumatript an 100 mg tablet TAKE ONE TABLET BY MOUTH AT ONSET OF MIGRAINE . IF SYMPTOMS PERSIST, A SECOND DOSE MAY BE TAKEN IN 2 HOURS. DO NOT EXCEED 2 DOSES IN A 24 HOUR PERIOD, UNLESS OTHERWIS E INSTRUCT ED BY YOUR PHYSICIA N 08/27 completed Not Available Not Available Not Available hydrocodo ne 5 mg-acetam inophen 325 mg tablet TAKE 1 TABLET BY MOUTH EVERY 4 TO 6 HOURS NEEDED 08/27 completed Not Available Not Available Not Available sumatript an 25 mg tablet TAKE 1 TABLET BY MOUTH NEEDED FOR MIGRAINE , MAY REPEAT ONE TIME 1 HOUR AFTER FIRST DOSE 08/27 completed Not Available Not Available Not Available prednison e 20 mg tablet TAKE 2 TABLETS BY MOUTH ONCE DAILY 08/27 completed Not Available Not Available Not Available sulfameth oxazole 800 mg-trimet hoprim 160 mg tablet TAKE 1 TABLET BY MOUTH TWICE A DAY 08/27 completed Not Available Not Available Not Available doxycycli ne monohydra te 100 mg tablet TAKE 1 TABLET BY MOUTH TWICE DAILY FOR 10 DAYS 08/27 completed Not Available Not Available Not Available triamcino lone acetonide 0.1 % topical cream APPLY A THIN LAYER TO THE AFFECTED AREA(S) BY TOPICAL ROUTE 2 TIMES PER DAY 2023 active Not Available Not Available Not Avai lable ketorolac 30 mg/mL (1 mL) injection solution Inject 1 mL by intramus cular route. 2023 active IM x 1 dose now Not Available Not Available Not Available betametha sone acetate and sodium phos 6 mg/mL suspensio n for injection 1 ml IM x 1 dose now 2023 active Not Available Not Available Not Avai lable oxycodone -acetamin ophen 5 mg-325 mg tablet TAKE 1 TABLET BY MOUTH EVERY 4 HOURS NEEDED FOR MODERATE PAIN 08/27 completed Not Available Not Available Not Available benzonata te 100 mg capsule TAKE 1 TO 2 CAPSULES BY MOUTH EVERY 8 HOURS NEEDED FOR COUGH 08/27 completed Not Available Not Available Not Available levothyro xine 50 mcg tablet 08/27 completed Not Available Not Available Not Available levothyro xine 150 mcg tablet TAKE 1 TABLET BY MOUTH ONCE DAILY TAKE WITH TWO 300MCG TABLETS DAILY active Not Available Not Available No t Available omeprazol e 20 mg capsule,d elayed release TAKE 1 CAPSULE BY MOUTH ONCE DAILY 08/27 completed Not Available Not Available Not Available diclofena c sodium 75 mg tablet,de layed release 08/27 completed Not Available Not Available Not Available hydroxyzi ne HCl 25 mg tablet TAKE 1 TABLET BY MOUTH NEEDED FOR PAIN 08/27 completed Not Available Not Available Not Available levothyro xine 200 mcg tablet 08/27 completed Not Available Not Available Not Available mupirocin 2 % topical ointment APPLY TO AFFECTED AREA TWICE A DAY 08/27 completed Not Available Not Available Not Available ferrous sulfate 325 mg (65 mg iron) tablet,de layed release TAKE 1 TABLET BY MOUTH ONCE DAILY 08/27 completed Not Available Not Available Not Available clotrimaz ole 1 % topical cream APPLY TO THE AFFECTED AND SURROUND ING AREAS OF SKIN BY TOPICAL ROUTE 2 TIMES PER DAY IN THE MORNING AND EVENING 2023 active Not Available Not Available Not Avai lable naproxen 500 mg tablet TAKE 1 TABLET BY MOUTH TWICE DAILY NEEDED FOR PAIN 08/27 completed Not Available Not Available Not Available cyclobenz aprine 5 mg tablet 08/27 completed Not Available Not Available Not Available Constulos e 10 gram/15 mL oral solution TAKE 15 ML BY MOUTH DAILY NEEDED FOR CONSTIPA TION 08/27 completed Not Available Not Available Not Available [facility] Levothyro xine Sodium daily 11/10 completed 0; Recorded 03/23/19 23 1:38PM by Romelia Rodriguez LPN, Office Visit; Not Available Not Available Not Available Gavilax 17 gram/dose oral powder MIX 17 GRAMS OF POWDER IN 8 OUNCES OF LIQUID AND DRINK ONCE DAILY 08/27 completed Not Available Not Available Not Available BinaxNOW COVID-19 Ag Self Test kit TEST DIRECTED TODAY 08/27 completed Not Available Not Available Not Available Vitals Date Recorded Body weight Oxygen saturation Oxygen saturation in Arterial blood by Pulse oximetry Heart rate Body temperature Provider Name and Address Organization Details Last Updated DateTime 3 83295.0 8 g 99 % 99 % 61 /min 98.3 [degF] MAZIN PORTER [facility] 3 14:52:53 Date Recorded Body height Body mass index (BMI) Body weight Oxygen saturation Oxygen saturation in Arterial blood by Pulse oximetry Heart rate Respiratory rate Body temperature Systolic And Diastolic Provider Name and Address Organization Details Last Updated DateTime 4 162.56 cm 23.5 kg/m2 42607.1 5 g 98 % 98 % 116 /min 16 /min 98.2 [degF] 108/60 mm[Hg] Nemo Chavez [facility] 4 09:34:05 Date Recorded Body height Body mass index (BMI) Body weight Respiratory rate Heart rate Oxygen saturation Oxygen saturation in Arterial blood by Pulse oximetry Body temperature Systolic And Diastolic Provider Name and Address Organization Details Last Updated DateTime 4 162.56 cm 25 kg/m2 61627.9 9 g 16 /min 75 /min 99 % 99 % 97.8 [degF] 104/60 mm[Hg] MARIA EUGENIA CALABRESE [facility] 4 12:18:47 Social History None recorded. Functional Status Question Answer Note LastModified by Organization D etails LastModified Time What is your level of alcohol consumption? None [email or web address] Information not available 08/27/2022 Mental Status None recorded. Family History Nothing Reported. Medical History No medical history recorded. Gynecological HistoryNo gynecological history recorded. Obstetrics History GPAL:G 0 P 0 0 0 0 Past Encounters Encounter ID Performer Location Encounter Start Date Encounter Closed Date Diagnosis/Indication Diagnosis SNOMED-CT Code Diagnosis ICD10 Code Diagnosis Note [id number] MALINDA MANN [facility] ([facility]) [address] [place] [phone] 08/27/2022 14:41:10 08/27/2022 15:27:32 Pain of hip region 78631117 M25.651 [id number] ZEB MONTOYA APRN [facility] ([facility]) [address] [place] [phone] 11/11/2023 09:28:22 11/11/2023 10:26:17 Pruritic rash 76157133 L28.2 [id number] MALINDA MANN [facility] ([facility]) [address] [place] [phone] 12/30/2023 12:12:51 12/30/2023 12:57:11 Low back pain 533813053 M54.50 With radiculopa thy - Left side. Continue cyclobenza heriberto. Follow up with PCP on Monday . Discussed low back exercises to perform. Health Concerns Section Related Observation LastModified by Organization Detai ls LastModified Time None Recorded Concern Status LastModified by Organization Details LastModified Time None Recorded Advance Directives Directive None Recorded Payers Insurance Date Sequence Insurance Name Policy Number Policy Shrestha Covered Member ID Shrestha Member ID Guarantor Name 12/30/2023 1 [facility] (MEDICAID REPLACEMENT - HMO) ROSA ELENA Farhad Ardon [id number] Farhad Ardon 09/07/2022 1 *SELF PAY* Al teresa Ardon Notes Date Note Type Note Provider Name and Address Organization Details Recorded Time 08/27/2022 text/html Musculoskeletal PainReported bypatient.Location:pa in radiating to the legs right; right hip Quality:sharp Timing:date of onset:; constant; Started .Notes:Kaden morejon complains of right hip pain since . States that she has taken IBU, icy hot etc for the pain without much relief. States that the pain is constant. Denies any trauma to the area. Drove home from [place] Monday night and woke up with terrible hip pain. LEESA VALENZUELA, MARKETING SALES CONSULTANT [address] [place], [phone], [facility] [place], [place] 08/27/2022 15:18:28 11/11/2023 text/html Skin LesionRepor jaclyn bypatient.Notes:CAMERA PERSON had told her to apply hydrocortisone cream walk in patientpatient is here today for a rash in her inner thighs, patient said that the rash started on her arms 2 weeks ago and that went away with OTC cream but the rash on her inner thigh's is not going away and is very itchy and brady. Patient is 32 weeks ZEB MONTOYA, STRINGING MACHINE OPERATOR [address] [place], [phone], [facility], [place] 11/11/2023 10:29:33 12/30/2023 text/html Joint PainReport ed bypatient.Location:pa in radiating to the buttocks;pain radiating to the legs left; left hip Quality:sharp Duration:present <1 month Associated Symptoms:no fever;weak limbs;numbness of the legs/feet 2 weeks PostpartumShe has been having sciatic pain since delivery, sciatic pain on left side, current treatment of Flexeril, ibuprofen is not helping. Pt stated that she took a round of steroids that she finished yesterday. Patient delivery was [place]. MALINDA MANN [address] [place], [phone], [facility] [place] [facility]23 12:54:01 OBGyn Episode No OBEpisode recorded.
--- OUTSIDE RECORDS SUMMARY | 2024-08-30 05:58 | XMS_ITS | Data Portability ---
Author Organization ID - Andrea Sloan [facility] Address [address] [place] [address] Assessment No assessment recorded. Plan of Treatment Reminders Order Date Submit Date Provider Last Modified By Organization Details Last Modified Time Details Appointments None record ed. Lab None record ed. Referral None record ed. Procedures None record ed. Surgeries None record ed. Imaging None record ed. Medication Orders None record ed. Patient TargetsNo targets recorded. Patient Instructions Encounter Date Encounter Id Patient Instructions Last Modified By Organization Details Last Modified Time 01/16/[id number] where maggie wrap o angela foot to add support for the next week. ice and elevate foot. take otc meds for pain. follow up with pcp in 5-7 days anny Not available 01/16/2021 18:36:07 09/09/2021 [id number] If temperature greater than 100.5 degrees develops or if you develop weakness of that extremity please return to the emergency department. He develop any vaginal bleeding or frequent strong uterine contractions you should be checked immediately either here or with your obstetrical provider. Take 2 extra strength Tylenol tablets every 6 hours for the next 48 hours then as needed for pain. Get up and move around some as discussed but no strenuous activity. Not available 09/10/2021 00:00:01 10/08/2021 [id number] Take dispensed COVID medication twice a day as directed for total of 5 days. If any new symptoms develop, shortness of breath that does not resolve with rest, or elevated heart rate that becomes more noticeable or associated with shortness of breath, you will need to be rechecked in the emergency room promptly. 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 You should have a low threshold for returning to the emergency department if you are concerned about any symptoms that worsen or new ones that develop. You should also quarantine for 5 days since symptoms onset assuming that your fever and symptoms improve markedly over the next 4 days. Not available 10/08/2021 21:42:54 01/04/2022 [id number] Take ibuprofen a nd Tylenol for the pain, come back in 2 weeks if you are not significantly improved [email or web address] Not available 01/04/2022 23:49:07 Hospital Discharge Instructions Patient Instructions take medication as ordered. follow up with primary care in 2-3 days. [address] maggie wrap over foot to add support for the next week. ice and elevate foot. take otc meds for pain. follow up with pcp in 5-7 days If temperature greater than 100.5 degrees develops or if you develop weakness of that extremity please return to the emergency department. He develop any vaginal bleeding or frequent strong uterine contractions you should be checked immediately either here or with your obstetrical provider. Take 2 extra strength Tylenol tablets every 6 hours for the next 48 hours then as needed for pain. Get up and move around some as discussed but no strenuous activity. Take dispensed COVID medication twice a day as directed for total of 5 days. If any new symptoms develop, shortness of breath that does not resolve with rest, or elevated heart rate that becomes more noticeable or associated with shortness of breath, you will need to be rechecked in the emergency room promptly. 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 You should have a low threshold for returning to the emergency department if you are concerned about any symptoms that worsen or new ones that develop. You should also quarantine for 5 days since symptoms onset assuming that your fever and symptoms improve markedly over the next 4 days. Take ibuprofen and Tylenol for the pain, come back in 2 weeks if you are not significantly improved Patient Goals None recorded. Results Created Date Observation Date Name Description Value Unit Range Abnormal Flag Note LastModifiedBy Organization Detail LastModifiedTime 09/12/19 21 09/11/2020 unkno wn SAMPLE SOURCE URINE Not Available [facility] (Lab Cpot - Use) [address] [place] [address], [place], [id number], Not Available 09/12/19 21 09/11/2020 unkno wn HCG URINE NEGATI VE Not Available [facility] (Lab Cpot - Use) [address] [place], [id number], Not Available 10/09/19 22 10/08/2021 Fibri n D-dim er FEU [Mass /volu me] in Plate let poor plasm a D-DIMER PLASMA (CA660) 2.01 mg/L 0.00 - 0.[address] [facility] (Lab Cpot - Use) [address] [place], [id number], Not Available 10/09/19 22 10/08/2021 unkno wn WBC 7.0 K/uL 4.4 - 11.[address] [facility] (Lab Cpot - Use) [address] [place], [id number], Not Available 10/09/19 22 10/08/2021 unkno wn RBC 3.3 M/uL 4.0 - 5.[address] [facility] (Lab Cpot - Use) [address] [place], [id number], Not Available 10/09/19 22 10/08/2021 unkno wn HGB 9.8 gm/dL 12.0 - 16.[address] [facility] (Lab Cpot - Use) [address] [place], [id number], Not Available 10/09/19 22 10/08/2021 unkno wn HCT 28.6 %VOL 36.0 - 46.[address] [facility] (Lab Cpot - Use) [address] [place], [id number], Not Available 10/09/19 22 10/08/2021 unkno wn MCV 87.5 fl 80.0 - 98.[address] [facility] (Lab Cpot - Use) [address] [place], [id number], Not Available 10/09/19 22 10/08/2021 unkno wn MCH 30.0 pg 26.5 - 33.8 Not Available [facility] (Lab Cpot - Use) [address] [place], [id number], Not Available 10/09/19 22 10/08/2021 unkno wn MCHC 34.3 g/dL 33.0 - 35.5 Not Available [facility] (Lab Cpot - Use) [address] [place], [id number], Not Available 10/09/19 22 10/08/2021 unkno wn RDW-CV 13.5 % 11.8 - 15.[address] [facility] (Lab Cpot - Use) [address] [place], [id number], Not Available 10/09/19 22 10/08/2021 unkno wn RDW-SD 42.8 fl 35.1 - 46.[address] [facility] (Lab Cpot - Use) [address] [place], [id number], Not Available 10/09/19 22 10/08/2021 unkno wn PLT 174.0 K/uL 150.0 - 400.[address] [facility] (Lab Cpot - Use) [address] [place], [id number], Not Available 10/09/19 22 10/08/2021 unkno wn MPV 10.5 fl 9.7 - 12.[address] [facility] (Lab Cpot - Use) [address] [place], [id number], Not Available 10/09/19 22 10/08/2021 unkno wn NEUT% 87.3 % 50.0 - 70.[address] [facility] (Lab Cpot - Use) [address] [place], [id number], Not Available 10/09/19 22 10/08/2021 unkno wn LYMPH% 5.2 % 18.0 - 42.[address] [facility] (Lab Cpot - Use) [address] [place], [id number], Not Available 10/09/19 22 10/08/2021 unkno wn MONO% 6.0 % 3.5 - 9.[address] [facility] (Lab Cpot - Use) [address] [place], [id number], Not Available 10/09/19 22 10/08/2021 unkno wn EO% 0.1 % 1.0 - 3.[address] [facility] (Lab Cpot - Use) [address] [place], [id number], Not Available 10/09/19 22 10/08/2021 unkno wn BASO% 0.1 % 0.0 - 2.[address] [facility] (Lab Cpot - Use) [address] [place], [id number], Not Available 10/09/19 22 10/08/2021 unkno wn IG% 1.3 % 0.0 - 0.[address] [facility] (Lab Cpot - Use) [address] [place], [id number], Not Available 10/09/19 22 10/08/2021 unkno wn NRBC% 0.0 % 0.0 - 0.[address] [facility] (Lab Cpot - Use) [address] [place], [id number], Not Available 10/09/19 22 10/08/2021 unkno wn NEUT# 6.1 K/uL 1.6 - 6.[address] [facility] (Lab Cpot - Use) [address] [place], [id number], Not Available 10/09/19 22 10/08/2021 unkno wn LYMPH# 0.4 K/uL 1.0 - 4.[address] [facility] (Lab Cpot - Use) [address] [place], [id number], Not Available 10/09/19 10/08/2021 unkno wn MONO# 0.4 K/uL 0.1 - 0.[address] [facility] (Lab Cpot - Use) [address] [place], [id number], Not Available 10/09/19 22 10/08/2021 unkno wn EO# 0.0 K/dl 0.0 - 0.[address] [facility] (Lab Cpot - Use) [address] [place], [id number], Not Available 10/09/19 22 10/08/2021 unkno wn BASO# 0.0 K/dl 0.0 - 0.[address] [facility] (Lab Cpot - Use) [address] [place], [id number], Not Available 10/09/19 22 10/08/2021 unkno wn IG# 0.09 K/uL 0.00 - 0.[address] [facility] (Lab Cpot - Use) [address] [place], [id number], Not Available 10/09/19 22 10/08/2021 unkno wn NRBC# 0.00 K/uL 0.00 - 0.[address] [facility] (Lab Cpot - Use) [address] [place], [id number], Not Available 10/09/19 22 10/08/2021 unkno wn WBC 7.0 K/uL 4.4 - 11.[address] [facility] (Lab Cpot - Use) [address] [place], [id number], Not Available 10/09/19 22 10/08/2021 unkno wn RBC 3.3 M/uL 4.0 - 5.[address] [facility] (Lab Cpot - Use) [address] [place], [id number], Not Available 10/09/19 22 10/08/2021 unkno wn HGB 9.8 gm/dL 12.0 - 16.0 Not Available [facility] (Lab Cpot - Use) [address] [place], [id number], Not Available 10/09/19 22 10/08/2021 unkno wn HCT 28.6 %VOL 36.0 - 46.0 Not Available [facility] (Lab Cpot - Use) [address] [place], [id number], Not Available 10/09/19 22 10/08/2021 unkno wn MCV 87.5 fl 80.0 - 98.0 Not Available [facility] (Lab Cpot - Use) [address] [place], [address], Not Available 10/09/19 22 10/08/2021 unkno wn MCH 30.0 pg 26.5 - 33.8 Not Available [facility] (Lab Cpot - Use) [address] [place], [id number], Not Available 10/09/19 22 10/08/2021 unkno wn MCHC 34.3 g/dL 33.0 - 35.5 Not Available [facility] (Lab Cpot - Use) [address] [place], [id number], Not Available 10/09/19 22 10/08/2021 unkno wn RDW-CV 13.5 % 11.8 - 15.6 Not Available [facility] (Lab Cpot - Use) [address] [place], [id number], Not Available 10/09/19 22 10/08/2021 unkno wn RDW-SD 42.8 fl 35.1 - 46.3 Not Available [facility] (Lab Cpot - Use) [address] [place], [id number], Not Available 10/09/19 22 10/08/2021 unkno wn PLT 174.0 K/uL 150.0 - 400.0 Not Available [facility] (Lab Cpot - Use) [address] [place], [id number], Not Available 10/09/19 22 10/08/2021 unkno wn MPV 10.5 fl 9.7 - 12.3 Not Available [facility] (Lab Cpot - Use) [address] [place], [id number], Not Available 10/09/19 22 10/08/2021 unkno wn NEUT% 87.3 % 50.0 - 70.0 Not Available [facility] (Lab Cpot - Use) [address] [place], [id number], Not Available 10/09/19 22 10/08/2021 unkno wn LYMPH% 5.2 % 18.0 - 42.0 Not Available [facility] (Lab Cpot - Use) [address] [place], [id number], Not Available 10/09/19 22 10/08/2021 unkno wn MONO% 6.0 % 3.5 - 9.0 Not Available [facility] (Lab Cpot - Use) [address] [place], [id number], Not Available 10/09/19 22 10/08/2021 unkno wn EO% 0.1 % 1.0 - 3.[address] [facility] (Lab Cpot - Use) [address] [place], [id number], Not Available 10/09/19 22 10/08/2021 unkno wn BASO% 0.1 % 0.0 - 2.0 Not Available [facility] (Lab Cpot - Use) [address] [place], [id number], Not Available 10/09/19 22 10/08/2021 unkno wn IG% 1.3 % 0.0 - 0.[address] [facility] (Lab Cpot - Use) [address], [place], [id number], Not Available 10/09/19 22 10/08/2021 unkno wn NRBC% 0.0 % 0.0 - 0.3 Not Available [facility] (Lab Cpot - Use) [address] [place], [id number], Not Available 10/09/19 22 10/08/2021 unkno wn NEUT# 6.1 K/uL 1.6 - 6.1 Not Available [facility] (Lab Cpot - Use) [address] [place], [id number], Not Available 10/09/19 22 10/08/2021 unkno wn LYMPH# 0.4 K/uL 1.0 - 4.8 Not Available [facility] (Lab Cpot - Use) [address] [place], [id number], Not Available 10/09/19 22 10/08/2021 unkno wn MONO# 0.4 K/uL 0.1 - 0.9 Not Available [facility] (Lab Cpot - Use) [address] [place], [id number], Not Available 10/09/19 22 10/08/2021 unkno wn EO# 0.0 K/dl 0.0 - 0.5 Not Available [facility] (Lab Cpot - Use) [address] [place], [id number], Not Available 10/09/19 22 10/08/2021 unkno wn BASO# 0.0 K/dl 0.0 - 0.[address] [facility] (Lab Cpot - Use) [address] [place], [id number], Not Available 10/09/19 22 10/08/2021 unkno wn IG# 0.09 K/uL 0.00 - 0.[address] [facility] (Lab Cpot - Use) [address] [place], [id number], Not Available 10/09/19 22 10/08/2021 unkno wn NRBC# 0.00 K/uL 0.00 - 0.[address] [facility] (Lab Cpot - Use) [address] [place], [address], Not Available 10/09/19 22 10/08/2021 unkno wn CRP 26.2 mg/L 0.0 - 10.0 Not Available [facility] (Lab Cpot - Use) [address] [place], [id number], Not Available 10/09/19 22 10/08/2021 unkno wn TSH 17.00 uIU/m L 0.47 - 4.68 3rd gener ation Not Available [facility] (Lab Cpot - Use) [address] [place], [id number], Not Available 10/09/19 22 10/08/2021 unkno wn WBC 7.0 K/uL 4.4 - 11.[address] [facility] (Lab Cpot - Use) [address] [place], [id number], Not Available 10/09/19 22 10/08/2021 unkno wn RBC 3.3 M/uL 4.0 - 5.[address] [facility] (Lab Cpot - Use) [address] [place], [id number], Not Available 10/09/19 22 10/08/2021 unkno wn HGB 9.8 gm/dL 12.0 - 16.[address] [facility] (Lab Cpot - Use) [address] [place], [address], Not Available 10/09/19 22 10/08/2021 unkno wn HCT 28.6 %VOL 36.0 - 46.[address] [facility] (Lab Cpot - Use) [address] [place], [id number], Not Available 10/09/19 22 10/08/2021 unkno wn MCV 87.5 fl 80.0 - 98.[address] [facility] (Lab Cpot - Use) [address] [place], [id number], Not Available 10/09/19 22 10/08/2021 unkno wn MCH 30.0 pg 26.5 - 33.8 Not Available [facility] (Lab Cpot - Use) [address] [place], [id number], Not Available 10/09/19 22 10/08/2021 unkno wn MCHC 34.3 g/dL 33.0 - 35.5 Not Available [facility] (Lab Cpot - Use) [address] [place], [address], Not Available 10/09/19 22 10/08/2021 unkno wn RDW-CV 13.5 % 11.8 - 15.6 Not Available [facility] (Lab Cpot - Use) [address] [place], [id number], Not Available 10/09/19 22 10/08/2021 unkno wn RDW-SD 42.8 fl 35.1 - 46.[address] [facility] (Lab Cpot - Use) [address] [place], [id number], Not Available 10/09/19 22 10/08/2021 unkno wn PLT 174.0 K/uL 150.0 - 400.[address] [facility] (Lab Cpot - Use) [address] [place], [id number], Not Available 10/09/19 22 10/08/2021 unkno wn MPV 10.5 fl 9.7 - 12.[address] [facility] (Lab Cpot - Use) [address] [place], [id number], Not Available 10/09/19 22 10/08/2021 unkno wn NEUT% 87.3 % 50.0 - 70.[address] [facility] (Lab Cpot - Use) [address] [place], [address], Not Available 10/09/19 22 10/08/2021 unkno wn LYMPH% 5.2 % 18.0 - 42.[address] [facility] (Lab Cpot - Use) [address] [place], [id number], Not Available 10/09/19 22 10/08/2021 unkno wn MONO% 6.0 % 3.5 - 9.0 Not Available [facility] (Lab Cpot - Use) [address] [place], [id number], Not Available 10/09/19 22 10/08/2021 unkno wn EO% 0.1 % 1.0 - 3.0 Not Available [facility] (Lab Cpot - Use) [address] [place], [id number], Not Available 10/09/19 22 10/08/2021 unkno wn BASO% 0.1 % 0.0 - 2.0 Not Available [facility] (Lab Cpot - Use) [address] [place], [id number], Not Available 10/09/19 22 10/08/2021 unkno wn IG% 1.3 % 0.0 - 0.6 Not Available [facility] (Lab Cpot - Use) [address] [place], [id number], Not Available 10/09/19 22 10/08/2021 unkno wn NRBC% 0.0 % 0.0 - 0.3 Not Available [facility] (Lab Cpot - Use) [address] [place], [id number], Not Available 10/09/19 22 10/08/2021 unkno wn NEUT# 6.1 K/uL 1.6 - 6.1 Not Available [facility] (Lab Cpot - Use) [address], [place], [id number], Not Available 10/09/19 22 10/08/2021 unkno wn LYMPH# 0.4 K/uL 1.0 - 4.8 Not Available [facility] (Lab Cpot - Use) [address], [place], [id number], Not Available 10/09/19 22 10/08/2021 unkno wn MONO# 0.4 K/uL 0.1 - 0.9 Not Available [facility] (Lab Cpot - Use) [address] [place], [id number], Not Available 10/09/19 22 10/08/2021 unkno wn EO# 0.0 K/dl 0.0 - 0.[address] [facility] (Lab Cpot - Use) [address] [place], [address], Not Available 10/09/19 22 10/08/2021 unkno wn BASO# 0.0 K/dl 0.0 - 0.[address] [facility] (Lab Cpot - Use) [address] [place], [id number], Not Available 10/09/19 22 10/08/2021 unkno wn IG# 0.09 K/uL 0.00 - 0.[address] [facility] (Lab Cpot - Use) [address] [place], [address], Not Available 10/09/19 22 10/08/2021 unkno wn NRBC# 0.00 K/uL 0.00 - 0.[address] [facility] (Lab Cpot - Use) [address] [place], [id number], Not Available 10/09/19 22 10/08/2021 SARS- CoV-2 (COVI D-19) RdRp gene [Pres ence] in Respi rator y syste m speci men by ARNULFO with probe detec tion COVID-19 (IN-HOUSE) ID NOW DETECT ED(Pos itive) NEGATI VE Not Available [facility] (Lab Cpot - Use) [address] [place], [id number], Not Available 10/09/19 22 10/08/2021 unkno wn PRO-TIME 10.1 SEC. 10.0 - 14.[address] [facility] (Lab Cpot - Use) [address] [place], [id number], Not Available 10/09/19 22 10/08/2021 unkno wn INR 0.95 0.80 - 1.30 INR THERA PUTIC RANGE = 2 - 4 Not Available [facility] (Lab Cpot - Use) [address] [place], [id number], Not Available 10/09/19 22 10/08/2021 unkno wn T. BILI 0.6 mg/dL 0.2 - 1.3 Not Available [facility] (Lab Cpot - Use) [address] [place], [id number], Not Available 10/09/19 22 10/08/2021 unkno wn ALK PHOS 97 IU/L 38 - 126 Not Available [facility] (Lab Cpot - Use) [address] [place], [id number], Not Available 10/09/19 22 10/08/2021 unkno wn ALTV 13.0 U/L 0.0 - 35.0 Not Available [facility] (Lab Cpot - Use) [address] [place], [id number], Not Available 10/09/19 22 10/08/2021 unkno wn AST/SGOT 21 IU/L 14 - [address] [facility] (Lab Cpot - Use) [address] [place], [id number], Not Available 10/09/19 22 10/08/2021 unkno wn CALCIUM 7.4 mg/dL 8.4 - 10.[address] [facility] (Lab Cpot - Use) [address] [place], [address], Not Available 10/09/19 22 10/08/2021 unkno wn BUN 5.0 mg/dL 5.0 - 22.[address] [facility] (Lab Cpot - Use) [address] [place], [address], Not Available 10/09/19 22 10/08/2021 unkno wn CREATININE-S 0.6 mg/dL 0.7 - 1.[address] [facility] (Lab Cpot - Use) [address] [place], [address], Not Available 10/09/19 22 10/08/2021 unkno wn GLUCOSE(FBS) 85 mg/dL 70 - [address] [facility] (Lab Cpot - Use) [address] [place], [address], Not Available 10/09/19 22 10/08/2021 unkno wn T. PROTEIN 6.1 gm/dL 6.3 - 8.[address] [facility] (Lab Cpot - Use) [address] [place], [address], Not Available 10/09/19 22 10/08/2021 unkno wn ALBUMIN 3.4 gm/dL 3.5 - 5.[address] [facility] (Lab Cpot - Use) [address] [place], [address], Not Available 10/09/19 22 10/08/2021 unkno wn GLOB 2.7 gm/dL 2.0 - 3.[address] [facility] (Lab Cpot - Use) [address] [place], [id number], Not Available 10/09/19 22 10/08/2021 unkno wn NA+ 131 mmol/ L 135 - [address] [facility] (Lab Cpot - Use) [address] [place], [address], Not Available 10/09/19 22 10/08/2021 unkno wn K+ 3.4 mmol/ L 3.5 - 5.[address] [facility] (Lab Cpot - Use) [address] [place], [address], Not Available 10/09/19 22 10/08/2021 unkno wn CL- 105 mmol/ L 98 - [address] [facility] (Lab Cpot - Use) [address] [place], [id number], Not Available 10/09/19 22 10/08/2021 unkno wn CO2- 19.0 mmol/ L 22.0 - 34.[address] [facility] (Lab Cpot - Use) [address] [place], [id number], Not Available 10/09/19 22 10/08/2021 unkno wn GFR (ESTIMATED) 133 ml/mi n/1.7 3mm 62 - 120 Sligh t impai rment 52 - 62 ml / min Mild impai rment 42 - 52 ml / min Moder ate impai rment 28 - 42 ml / min Marke d impai rment < 28 ml / min GFR Resul t provi ded above is based on coeff iecie nts estab lishe d for non-A f[place] n Ameri can patie nts. For Afric an Ameri can value s, multi ply the resul t above by 1.[address] [facility] (Lab Cpot - Use) [address] [place], [place] [address], [id number], Not Available 09/12/[address] Cervi casandra spine WO contr ast [facility] MEDICA L [address] [address]E adiolo gy [phone] Main [phone] Patien t: FARHAD LUCIA : 000Med ical Record : [id number] Admiss ion : [id number] Sex: F Age: 20Y Patien t Type: EOrder ing Physic mary jo: Serg ElkAtt ending Physic mary jo: Serg ElkFam dewayne Physic mary jo: SERG ELK EXAM DESCRI PTION: CT cervic al spine w/o contra stINDI CATION :fall in bath tubTEC HNIQUE :2 mm axial tomogr ams were obtain ed throug h the cervic al spine withou t contra st. Robbins l and sagitt al recons tructe d images are provid ed for interp retati on.COM PARISO N:No compar isonsF INDING S:Ther e is mild straig htenin g of the normal cervic al lordos is. Normal facet alignm ent. Normal cranio cervic al alignm ent. The verteb ral body height s are mainta ined. The laundry machine tender ior elemen ts are intact . No concer george focal osseou s lesion or eviden ce of acute skelet al injury .The parasp inal muscul ature is unrema rkable . Parave rtebra l soft tissue s demons trate no acute findin gs. Limite d charac teriza tion of the aerodi gestiv e tract is unrema rkable . Small scatte red cervic al lymph nodes are presen t withou t concer george adenop athy.T here is diffus e homoge neous enlarg ement of the thyroi d gland. No signif icant mass effect upon the airway . This is more pronou nced within the right thyroi d lobe. This is incomp letely charac terize d on this noncon trast evalua tion and would be better charac terize d with ultras ound.I MPRESS ION:1. No acute fractu re or listhe sis of the cervic al spine. 2. Incide ntally noted homoge neous enlarg ement of the thyroi d gland incomp letely charac terize d. Jeaneth anaya thyroi d ultras ound on a noneme rgent basis may be sammie anaya for furthe r charac teriza tion.D ATE OF SERVIC E:09/11 7:26 pm This report electr onical ly signed Jamia butts MD Dictat ed: 8:22:[address] [facility] Radiology [address] [place] [address] [place], [id number], Not Available 09/12/19 21 XR, elbow , 3 or more view [address] [place] [address]O adiolo gy [phone] Main Patien t: FARHAD LUCIA : 000Med ical Record : [id number] Admiss ion : [id number] Sex: F Age: 20Y Patien t Type: EOrder ing Physic mary jo: Serg ElkAtt ending Physic mary jo: Serg ElkFam dewayne Physic mary jo: SERG ELK EXAM DESCRI PTION: xr - elbow RT 3 viewIN DICATI ON:fal l in bath tubTEC HNIQUE :3 views of the right elbow. COMPAR NORTH:N o compar isonsF INDING S:Kavya omic alignm ent. No fractu res are seen. No perios teal reacti on. No displa cement of periar ticula r fat pads to sugges t joint effusi on.IMP RESSIO N:No acute osseou s abnorm ality. No joint effusi on.WESTLEY E OF SERVIC E:09/11 7:26 pm This report electr onical ly signed Patrick Ham M.D. Dictat ed: 8:13:[address] [facility] Radiology [address] [place] [address] [place], [id number], Not Available 09/12/[address], head + brain , w/o contr ast [facility] [address] [place] [address] [id number] adiolo gy [phone] Main [phone] Patien t: FARHAD LUCIA : 000Med ical Record : [id number] Admiss ion : [id number] Sex: F Age: 20Y Patien t Type: EOrder ing Physic mary jo: Serg ElkAtt ending Physic mary jo: Serg ElkFam dewayne Physic mary jo: SERG ELK EXAM DESCRI PTION: CT head/b rain - w/o contra stINDI CATION :fall head injury TECHNI QUE:3 mm axial tomogr ams were obtain ed throug h the head withou t contra st. Robbins l and sagitt al recons tructe d images are provid ed for interp retati on.COM PARISO N:No compar isonsF INDING S:The brain is normal in volume and morpho logy. There is normal appear ance of the keating-w veronica interf maggie. Normal densit y of the deep nuclei . No intra- axial or extra- axial mass or collec tion. The ventri cles are normal in size are symmet mirian. Basal cister ns are patent . No intrac ranial hemorr nicholas. No parenc hymal edema, mass effect , or midlin e shift. The soft tissue s the scalp are unrema rkable . The calvar ium appear s intact . Skull base and mastoi d air cells appear normal . The parana hasmukh sinuse s are well aerate d. There is rightw emely deviat ion of the nasal septum . Orbits and globes demons trate no acute findin gs. The visual ized soft tissue s of the suprah yoid neck appear normal .IMPRE SSION: No acute intrac ranial findin gs. No intrac ranial hemorr nicholas.D ATE OF SERVIC E:09/11 7:27 pm This report electr onical ly signed Jamia butts MD Dictat ed: 8:21:[address] [facility] Radiology [address] [place] [address] [place], [id number], Not Available 09/12/19 21 XR, shoul elena, 2 or more view [address] [address]P adiolo gy x155 Main Patien t: FARHAD LUCIA : 000Med ical Record : [id number] Admiss ion : [id number] Sex: F Age: 20Y Patien t Type: EOrder ing Physic mary jo: Serg ElkAtt ending Physic mary jo: Serg ElkFam dewayne Physic mary jo: SERG ELK EXAM DESCRI PTION: xr - should er RT 3 viewIN DICATI ON:fal l in bath tubTEC HNIQUE :Four views of the right should erCOMP ARISON :No compar isonsF INDING S:No acute fractu re, sublux ation, or disloc ation. Joint spaces are mainta ined. Includ ed right hemith oracic struct ures are unrema rkable .IMPRE SSION: No acute osseou s abnorm ality. DATE OF SERVIC E:09/11 7:26 pm This report electr onical ly signed Patrick Ham M.D. Dictat ed: 8:13:[address] [facility] Radiology [address] [place], [id number], Not Available 01/17/20 21 XR, foot, [address] [facility] [address] [facility] [address] [address]E adiolo gy x155 Main Patien t: SIRENA White FARHAD : 000Med ical Record : [id number] Admiss ion : [id number] Sex: F Age: 20Y Patien t Type: EOrder ing Physic mary jo: Serg ElkAtt ending Physic mary jo: Serg ElkFam dewayne Physic mary jo: SERG ELK EXAM DESCRI PTION: xr - foot lt 3 viewIN DICATI ON:lef t foot painTE CHNIQU E:AP, obliqu e, and latera l views of the left foot were perfor med.CO MPARIS ON:No compar isonsF INDING S:BONE S: No acute fractu re or disloc ation. Joint spaces preser chen.SO FT TISSUE S: Unrema rkable .IMPRE SSION: Negati ve three views left foot.D ATE OF SERVIC E:12/22 This report electr onical ly signed Eduard Beach MD 2020 Dictat ed: 2020 4:22:[address] [facility] Radiology [address] [place], [id number], Not Available 01/05/20 22 XR, foot, [address] or [facility] [address] [facility] [address] [address]V adiolo gy x155 Main Patien t: FARHAD LUCIA : 000Med ical Record : [id number] Admiss ion : [id number] 4Sex: F Age: 21Y Patien t Type: EOrder ing Physic mary jo: Von Biswas rAtten ding Physic mary jo: Von Biswas rFamil y Physic mary jo: VON BISWAS R EXAM DESCRI PTION: xr - foot RT 3 viewIN DICATI ON:tra umaTEC HNIQUE :Three views of the right foot.C OMPARI SON:No compar isonsF INDING S:No acute fractu re, sublux ation, or disloc ation. Joint spaces are mainta ined. No radiop aque foreig n bodies .IMPRE SSION: No acute osseou s abnorm ality. DATE OF SERVIC E:12/21 9:46 pm This report electr onical ly signed Patrick Ham M.D. 2021 Dictat ed: 2021 9:58:[address] [facility] Radiology [address] [place] [address] [place], [id number], Not Available Result Notes Documentation Provider Name and Address Organization Details Recorded Time Xr, Elbow, 3 Or More View : [address] [address] Radiology [phone] Main [phone] Patient: FARHAD BUITRAGO : 2000 Medical Record: [id number] Admission : [id number] Sex: F Age: 20Y Patient Type: E Ordering Physician: Serg De La Torre Attending Physician: Serg De La Torre Family Physician: SERG DE LA TORRE EXAM DESCRIPTION: xr - elbow RT 3 view INDICATION: fall in bath tub TECHNIQUE: 3 views of the right elbow. COMPARISON: No comparisons FINDINGS: Anatomic alignment. No fractures are seen. No periosteal reaction. No displacement of periarticular fat pads to suggest joint effusion. IMPRESSION: No acute osseous abnormality. No joint effusion. DATE OF SERVICE: 09/11/2020 7:26 pm This report electronically signed Patrick Ham M.D. 09/11/2020 Dictated: 09/11/2020 8:13:19 PM SERG DE LA TORRE NP [address] [place] [address], [place], [id number], [place] - [facility] 09/16/2020 11:32:34 Xr, Shoulder, 2 Or More View : [address] [address] Radiology [phone] Main [phone] Patient: FARHAD BUITRAGO : 2000 Medical Record: [id number] Admission : [id number] Sex: F Age: 20Y Patient Type: E Ordering Physician: Serg De La Torre Attending Physician: Serg De La Torre Family Physician: SERG DE LA TORRE EXAM DESCRIPTION: xr - shoulder RT 3 view INDICATION: fall in bath tub TECHNIQUE: Four views of the right shoulder COMPARISON: No comparisons FINDINGS: No acute fracture, subluxation, or dislocation. Joint spaces are maintained. Included right hemithoracic structures are unremarkable. IMPRESSION: No acute osseous abnormality. DATE OF SERVICE: 09/11/2020 7:26 pm This report electronically signed Patrick Ham M.D. 09/11/2020 Dictated: 09/11/2020 8:13:58 PM SERG DE LA TORRE NP [address] [place] [address], [place], [id number], [place] - [facility] 09/16/2020 11:32:35 Ct, Head + Brain, W/o Contrast : [address] [address] Radiology [phone] Main [phone] Patient: FARHAD BUITRAGO : 2000 Medical Record: [id number] Admission : [id number] Sex: F Age: 20Y Patient Type: E Ordering Physician: Serg De La Torre Attending Physician: Serg De La Torre Family Physician: SERG DE LA TORRE EXAM DESCRIPTION: CT head/brain - w/o contrast INDICATION: fall head injury TECHNIQUE: 3 mm axial tomograms were obtained through the head without contrast. Coronal and sagittal reconstructed images are provided for interpretation. COMPARISON: No comparisons FINDINGS: The brain is normal in volume and morphology. There is normal appearance of the keating-white interface. Normal density of the deep nuclei. No intra-axial or extra-axial mass or collection. The ventricles are normal in size are symmetric. Basal cisterns are patent. No intracranial hemorrhage. No parenchymal edema, mass effect, or midline shift. The soft tissues the scalp are unremarkable. The calvarium appears intact. Skull base and mastoid air cells appear normal. The paranasal sinuses are well aerated. There is rightward deviation of the nasal septum. Orbits and globes demonstrate no acute findings. The visualized soft tissues of the suprahyoid neck appear normal. IMPRESSION: No acute intracranial findings. No intracranial hemorrhage. DATE OF SERVICE: 09/11/2020 7:27 pm This report electronically signed Calvin Castellon MD 09/11/2020 Dictated: 09/11/2020 8:21:21 PM SERG DE LA TORRE NP [address] [place] [address], [place], [id number], [place] - [facility] 09/16/2020 11:32:36 Ct, Cervical Spine, W/o Contrast : [address] [address] Radiology [phone] Main [phone] Patient: FARHAD BUITRAGO : 2000 Medical Record: [id number] Admission : [id number] Sex: F Age: 20Y Patient Type: E Ordering Physician: Serg De La Torre Attending Physician: Serg De La Torre Family Physician: SERG DE LA TORRE EXAM DESCRIPTION: CT cervical spine w/o contrast INDICATION: fall in bath tub TECHNIQUE: 2 mm axial tomograms were obtained through the cervical spine without contrast. Coronal and sagittal reconstructed images are provided for interpretation. COMPARISON: No comparisons FINDINGS: There is mild straightening of the normal cervical lordosis. Normal facet alignment. Normal craniocervical alignment. The vertebral body heights are maintained. The posterior elements are intact. No concerning focal osseous lesion or evidence of acute skeletal injury. The paraspinal musculature is unremarkable. Paravertebral soft tissues demonstrate no acute findings. Limited characterization of the aerodigestive tract is unremarkable. Small scattered cervical lymph nodes are present without concerning adenopathy. There is diffuse homogeneous enlargement of the thyroid gland. No significant mass effect upon the airway. This is more pronounced within the right thyroid lobe. This is incompletely characterized on this noncontrast evaluation and would be better characterized with ultrasound. IMPRESSION: 1. No acute fracture or listhesis of the cervical spine. 2. Incidentally noted homogeneous enlargement of the thyroid gland incompletely characterized. Dedicated thyroid ultrasound on a nonemergent basis may be warranted for further characterization. DATE OF SERVICE: 09/11/2020 7:26 pm This report electronically signed Calvin Castellon MD 09/11/2020 Dictated: 09/11/2020 8:22:25 PM SERG DE LA TORRE NP [address] [place] [address], [place], [id number], [place] - [facility] 09/16/2020 11:32:35 Xr, Foot, 3 Or More View : [address] [address] Radiology [phone] Main [phone] Patient: FARHAD BUITRAGO : 2000 Medical Record: [id number] Admission : [id number] Sex: F Age: 20Y Patient Type: E Ordering Physician: Serg De La Torre Attending Physician: Serg De La Torre Family Physician: SERG DE LA TORRE EXAM DESCRIPTION: xr - foot lt 3 view INDICATION: left foot pain TECHNIQUE: AP, oblique, and lateral views of the left foot were performed. COMPARISON: No comparisons FINDINGS: BONES: No acute fracture or dislocation. Joint spaces preserved. SOFT TISSUES: Unremarkable. IMPRESSION: Negative three views left foot. DATE OF SERVICE: 01/16/2021 This report electronically signed Santos Beach MD 01/16/2021 Dictated: 01/16/2021 4:22:32 PM Laquita Poon L.P.N. null, [place] - [facility] 01/28/2021 20:02:54 Xr, Foot, 3 Or More View : [address] [address] Radiology [phone] Main [phone] Patient: FARHAD BUITRAGO : 2000 Medical Record: [id number] Admission : [id number] Sex: F Age: 21Y Patient Type: E Ordering Physician: Von Roblero Attending Physician: Von Roblero Family Physician: VON ROBLERO EXAM DESCRIPTION: xr - foot RT 3 view INDICATION: trauma TECHNIQUE: Three views of the right foot. COMPARISON: No comparisons FINDINGS: No acute fracture, subluxation, or dislocation. Joint spaces are maintained. No radiopaque foreign bodies. IMPRESSION: No acute osseous abnormality. DATE OF SERVICE: 01/04/2022 9:46 pm This report electronically signed Patrick Ham M.D. 01/04/2022 Dictated: 01/04/2022 9:58:40 PM Von Roblero DO [address] [place] [address] [place], [id number], [facility] 01/18/2022 12:13:54 Problems Name Problem SNOMED Code Status Onset Date Resolution Date Notes Provider Name and Address Organization Details Recorded Time Asthma [id number] Active 020 Shanice Mallo L.P.N [facility] 05/01/2019 19:05:54 Problem Notes None recorded. Medical Equipment None Reported. Allergies Allergen ID Allergen Name Allergen Category Reaction Reaction Severity Criticality Documentation Date Start Date Code Code System Note Provider Name and Address Organization Details Recorded Time 53649 Product containin g penicilli n (product) medicatio n Not available Not available Not available 11/05/2018 61265 8001 SNOMED Adriana Mulligan [address] [place] [address] [place], [id number], [facility] 9 00:23:10 98381 amoxicill in medicatio n Not available Not available Not available 11/05/2018 723 RxNorm Adriana Mulligan [address] [place] [address] [place], [id number], [facility] 9 00:23:17 41986 shellfish derived food,medi cation Not available Not available Not available 06/16/2020 80123 DOUGLAS Ros Navarretevan [address] [place] [address] [place], [id number], [facility] 1 02:36:47 Medications Name Sig Start Date Stop Date Status Note LastModified by Organization Details LastModified Time terconazole 0.4 % vaginal cream 09/17 completed Not Available Not Available Not Available hydrocodone 5 mg-acetamin ophen 325 mg tablet TAKE 1 TABLET BY MOUTH EVERY 4 TO 6 HOURS NEEDED FOR PAIN 09/17 completed Not Available Not Available Not Available promethazin e 12.5 mg tablet TAKE 1 TABLET BY MOUTH EVERY 4 TO 6 HOURS NEEDED FOR NAUSEA AND VOMITING 09/17 completed Not Available Not Available Not Available metronidazo le 500 mg tablet 09/17 completed Not Available Not Available Not Available tramadol 50 mg tablet TAKE 1 TABLET BY MOUTH EVERY 6 HOURS NEEDED FOR PAIN 09/17 completed Not Available Not Available Not Available levothyroxi ne 75 mcg tablet 09/17 completed Not Available Not Available Not Available calcitriol 0.5 mcg capsule TAKE 1 CAPSULE BY MOUTH TWICE DAILY FOR 14 DAYS 09/17 completed Not Available Not Available Not Available levothyroxi ne 125 mcg tablet TAKE 1 TABLET BY MOUTH ONCE DAILY IN THE MORNING ON AN EMPTY STOMACH 09/17 completed Not Available Not Available Not Available levothyroxi ne 150 mcg tablet TAKE 1 TABLET BY MOUTH ONCE DAILY IN THE MORNING ON AN EMPTY STOMACH 09/17 completed Not Available Not Available Not Available levothyroxi ne 200 mcg tablet active Not Available Not Available Not Available albuterol sulfate HFA 90 mcg/actuati on aerosol inhaler Inhale 2 puffs every 4 hours by inhalatio n route. 09/17 completed Not Available Not Available Not Available cyclobenzap rine 5 mg tablet active Not Available Not Available Not Available chlorhexidi ne gluconate 0.12 % mouthwash SWISH AND SPIT TWICE DAILY WITH 15 ML SYMPTOMS PERSIST 09/17 completed Not Available Not Available Not Available levothyroxi ne 75 mcg capsule 09/17 completed Not Available Not Available Not Available Vitals Date Recorded Body temperature Respiratory rate Heart rate Oxygen saturation Oxygen saturation in Arterial blood by Pulse oximetry Systolic And Diastolic Provider Name and Address Organization Details Last Updated DateTime 2 37.954454847 5556 Kimi 14 /min 83 /min 97 % 97 % 110/66 mm[Hg] Deion Fernandez ID - [facility] 2 23:22:12 Date Recorded Body temperature Heart rate Respiratory rate Oxygen saturation Oxygen saturation in Arterial blood by Pulse oximetry Systolic And Diastolic Provider Name and Address Organization Details Last Updated DateTime 2 36.868360466 7778 Kimi 76 /min 16 /min 100 % 100 % 90/65 mm[Hg] [email or web address] [address] [place], [id number], [facility] 2 01:07:55 Date Recorded Body temperature Heart rate Respiratory rate Oxygen saturation Oxygen saturation in Arterial blood by Pulse oximetry Body temperature Heart rate Respiratory rate Oxygen saturation Oxygen saturation in Arterial blood by Pulse oximetry Systolic And Diastolic Systolic And Diastolic Provider Name and Address Organization Details Last Updated DateTime 1 37.787457487 5556 Kimi 63 /min 14 /min 98 % 98 % 36.345347789 3333 Kimi 66 /min 14 /min 99 % 99 % 101/67 mm[Hg] 109/71 mm[Hg] Debbiefitz Mccormickz [facility] 1 22:39:22 Date Recorded Oxygen saturation Oxygen saturation in Arterial blood by Pulse oximetry Heart rate Body weight Systolic And Diastolic Provider Name and Address Organization Details Last Updated DateTime 2 97 % 97 % 88 /min 20395.0 7 g 97/66 mm[Hg] Loida Wong C.M.A. [facility] 2 15:52:20 Date Recorded Body temperature Heart rate Respiratory rate Oxygen saturation Oxygen saturation in Arterial blood by Pulse oximetry Systolic And Diastolic Provider Name and Address Organization Details Last Updated DateTime 2 36.886478427 3333 Kimi 143 /min 16 /min 97 % 97 % 107/68 mm[Hg] [email or web address] [address] [place], [phone], [facility] 2 19:28:34 Date Recorded Body temperature Heart rate Respiratory rate Oxygen saturation Oxygen saturation in Arterial blood by Pulse oximetry Systolic And Diastolic Provider Name and Address Organization Details Last Updated DateTime 2 37.867780465 1111 Kimi 113 /min 18 /min 97 % 97 % 94/51 mm[Hg] [email or web address] [address] [place], [address], [facility] 2 21:40:19 Date Recorded Body temperature Respiratory rate Heart rate Oxygen saturation Oxygen saturation in Arterial blood by Pulse oximetry Systolic And Diastolic Systolic And Diastolic Provider Name and Address Organization Details Last Updated DateTime 2 36.779581017 4444 Kimi 16 /min 64 /min 98 % 98 % 120/47 mm[Hg] 112/65 mm[Hg] Deion Rebecca [facility] 2 23:29:19 Date Recorded Body temperature Respiratory rate Heart rate Oxygen saturation Oxygen saturation in Arterial blood by Pulse oximetry Systolic And Diastolic Provider Name and Address Organization Details Last Updated DateTime 2 36.451837942 4444 Kimi 12 /min 62 /min 99 % 99 % 105/71 mm[Hg] Nena Francisco [address], [place], [address] 2 00:19:54 Date Recorded Body temperature Heart rate Respiratory rate Oxygen saturation Oxygen saturation in Arterial blood by Pulse oximetry Systolic And Diastolic Provider Name and Address Organization Details Last Updated DateTime 1 36.393582348 8889 Kimi 66 /min 16 /min 100 % 100 % 111/92 mm[Hg] Sheila Rob [address], [place], [address] 1 20:30:46 Date Recorded Body temperature Heart rate Respiratory rate Oxygen saturation Oxygen saturation in Arterial blood by Pulse oximetry Systolic And Diastolic Provider Name and Address Organization Details Last Updated DateTime 1 37.726357090 5556 Kimi 67 /min 16 /min 99 % 99 % 105/70 mm[Hg] Matilde Tsang [address], [place], [address] 5[facility] 1 19:20:38 Social History Question Answer Notes LastModified by Organizat ion Details LastModified Time Tobacco Smoking Status Never Smoker Shanice Barrientos L.P.N null, [facility] 05/01/2019 19:06:18 Do You Have An Advance Directive? No Information n ot available 05/01/2019 Are You Blind Or Do You Have Difficulty Seeing? No Information n ot available 05/01/2019 What Is Your Code Status? 0 [email or web address] Information not available 01/10/2022 In The 14 Days Before Symptom Onset, Have You Had Close Contact With A Laboratory-confirm ed COVID-19 While That Case Was Ill? No Information n ot available 05/01/2019 If Patient Spent Time In [facility] - Does The Patient Live In [facility]? No Information not available 05/01/2019 In The 14 Days Before Symptom Onset, Have You Had Close Contact With A Person Who Is Under Investigation For COVID-19 While That Person Was Ill? No Information not available 05/01/2019 In The 14 Days Before Symptom Onset, Did The Patient Spend Time In [facility]? No Information not available 05/01/2019 Have You Been To An Area Known To Be High Risk For COVID-19? No Information not available 05/01/2019 Are You Deaf Or Do You Have Serious Difficulty Hearing? No Information not available 05/01/2019 What Is The Highest Grade Or Level Of School You Have Completed Or The Highest Degree You Have Received? [id number] Information not available 05/01/2019 Live Alone Or With Others? With Others Information not available 05/01/2019 Designated Caregiver? Yes Information not available 05/01/2019 Do You Feel Safe At Home? Yes Information not available 05/01/2019 Difficulty Managing Medication? No Information not available 05/01/2019 What Was The Date Of Your Most Recent Tobacco Screening? 05/01/2019 Information not available 05/01/2019 Are There Any Smokers In Your House? No Information not available 05/01/2019 Do You Have Difficulty Walking Or Climbing Stairs? No Information not available 05/01/2019 Sex: Female Functional Status Question Answer Note LastModified by Organizat ion Details LastModified Time Do you use any illicit or recreational drugs? No Information not available 05/01/2019 What is your level of alcohol consumption? None Information not available 05/01/2019 Do you or have you ever used smokeless tobacco? Never used smokeless tobacco Information not available 05/01/2019 Do you have transportation difficulties? No Information not available 05/01/2019 Do you have difficulty doing errands alone? No Information not available 05/01/2019 Are you able to care for yourself? Yes Information n ot available 05/01/2019 Do you have difficulty dressing or bathing? No Information not available 05/01/2019 Do you or have you ever used e-cigarettes or vape? Never used electronic cigarettes Information not available 05/01/2019 What is your exercise level? Moderate Information not available 05/01/2019 Mental Status Question Answer Note LastModified by Organizat ion Details LastModified Time Do you feel stressed (tense, restless, nervous, or anxious, or unable to sleep at night)? [id number] Information not available 05/01/2019 Do you have difficulty concentrating, remembering or making decisions? No Information no t available 05/01/2019 Family History Nothing Reported. Medical History Condition Response Coronary Artery Disease N Gout N Other N Atrial Fibrillation N Anxiety Y Lung Disease N COPD N Developmental or Behavioral Disorders N Defects or Inherited Disease N ADD/ADHD N Heart Disease o Statin Therapy N Back Pain N Cancer-Other N Heart Attack (SD) N Ulcers N Deep Vein Thrombosis N Mental Illness N Diabetes A1c & Date N Autoimmune disease N Bleeding Disorder N Arthritis N Hearing Loss N Blood Clot N AIDS/HIV N Stroke N Diverticulitis N Asthma Y Atrial Flutter N Leg or Foot Ulcers N High Cholesterol o Statin Therapy N Reflux/GERD N Liver Disease N Arrhythmia N Pulmonary Embolism N Hypertension N Osteoporosis N Heart Failure N Kidney Disease N Gynecological History Statement/Question Response Abnormal Pap N Obstetrics History GPAL:G 0 P 0 0 0 0 Past Encounters Encounter ID Performer Location Encounter Start Date Encounter Closed Date Diagnosis/Indication Diagnosis SNOMED-CT Code Diagnosis ICD10 Code Diagnosis Note [id number] Clement Coker MD Hospital_ Emergency [address] [place] [address] [place] [id number] 11/05/2018 00:14:00 11/05/2018 01:23:00 chest pain [id number] asthma wit hout status asthmaticus [id number] Von Osbaldo, DO Hospital_ Emergency [address] [place] [address] [place] [id number] 02/06/2019 22:45:00 02/07/2019 01:42:00 vomiting [id number] diarrhea [id number] PHYSICIAN PHYSICIAN Hospital_ Radiology [address] [place] [address] [place] [id number] 05/01/2019 18:37:00 05/02/2019 01:59:00 [id number] Panfilo Shankar MD Hospital_ Emergency [address] [place] [address] [place] [id number] 05/27/2019 00:30:00 05/27/2019 02:17:00 flank pain [id number] [address] PHYSICIAN PHYSICIAN [facility]_ Laborator y [address] [place] [address] [place] [id number] 08/08/2019 16:52:00 08/09/2019 01:59:00 [id number] BONNIE MOJICA, DO Hospital_ Emergency [address] [place] [address] [place] [id number] 3 08/16/2019 00:40:00 08/16/2019 02:18:00 abdominal pain [id number] diarrhea [id number] Flaco Lawrence, DO Hospital_ Emergency [address] [place] [address] [place] [id number] 11/25/2019 01:45:00 11/25/2019 03:10:00 abdominal pain in [id number] SERG DE LA TORRE NP Hospital_ Emergency [address] [place] [address] [place] [id number] 3 06/16/2020 00:57:00 06/16/2020 03:32:00 acute cholecystitis [id number] Paxton Dominguez MD Hospital_ Emergency [address] [place] [address] [place] [id number] 3 07/01/2020 12:40:00 07/01/2020 16:00:00 postoperative pain [id number] abdominal pain [id number] SERG DE LA TORRE NP Hospital_ Emergency [address] [place] [address] [place] [id number] 3 09/11/2020 20:56:00 09/11/2020 22:40:00 fall [id number] contusion of head [id number] strain of neck muscle [id number] sprain of ligament of elbow [id number] SERG DE LA TORRE NP Hospital_ Emergency [address] [place] [address] [place] [id number] 3 01/16/2021 17:55:00 01/16/2021 19:15:00 sprain of foot [id number] Clement Coker MD Hospital_ Emergency [address] [place] [address] [place] [id number] 3 09/09/2021 23:10:00 09/10/2021 00:10:00 acute sciatica [id number] Clement Coker MD Hospital_ Emergency [address] [place] [address] [place] [id number] 3 10/08/2021 19:17:00 10/08/2021 21:50:00 acute COVID-19 [id number] acquired hypothyroidism [id number] third trim vanesa [id number] Von Roblero DO Hospital_ Emergency [address] [place] [address] [place] [id number] 3 01/04/2022 23:20:00 01/05/2022 00:22:00 injury of right foot [id number] Health Concerns Section Related Observation LastModified by Organization Detai ls LastModified Time None Recorded Concern Status LastModified by Organization Details LastModified Time None Recorded Advance Directives Directive N: Payers Insurance Date Sequence Insurance Name Policy Number Policy Shrestha Covered Member ID Shrestha Member ID Guarantor Name 09/17/2021 3 [employer] MANJU SIMON (PPO) [id number] Farhad Buitrago [id number] Farhad Buitrago 08/31/2020 PAYMENT PLAN Farhad Buitrago 09/10/2021 2 *SELF PAY* Farhad Machadois Lois Iftikhar 01/11/2022 1 MEDICAID-ID (MEDICAID) Farhad Buitrago [id number] Farhad Lois Buitrago 05/10/2019 [facility] [id number] Personal Home Care Farhad Lois Buitrago 05/10/2019 [facility] FUND [id number] Personal Home Care Farhad Lois Buitrago 09/17/2021 2 PATIENT ITEMIZED BILL Farhad Buitrago 123 Farhad Buitrago Notes Date Note Type Note Provider Name and Address Organization Details Recorded Time 09/17/2021 text/html here for difficu lty regulating thyroid during - states levels are low on 200 ug per day synthroid - requests referral to Dr nena contreras ENT - thyroidectomy - 3 years ago Paxton Dominguez MD [address] [place] [address], [place], [address], [place] - [facility] 09/17/2021 16:51:45 OBGyn Episode No OBEpisode recorded.
--- OUTSIDE RECORDS SUMMARY | 2024-08-30 05:58 | XMS_ITS | Data Portability ---
Author Organization [place] - [facility], [facility] Address [address] [address] Care Team Providers Care Supervisor Sleeping Bag Department Name Role Phone LEAH SANCHEZ Primary Care Provider Assessment No assessment recorded. Plan of Treatment Reminders Order Date Submit Date Provider Last Modified By Organization Details Last Modified Time Details Appointments None recorded. Lab pap, LB 2023 024 NOORVIK [facility], [address] [place], [address], 4 10:15:01 CT + NG DNA, PCR, unspecified specimen 2023 024 NOORVIK [facility], [address] [place], [address], 4 10:15:02 CBC w/ auto diff 2023 024 NOORVIK [facility], [address] [place], [address], 4 11:08:00 Referral None recorded. Procedures None recorded. Surgeries None recorded. Imaging US, obstetric, 1st trimester 2023 024 NOORVIK In-Office Order, Internal Use Only DO Not Attach Compendium DO Not Attach Compendium, Do Not Delete/merge, [id number] 11:32:16 Medication Orders Lysteda 650 mg tablet 2023 024 NOORVIK [id number], [address], [place], [phone], 11:55:08 Patient TargetsNo targets recorded. Patient Instructions Encounter Date Encounter Id Patient Instructions Last Modified By Organization Details Last Modified Time 04/06/2023 [id number] self breast exam education amyl Not available 04/06/2023 11:55:02 osteoporosis education amyl Not available 04/06/2023 11:55:02 Reason for Referral None Reported. Results Created Date Observation Date Name Description Value Unit Range Abnormal Flag Note LastModifiedBy Organization Detail LastModifiedTime 04/06/19 24 04/07/2023 CBC (INCL UDES DIFF/ PLT) white blood cell count 8.9 thous and/u L 3.8-10 .8 normal Not Available [facility] [address], [address], 04/07/2023 11:08:00 04/06/19 24 04/07/2023 CBC (INCL UDES DIFF/ PLT) red blood cell count 4.24 charles on/uL 3.80-5 .10 normal Not Available [facility] [address], [address], 04/07/2023 11:08:00 04/06/1904/07/2023 CBC (INCL UDES DIFF/ PLT) hemoglobin 12.4 g/dL 11.7-1 5.5 normal Not Available [facility] [address], [address], 04/07/2023 11:08:00 04/06/1904/07/2023 CBC (INCL UDES DIFF/ PLT) hematocrit 36.9 % 35.0-4 5.0 normal Not Available [facility] [address], [address], 04/07/2023 11:08:00 04/06/19 24 04/07/2023 CBC (INCL UDES DIFF/ PLT) MCV 87.0 fL 80.0-1 00.0 normal Not Available [facility] [address], [address], 04/07/2023 11:08:00 04/06/19 24 04/07/2023 CBC (INCL UDES DIFF/ PLT) MCH 29.2 pg 27.0-3 3.0 normal Not Available [address], [address], 04/07/2023 11:08:00 04/06/19 24 04/07/2023 CBC (INCL UDES DIFF/ PLT) MCHC 33.6 g/dL 32.0-3 6.0 normal Not Available [address], [address], 04/07/2023 11:08:00 04/06/19 24 04/07/2023 CBC (INCL UDES DIFF/ PLT) RDW 12.7 % 11.0-1 5.0 normal Not Available [address], [address], 04/07/2023 11:08:00 04/06/19 24 04/07/2023 CBC (INCL UDES DIFF/ PLT) platelet count 482 thous and/u L 140-40 0 high Not Available [address], [address], 04/07/2023 11:08:00 04/06/19 24 04/07/2023 CBC (INCL UDES DIFF/ PLT) MPV 10.6 fL 7.5-12 .5 normal Not Available [address], [address], 04/07/2023 11:08:00 04/06/19 24 04/07/2023 CBC (INCL UDES DIFF/ PLT) absolute neutrophils 4904 cells /uL 1500-7 800 normal Not Available [address], [address], 04/07/2023 11:08:00 04/06/19 24 04/07/2023 CBC (INCL UDES DIFF/ PLT) absolute lymphocytes 3186 cells /uL 850-39 00 normal Not Available [address], [address], 04/07/2023 11:08:00 04/06/19 24 04/07/2023 CBC (INCL UDES DIFF/ PLT) absolute monocytes 703 cells /uL 200-95 0 normal Not Available [address], [address], 04/07/2023 11:08:00 04/06/19 24 04/07/2023 CBC (INCL UDES DIFF/ PLT) absolute eosinophils 53 cells /uL 15-500 normal Not Available [address], [address], 04/07/2023 11:08:00 04/06/19 24 04/07/2023 CBC (INCL UDES DIFF/ PLT) absolute basophils 53 cells /uL 0-200 normal Not Available [address], [address], 04/07/2023 11:08:00 04/06/19 24 04/07/2023 CBC (INCL UDES DIFF/ PLT) neutrophils 55.1 % normal Not Available [address], [address], 04/07/2023 11:08:00 04/06/19 24 04/07/2023 CBC (INCL UDES DIFF/ PLT) lymphocytes 35.8 % normal Not Available [address], [address], 04/07/2023 11:08:00 04/06/19 24 04/07/2023 CBC (INCL UDES DIFF/ PLT) monocytes 7.9 % normal Not Available [address], [address], 04/07/2023 11:08:00 04/06/19 24 04/07/2023 CBC (INCL UDES DIFF/ PLT) eosinophils 0.6 % normal Not Available [facility] [address] [place], [address], 04/07/2023 11:08:00 04/06/19 24 04/07/2023 CBC (INCL UDES DIFF/ PLT) basophils 0.6 % normal Not Available [facility] [address] [place], [address], 04/07/2023 11:08:00 04/06/19 24 04/10/2023 THINP REP PAP TEST thinprep Pap test NEGATI VE negati ve normal . -- THIN PREP PAP TEST -- LUPE CTED DATE: 04/06 SEX: F : 07[birth year] AGE: 22 [id number] CLINI C ID: [id number] SS: PHYSI TAMMY: NIKKI CORDOVA [facility] CTED BY: . Negat janina for Intra epith elial Lesio n or César anderson . . Addit ional Findi ngs: Endoc ervic al Mater ial Prese nt . Speci men Adequ acy: Satis facto ry for Evalu ation . Clini casandra Note: Z11.3 Encou nter for scree george for infec tions with a predo minan tly sexua l mode of trans ruby on, Prev Pap NEG 1 yr, LMP 04-02 Speci men Sourc e: Cervi x Visit Type: Routi ne . . Perfo rmed by: Garrick [place], CT (ASCP ) Revie wed by: Mendez Nolen rd, DO (Elec troni c Signa ture 2023 08:59 ) . [facility] , [address] , [place] [address] , CLIA# [id number] Medic al Direc tor: Ernesto Nolen rd, DO Not Available [facility] [place] [address] [place], [address], 04/10/2023 10:15:00 04/06/19 24 04/06/2023 GONOR HESHAM/ CHLAM YDIA AMPLI FIED gonorrhea, amplified NEGATI VE negati ve normal Not Available [facility] [place] [address] [place], [address], 04/10/2023 10:15:02 04/06/19 24 04/07/2023 GONOR HESHAM/ CHLAM YDIA AMPLI FIED chlamydia, amplified NEGATI VE negati ve normal . DNA Test Resul LUPE CTED DATE: 04/06 SEX: F : [birth year] AGE: 22 [id number] CLINI C ID: [id number] SS: MIRANDA OROSCON: NIKKI CORD[facility] CTED BY: [id number] Speci men Sourc e: Cervi x Speci men Type: ThinP rep PAP Corre latin g Pap: [id number] . Neiss eria gonor rhoea e: NEGAT JANINA Latesha l Value : Negat janina . Chlam ydia trach omati s: NEGAT JANINA Latesha l Value : Negat janina . [facility] , [address] , [place] [address] , CLIA# [id number] Medic al Direc tor: Ernesto d L [address], DO Not Available [facility] [address], [place], [address], 04/10/2023 10:15:02 04/06/19 24 04/06/2023 pregn sarah test, urine Result negati ve Not Available In-Office Order Internal Use Only DO Not Attach Compendium DO Not Attach Compendium, Do Not Delete/merge, [id number] 04/06/2023 12:52:55 05/22/19 24 05/22/2023 US, trans vagin al No observ ation record ed. [email or web address] Not Available 05/21 10:41:50 05/22/19 24 05/22/2023 US, obste tric, 1st trime ster No observ ation record ed. [email or web address] In-Office Order Internal Use Only DO Not Attach Compendium DO Not Attach Compendium, Do Not Delete/merge, [id number] 05/26/2023 11:32:16 05/22/19 24 05/22/2023 imagi ng/di agnos tic resul t No observ ation record ed. [email or web address] Not Available 2023 15:06:47 Result Notes None recorded. 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 Procedures Surgical History Date Name Laterality Status Provider Name and Address Organization Details Recorded Time Appendectomy completed Karlie Palafox [place] [facility] 04/06/2023 10:24:14 cholecystectomy completed Karlie Palafox [place] [facility] 04/06/2023 10:24:23 tonsillectomy completed Karlie Palafox [place] [facility] 04/06/2023 10:24:27 thyroidectomy completed Karlie Palafox [place] [facility] 04/06/2023 10:24:34 repair of cleft lip completed Karlie Palafox [place] [facility] 04/06/2023 10:24:41 repair of cleft palate completed Karlie Palafox [place] [facility] 04/06/2023 10:24:49 Imaging Results None recorded. Procedure Notes None recorded. Medical Equipment None Reported. Allergies Allergen ID Allergen Name Allergen Category Reaction Reaction Severity Criticality Documentation Date Start Date Code Code System Note Provider Name and Address Organization Details Recorded Time 21135 amoxicill in medicatio n nausea vomiting Not available Not available Not available 04/06/2023 723 RxNorm all -cill ins Karlie thomas, [place] - [facility] 4 10:17:32 48912 shellfish derived food,medi cation nausea vomiting Not available Not available Not available 04/06/2023 20446 UNK Karlie thomas, DAYO - [facility] 10:17:46 Medications Name Sig Start Date Stop Date Status Note LastModified by Organization Details LastModified Time cyclobenz aprine 10 mg tablet TAKE 1 TABLET BY MOUTH THREE TIMES DAILY NEEDED 04/06 completed Not Available Not Available Not Available medroxypr ogesteron e 10 mg tablet TAKE ONE TABLET BY MOUTH every DAY 05/21 completed Not Available Not Available Not Available doxycycli ne hyclate 100 mg capsule TAKE ONE CAPSULE BY MOUTH TWICE DAILY active kidney infectio n Not Available Not Available Not Available cetirizin e 10 mg tablet TAKE 1 TABLET BY MOUTH ONCE DAILY active Not Available Not Available No t Available azithromy marla 250 mg tablet TAKE 2 TABLETS BY MOUTH ON DAY 1, AND THEN TAKE 1 TABLET BY MOUTH ONCE A DAY ON DAY 2 THROUGH DAY 5 active Not Available Not Available No t Available ibuprofen 800 mg tablet TAKE 1 TABLET BY MOUTH THREE TIMES DAILY NEEDED active Not Available Not Available No t Available tizanidin e 4 mg tablet TAKE ONE TABLET BY MOUTH EVERY 8 HOURS NEEDED FOR muscle spasm active Not Available Not Available No t Available levothyro xine 300 mcg tablet TAKE 2 TABLETS BY MOUTH ONCE DAILY 04/06 completed Not Available Not Available Not Available sumatript an 100 mg tablet TAKE ONE TABLET BY MOUTH AT ONSET OF MIGRAINE . IF SYMPTOMS PERSIST, A SECOND DOSE MAY BE TAKEN IN 2 HOURS. DO NOT EXCEED 2 DOSES IN A 24 HOUR PERIOD, UNLESS OTHERWIS E INSTRUCT ED BY YOUR PHYSICIA N 04/06 completed Not Available Not Available Not Available sucralfat e 1 gram tablet TAKE ONE TABLET BY MOUTH EVERY 6 HOURS active Not Available Not Available No t Available ondansetr on HCl 4 mg tablet TAKE ONE TABLET BY MOUTH EVERY 8 HOURS active Not Available Not Available No t Available prednison e 20 mg tablet TAKE 2 TABLETS BY MOUTH ONCE DAILY 04/06 completed Not Available Not Available Not Available Synthroid 100 mcg tablet TAKE 1 TABLET BY MOUTH ONCE DAILY ADDED TO THE 600MCG 04/06 completed Not Available Not Available Not Available sumatript an 50 mg tablet TAKE 1 TABLET BY MOUTH at ONSET of HEADACHE . if no RELIEF, MAY REPEAT ONE tablet AFTER TWO hours. max of FOUR tablets in 24 hours active Not Available Not Available No t Available metronida zole 500 mg tablet TAKE ONE TABLET BY MOUTH TWICE DAILY FOR 14 DAYS 04/06 completed Not Available Not Available Not Available ketorolac 10 mg tablet TAKE ONE TABLET BY MOUTH EVERY 6 HOURS NEEDED FOR PAIN 04/06 completed Not Available Not Available Not Available benzonata te 100 mg capsule TAKE 1 TO 2 CAPSULES BY MOUTH EVERY 8 HOURS NEEDED FOR COUGH active Not Available Not Available No t Available pantopraz ole 40 mg tablet,de layed release TAKE ONE TABLET BY MOUTH TWICE DAILY FOR 14 DAYS 04/06 completed Not Available Not Available Not Available levothyro xine 150 mcg tablet TAKE 1 TABLET BY MOUTH ONCE DAILY TAKE WITH TWO 300MCG TABLETS DAILY 04/06 completed Not Available Not Available Not Available hydrocort isone 20 mg tablet active Not Available Not Available No t Available omeprazol e 20 mg capsule,d elayed release TAKE 1 CAPSULE BY MOUTH ONCE DAILY 04/06 completed Not Available Not Available Not Available hydroxyzi ne HCl 25 mg tablet TAKE 1 TABLET BY MOUTH AT BEDTIME MAY INCREASE TO 50MG (2 TABLETS) NIGHTLY IF NEEDED active Not Available Not Available No t Available diclofena c sodium 50 mg tablet,de layed release TAKE 1 TABLET BY MOUTH THREE TIMES DAILY NEEDED 04/06 completed Not Available Not Available Not Available hydroxyzi ne HCl 10 mg tablet TAKE ONE TABLET BY MOUTH ONCE active for sleep Not Available Not Available Not Available ondansetr on 4 mg disintegr ating tablet DISSOLVE ONE TABLET BY MOUTH EVERY 8 HOURS NEEDED FOR NAUSEA AND VOMITING active Not Available Not Available No t Available fluticaso ne propionat e 50 mcg/actua tion nasal spray,judd pension USE 2 SPRAY(S) IN EACH NOSTRIL ONCE DAILY active Not Available Not Available No t Available naproxen 500 mg tablet TAKE 1 TABLET BY MOUTH TWICE DAILY NEEDED FOR PAIN 04/06 completed Not Available Not Available Not Available oxycodone 5 mg tablet 04/06 completed Not Available Not Available Not Available duloxetin e 30 mg capsule,d elayed release TAKE ONE CAPSULE BY MOUTH EVERY DAY active fibromya lgia Not Available Not Available Not Available Constulos e 10 gram/15 mL oral solution TAKE 15 ML BY MOUTH DAILY NEEDED FOR CONSTIPA TION active Not Available Not Available No t Available tizanidin e 6 mg capsule active muscle spasms from fibromya lgia Not Available Not Available Not Available thyroid active INJECTIO NS Not Available Not Available Not Available cholecalc iferol (vitamin D3) 1,250 mcg (50,000 unit) capsule TAKE ONE CAPSULE BY MOUTH WEEKLY FOR TWO MONTHS active Not Available Not Available No t Available Gavilax 17 gram/dose oral powder MIX 17 GRAMS OF POWDER IN 8 OUNCES OF LIQUID AND DRINK ONCE DAILY active Not Available Not Available No t Available Lysteda 650 mg tablet Take 2 tablets 3 times a day by oral route as directed for 5 days, for heavy bleeding . 2023 active Not Available Not Available Not Avai lable Tirosint 200 mcg capsule TAKE FOUR CAPSULES BY MOUTH DAILY active Not Available Not Available No t Available M- Plus 27 mg iron-1 mg tablet TAKE ONE TABLET BY MOUTH ONCE A DAY active Not Available Not Available No t Available Vitals Date Recorded Body weight Body mass index (BMI) Body height Systolic And Diastolic Provider Name and Address Organization Details Last Updated DateTime 04/06/2023 27057.49 g 19.8 kg/m2 165.1 cm 120/62 mm[Hg] Karlie Palafox [place] - [facility] 04/06/2023 10:17:03 Date Recorded Body height Body mass index (BMI) Body weight Systolic And Diastolic Provider Name and Address Organization Details Last Updated DateTime 05/22/2023 165.1 cm 20.6 kg/m2 89178.45 g 114/68 mm[Hg] Genesis Jose [place] - [facility] 05/22/2023 10:50:57 Social History Question Answer Notes LastModified by Organizat ion Details LastModified Time Tobacco Smoking Status Never Smoker Karlie Palfaox null, [place] - [facility] 04/06/2023 10:23:21 What Is Your Level Of Caffeine Consumption? Heavy [email or web address] Information not available 04/06/2023 Who Is Your Employer? [employer] [email or web address] Information not available 04/06/2023 How Many Children Do You Have? 2 [email or web address] Information not available 04/06/2023 What Is Your Relationship Status? [email or web address] Information not available 04/06/2023 Are You Sexually Active? Yes [email or web address] Information not available 04/06/2023 Sex: Unknown Functional Status Question Answer Note LastModified by Organizat ion Details LastModified Time Do you use any illicit or recreational drugs? No [email or web address] Information not available 04/06/2023 Do you or have you ever used any other forms of tobacco or nicotine? No [email or web address] Information not available 04/06/2023 What is your level of alcohol consumption? Occasional [email or web address] Information not available 04/06/2023 Are you currently employed? 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 None [email or web address] Information not available 04/06/2023 Mental Status None recorded. Family History Relationship Description Onset Age of this Age Resolved Age Notes LastModified by Organization Details LastModified Time Maternal Grandmother Diabetes mellitus [email or web address] Not available 2023 10:22:45 Maternal Grandmother Hypertensive disorder Not available 2023 10:22:59 Paternal Grandmother Diabetes mellitus [email or web address] Not available 2023 10:22:45 Medical History Condition Response Ovarian cancer N Breast Cancer N Blood Clots/DVT N Diabetes N Influenza Vaccine Y Hyperlipidemia N Thyroid disease Y Endometriosis N Heart Disease N Hypertension N Gynecological History Statement/Question Response Last Biopsy Date No hx Prior pap date 04/06/2023 Duration of Flow (days) 7 Prior DXA date No hx Prior Mammogram date No hx If over 50 or menopausal current vit d d ose yes unsure of dose Prior colonoscopy date N Significant pain with periods? Y Gardasil (if <26) N Current Control Method None Frequency of Cycle (Q days) daily calcium supplement intake no Date of LMP 04/02/2023 Obstetrics History GPAL:G 3 P 2 0 0 2 Type Value Multiple Births 0 Full Term 2 Induced 0 Spontaneous 0 Premature 0 Living 2 Ectopics 0 Total 3 Past Encounters Encounter ID Performer Location Encounter Start Date Encounter Closed Date Diagnosis/Indication Diagnosis SNOMED-CT Code Diagnosis ICD10 Code Diagnosis Note [id number] Nikki Cordova APRN, [facility] [address], [address] [place] [address] 04/06/2023 09:56:47 04/07/2023 06:44:45 Menorrhagia 118758331 N92.0 *script for sid is currently on cd 4, will take today and tomorrowwi ll also check cbc todaystate s has always had heavy/pain ful cyclessinc e they are trying to conceive, options for management are limitedwas planning UPT today, but forgot to obtain - patient was called and asked to perform an over the counter test and report if positive Specialize d medical examination 50777657 Z01.419 *yearly exam with pap/cultur esnormal examcurren tly on cycleHx Alireza' s - sees endo, on thyroid injections .Recommend she start a vitamin. Venereal d isease screening 300611146 Z11.3 Anemia screening 07 Z13.0 Dysmenorrhea 970520423 N 94.6 *see notes abovehisto ry of painful periods - but worse more recentlycu rrently desires conception may need tv pelvic us if persists [id number] Nikki Cordova APRN, [facility] [address], [address] [place] [address] 05/22/2023 09:21:11 05/22/2023 18:22:16 test positive 513276496 Z32.01 *Farhad, 22 year old , hx thyroid disease (on thyroid injections ).TV pelvic us: 6wk, 1 day IUP with FHR 110 (1 wk behind LMP date but cycles are irregular) .1st trimester counseling .Continue vitamin.OT C meds for nausea discussed. She will plan to f/u if she has any problems prior to seeing OB. Health Concerns Section Related Observation LastModified by Organization Detai ls LastModified Time None Recorded Concern Status LastModified by Organization Details LastModified Time None Recorded Advance Directives Directive None Recorded Payers Insurance Date Sequence Insurance Name Policy Number Policy Shrestah Covered Member ID Shrestha Member ID Guarantor Name 03/29/2023 1 *SELF PAY* Al teresa Ardon 05/22/2023 2 [facility] ([place] - [place] ROSA ELENA B[employer]ago [id number] Farhad Ardon 05/22/2023 1 [employer] [facility] (POS II) [id number] Farhad Ardon [id number] Farhad Ardon Notes Date Note Type Note Provider Name and Address Organization Details Recorded Time 04/06/2023 text/html Carmen is here wit h c/o irregular, heavy bleeding.IUD (Mirena) removed 11/2022 - trying to conceive.Took Provera 02/2023 and had cycle post provera.Cycle on her own started 04/02/23.No history of irregular menses.Has a 1 yr old and 3 yr old.No problems with conception in the past.Due for her annual exam.Currently has a UTI - treated by pcp (started 2 days ago).Sees luzmaria for Alireza's - was hospitalized 2 months ago due to problems with thyroid regulation. Now on thyroid injections. Nikki Cordova APRN, [address], [place] [address], [place], [address], [facility] 04/06/2023 11:55:09 05/22/2023 text/html Farhad is here f or an early OB scan.She is a 22 year old , history of thyroid disease - sees luzmaria, is on thyroid injections.She did see endo recently, medication was adjusted and Tums were added due to low calcium levels.This is a planned with her .Has had nausea/vomiting, breast tenderness.PCP gave her a script for Zofran, which is helping.Went to ER 2 days ago, was told she had a cyst that ruptured.She is planning on seeing Dr. Lutz for OB care (appt 06/29/23). Nikki Cordova APRN, [address], [address], [place], [address], [place] - [facility] 05/22/2023 13:51:16 OBGyn Episode No OBEpisode recorded.
--- OUTSIDE RECORDS SUMMARY | 2024-08-30 05:59 | XMS_ITS | Patient Health Record ---
Author Organization [facility] Address [address] [place] [address] Care Team Providers [employer] Name Role Phone Herminio Shoemaker Primary Care Provider Unavailabl e Migration, Provider Unavailable Unavailable Malachi Pierce Unavailable [phone] Reason For Referral No Information Medications Medication SIG (Take, Route, Frequency, Duration) Notes Start Date End Date Status hydrOXYzine HCl *Pick strength-f orm from [facility] for eRX* Active tizanidine *Reorder from [facility] for eRx and Interaction Alerts* Active Tirosint *[facility]* Active duloxetine *Reorder from [facility] for eRx and Interaction Alerts* Active Ketorolac *Reorder from [facility] for eRx and Interaction Alerts* Active Ibuprofen *[facility]* Active Encounters Encounter Location Date Provider Diagnosis Migrated_Facility 0 0 12/16/2023 Provider Migration Migrated_Facility 0 0 12/17/2023 Provider Migration Plan Of Treatment No Information Medical (General) History Surgical History Surgery Date(Month/Year) cleft palate and lip Since 1999 2000 Ear tube placement Since 2000 2001 Tonsillectomy Since 2006 adenoidectomy Since 2006 appendectomy Since 2012 cholecystectomy Since 2020 Total thyroidectomy Since 2020
--- OUTSIDE RECORDS SUMMARY | 2024-08-30 05:59 | XMS_ITS | Patient Health Record ---
Author Organization [facility] Address [address] [place] [address] Care Team Providers Care Electric Power Line Examiner Name Role Phone ( [facility] ), PHYSICIAN NOT IDENTIFIED Primary Care Provider Unavailable Mian Damon Unavailable [phone] Allergies Allergen (clinical drug ingredient) Drug/Non Drug Allergy documented on EMR Reaction Allergy Type Onset Date Status amoxicillin Amoxicillin Unknown Drug Allergy Act rodriguez Penicillin Unknown Drug Allergy Active Reason For Referral No Information Medications Medication SIG (Take, Route, Frequency, Duration) Notes Start Date End Date Status BuSpar Active Synthroid Active Vital Signs Heart Rate 55 /min 08/28/2024 Height-cm 165.1 cm 08/28/2024 Blood pressure diastolic 66 mm Hg 08/28/2024 Weight-kg 69.85 kg 08/28/2024 Height 65 in 08/28/2024 Blood pressure systolic 98 mm Hg 08/28/2024 Weight 154 lbs 08/28/2024 BMI 25.62 kg/m2 08/28/2024 Encounters Encounter Location Date Provider Diagnosis [facility] [address] [place] [address] 08/28/2024 Mian Damon Plan Of Treatment No Information Insurance Providers Payer Name Payer Address Payer Phone Subscriber Number Group Number Insured Name Patient Relationship to Insured Coverage Start Date Coverage End Date [facility] Plan Dental [address] [place] [address] [id number] Farhad Ardon Self - patient is the insured [facility] Plan of [place] [address] [place] [address] [id number] Farhad Ardon Self - patient is the insured
[2024-08-30 06:12] VITALS: BP 94/65; PULSE 63; RESP 16; TEMP 36.4; O2SAT 96; BMI 25.2
--- NOTE | 2024-08-30 06:21 | ED_ITS ---
HPI - Female Genitourinary 2 General: Chief complaint: Urogenital-Female Stated complaint: left flank pain Time Seen by Provider: 08/30/24 06:00 History of Present Illness: 24-year-old female presents emergency ro om complaining of left flank pain for the last 3 days with nausea vomiting some dysuria as well no hematuria. Patient has had kidney stones in the past states does not feel like kidney stone. She has no specific abdominal pain. No diarrhea. Associated symptoms: Deny abdominal pain Date of Last Menstrual Period: 07/25/24 Related Data Home Medications ?Medication ?Instructions ?Recorded ?Confirmed buspirone 15 mg tablet 15 mg PO BID 07/11/24 levothyroxine 200 mcg tablet 200 mcg PO DAILY 07/11/24 08/30/24 Previous Rx's ?Medication ?Instructions ?Recorded polyethylene glycol 3350 17 17 g PO DAILY #510 grams 0 06/07/24 gram/dose oral powder (Miralax) diclofenac sodium 75 mg 75 mg PO Q12H PRN pain #20 t abs 08/30/24 tablet,delayed release Allergies Allergy/AdvReac Type Severity Reaction Status Date / Time amoxicillin Allergy ADR-Nausea Verified 08/30/24 06:15 Fish Containing Products Allergy ADR-Nausea Verified 08/30/24 06:15 Penicillins Allergy ADR-Nausea Verified 08/30/24 06:15 shellfish derived Allergy ADR-Itching Verified 08/30/24 06:15 Review of Systems 2 Const: Denies: fever(s) or chills Card: Denies: chest pain Resp: Denies: dyspnea GI: Denies: abdominal pain : Reports: flank pain (Left) and hematuria; Denies: dysuria, urinary frequency or urinary urgency Musc: Denies: neck pain or back pain Skin/Breast: Denies: rash PFSH ED 2 PFSH: Medical History Migraine Anxiety 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 Adrenal insufficiency No pertinent family history Surgical History History of tonsillectomy and adenoidectomy History of myringotomy twice as a child History of laparoscopic appendectomy History of laparoscopic cholecystectomy History of cleft palate with cleft lip History of thyroid surgery (~2020) Full thyroidectomy-- performed in [place] Family History Grandmother Diabetes mellitus, type 2 MGM Hypertension PGM Grandfather Hypertension PGF Denies family history of Colon cancer Ovarian cancer Prostate cancer CAD (coronary artery disease) Hyperlipidemia Chronic kidney disease (CKD) Breast cancer Bleeding disorder Family history of premature coronary artery disease Uterine cancer Thyroid disease Social History Smoking and tobacco/nicotine status: never used tobacco/nicotine Second hand smoke exposure: No Alcohol intake: current Alcohol intake frequency: holidays/special occasions only Substance/Drug Use: never Adopted: No Caregiver/support person: No Lives independently: Yes Household members: spouse and children Housing: House Marital status: Highest education level completed: High School Graduate service: No Current occupational status: employed Current occupation: [employer] Current occupational exposures/hazards: No Female Reproductive History: Date of last menstrual period: 07/25/24 Physical Exam 2 Const: COMMON NORMALS: no acute distress GENERAL APPEARANCE: cooperative and comfortable ORIENTATION/CONSCIOUSNESS: Yes awake, Yes oriented to person, Yes oriented to place and Yes oriented to time HENMT: COMMON NORMALS: normocephalic, atraumatic and hearing grossly normal bilaterally HEAD & SCALP: normocephalic and atraumatic Resp: COMMON NORMALS: normal respiratory effort, No retractions, No use of accessory muscles and clear to auscultation bilaterally AUSCULTATION: clear to auscultation bilaterally Cardio: COMMON NORMALS: regular rate, regular rhythm and No murmurs present (Cardio) RATE: regular rate RHYTHM: regular rhythm GI: COMMON NORMALS: Soft to palpation and No hepatosplenomegaly present A USCULTATION: Yes normoactive bowel sounds PALPATION: Yes Soft to palpation, No Tenderness to palpation present (GI), No Guarding due to palpation present (GI) and Yes No hepatosplenomegaly present Extremity: COMMON NORMALS: normal to inspection, capillary refill normal, no clubbing, cyanosis or edema, no calf tenderness and no pedal edema Neuro: SENSORIUM/ORIENTATION: Yes oriented to person, Yes oriented to place and Yes oriented to time Skin: COMMON NORMALS: no rashes or lesions noted GENERAL SKIN EXAM: no rashes or lesions noted Course 2 Vital Signs: Vital signs: Vital Signs Temperature 97.5 F L 08/30/24 06:12 Pulse Rate 62 08/30/24 11:44 Respiratory Rate 18 08/30/24 10:40 Blood Pressure 99/75 08/30/24 11:44 Pulse Oximetry 100 08/30/24 11:44 Oxygen Delivery Me thod Room Air 08/30/24 06:12 MDM - Female Medical Decision Making Urine showed significant hematuria. CT done did not show any renal stones but did show fluid in the pelvis with radiologist unable to quantify if this was blood or abscess. On ultrasound appears to be in fluid. She has a history of ovarian cysts close radiology thinks it likely is fluid from an ovarian cyst patient is feeling better repeat exam she has a benign abdomen at this time. No leukocytosis discharged home start on diclofenac as needed follow-up with primary care doctor return if she has further problems. UA did not show any signs of cystitis. Medical Records I reviewed the patient's medical records. Lab Data I reviewed the patient's lab results. 08/30/24 07:11 08/30/24 07:11 Radiology Impressions Abdomen/Pelvis CT 08/30/24 08:48 IMPRESSION: 1. Bowel wall thickening of the LEFT colon. This may represent colitis. 2. Moderate size complex fluid collection in the posterior pelvis. This is new since the CT performed 06/28/2024. 3. No sign of urinary tract stone or obstruction. Pelvis Ultrasound 08/30/24 09:49 IMPRESSION: 1. Moderate free fluid collection in the cul-de-sac. No obvious solid pelvic mass identified. Differential considerations would include pelvic inflammatory disease, ruptured ectopic or ruptured ovarian cyst as well as other etiologies. 2. Normal uterus and LEFT ovary. The RIGHT ovary could not be identified within degree of certainty. No intrauterine identified. Laboratory Results WBC 5.43 10^3/uL (3.29-11.43) 08/30/24 07:11 RBC 3.59 10^6/uL (3.85-5.65) L 08/30/24 07:11 Hgb 10.60 g/dL (11.27-16.99) L 08/30/24 07:11 Hct 32.5 % (36-47) L 08/30/24 07:11 MCV 90.5 fl (85-98) 08/30/24 07:11 MCH 29.5 pg (27-33) 08/30/24 07:11 MCHC 32.6 g/dL (30-55) 08/30/24 07:11 RDW 15.5 % (12.1-15.1) H 08/30/24 07:11 Plt Count 257 10^3/cmm (157-399) 08/30/24 07:11 MPV 10.6 fL (7.4-10.4) H 08/30/24 07:11 Neut % (Auto) 44.8 % 08/30/24 07:11 Lymph % (Auto) 48.1 % 08/30/24 07:11 Price % (Auto) 5.0 % 08/30/24 07:11 Eos % (Auto) 1.3 % 08/30/24 07:11 Baso % (Auto) 0.6 % 08/30/24 07:11 Neut # (Auto) 2.44 10^3/uL (1.8-7.7) 08/30/24 07:11 Lymph # (Auto) 2.6 10^3/uL (0.8-4.8) 08/30/24 07:11 Price # (Auto) 0.3 10^3/uL (0.2-0.9) 08/30/24 07:11 Eos # (Auto) 0.1 10^3/uL (0.0-0.8) 08/30/24 07:11 Baso # (Auto) 0.0 10^3/uL (0.0-0.1) 08/30/24 07:11 Nucleated RBC % (auto) 0 % 08/30/24 07:11 Nucleated RBCs # 0.0 /100WBC 08/30/24 07:11 Sodium 141 mmol/L (136-145) 08/30/24 07:11 Potassium 3.7 mmol/L (3.5-5.1) 08/30/24 07:11 Chloride 104 mmol/L (98-107) 08/30/24 07:11 Carbon Dioxide 25 mmol/L (22-29) 08/30/24 07:11 Anion Gap 15.7 (5-19) 08/30/24 07:11 BUN 10 mg/dL (6-20) 08/30/24 07:11 Creatinine 1.3 mg/dL (0.5-0.9) H 08/30/24 07:11 GFR Calculation 49.9 mL/min (90-130) L 08/30/24 07:11 Glucose 88 mg/dL (65-115) 08/30/24 07:11 Calculated Osmolality 290 mOsm/kg (285-295) 08/30/24 07:11 Lactic Acid 0.6 mmol/L (0.5-2.2) 08/30/24 07:11 Calcium 8.3 mg/dL (8.5-10.5) L 08/30/24 07:11 Total Bilirubin 0.4 mg/dL (0.15-1.2) 08/30/24 07:11 AST 23 U/L (0-32) 08/30/24 07:11 ALT 12 U/L (0-33) 08/30/24 07:11 Alkaline Phosphatase 48 U/L (35-105) 08/30/24 07:11 Total Protein 6.8 g/dL (6.6-8.7) 08/30/24 07:11 Albumin 4.4 g/dL (3.5-5.2) 08/30/24 07:11 Globulin 2.4 g/dL (1.3-4.6) 08/30/24 07:11 HCG, Qual Negative (Negative) 08/30/24 07:11 Urine Color Yellow (Yellow) 08/30/24 06:25 Urine Appearance Clear (CLEAR) 08/30/24 06:25 Urine pH 5.5 (5-7) 08/30/24 06:25 Ur Specific [place] 1.033 (1.005-1.030) H 08/30/24 06:25 Urine Protein Trace (Negative) A 08/30/24 06:25 Urine Glucose (UA) Negative (Normal) 08/30/24 06:25 Urine Ketones Trace (Negative) 08/30/24 06:25 Urine Blood 3+ (Negative) A 08/30/24 06:25 Urine Nitrate Negative (Negative) 08/30/24 06:25 Urine Bilirubin Negative (Negative) 08/30/24 06:25 Urine Urobilinogen 1.0 mg/dL (Negative) 08/30/24 06:25 Ur Leukocyte Esterase Negative (Negative) 07/11/25 06:25 Urine RBC >100 /hpf (0-2) H 08/30/24 06:25 Urine WBC 0-5 /hpf (0-5) 08/30/24 06:25 Ur Squamous Epith Cells 6-10 /hpf (0-5) 08/30/24 06:25 Amorphous Sediment Not Reportable 08/30/24 06:25 Urine Bacteria Trace /hpf (NONE) 08/30/24 06:25 Hyaline Casts 0-4 /lpf H 08/30/24 06:25 All radiology interpretation(s) finalized by discharge Discharge Plan Discharge Patient Disposition: Home Clinical Impression: Ovarian cyst rupture Condition: Stable Prescriptions: New diclofenac sodium 75 mg tablet,delayed release (DR/EC) 75 mg PO Q12H PRN (Reason: pain) Qty: 20 0RF No Action levothyroxine 200 mcg tablet 200 mcg PO DAILY buspirone 15 mg tablet 15 mg PO BID polyethylene glycol 3350 [Miralax] 17 gram/dose powder 17 g PO DAILY Qty: 510 0RF Discharge Orders: Discharge ED (Routine); Ordered 08/30/24 Ordered By: Uri Paredes Referrals: Herminio Wayne MD [Primary Care Provider, Family Practice] Discharge Diet: Usual diet Discharge Activity: Increase activity as tolerated Patient Instructions: Ruptured Ovarian Cyst (ED), Opioid Safety, Pain Management, Patient Portal & Jeff Instructions Activity Restrictions/Additional Instructions: Thank you for choosing [facility] for your healthcare needs today. It is very important that you follow up as instructed or that you return to the Emergency Department should you have concerns or if your condition changes or worsens in any way. You are seen in the emergency room with left flank pain. CT showed fluid in the pelvis but no sign of kidney stones there was some blood in the urine which is likely Vaginal contaminant. There is no sign of bladder infection. Ultrasound showed a fluid as well appears to be from an ovarian cyst rupture. Urine test was negative. You are given diclofenac to use as needed follow- up with your primary care doctor as needed Print Language: Lebanese Coding Level of Care Code ED Digital Imager for Jim Engle
[2024-08-30 07:11] LABS: Glucose Urine UA Negative (Normal); Nitrate Urine Negative (Negative)
[2024-08-30 07:16] LABS: Add Urine Microscopic? YES
[2024-08-30 07:19] VITALS: BP 94/63; PULSE 54; RESP 18; O2SAT 99
[2024-08-30] MEDS: ondansetron 2 mg/ML SDV 2 mL 4 MG IVP (07:21)
[2024-08-30 07:28] LABS: Hematocrit 32.5 % (36-47); Hemoglobin 10.60 g/dL (11.27-16.99); Mean Corpuscular HGB Conc 32.6 g/dL (30-55); Mean Corpuscular Hemoglobin 29.5 pg (27-33); Mean Corpuscular Volume 90.5 fl (85-98); Nucleated Red Blood Cells % 0 %; Platelet Count 257 10^3/cmm (157-399); Red Blood Count 3.59 10^6/uL (3.85-5.65); White Blood Count 5.43 10^3/uL (3.29-11.43)
[2024-08-30 07:44] LABS: Alanine Aminotransferase 12 U/L (0-33); Albumin Level 4.4 g/dL (3.5-5.2); Alkaline Phosphatase 48 U/L (35-105); Anion Gap 15.7 (5-19); Aspartate Amino Transferase 23 U/L (0-32); Blood Urea Nitrogen 10 mg/dL (6-20); Calcium 8.3 mg/dL (8.5-10.5); Carbon Dioxide 25 mmol/L (22-29); Chloride 104 mmol/L (98-107); Creatinine Clr Calc Pharmacy 64.5175; Globulin 2.4 g/dL (1.3-4.6); Glucose 88 mg/dL (65-115); HCG, Serum Qual Negative (Negative); Osmolality Calculated 290 mOsm/kg (285-295); Potassium 3.7 mmol/L (3.5-5.1); Sodium 141 mmol/L (136-145); Total Protein 6.8 g/dL (6.6-8.7)
[2024-08-30 07:59] LABS: Specific Gravity, Urine 1.033 (1.005-1.030)
--- NOTE | 2024-08-30 08:48 | CT_ITS ---
WS: [id number] Exam: CT kidney stone [id number] Date/Time of Exam: 08/30/2024 8:48 AM Reason For Exam: flank pain DLP: 443.[address] scans at [facility] use at least one of these dose optimization techniques: automated exposure control; mA and/or kV adjustment per patient size (includes targeted exams where dose is matched to clinical indication); or iterative reconstruction. Compared to contrast exam performed 06/28/2024. Lower lung zones are clear. There is no sign of renal or ureteral stone. No evidence of urinary tract obstruction. The liver, stomach, spleen and pancreas appear normal. Unremarkable kidneys and adrenal glands. The abdominal aorta is normal in caliber. The IVC is unremarkable. Mild pneumobilia. Status post cholecystectomy. No lymphadenopathy or free fluid. Small bowel loops are normal in caliber. Signs of appendectomy. There appears to be some bowel wall thickening of the LEFT colon. Moderate size complex fluid collection in the posterior pelvis. The urinary bladder is intact. The uterus is unremarkable. CT/CT kidney stone [id number] IMPRESSION: 1. Bowel wall thickening of the LEFT colon. This may represent colitis. 2. Moderate size complex fluid collection in the posterior pelvis. This is new since the CT performed 06/28/2024. 3. No sign of urinary tract stone or obstruction.
--- NOTE | 2024-08-30 09:08 | PC.PHAR ---
pATIENT STATES SHE FILLS WITH Roxann G[facility] . I called and verified and Patient hasn't filled anything since June 2024. patient states she takes Buspirone 15mg and Levothyroxine 175.Pharmacy States they last filled a Levothyroxine 200 30days , no fills for a 175mcg.. Busirone 15 last fill 06/26/24 30days .
--- NOTE | 2024-08-30 09:49 | US_ITS ---
WS: [id number] Exam: US pelvic complete* [id number] Date/Time of Exam: 08/30/2024 10:19 AM Reason For Exam: Fluid collection in pelvis on CT Transabdominal pelvic ultrasound was performed. Patient declined transvaginal ultrasound. Moderate free fluid collection noted in the posterior cul-de-sac. No solid pelvic mass is identified. The LEFT ovary is identified and shows normal blood flow with color flow Doppler. The LEFT ovary measures 3.7 x 2.6 x 2.6 cm. The RIGHT ovary is not seen with any degree of certainty. Endometrial stripe measures 1.1 cm in greatest thickness. The uterus is not enlarged. The uterus measures 8.3 x 4.4 x 6.3 cm. No sign of intrauterine . US/US pelvic complete* [id number] IMPRESSION: 1. Moderate free fluid collection in the cul-de-sac. No obvious solid pelvic ma ss identified. Differential considerations would include pelvic inflammatory di sease, ruptured ectopic or ruptured ovarian cyst as well as other etiologies. 2. Normal uterus and LEFT ovary. The RIGHT ovary could not be identified within degree of certainty. No intrauterine identified.
[2024-08-30 10:06] LABS: Lactic Sepsis W/Reflex 0.6 mmol/L (0.5-2.2)
[2024-08-30 10:22] VITALS: BP 92/68; PULSE 61; RESP 17; O2SAT 100
[2024-08-30 10:40] VITALS: RESP 18; O2SAT 100
[2024-08-30] MEDS: morphine 4 mg/mL SDV 1 mL IVP (10:40)
[2024-08-30 11:44] VITALS: BP 99/75; PULSE 62; O2SAT 100
== END 2024-08-30 12:09 | disposition home or self-care (01) ==
PROVIDERS: Emergency Provider Family Medicine; PCP Family Medicine
DX: N83.209 Unspecified ovarian cyst, unspecified side (principal); E06.3 Autoimmune thyroiditis; Z79.899 Other long term (current) drug therapy; Z79.890 Hormone replacement therapy
CPT/HCPCS: 36415; 74176; 76856; 80053; 81001; 83605; 84703; 85025; 87086; 96361; 96374; 96375; 99285; J2270; J2405; J7030

== ENCOUNTER 2024-09-17 04:18 | Inpatient (IN) | payer BC, SELFPAY ==
--- OUTSIDE RECORDS SUMMARY | 2023-12-16 04:00 | XMS_ITS ---
Author Organization [facility] Address [address] [place] [address] Care Team Providers Care Upkeep Worker Name Role Phone Herminio Shoemaker Primary Care Provider Unavailabl e Migration, Provider Unavailable Unavailable REASON FOR VISIT EMR-Jovon Encounters Encounter Location Date Provider Diagnosis Migrated_Facility 0 0 12/16/2023 Provider Migration Plan Of Treatment No Information Progress Notes * Farhad BUITRAGO DarryneeDOB: (24 yo F)Acc No.[id number]:12/16/2023 Patient: Farhad KENYON :2000 A ge:23 Y S ex:Female Address:[address] [place] [address], [phone] Subjective: * Chief Complaints: * E MR-Jovon * * Date:
--- OUTSIDE RECORDS SUMMARY | 2023-12-17 04:00 | XMS_ITS ---
Author Organization [facility] Address [address] [place] [address] Care Team Providers Care Principal Mechanical Engineer Name Role Phone Herminio Shoemaker Primary Care Provider Unavailabl e Migration, Provider Unavailable Unavailable Allergies Allergen (clinical drug ingredient) Drug/Non Drug Allergy documented on EMR Reaction Allergy Type Onset Date Status amoxicillin Amoxicillin Vomiting, Itching Drug Allergy Active Substance with penicillin structure and antibacterial mechanism of action (substance) Penicillins Vomiting, Itching Drug Allergy Active REASON FOR VISIT EMR-Jovon Medications Medication SIG (Take, Route, Frequency, Duration) Notes Start Date End Date Status hydrOXYzine HCl *[facility]* Active tizanidine *Reorder from [facility] for eRx and Interaction Alerts* Active duloxetine *Reorder from [facility] for eRx and Interaction Alerts* Active Ketorolac *[facility] and Interaction Alerts* Active Ibuprofen *Pick strength-f orm from [facility]* Active Tirosint *Pick strength-f orm from [facility]* Active Social History Social History [...] * Farhad BUITRAGO DarryneeDOB: (24 yo F)Acc No.[id number]:12/17/2023 Patient: Farhad KENYON :2000 A ge:23 Y S ex:Female Address:[address] [place] [id number] Subjective: * Chief Complaints: * E MR-Jovon [...] , Notes to Pharmacist: *Pick strength-form from [facility] for eRX*Taking Ketorolac , Notes to Pharmacist: *Reorder from [facility] for eRx and Interaction Alerts*Taking duloxetine , Notes to Pharmacist: *Reorder from [facility] for eRx and Interaction Alerts* * Allergies: A moxicillin: Vomiting, Itching - AllergyPenicillins: Vomiting, Itching - Allergy * * Date:
--- OUTSIDE RECORDS SUMMARY | 2024-02-19 09:40 | XMS_ITS ---
Author Organization [facility] Address [address] [place] [address] Care Team Providers Care Research Tech Name Role Phone Herminio Shoemaker Primary Care Provider Unavailabl Malachi Castellano Unavailable [phone] REASON FOR VISIT Est care Encounters Encounter Location Date Provider Diagnosis [facility] [address] [place] [phone] 02/19/2024 Malachi Pierce Plan Of Treatment No Information Progress Notes * Farhad BUITRAGOeeDOB: (24 yo F)Acc No.[id number]:02/19/2024 Progress Notes Patient: Farhad Hilario Provider: Reny Pierce MD :2000 A ge:23 Y S ex:Female Date:02/19/2024 Address:[address] [place] [address] [facility] Pcp:Herminio Shoemaker Subjective: * Chief Complaints: * E st care * Electronic signature of Joanie Pierce MD on 09/17/2024 at 04:59 AM CDT Sign off status: Pending * Provider: Reny Pierce MD Date: Generated for Fito orozco/Paula/Keyshaitting on: 09/17/2024 04:59 AM CDT
--- OUTSIDE RECORDS SUMMARY | 2024-08-09 10:30 | XMS_ITS ---
Author Organization [facility] Address [address] [place] [address] Care Team Providers Care Retail Agent Name Role Phone ( [facility] ), PHYSICIAN NOT IDENTIFIED Primary Care Provider Unavailable Mian Damon Unavailable [phone] REASON FOR VISIT Ref/Pano/ car issues Encounters Encounter Location Date Provider Diagnosis [address] [place] [address] Dental Clinic [address] [place] [phone] 08/09/2024 Mian Damon Plan Of Treatment Next Appt Details Provider Name:Mian Damon, 10/18/2024 11:00:00 AM, [address], [place], [address], Progress Notes * ARDON CarterDylanOB: 0 (24 yo F)Acc No.[id number]:08/09/2024 Patient: Farhad Nava Provider: Cali Damon DDS :2000 A ge:24 Y S ex:Female Date:08/09/2024 Address:[address] [place], [place] [id number] Pcp:PHYSICIAN NOT IDENTIFIED ( [facility] ) Subjective: * Chief Complaints: * R ef/Pano/ car issues Billing Information: * Procedure Codes: * Electronic signature of Zenon Damon on 09/17/2024 at 04:58 AM CDT Sign off status: Pending * Provider: Cali Damon DDS Date: 0 08/09/2024 Generated for Fito orozco/Paula/Amrit on: 0 09/17/2024 04:58 AM CDT
[2024-09-17] VITALS (88 sets, daily range): BP systolic 60–141; BP diastolic 39–85; PULSE 38–64; RESP 5–26; TEMP 36.1–36.6; O2SAT 87–100; BMI 25.7
--- OUTSIDE RECORDS SUMMARY | 2024-09-17 04:59 | XMS_ITS | Data Portability ---
Author Organization [place] - [facility] [employer], [facility] Address [address] [address] Care Team Providers Care Space And Missile Operations Spacelift Name Role Phone LEAH SANCHEZ Primary Care Provider [phone] Assessment No assessment recorded. Plan of Treatment Reminders Order Date Submit Date Provider Last Modified By Organization Details Last Modified Time Details Appointments None recorded. Lab pap, LB 2023 024 [place] [facility], [address] [place], [address], 4 10:15:01 CT + NG DNA, PCR, unspecified specimen 2023 024 [place] [facility], [address] [place], [address], 4 10:15:02 CBC w/ auto diff 2023 024 [place] [employer] [facility], [address] [place], [address], 4 11:08:00 Referral None recorded. Procedures None recorded. Surgeries None recorded. Imaging US, obstetric, 1st trimester 2023 024 [place] In-Office Order, Internal Use Only DO Not Attach Compendium DO Not Attach Compendium, Do Not Delete/merge, [id number] 11:32:16 Medication Orders Lysteda 650 mg tablet 2023 024 [place] [id number], [address] [place], [place], [id number], 11:55:08 Patient TargetsNo targets recorded. Patient Instructions Encounter Date Encounter Id Patient Instructions Last Modified By Organization Details Last Modified Time 04/06/2023 [id number] self breast exam education amyl Not available 04/06/2023 11:55:02 osteoporosis education amyl Not available 04/06/2023 11:55:02 Reason for Referral None Reported. Results Created Date Observation Date Name Description Value Unit Range Abnormal Flag Note LastModifiedBy Organization Detail LastModifiedTime 04/06/19 24 04/07/2023 CBC (INCL UDES DIFF/ PLT) white blood cell count 8.9 thous and/u L 3.8-10 .8 normal Not Available [employer] [address], [address], 04/07/2023 11:08:00 04/06/19 24 04/07/2023 CBC (INCL UDES DIFF/ PLT) red blood cell count 4.24 charles on/uL 3.80-5 .10 normal Not Available [employer] [address], [address], 04/07/2023 11:08:00 04/06/1904/07/2023 CBC (INCL UDES DIFF/ PLT) hemoglobin 12.4 g/dL 11.7-1 5.5 normal Not Available [employer] [address], [address], 04/07/2023 11:08:00 04/06/1904/07/2023 CBC (INCL UDES DIFF/ PLT) hematocrit 36.9 % 35.0-4 5.0 normal Not Available [employer] [address], [address], 04/07/2023 11:08:00 04/06/19 24 04/07/2023 CBC (INCL UDES DIFF/ PLT) MCV 87.0 fL 80.0-1 00.0 normal Not Available [employer] [address], [address], 04/07/2023 11:08:00 04/06/19 24 04/07/2023 CBC (INCL UDES DIFF/ PLT) MCH 29.2 pg 27.0-3 3.0 normal Not Available [address], [address], 04/07/2023 11:08:00 04/06/19 24 04/07/2023 CBC (INCL UDES DIFF/ PLT) MCHC 33.6 g/dL 32.0-3 6.0 normal Not Available [address], [address], 04/07/2023 11:08:00 04/06/19 24 04/07/2023 CBC (INCL UDES DIFF/ PLT) RDW 12.7 % 11.0-1 5.0 normal Not Available [address], [address], 04/07/2023 11:08:00 04/06/19 24 04/07/2023 CBC (INCL UDES DIFF/ PLT) platelet count 482 thous and/u L 140-40 0 high Not Available [address], [address], 04/07/2023 11:08:00 04/06/19 24 04/07/2023 CBC (INCL UDES DIFF/ PLT) MPV 10.6 fL 7.5-12 .5 normal Not Available [address], [address], 04/07/2023 11:08:00 04/06/19 24 04/07/2023 CBC (INCL UDES DIFF/ PLT) absolute neutrophils 4904 cells /uL 1500-7 800 normal Not Available [address], [address], 04/07/2023 11:08:00 04/06/19 24 04/07/2023 CBC (INCL UDES DIFF/ PLT) absolute lymphocytes 3186 cells /uL 850-39 00 normal Not Available [address], [address], 04/07/2023 11:08:00 04/06/19 24 04/07/2023 CBC (INCL UDES DIFF/ PLT) absolute monocytes 703 cells /uL 200-95 0 normal Not Available [address], [address], 04/07/2023 11:08:00 04/06/19 24 04/07/2023 CBC (INCL UDES DIFF/ PLT) absolute eosinophils 53 cells /uL 15-500 normal Not Available [address], [address], 04/07/2023 11:08:00 04/06/19 24 04/07/2023 CBC (INCL UDES DIFF/ PLT) absolute basophils 53 cells /uL 0-200 normal Not Available [address], [address], 04/07/2023 11:08:00 04/06/19 24 04/07/2023 CBC (INCL UDES DIFF/ PLT) neutrophils 55.1 % normal Not Available [address], [address], 04/07/2023 11:08:00 04/06/19 24 04/07/2023 CBC (INCL UDES DIFF/ PLT) lymphocytes 35.8 % normal Not Available [address], [address], 04/07/2023 11:08:00 04/06/19 24 04/07/2023 CBC (INCL UDES DIFF/ PLT) monocytes 7.9 % normal Not Available [address], [address], 04/07/2023 11:08:00 04/06/19 24 04/07/2023 CBC (INCL UDES DIFF/ PLT) eosinophils 0.6 % normal Not Available [facility] [address] [place], [address], 04/07/2023 11:08:00 04/06/19 24 04/07/2023 CBC (INCL UDES DIFF/ PLT) basophils 0.6 % normal Not Available [facility] [address] [place], [address], 04/07/2023 11:08:00 04/06/19 24 04/10/2023 THINP REP PAP TEST thinprep Pap test NEGATI VE negati ve normal . -- THIN PREP PAP TEST -- LUPE CTED DATE: 04/06 SEX: F : [birth year] AGE: 22 [id number] CLINI C ID: [id number] SS: PHYSI TAMMY: [facility] CTED BY: . Negat janina [...] c Signa ture 2023 08:59 ) . [facility] , [address] , [place] [address] , CLIA# [id number] Medic al Direc tor: Ern[address], DO Not Available [facility] [place] [address] [place], [address], 04/10/2023 10:15:00 04/06/19 24 04/06/2023 GONOR HESHAM/ CHLAM YDIA AMPLI FIED gonorrhea, amplified NEGATI VE negati ve normal Not Available [facility] [place] [address] [place], [address], 04/10/2023 10:15:02 04/06/19 24 04/07/2023 GONOR HESHAM/ CHLAM YDIA AMPLI FIED chlamydia, amplified NEGATI VE negati ve normal . DNA Test Resul LUPE CTED DATE: 04/06 SEX: F : 07/03 AGE: 22 [id number] CLINI C ID: [id number] SS: MIRANDA OROSCON: [facility] CTED BY: [id number] -1018 0 Speci men Sourc e: Cervi x Speci men Type: ThinP rep PAP Corre latin g Pap: [id number] . Neiss eria gonor rhoea e: NEGAT JANINA Latesha l Value : Negat janina . Chlam ydia trach omati s: NEGAT JANINA Latesha l Value : Negat janina . [facility] , [address] , [place] [address] , CLIA# [id number] Medic al Direc tor: Ernesto d [address] [place] [address], DO Not Available [employer] [address], [place], [address], 04/10/2023 10:15:02 04/06/19 24 04/06/2023 pregn sarah test, urine Result negati ve Not Available In-Office Order Internal Use Only DO Not Attach Compendium DO Not Attach Compendium, Do Not Delete/merge, [id number] 04/06/2023 12:52:55 05/22/19 24 05/22/2023 US, trans vagin al No observ ation record ed. [email or web address] Not Available 05/21 10:41:50 05/22/19 24 05/22/2023 US, obste tric, 1st trime ster No observ ation record ed. [email or web address] In-Office Order Internal Use Only DO Not Attach Compendium DO Not Attach Compendium, Do Not Delete/merge, [id number] 05/26/2023 11:32:16 05/22/19 24 05/22/2023 imagi ng/di agnos tic resul t No observ ation record ed. [email or web address] Not Available 2023 15:06:47 Result Notes None recorded. Problems Name Problem SNOMED Code Status Onset Date Resolution Date Notes Provider Name and Address Organization Details Recorded Time Alireza thyroiditis 17654208 Active 2023 Karlie thomas [place] - [facility] 10:20:19 Hypothyroidism 65011537 Active 2023 DAYO [place] - [facility] 10:20:25 Problem Notes None recorded. Procedures Surgical History Date Name Laterality Status Provider Name and Address Organization Details Recorded Time Appendectomy completed Karlie Palafox [place] [facility] 04/06/2023 10:24:14 cholecystectomy completed Karlie Palafox [place] [facility] 04/06/2023 10:24:23 tonsillectomy completed Karlie Palafox [place] [facility] 04/06/2023 10:24:27 thyroidectomy completed Karlie Palafox [place] [facility] 04/06/2023 10:24:34 repair of cleft lip completed Karlie [place]afox [place] [facility] 04/06/2023 10:24:41 repair of cleft palate completed Karlie Palafox [place] [facility] 04/06/2023 10:24:49 Imaging Results None recorded. Procedure Notes None recorded. Medical Equipment None Reported. Allergies Allergen ID Allergen Name Allergen Category Reaction Reaction Severity Criticality Documentation Date Start Date Code Code System Note Provider Name and Address Organization Details Recorded Time 84610 amoxicill in medicatio n nausea vomiting Not available Not available Not available 04/06/2023 723 RxNorm all -cill ins Karlie thomas, [place] - [facility] 4 10:17:32 21609 shellfish derived food,medi cation nausea vomiting Not available Not available Not available 04/06/2023 [id number] UNK Karlie thomas, DAYO - [facility] 10:17:46 Medications Name Sig Start Date Stop [...] Address Organization Details Last Updated DateTime 04/06/2023 86836.49 g 19.8 kg/m2 165.1 cm 120/62 mm[Hg] Karlie Palafox [place] [facility] 04/06/2023 10:17:03 Date Recorded Body height Body mass index (BMI) Body weight Systolic And Diastolic Provider Name and Address Organization Details Last Updated DateTime 05/22/2023 165.1 cm 20.6 kg/m2 32392.45 g 114/68 mm[Hg] Genesis Jose [place] [facility] 05/22/2023 10:50:57 Social History Question Answer Notes LastModified by Organizat ion Details LastModified Time Tobacco Smoking Status Never Smoker Karlie Palafox null, [place] [facility] 04/06/2023 10:23:21 What Is Your Level Of Caffeine Consumption? Heavy [email or web address] Information not available 04/06/2023 Who Is Your Employer? [employer] [email or web address] Information not available 04/06/2023 How Many Children Do You Have? 2 [email or web address] Information not available 04/06/2023 What Is Your Relationship Status? Information not available 04/06/2023 Are You Sexually Active? Yes [email or web address] Information not available 04/06/2023 Sex: Unknown Functional Status Question Answer Note LastModified by Organizat ion Details LastModified Time Do you use any illicit or recreational drugs? No [email or web address] Information not available 04/06/2023 Do you or have you ever used any other forms of tobacco or nicotine? No [email or web address] Information not available 04/06/2023 What is your level of alcohol consumption? Occasional [email or web address] Information not available 04/06/2023 Are you currently employed? 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 None [email or web address] Information not available 04/06/2023 Mental Status None recorded. Family History Relationship Description Onset Age of this Age Resolved Age Notes LastModified by Organization Details LastModified Time Maternal Grandmother Diabetes mellitus [email or web address] Not available 2023 10:22:45 Maternal Grandmother Hypertensive disorder [email or web address] Not available 2023 10:22:59 Paternal Grandmother Diabetes mellitus [email or web address] Not available 2023 10:22:45 Medical History Condition Response Breast Cancer N Endometriosis N Ovarian cancer N Blood Clots/DVT N Diabetes N Influenza Vaccine Y Hyperlipidemia N Thyroid disease Y Heart Disease N Hypertension N Gynecological History [...] SNOMED-CT Code Diagnosis ICD10 Code Diagnosis Note [id number] Nikki Cordova APRN, [facility] [address] [facility], [address] [place] [address] 04/06/2023 09:56:47 04/07/2023 06:44:45 Menorrhagia 553636758 N92.0 *script for sid is currently on [...] report if positive Specialize d medical examination 85177733 Z01.419 *yearly exam with pap/cultur esnormal examcurren tly on cycleHx Alireza' s - sees endo, on thyroid injections .Recommend she start a vitamin. Venereal d isease screening 226460544 Z11.3 Anemia screening 07 Z13.0 Dysmenorrhea 864588183 N 94.6 *see notes abovehisto ry of painful periods - but worse more recentlycu rrently desires conception may need tv pelvic us if persists [id number] Nikki Cordova APRN, [employer] [address], [address] [place] [address] 05/22/2023 09:21:11 05/22/2023 18:22:16 test positive 659747035 Z32.01 *Farhad, 22 year old , hx [...] Guarantor Name 03/29/2023 1 *SELF PAY* Al exshana Ardon 05/22/2023 2 [facility] ([place]ICA[place] REPLAC[place] - HMO) [facility] Farhad Buitrago [id number] Farhad Ardon 05/22/2023 1 [facility] ([place]) [id number] Farhad Ardon [id number] Farhad Ardon OBGyn Episode No OBEpisode recorded.
--- OUTSIDE RECORDS SUMMARY | 2024-09-17 04:59 | XMS_ITS | Patient Health Record ---
Author Organization [facility] Address [address] [place] [address] Care Team Providers Care Salvage Winder And Inspector Name Role Phone NIGELCHIVO GAMEZEL Unavailable [phone] Allergies Allergen (clinical drug ingredient) Drug/Non Drug [...] Temperature Encounters Encounter Location Date Provider Diagnosis [facility] [address] [place] [address] 01/30/2024 VISH SOARES Arthralgia, unspecified joint M25.50 [...] your doctor if you can take an dark-grl-wdjvzto pain medicine, such as acetaminophen (Tylenol), ibuprofen [...] Insured Coverage Start Date Coverage End Date [facility] [address] [place] [address] [id number] Duglas Farhad Self - patient is the insured Medical (General) History Medical History History ICD Code Hypothyroidism 11/2021 Chronic pain
--- OUTSIDE RECORDS SUMMARY | 2024-09-17 04:59 | XMS_ITS | Clinical Summary ---
Author Organization [facility] Address [address] [facility] [address] [place] [address] Phone Care Team Providers Care Research Professional Name Role Phone Unavailable Primary Care Provider [...] = 0.6 oz pur e alcohol) occasional Comments No Sex and Gender Information Value Date Recorded Sex Assigned at Not on file Legal Sex Female 5:32 PM HUMIDIFIER OPERATOR Gender Identity Not on file Sexual Orientation Not on file Last Filed Vital Signs Vital Sign Reading Time Taken Comments Blood Pressure 125/72 04/16/2023 6:42 PM HUMIDIFIER OPERATOR Pulse 82 04/16/2023 6:30 PM HUMIDIFIER OPERATOR Temperature 36.9 C (98.4 F) 04/16/2023 6:42 PM HUMIDIFIER OPERATOR Respiratory Rate 16 04/16/2023 6:42 PM HUMIDIFIER OPERATOR Oxygen Saturation 100% 04/16/2023 6:42 PM HUMIDIFIER OPERATOR Inhaled Oxygen Concentration - - Weight 60.8 kg (134 lb) 04/16/2023 5:47 PM HUMIDIFIER OPERATOR Height 162.6 cm (5' 4 ) 04/16/2023 5:47 PM HUMIDIFIER OPERATOR Body Mass Index 23 04/16/2023 5:47 PM HUMIDIFIER OPERATOR Plan of Treatment Health Maintenance Due Date Last Done Comments HPV VACCINES (1 - 3-dose series) 07/03/2014 DTAP/TDAP/TD VACCINES (1 - Tdap) 07/03/2018 HEPATITIS B VACCINES (1 of 3 - 19+ 3-dose series) 06/20 CERVICAL CANCER SCREENING 07/03/2020 HPV/Cotest (21-29) 07/03/2020 PAP SMEAR 07/03/2020 INFLUENZA VACCINE (#1) 2024 Insurance [facility] PLAN [facility] [id number] [employer] CHOICE POS II
--- OUTSIDE RECORDS SUMMARY | 2024-09-17 04:59 | XMS_ITS | Patient Health Record ---
Author Organization [facility] Address [address] [place] [address] Care Team Providers Care Rn Neonatal Name Role Phone ( [facility] ), PHYSICIAN NOT IDENTIFIED Primary Care Provider Unavailable Mian Damon Unavailable [phone] Allergies Allergen (clinical drug ingredient) Drug/Non Drug [...] 08/28/2024 Encounters Encounter Location Date Provider Diagnosis . [facility] [address] [place] [address] 08/28/2024 Mian Damon Plan Of Treatment Next Appt Details Provider Name:Mian Damon, 10/18/2024 11:00:00 AM, [address] [place], [address], Insurance Providers Payer Name Payer Address Payer Phone Subscriber Number Group Number Insured Name Patient Relationship to Insured Coverage Start Date Coverage End Date [facility] [address] [place] [address] [id number] Farhad Ardon Self - patient is the insured [facility] [address] [place] [address] [id number] Farhad Ardon Self - patient is the insured
--- OUTSIDE RECORDS SUMMARY | 2024-09-17 04:59 | XMS_ITS | Data Portability ---
Author Organization ID - Andrea Sloan [facility] Address [address] [place] [address] Assessment No assessment recorded. Plan of Treatment [...] days anny Not available 01/16/2021 18:36:07 09/09/2021 [id number] If temperature greater than 100.5 degrees develops [...] strenuous activity. Not available 09/10/2021 00:00:01 10/08/2021 [id number] Take dispensed COVID medication twice a day as directed for total of 5 days. If any new symptoms develop, shortness of breath that does not resolve with rest, or elevated heart rate that becomes more noticeable or associated with shortness of breath, you will need to be rechecked in the emergency room promptly. Inform your cigarette machines mechanic that you are being treated for COVID. Informed the cigarette machines mechanic and your biztalk architect next week of your elevated heart rate currently. You should have a low threshold for returning to the emergency department if you are concerned about any symptoms that worsen or new ones that develop. You should also quarantine for 5 days since symptoms onset assuming that your fever and symptoms improve markedly over the next 4 days. Not available 10/08/2021 21:42:54 01/04/2022 [id number] Take ibuprofen a nd Tylenol for the pain, come back in 2 weeks if you are not significantly improved [email or web address] Not available 01/04/2022 23:49:07 Hospital Discharge Instructions [...] in the emergency room promptly. Inform your cigarette machines mechanic that you are being treated for COVID. Informed the cigarette machines mechanic and your biztalk architect next week of your elevated heart rate [...] unkno wn SAMPLE SOURCE URINE Not Available [facility] (Lab Cpot - Use) [address] [place] [address], [place], [id number], Not Available 09/12/19 21 09/11/2020 unkno wn HCG URINE NEGATI VE Not Available [facility] (Lab Cpot - Use) [address] [place], [id number], Not Available 10/09/19 22 10/08/2021 Fibri n D-dim er FEU [Mass /volu me] in Plate let poor plasm a D-DIMER PLASMA (CA660) 2.01 mg/L 0.00 - 0.50 Not Available [facility] (Lab Cpot - Use) [address] [place], [id number], Not Available 10/09/19 22 10/08/2021 unkno wn WBC 7.0 K/uL 4.4 - 11.0 Not Available [facility] (Lab Cpot - Use) [address] [place], [id number], Not Available 10/09/19 22 10/08/2021 unkno wn RBC 3.3 M/uL 4.0 - 5.2 Not Available [facility] (Lab C[facility] - Use) [address] [place], [id number], Not Available 10/09/19 22 10/08/2021 unkno wn HGB 9.8 gm/dL 12.0 - 16.0 Not Available [facility] (Lab Cpot - Use) [address] [place], [id number], Not Available 10/09/19 22 10/08/2021 unkno wn HCT 28.6 %VOL 36.0 - 46.0 Not Available [facility] (Lab C[facility] - Use) [address] [place], [id number], Not Available 10/09/19 22 10/08/2021 unkno wn MCV 87.5 fl 80.0 - 98.0 Not Available [facility] (Lab C[facility] - Use) [address] [place], [id number], Not Available 10/09/19 22 10/08/2021 unkno wn MCH 30.0 pg 26.5 - 33.8 Not Available [facility] (Lab Cpot - Use) [address] [place], [id number], Not Available 10/09/19 22 10/08/2021 unkno wn MCHC 34.3 g/dL 33.0 - 35.5 Not Available [facility] (Lab Cpot - Use) [address] [place], [id number], Not Available 10/09/19 22 10/08/2021 unkno wn RDW-CV 13.5 % 11.8 - 15.6 Not Available [facility] (Lab [facility] - Use) [address] [place], [id number], Not Available 10/09/19 22 10/08/2021 unkno wn RDW-SD 42.8 fl 35.1 - 46.3 Not Available [facility] (Lab Cpot - Use) [address] [place], [id number], Not Available 10/09/19 22 10/08/2021 unkno wn PLT 174.0 K/uL 150.0 - 400.0 Not Available [facility] (Lab Cpot - Use) [address] [place], [id number], Not Available 10/09/19 22 10/08/2021 unkno wn MPV 10.5 fl 9.7 - 12.3 Not Available [facility] (Lab [facility] - Use) [address] [place], [id number], Not Available 10/09/19 22 10/08/2021 unkno wn NEUT% 87.3 % 50.0 - 70.0 Not Available [facility] (Lab [facility] - Use) [address] [place], [id number], Not Available 10/09/19 22 10/08/2021 unkno wn LYMPH% 5.2 % 18.0 - 42.0 Not Available [facility] (Lab Cpot - Use) [address] [place], [id number], Not Available 10/09/19 22 10/08/2021 unkno wn MONO% 6.0 % 3.5 - 9.0 Not Available [facility] (Lab [facility] - Use) [address] [place], [id number], Not Available 10/09/19 22 10/08/2021 unkno wn EO% 0.1 % 1.0 - 3.0 Not Available [facility] (Lab C[facility] - Use) [address] [place], [id number], Not Available 10/09/19 22 10/08/2021 unkno wn BASO% 0.1 % 0.0 - 2.0 Not Available [facility] (Lab C[facility] - Use) [address] [place], [id number], Not Available 10/09/19 22 10/08/2021 unkno wn IG% 1.3 % 0.0 - 0.6 Not Available [facility] (Lab [facility] - Use) [address] [place], [id number], Not Available 10/09/19 22 10/08/2021 unkno wn NRBC% 0.0 % 0.0 - 0.3 Not Available [facility] (Lab [facility] - Use) [address] [place], [id number], Not Available 10/09/19 22 10/08/2021 unkno wn NEUT# 6.1 K/uL 1.6 - 6.1 Not Available [facility] (Lab Cpot - Use) [address] [place], [id number], Not Available 10/09/19 22 10/08/2021 unkno wn LYMPH# 0.4 K/uL 1.0 - 4.8 Not Available [facility] (Lab [facility] - Use) [address] [place], [id number], Not Available 10/09/19 10/08/2021 unkno wn MONO# 0.4 K/uL 0.1 - 0.9 Not Available [facility] (Lab [facility] - Use) [address] [place], [id number], Not Available 10/09/19 22 10/08/2021 unkno wn EO# 0.0 K/dl 0.0 - 0.5 Not Available [facility] (Lab [facility] - Use) [address] [place], [id number], Not Available 10/09/19 22 10/08/2021 unkno wn BASO# 0.0 K/dl 0.0 - 0.1 Not Available [facility] ([facility] - Use) [address] [place], [id number], Not Available 10/09/19 22 10/08/2021 unkno wn IG# 0.09 K/uL 0.00 - 0.03 Not Available [facility] (Lab [facility] - Use) [address] [place], [id number], Not Available 10/09/19 22 10/08/2021 unkno wn NRBC# 0.00 K/uL 0.00 - 0.02 Not Available [facility] (Lab [facility] - Use) [address] [place], [id number], Not Available 10/09/19 22 10/08/2021 unkno wn WBC 7.0 K/uL 4.4 - 11.0 Not Available [facility] (Lab [facility] - Use) [address] [place], [id number], Not Available 10/09/19 22 10/08/2021 unkno wn RBC 3.3 M/uL 4.0 - 5.2 Not Available [facility] (Lab [facility] - Use) [address] [place], [id number], Not Available 10/09/19 22 10/08/2021 unkno wn HGB 9.8 gm/dL 12.0 - 16.0 Not Available [facility] (Lab Cpot - Use) [address] [place], [id number], Not Available 10/09/19 22 10/08/2021 unkno wn HCT 28.6 %VOL 36.0 - 46.0 Not Available [facility] (Lab C[facility] - Use) [address] [place], [id number], Not Available 10/09/19 22 10/08/2021 unkno wn MCV 87.5 fl 80.0 - 98.0 Not Available [facility] (Lab C[facility] - Use) [address] [place], [id number], Not Available 10/09/19 22 10/08/2021 unkno wn MCH 30.0 pg 26.5 - 33.8 Not Available [facility] (Lab C[facility] - Use) [address] [place], [id number], Not Available 10/09/19 22 10/08/2021 unkno wn MCHC 34.3 g/dL 33.0 - 35.5 Not Available [facility] (Lab C[facility] - Use) [address] [place], [id number], Not Available 10/09/19 22 10/08/2021 unkno wn RDW-CV 13.5 % 11.8 - 15.6 Not Available [facility] (Lab C[facility] - Use) [address] [place], [id number], Not Available 10/09/19 22 10/08/2021 unkno wn RDW-SD 42.8 fl 35.1 - 46.3 Not Available [facility] (Lab C[facility] - Use) [address] [place], [id number], Not Available 10/09/19 22 10/08/2021 unkno wn PLT 174.0 K/uL 150.0 - 400.0 Not Available [facility] (Lab C[facility] - Use) [address] [place], [id number], Not Available 10/09/19 22 10/08/2021 unkno wn MPV 10.5 fl 9.7 - 12.3 Not Available [facility] (Lab C[facility] - Use) [address] [place], [id number], Not Available 10/09/19 22 10/08/2021 unkno wn NEUT% 87.3 % 50.0 - 70.0 Not Available [facility] (Lab C[facility] - Use) [address] [place], [id number], Not Available 10/09/19 22 10/08/2021 unkno wn LYMPH% 5.2 % 18.0 - 42.0 Not Available [facility] (Lab C[facility] - Use) [address] [place], [id number], Not Available 10/09/19 22 10/08/2021 unkno wn MONO% 6.0 % 3.5 - 9.0 Not Available [facility] (Lab Cpot - Use) [address] [place], [id number], Not Available 10/09/19 22 10/08/2021 unkno wn EO% 0.1 % 1.0 - 3.0 Not Available [facility] (Lab Cpot - Use) [address] [place], [id number], Not Available 10/09/19 22 10/08/2021 unkno wn BASO% 0.1 % 0.0 - 2.0 Not Available [facility] (Lab Cpot - Use) [address] [place], [id number], Not Available 10/09/19 22 10/08/2021 unkno wn IG% 1.3 % 0.0 - 0.6 Not Available [facility] (Lab Cpot - Use) [address], [place], [id number], Not Available 10/09/19 22 10/08/2021 unkno wn NRBC% 0.0 % 0.0 - 0.3 Not Available [facility] (Lab Cpot - Use) [address] [place], [id number], Not Available 10/09/19 22 10/08/2021 unkno wn NEUT# 6.1 K/uL 1.6 - 6.1 Not Available [facility] (Lab Cpot - Use) [address] [place], [id number], Not Available 10/09/19 22 10/08/2021 unkno wn LYMPH# 0.4 K/uL 1.0 - 4.8 Not Available [facility] (Lab C[facility] - Use) [address] [place], [id number], Not Available 10/09/19 22 10/08/2021 unkno wn MONO# 0.4 K/uL 0.1 - 0.9 Not Available [facility] (Lab Cpot - Use) [address] [place], [id number], Not Available 10/09/19 22 10/08/2021 unkno wn EO# 0.0 K/dl 0.0 - 0.5 Not Available [facility] (Lab C[facility] - Use) [address] [place], [id number], Not Available 10/09/19 22 10/08/2021 unkno wn BASO# 0.0 K/dl 0.0 - 0.1 Not Available [facility] (Lab Cpot - Use) [address] [place], [id number], Not Available 10/09/19 22 10/08/2021 unkno wn IG# 0.09 K/uL 0.00 - 0.03 Not Available [facility] (Lab C[facility] - Use) [address] [place], [id number], Not Available 10/09/19 22 10/08/2021 unkno wn NRBC# 0.00 K/uL 0.00 - 0.02 Not Available [facility] (Lab [facility] - Use) [address] [place], [id number], Not Available 10/09/19 22 10/08/2021 unkno wn CRP 26.2 mg/L 0.0 - 10.0 Not Available [facility] (Lab C[facility] - Use) [address] [place], [id number], Not Available 10/09/19 22 10/08/2021 unkno wn TSH 17.00 uIU/m L 0.47 - 4.68 3rd gener ation Not Available [facility] (Lab C[facility] - Use) [address] [place], [id number], Not Available 10/09/19 22 10/08/2021 unkno wn WBC 7.0 K/uL 4.4 - 11.0 Not Available [facility] (Lab [facility] - Use) [address] [place], [id number], Not Available 10/09/19 22 10/08/2021 unkno wn RBC 3.3 M/uL 4.0 - 5.2 Not Available [facility] (Lab [facility] - Use) [address] [place], [id number], Not Available 10/09/19 22 10/08/2021 unkno wn HGB 9.8 gm/dL 12.0 - 16.0 Not Available [facility] (Lab C[facility] - Use) [address] [place], [id number], Not Available 10/09/19 22 10/08/2021 unkno wn HCT 28.6 %VOL 36.0 - 46.0 Not Available [facility] (Lab [facility] - Use) [address] [place], [id number], Not Available 10/09/19 22 10/08/2021 unkno wn MCV 87.5 fl 80.0 - 98.0 Not Available [facility] (Lab Cpot - Use) [address] [place], [id number], Not Available 10/09/19 22 10/08/2021 unkno wn MCH 30.0 pg 26.5 - 33.8 Not Available [facility] (Lab Cpot - Use) [address] [place], [id number], Not Available 10/09/19 22 10/08/2021 unkno wn MCHC 34.3 g/dL 33.0 - 35.5 Not Available [facility] (Lab Cpot - Use) [address] [place], [id number], Not Available 10/09/19 22 10/08/2021 unkno wn RDW-CV 13.5 % 11.8 - 15.6 Not Available [facility] (Lab Cpot - Use) [address] [place], [id number], Not Available 10/09/19 22 10/08/2021 unkno wn RDW-SD 42.8 fl 35.1 - 46.3 Not Available [facility] (Lab Cpot - Use) [address] [place], [id number], Not Available 10/09/19 22 10/08/2021 unkno wn PLT 174.0 K/uL 150.0 - 400.0 Not Available [facility] (Lab C[facility] - Use) [address] [place], [id number], Not Available 10/09/19 22 10/08/2021 unkno wn MPV 10.5 fl 9.7 - 12.3 Not Available [facility] (Lab C[facility] - Use) [address] [place], [id number], Not Available 10/09/19 22 10/08/2021 unkno wn NEUT% 87.3 % 50.0 - 70.0 Not Available [facility] (Lab C[facility] - Use) [address] [place], [id number], Not Available 10/09/19 22 10/08/2021 unkno wn LYMPH% 5.2 % 18.0 - 42.0 Not Available [facility] (Lab Cpot - Use) [address] [place], [id number], Not Available 10/09/19 22 10/08/2021 unkno wn MONO% 6.0 % 3.5 - 9.0 Not Available [facility] (Lab Cpot - Use) [address] [place], [id number], Not Available 10/09/19 22 10/08/2021 unkno wn EO% 0.1 % 1.0 - 3.0 Not Available [facility] (Lab Cpot - Use) [address] [place], [id number], Not Available 10/09/19 22 10/08/2021 unkno wn BASO% 0.1 % 0.0 - 2.0 Not Available [facility] (Lab C[facility] - Use) [address] [place], [id number], Not Available 10/09/19 22 10/08/2021 unkno wn IG% 1.3 % 0.0 - 0.6 Not Available [facility] (Lab Cpot - Use) [address] [place], [id number], Not Available 10/09/19 22 10/08/2021 unkno wn NRBC% 0.0 % 0.0 - 0.3 Not Available [facility] (Lab C[facility] - Use) [address] [place], [id number], Not Available 10/09/19 22 10/08/2021 unkno wn NEUT# 6.1 K/uL 1.6 - 6.1 Not Available [facility] (Lab Cpot - Use) [address], [place], [id number], Not Available 10/09/19 22 10/08/2021 unkno wn LYMPH# 0.4 K/uL 1.0 - 4.8 Not Available [facility] (Lab C[facility] - Use) [address], [place], [id number], Not Available 10/09/19 22 10/08/2021 unkno wn MONO# 0.4 K/uL 0.1 - 0.9 Not Available [facility] (Lab C[facility] - Use) [address] [place], [id number], Not Available 10/09/19 22 10/08/2021 unkno wn EO# 0.0 K/dl 0.0 - 0.5 Not Available [facility] (Lab C[facility] - Use) [address] [place], [id number], Not Available 10/09/19 22 10/08/2021 unkno wn BASO# 0.0 K/dl 0.0 - 0.1 Not Available [facility] (Lab [facility] - Use) [address] [place], [id number], Not Available 10/09/19 22 10/08/2021 unkno wn IG# 0.09 K/uL 0.00 - 0.03 Not Available [facility] (Lab C[facility] - Use) [address] [place], [id number], Not Available 10/09/19 22 10/08/2021 unkno wn NRBC# 0.00 K/uL 0.00 - 0.02 Not Available [facility] (Lab [facility] - Use) [address] [place], [id number], Not Available 10/09/19 22 10/08/2021 SARS- CoV-2 (COVI D-19) RdRp gene [Pres ence] in Respi rator y syste m speci men by ARNULFO with probe detec tion COVID-19 (IN-HOUSE) ID NOW DETECT ED(Pos itive) NEGATI VE Not Available [facility] (Lab C[facility] - Use) [address] [place], [id number], Not Available 10/09/19 22 10/08/2021 unkno wn PRO-TIME 10.1 SEC. 10.0 - 14.0 Not Available [facility] (Lab [facility] - Use) [address] [place], [id number], Not Available 10/09/19 22 10/08/2021 unkno wn INR 0.95 0.80 - 1.30 INR THERA PUTIC RANGE = 2 - 4 Not Available [facility] (Lab Cpot - Use) [address] [place], [id number], Not Available 10/09/19 22 10/08/2021 unkno wn T. BILI 0.6 mg/dL 0.2 - 1.3 Not Available [facility] (Lab Cpot - Use) [address] [place], [id number], Not Available 10/09/19 22 10/08/2021 unkno wn ALK PHOS 97 IU/L 38 - 126 Not Available [facility] (Lab C[facility] - Use) [address] [place], [id number], Not Available 10/09/19 22 10/08/2021 unkno wn ALTV 13.0 U/L 0.0 - 35.0 Not Available [facility] (Lab C[facility] - Use) [address] [place], [id number], Not Available 10/09/19 22 10/08/2021 unkno wn AST/SGOT 21 IU/L 14 - 46 Not Available [facility] (Lab C[facility] - Use) [address] [place], [id number], Not Available 10/09/19 22 10/08/2021 unkno wn CALCIUM 7.4 mg/dL 8.4 - 10.6 Not Available [facility] (Lab [facility] - Use) [address] [place], [id number], Not Available 10/09/19 22 10/08/2021 unkno wn BUN 5.0 mg/dL 5.0 - 22.0 Not Available [facility] ([facility] - Use) [address] [place], [id number], Not Available 10/09/19 22 10/08/2021 unkno wn CREATININE-S 0.6 mg/dL 0.7 - 1.2 Not Available [facility] (Lab [facility] - Use) [address] [place], [id number], Not Available 10/09/19 22 10/08/2021 unkno wn GLUCOSE(FBS) 85 mg/dL 70 - 112 Not Available [facility] ([facility] - Use) [address] [place], [id number], Not Available 10/09/19 22 10/08/2021 unkno wn T. PROTEIN 6.1 gm/dL 6.3 - 8.2 Not Available [facility] (Lab [facility] - Use) [address] [place], [id number], Not Available 10/09/19 22 10/08/2021 unkno wn ALBUMIN 3.4 gm/dL 3.5 - 5.5 Not Available [facility] ([facility] - Use) [address] [place], [address], Not Available 10/09/19 22 10/08/2021 unkno wn GLOB 2.7 gm/dL 2.0 - 3.5 Not Available [facility] (Lab [facility] - Use) [address] [place], [id number], Not Available 10/09/19 22 10/08/2021 unkno wn NA+ 131 mmol/ L 135 - 148 Not Available [facility] (Lab [facility] - Use) [address] [place], [id number], Not Available 10/09/19 22 10/08/2021 unkno wn K+ 3.4 mmol/ L 3.5 - 5.2 Not Available [facility] (Lab C[facility] - Use) [address] [place], [id number], Not Available 10/09/19 22 10/08/2021 unkno wn CL- 105 mmol/ L 98 - 110 Not Available [facility] (Lab [facility] - Use) [address] [place], [address], Not Available 10/09/19 22 10/08/2021 unkno wn CO2- 19.0 mmol/ L 22.0 - 34.0 Not Available [facility] (Lab Cpot - Use) [address], [id number], Not Available 10/09/19 22 10/08/2021 unkno wn [...] t above by 1.210 . Not Available [facility] (Lab Cpot - Use) [place], [id number], Not Available Result Notes Documentation Provider Name and Address Organization Details Recorded Time Xr, Elbow, 3 Or More View : [address] [address] Radiology [phone] Main [phone] Patient: FARHAD BUITRAGO : 2000 Medical Record: [id number] Admission : [id number] Sex: F Age: 20Y Patient Type: E Ordering Physician: Delgado De La Torre Attending Physician: Delgado De La Torre Family Physician: DELGADO DE LA TORRE EXAM DESCRIPTION: xr - [...] Ham M.D. 09/11/2020 Dictated: 09/11/2020 8:13:19 PM DELGADO DE LA TORRE NP [address] [place] [address] [place], [id number], [place] - [facility] 09/16/2020 11:32:34 Xr, Shoulder, 2 Or More View : [address] [address] Radiology [phone] Main [phone] Patient: FARHAD BUITRAGO : 2000 Medical Record: [id number] Admission : [id number] Sex: F Age: 20Y Patient Type: E Ordering Physician: Delgado De La Torre Attending Physician: Delgado De La Torre Family Physician: DELGADO DE LA TORRE EXAM DESCRIPTION: xr - [...] Ham M.D. 09/11/2020 Dictated: 09/11/2020 8:13:58 PM DELGADO DE LA TORRE, LYSSA [address] [place] [address], [place], [id number], [place] - [facility] 09/16/2020 11:32:35 Ct, Head + Brain, W/o Contrast : [address] [address] Radiology [phone] Main [phone] Patient: FARHAD BUITRAGO : 2000 Medical Record: [id number] Admission : [id number] Sex: F Age: 20Y Patient Type: E Ordering Physician: Delgado De La Torre Attending Physician: Delgado De La Torre Family Physician: DELGADO DE LA TORRE EXAM DESCRIPTION: CT head/brain [...] Castellon MD 09/11/2020 Dictated: 09/11/2020 8:21:21 PM DELGADO DE LA TORRE NP [address] [place] [address], [place], [id number], [place] - [facility] 09/16/2020 11:32:36 Ct, Cervical Spine, W/o Contrast : [address] [address] Radiology [phone] Main [phone] Patient: FARHAD BUITRAGO : 2000 Medical Record: [id number] Admission : [id number] Sex: F Age: 20Y Patient Type: E Ordering Physician: Delgado De La Torre Attending Physician: Delgado De La Torre Family Physician: DELGADO DE LA TORRE EXAM DESCRIPTION: CT cervical [...] Castellon MD 09/11/2020 Dictated: 09/11/2020 8:22:25 PM DELGADO DE LA TORRE NP [address] [place] [address], [place], [id number], [place] - [facility] 09/16/2020 11:32:35 Xr, Foot, 3 Or More View : [address] [address] Radiology [phone] Main [phone] Patient: FARHAD BUITRAGO : 2000 Medical Record: [id number] Admission : [id number] Sex: F Age: 20Y Patient Type: E Ordering Physician: Delgado De La Torre Attending Physician: Delgado De La Torre Family Physician: DELGADO DE LA TORRE EXAM DESCRIPTION: xr - [...] PM Laquita Poon L.P.N. null, [place] - [facility] 01/28/2021 20:02:54 Xr, Foot, 3 Or More View : [address] [address] Radiology [phone] Main [phone] Patient: FARHAD BUITRAGO : 2000 Medical Record: [id number] Admission : [id number] Sex: F Age: 21Y Patient Type: E [...] Dictated: 01/04/2022 9:58:40 PM Von Roblero DO [address] [place] [address] [place], [id number], [place] - [facility] 01/18/2022 12:13:54 Problems Name Problem SNOMED Code Status Onset Date Resolution Date Notes Provider Name and Address Organization Details Recorded Time chest pain 27946526 Active 2018 MD Kaleigh Devries[address] [place] [address] [place], [id number], [place] [facility] 9 01:15:10 asthma without status asthmaticus 05973484 Active 2018 MD Kaleigh Devries[address] [place] [address] [place], [id number], [place] - [facility] 9 01:15:32 vomiting 178143877 Active 2018 Von Roblero DO [address] [place], [place] [address], [place], [id number], [place] [facility] 9 23:17:43 diarrhea 13422346 Active 2018 Von Roblero DO [address] [place] [address] [place], [id number], [place] [facility] 9 23:18:05 Asthma 090311852 Active 2019 Shanice Barrientos L.P.N null, [place] - [facility] 0 19:05:54 flank pain 877682474 Active 2019 MD Elvis [place], [id number], [place] [facility] 0 00:54:59 abdominal pain 11718650 Active 2019 DO Kaleigh PRIETO[address] [place] [address] [place], [id number], [place] [facility] 0 02:13:57 diarrhea 88038052 Active 2019 BONNIE MOJICA, DO [address], [place], [id number], [place] - [facility] 0 02:14:03 abdominal pain in 111736798 Active 2019 Flaco Lawrence, DO [address], [place], [id number], [place] - [facility] 0 03:03:14 acute cholecystitis 11761656 Active 2020 DELGADO DE LA TORRE, LYSSA [address] [place], [place], [id number], [place] - [facility] 1 03:22:30 postoperative pain 795392807 Active 2020 Paxton Dominguez MD [address] [place] [address] [place], [place], [id number], [place] [facility] 1 15:48:57 abdominal pain [id number] Active 2020 Paxton Dominguez MD [address] [place] [address] [address], [place], [id number], [place] [facility] 1 15:49:06 fall Active 2020 LYSSA [address], [place], [id number], [place] - [facility] 1 22:31:08 contusion of head [id number] Active 2020 LYSSA MAGANA[address], [place], [id number], [place] - [facility] 1 22:31:16 strain of neck muscle [id number] Active 2020 LYSSA MAGANA[address], [place], [id number], [place] - [facility] 1 22:31:25 sprain of ligament of elbow [id number] Active 2020 DELGADO DE LA TORRE NP [address], [place], [id number], [place] [facility] 1 22:32:18 sprain of foot [id number] Active 2020 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, 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 [address] [employer], [place], [id number], [place] [facility] 1 18:34:48 acute sciatica [id number] Active 2021 Clement Coker MD [address] [place] [address] [address], [place], [id number], [place] - [facility] 2 00:01:19 acute COVID-19 [id number] Active 2021 Clement Coker MD [address] [place] [address] [address], [place], [id number], [place] [facility] 2 21:43:14 acquired hypothyroidis m [id number] Active 2021 Clement Coker MD [address] [place] [address] [address], [place], [id number], [place] [facility] 2 21:44:02 third trimester [id number] Active 2021 Clement Coker MD [address] [place] [address] [address], [place], [id number], [place] [facility] 2 03:10:12 injury of right foot 902745095 Active 2021 Von Roblero DO [address] [place] [address] [address], [place], [id number], [place] [facility] 2 23:48:02 Problem Notes None recorded. Medical Equipment None Reported. Allergies Allergen ID Allergen Name Allergen Category Reaction Reaction Severity Criticality Documentation Date Start Date Code Code System Note Provider Name and Address Organization Details Recorded Time 02104 Product containin g penicilli n (product) medicatio n Not available Not available Not available 11/05/2018 46684 8001 SNOMED Mulligan Kimicuca Saloni [address], [place], [id number], [place] [facility] 9 00:23:10 15635 amoxicill in medicatio n Not available Not available Not available 11/05/2018 723 RxNorm Ese Kimiblancaia [address] [place], [id number], [place] [facility] 9 00:23:17 01119 shellfish derived food,medi cation Not available Not available Not available 06/16/2020 57032 DOUGLAS Banuelos [address] [place], [id number], [place] - [facility] 1 02:36:47 Medications Name Sig Start Date [...] Address Organization Details Last Updated DateTime 2 37.999290928 5556 Kimi 14 /min 83 /min 97 % 97 % 110/66 mm[Hg] Deion Fernandez [facility] 2 23:22:12 Date Recorded Body temperature Heart rate Respiratory rate Oxygen saturation Oxygen saturation in Arterial blood by Pulse oximetry Systolic And Diastolic Provider Name and Address Organization Details Last Updated DateTime 2 36.646094046 7778 Kimi 76 /min 16 /min 100 % 100 % 90/65 mm[Hg] crystal [address] [place], [id number], [facility] 2 01:07:55 Date Recorded Body temperature Heart rate Respiratory rate Oxygen saturation Oxygen saturation in Arterial blood by Pulse oximetry Body temperature Heart rate Respiratory rate Oxygen saturation Oxygen saturation in Arterial blood by Pulse oximetry Systolic And Diastolic Systolic And Diastolic Provider Name and Address Organization Details Last Updated DateTime 1 37.016584597 5556 Kimi 63 /min 14 /min 98 % 98 % 36.430922332 3333 Kimi 66 /min 14 /min 99 % 99 % 101/67 mm[Hg] 109/71 mm[Hg] Debbie Voss [facility] 1 22:39:22 Date Recorded Oxygen saturation Oxygen saturation in Arterial blood by Pulse oximetry Heart rate Body weight Systolic And Diastolic Provider Name and Address Organization Details Last Updated DateTime 2 97 % 97 % 88 /min 37066.0 7 g 97/66 mm[Hg] Loida Wong C.M.A. [facility] 2 15:52:20 Date Recorded Body temperature Heart rate Respiratory rate Oxygen saturation Oxygen saturation in Arterial blood by Pulse oximetry Systolic And Diastolic Provider Name and Address Organization Details Last Updated DateTime 2 36.182698441 3333 Kimi 143 /min 16 /min 97 % 97 % 107/68 mm[Hg] omi2 [address] [place], [id number], [place] [facility] 2 19:28:34 Date Recorded Body temperature Heart rate Respiratory rate Oxygen saturation Oxygen saturation in Arterial blood by Pulse oximetry Systolic And Diastolic Provider Name and Address Organization Details Last Updated DateTime 2 37.932241874 1111 Kimi 113 /min 18 /min 97 % 97 % 94/51 mm[Hg] crystal [address] [place], [id number], [place] [facility] 2 21:40:19 Date Recorded Body temperature Respiratory rate Heart rate Oxygen saturation Oxygen saturation in Arterial blood by Pulse oximetry Systolic And Diastolic Systolic And Diastolic Provider Name and Address Organization Details Last Updated DateTime 2 36.182843386 4444 Kimi 16 /min 64 /min 98 % 98 % 120/47 mm[Hg] 112/65 mm[Hg] Deion Fernandez [facility] 2 23:29:19 Date Recorded Body temperature Respiratory rate Heart rate Oxygen saturation Oxygen saturation in Arterial blood by Pulse oximetry Systolic And Diastolic Provider Name and Address Organization Details Last Updated DateTime 2 36.606731539 4444 Kimi 12 /min 62 /min 99 % 99 % 105/71 mm[Hg] Nena Francisco [address] [place], [phone], [place] [facility] 2 00:19:54 Date Recorded Body temperature Heart rate Respiratory rate Oxygen saturation Oxygen saturation in Arterial blood by Pulse oximetry Systolic And Diastolic Provider Name and Address Organization Details Last Updated DateTime 1 36.662957630 8889 Kimi 66 /min 16 /min 100 % 100 % 111/92 mm[Hg] Sheila Rivas [address] [place], [phone], [place] [facility] 1 20:30:46 Date Recorded Body temperature Heart rate Respiratory rate Oxygen saturation Oxygen saturation in Arterial blood by Pulse oximetry Systolic And Diastolic Provider Name and Address Organization Details Last Updated DateTime 1 37.575461013 5556 Kimi 67 /min 16 /min 99 % 99 % 105/70 mm[Hg] Matilde Tsang [address], [place], [id number], [place] - [facility] 1 19:20:38 Social History Question Answer Notes LastModified by Organizat ion Details LastModified Time Tobacco Smoking Status Never Smoker Shanice Floyd Otero null, [place] - [facility] 05/01/2019 19:06:18 Do You Have An [...] available 05/01/2019 If Patient Spent Time In [facility] - Does The Patient Live In [facility]? No Information not available 05/01/2019 In The 14 Days Before Symptom Onset, Have You Had Close Contact With A Person Who Is Under Investigation For COVID-19 While That Person Was Ill? No Information not available 05/01/2019 In The 14 Days Before Symptom Onset, Did The Patient Spend Time In [facility]? No Information not available 05/01/2019 Have You Been To An Area Known To Be High Risk For COVID-19? No Information not available 05/01/2019 Are You Deaf Or Do You Have Serious Difficulty Hearing? No Information not available 05/01/2019 What Is The Highest Grade Or Level Of School You Have Completed Or The Highest Degree You Have Received? [id number] Information not available 05/01/2019 Live Alone Or [...] 05/01/2019 Are you able to care for yourself independently? Yes Information not available 05/01/2019 Do you have difficulty dressing, bathing, grooming, or toileting? No Information not available 05/01/2019 Do you or have you ever used e-cigarettes or vape? Never used electronic cigarettes Information not available 05/01/2019 What is your exercise level? Moderate Information not available 05/01/2019 Mental Status Question Answer Note LastModified by Organizat ion Details LastModified Time Do you feel stressed (tense, restless, nervous, or anxious, or unable to sleep at night)? [id number] Information not available 05/01/2019 Do you have difficulty concentrating, remembering or making decisions? No Information no t available 05/01/2019 Family History Nothing Reported. Medical History Condition Response Coronary Artery Disease N Other N Gout N Atrial Fibrillation N Anxiety Y Lung Disease N COPD N Developmental or Behavioral Disorders N Defects or Inherited Disease N ADD/ADHD N Heart Disease o Statin Therapy N Back Pain N Cancer-Other N Heart Attack (CT) N Ulcers N Deep Vein Thrombosis N Mental Illness N Diabetes A1c & Date N Autoimmune disease N Bleeding Disorder N Hearing Loss N Arthritis N Blood Clot N AIDS/HIV N Stroke N Diverticulitis N Asthma Y Atrial Flutter N Leg or Foot Ulcers N High Cholesterol o Statin Therapy N Reflux/GERD N Liver Disease N Pulmonary Embolism N Arrhythmia N Hypertension N Osteoporosis N Heart Failure N Kidney Disease N Gynecological History Statement/Question Response Abnormal Pap N Obstetrics History GPAL:G 0 P 0 0 0 0 Past Encounters Encounter ID Performer Location Encounter Start Date Encounter Closed Date Diagnosis/Indication Diagnosis SNOMED-CT Code Diagnosis ICD10 Code Diagnosis Note [id number] Clement Coker MD Hospital_ Emergency [address] [place] [address] [place] [id number] 11/05/2018 00:14:00 11/05/2018 01:23:00 chest pain 15896582 asthma wit hout status asthmaticus [id number] [id number] Von Roblero, DO Hospital_ Emergency [address] [place] [address] [place] [id number] 02/06/2019 22:45:00 02/07/2019 01:42:00 vomiting 195586334 diarrhea 28599589 [id number] PHYSICIAN PHYSICIAN Hospital_ Radiology [address] [place] [address] [place] [id number] 05/01/2019 18:37:00 05/02/2019 01:59:00 [id number] Panfilo Shankar MD Hospital_ Emergency [address] [place] [address] [place] [id number] 05/27/2019 00:30:00 05/27/2019 02:17:00 flank pain [id number] [id number] PHYSICIAN PHYSICIAN [facility]_ Laborator y [address] [place] [address] [place] [id number] 08/08/2019 16:52:00 08/09/2019 01:59:00 [id number] BONNIE MOJICA, DO Hospital_ Emergency [address] [place] [address] [place] [id number] 08/16/2019 00:40:00 08/16/2019 02:18:00 abdominal pain 78390824 diarrhea 02873053 [id number] Flaco Lawrence, DO Hospital_ Emergency [address] [place] [address] [place] [id number] 11/25/2019 01:45:00 11/25/2019 03:10:00 abdominal pain in 070640791 [id number] DELGADO DE LA TORRE NP Hospital_ Emergency [address] [place] [address] [place] [id number] 06/16/2020 00:57:00 06/16/2020 03:32:00 acute cholecystitis 68228830 [id number] Paxton Dominguez MD Hospital_ Emergency [address] [place] [address] [place] [id number] 07/01/2020 12:40:00 07/01/2020 16:00:00 postoperative pain 472283957 abdominal pain 29075544 [id number] DELGADO DE LA TORRE NP Hospital_ Emergency [address] [place] [address] [place] [id number] 09/11/2020 20:56:00 09/11/2020 22:40:00 fall 9830287 contusion of head 612761518 strain of neck muscle 268317836 sprain of ligament of elbow 819242031 [id number] DELGADO DE LA TORRE NP Hospital_ Emergency [address] [place] [address] [place] [id number] 01/16/2021 17:55:00 01/16/2021 19:15:00 sprain of foot 26903540 [id number] Clement Coker MD Hospital_ Emergency [address] [place] [address] [place] [id number] 09/09/2021 23:10:00 09/10/2021 00:10:00 acute sciatica 820445294 [id number] Clement Coker MD Hospital_ Emergency [address] [place] [address] [place] [id number] 10/08/2021 19:17:00 10/08/2021 21:50:00 acute COVID-19 8686910726 acquired hypothyroidism 552487597 third trim vanesa [id number] Von Roblero DO Hospital_ Emergency [address] [place] [address] [place] [id number] 01/04/2022 23:20:00 01/05/2022 00:22:00 injury of right foot 982897412 Health Concerns Section Related Observation LastModified by Organization Detai ls LastModified Time None Recorded Concern Status LastModified by Organization Details LastModified Time None Recorded Advance Directives Directive N: Payers Insurance Date Sequence Insurance Name Policy Number Policy Shrestha Covered Member ID Shrestha Member ID Guarantor Name 09/17/2021 3 [employer]-ID MANJU SIMON (PPO) [id number] Farhad Buitrago [id number] Farhad Buitrago 08/31/2020 PAYMENT PLAN Farhad Buitrago 09/10/2021 2 *SELF PAY* Farhad Buitrago 05/10/2019 [facility] [id number] Personal Home Care Farhad Buitrago 05/10/2019 [facility] [id number] Personal Home Care Farhad Buitargo 09/17/2021 2 PATIENT ITEMIZED BILL Farhad Buitrago [id number] Farhad Buitrago 01/11/2022 1 MEDICAID-ID (MEDICAID) Farhad Buitrago [id number] Farhad Buitrago OBGyn Episode No OBEpisode recorded.
--- OUTSIDE RECORDS SUMMARY | 2024-09-17 04:59 | XMS_ITS | Patient Health Record ---
Author Organization [facility] Address [address] [place] [address] Care Team Providers Care Volunteer Specialist Name Role Phone Herminio Shoemaker Primary Care Provider Unavailabl e Migration, Provider Unavailable Unavailable Malachi Pierce Unavailable Reason For Referral No Information Medications Medication SIG (Take, Route, Frequency, Duration) Notes Start Date End Date Status hydrOXYzine HCl *[facility]* Active tizanidine [facility] and Interaction Alerts* Active Tirosint *[facility]* Active duloxetine *[facility] and Interaction Alerts* Active Ketorolac *[facility] and Interaction Alerts* Active Ibuprofen *[facility]* Active Social History Social History [...] Diagnosis Migrated_Facility 0 0 12/17/2023 Provider Migration Migrated_Facility 0 0 12/16/2023 Provider Migration Plan Of Treatment No Information Medical (General) History Surgical History Surgery Date(Month/Year) cleft palate and lip Since 1999 2000 Ear tube placement Since 2000 2001 Tonsillectomy Since 2006 adenoidectomy Since 2006 appendectomy Since 2012 cholecystectomy Since 2020 Total thyroidectomy Since 2020
--- OUTSIDE RECORDS SUMMARY | 2024-09-17 04:59 | XMS_ITS | Data Portability ---
Author Organization DAYO Price [facility] Galindo Montero [facility] Address [address] [place] [phone] Assessment No assessment recorded. Plan of Treatment [...] acetonide 0.1 % topical cream 2023 024 [facility] [place], [address], 4 09:51:53 clotrimazol e 1 % topical cream 2023 024 [facility] [address] [place], [address], 4 09:53:22 ketorolac 30 mg/mL (1 mL) injection solution 2022 023 [email or web address] Not available 4 09:31:19 Patient TargetsNo targets recorded. Patient Instructions Encounter Date Encounter Id Patient Instructions Last Modified By Organization Details Last Modified Time 08/27/2022 [id number] JORGE. Patient to follow with PCP on Monday Not available 08/27/2022 15:18:07 11/11/2023 [id number] Follow up for worsening or no improvement [email or web address] Not available 11/11/2023 10:28:49 Reason for Referral None Reported. Procedures Surgical History Date Name Laterality Status Provider Name and Address Organization Details Recorded Time Tonsillectomy completed [facility] 11/11/2023 09:34:31 Appendectomy completed [facility] 11/11/2023 09:34:37 Gallbladder Surgery completed [facility] 11/11/2023 09:34:44 operation on oral cavity completed [facility] 11/11/2023 09:34:57 Imaging Results None recorded. Procedure Notes None recorded. Medical Equipment None Reported. Allergies Allergen ID Allergen Name Allergen Category Reaction Reaction Severity Criticality Documentation Date Start Date Code Code System Note Provider Name and Address Organization Details Recorded Time 5149 Product containin g penicilli n (product) medicatio n anaphylax is Not available Not available 08/27/2022 94861 8001 SNOMED Throa t swell ing. MAZIN PORTER [facility] 14:53:40 Medications Name Sig Start [...] Address Organization Details Last Updated DateTime 3 91533.0 8 g 99 % 99 % 61 /min 98.3 [degF] MAZIN PORTER [facility] 3 14:52:53 Date Recorded Body height Body mass index (BMI) Body weight Oxygen saturation Oxygen saturation in Arterial blood by Pulse oximetry Heart rate Respiratory rate Body temperature Systolic And Diastolic Provider Name and Address Organization Details Last Updated DateTime 4 162.56 cm 23.5 kg/m2 69781.1 5 g 98 % 98 % 116 /min 16 /min 98.2 [degF] 108/60 mm[Hg] Nemo Chavez [facility] 4 09:34:05 Date Recorded Body height Body mass index (BMI) Body weight Respiratory rate Heart rate Oxygen saturation Oxygen saturation in Arterial blood by Pulse oximetry Body temperature Systolic And Diastolic Provider Name and Address Organization Details Last Updated DateTime 4 162.56 cm 25 kg/m2 08365.9 9 g 16 /min 75 /min 99 % 99 % 97.8 [degF] 104/60 mm[Hg] MARIA EUGENIA CALABRESE [facility] 4 12:18:47 Social History None recorded. Functional Status Question Answer Note LastModified by Organization D etails LastModified Time What is your level of alcohol consumption? None [email or web address] Information not available 08/27/2022 Mental Status None recorded. Family History Nothing Reported. Medical History No medical history recorded. Gynecological HistoryNo gynecological history recorded. Obstetrics History GPAL:G 0 P 0 0 0 0 Past Encounters Encounter ID Performer Location Encounter Start Date Encounter Closed Date Diagnosis/Indication Diagnosis SNOMED-CT Code Diagnosis ICD10 Code Diagnosis Note [id number] MALINDA MANN [facility] ([facility]) [address] [place] [id number] 08/27/2022 14:41:10 08/27/2022 15:27:32 Pain of hip region 77221756 M25.977 [id number] ZEB MONTOYA APRN [facility] ([facility]) [address] [place] [id number] 11/11/2023 09:28:22 11/11/2023 10:26:17 Pruritic rash 44405631 L28.2 [id number] MALINDA MANN [facility] ([facility]) [address] [place] [id number] 12/30/2023 12:12:51 12/30/2023 12:57:11 Low back pain 182197025 M54.50 With radiculopa thy - Left side. [...] Shrestha Member ID Guarantor Name 12/30/2023 1 [facility] (MEDICAID REPLACEMENT - HMO) [facility] Farhad Ardon [id number] Farhad Ardon 09/07/2022 1 *SELF PAY* Al teresa Ardon OBGyn Episode No OBEpisode recorded.
[2024-09-17] MEDS: LORazepam 1 MG/0.5 ML injection (05:08)
--- NOTE | 2024-09-17 05:31 | W.ED.GENADLT ---
Documented by User: Carmelita Lacey MD 09/17/24 05:32 HPI - General Adult General: Chief complaint: Anxiety Stated complaint: Anxiety Time Seen by Provider: 09/17/24 05:22 History of Present Illness: 24-year-old female with history of hypothyroidism, anxiety and migraines who presents to the emergency room with anxiety, palpitations and concerned that her thyroid may be malfunctioning. This been going on for couple of days. No fevers. No altered mental status. Related Data Home Medications ?Medication ?Instructions ?Recorded ?Confirmed buspirone 15 mg tablet 15 mg PO BID 07/11/24 09/17/24 levothyroxine 200 mcg tablet 200 mcg PO DAILY 07/11/24 09/17/24 Previous Rx's ?Medication ?Instructions ?Recorded polyethylene glycol 3350 17 17 g PO DAILY #510 grams 06/07/24 gram/dose oral powder (Miralax) Allergies Allergy/AdvReac Type Severity Reaction Status Date / Time amoxicillin Allergy ADR-Nausea Verified 08/30/24 06:15 Fish Containing Products Allergy ADR-Nausea Verified 08/30/24 06:15 Penicillins Allergy ADR-Nausea Verified 08/30/24 06:15 shellfish derived Allergy ADR-Itching Verified 08/30/24 06:15 Review of Systems Narrative: Constitutional symptoms: Negative except as documented in HPI. Skin symptoms: Negative except as documented in HPI. Eye symptoms: Negative except as documented in HPI. ENMT symptoms: Negative except as documented in HPI. Respiratory symptoms: Negative except as documented in HPI. Cardiovascular symptoms: Negative except as documented in HPI. Gastrointestinal symptoms: Negative except as documented in HPI. Genitourinary symptoms: Negative except as documented in HPI. Musculoskeletal symptoms: Negative except as documented in HPI. Neurologic symptoms: Negative except as documented in HPI. Psychiatric symptoms: Negative except as documented in HPI. Endocrine symptoms: Negative except as documented in HPI. 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 Adrenal insufficiency No pertinent family history Surgical History History of tonsillectomy and adenoidectomy History of myringotomy twice as a child History of laparoscopic appendectomy History of laparoscopic cholecystectomy History of cleft palate with cleft lip History of thyroid surgery (~2020) Full thyroidectomy-- performed in [place] Family History Grandmother Diabetes mellitus, type 2 MGM Hypertension PGM Grandfather Hypertension PGF Denies family history of Colon cancer Ovarian cancer Prostate cancer CAD (coronary artery disease) Hyperlipidemia Chronic kidney disease (CKD) Breast cancer Bleeding disorder Family history of premature coronary artery disease Uterine cancer Thyroid disease Social History Smoking and tobacco/nicotine status: never used tobacco/nicotine Second hand smoke exposure: No Alcohol intake: current Alcohol intake frequency: holidays/special occasions only Substance/Drug Use: never Adopted: No Caregiver/support person: No Lives independently: Yes Household members: spouse and children Housing: House Marital status: Highest education level completed: High School Graduate service: No Current occupational status: employed Current occupation: [employer] Current occupational exposures/hazards: No Physical Exam Narrative: EXAM NARRATIVE: General: Alert, no acute distress. Skin: Warm, dry. Head: Normocephalic, atraumatic. Neck: Supple, trachea midline. Eye: Extraocular movements are intact. Ears, nose, mouth and throat: mucosa moist. Cardiovascular: Regular, Normal peripheral perfusion. Respiratory: Lungs are clear to auscultation, respirations are non-labored, breath sounds are equal, Symmetrical chest wall expansion. Gastrointestinal: Soft, Nontender, Non distended Musculoskeletal: Normal ROM, no deformity. Neurological: Alert and oriented, No focal neurological deficit observed. Psychiatric: Cooperative, patient does appear somewhat anxious Course Vital Signs: Vital signs: Vital Signs Temperature 97.0 F L 09/17/24 08:55 Pulse Rate 46 L 09/17/24 09:00 Respiratory Rate 6 L 09/17/24 09:00 Blood Pressure 89/66 09/17/24 09:00 Pulse Oximetry 100 09/17/24 09:00 Oxygen Delivery Me thod Room Air 09/17/24 07:39 MDM - General Adult Medical Decision Making Patient care transitioned to Dr. Paredes at shift change. Lab Data 09/17/24 04:54 09/17/24 04:54 Radiology Impressions Chest X-Ray 09/17/24 06:25 IMPRESSION: No acute findings. Renal Ultrasound 09/17/24 09:05 IMPRESSION: 1. No hydronephrosis in either kidney. 2. Mild diffuse bladder wall thickening can be seen with cystitis. Recommend correlation for UTI. Laboratory Results WBC 5.44 10^3/uL (3.29-11.43) 09/17/24 04:54 RBC 3.56 10^6/uL (3.85-5.65) L 09/17/24 04:54 Hgb 10.30 g/dL (11.27-16.99) L 09/17/24 04:54 Hct 31.3 % (36-47) L 09/17/24 04:54 MCV 87.9 fl (85-98) 09/17/24 04:54 MCH 28.9 pg (27-33) 09/17/24 04:54 MCHC 32.9 g/dL (30-55) 09/17/24 04:54 RDW 15.2 % (12.1-15.1) H 09/17/24 04:54 Plt Count 222 10^3/cmm (157-399) 09/17/24 04:54 MPV 11.1 fL (7.4-10.4) H 09/17/24 04:54 Neut % (Auto) 37.1 % 09/17/24 04:54 Lymph % (Auto) 56.6 % 09/17/24 04:54 Ceiba % (Auto) 3.7 % 09/17/24 04:54 Eos % (Auto) 1.7 % 09/17/24 04:54 Baso % (Auto) 0.7 % 09/17/24 04:54 Neut # (Auto) 2.02 10^3/uL (1.8-7.7) 09/17/24 04:54 Lymph # (Auto) 3.1 10^3/uL (0.8-4.8) 09/17/24 04:54 Ceiba # (Auto) 0.2 10^3/uL (0.2-0.9) 09/17/24 04:54 Eos # (Auto) 0.1 10^3/uL (0.0-0.8) 09/17/24 04:54 Baso # (Auto) 0.0 10^3/uL (0.0-0.1) 09/17/24 04:54 Nucleated RBC % (auto) 0 % 09/17/24 04:54 Nucleated RBCs # 0.0 /100WBC 09/17/24 04:54 Sodium 139 mmol/L (136-145) 09/17/24 04:54 Potassium 3.5 mmol/L (3.5-5.1) 09/17/24 04:54 Chloride 101 mmol/L (98-107) 09/17/24 04:54 Carbon Dioxide 24 mmol/L (22-29) 09/17/24 04:54 Anion Gap 17.5 (5-19) 09/17/24 04:54 BUN 11 mg/dL (6-20) 09/17/24 04:54 Creatinine 1.5 mg/dL (0.5-0.9) H 09/17/24 04:54 GFR Calculation 42.3 mL/min (90-130) L 09/17/24 04:54 Glucose 92 mg/dL (65-115) 09/17/24 04:54 Calculated Osmolality 287 mOsm/kg (285-295) 09/17/24 04:54 Calcium 8.0 mg/dL (8.5-10.5) L 09/17/24 04:54 Total Bilirubin 0.4 mg/dL (0.15-1.2) 09/17/24 04:54 AST 32 U/L (0-32) 09/17/24 04:54 ALT 14 U/L (0-33) 09/17/24 04:54 Alkaline Phosphatase 47 U/L (35-105) 09/17/24 04:54 Total Protein 6.3 g/dL (6.6-8.7) L 09/17/24 04:54 Albumin 4.3 g/dL (3.5-5.2) 09/17/24 04:54 Globulin 2.0 g/dL (1.3-4.6) 09/17/24 04:54 TSH 500.70 uIU/mL (0.27-4.20) H 09/17/24 04:54 Free T4 0.10 ng/dL (0.82-1.77) L 09/17/24 04:54 Free T3 0.4 PG/ML (2.0-4.4) L 09/17/24 04:54 HCG, Qual Negative (Negative) 09/17/24 03:00 Random Cortisol 5.25 ug/dL (2.47-19.5) 09/17/24 04:54 Urine Color Yellow (Yellow) 09/17/24 04:54 Urine Appearance Turbid (CLEAR) A 09/17/24 04:54 Urine pH 6.0 (5-7) 09/17/24 04:54 Ur Specific Lanse 1.035 (1.005-1.030) H 09/17/24 04:54 Urine Protein 1+ (Negative) A 09/17/24 04:54 Urine Glucose (UA) Negative (Normal) 09/17/24 04:54 Urine Ketones Trace (Negative) 09/17/24 04:54 Urine Blood Negative (Negative) 09/17/24 04:54 Urine Nitrate Negative (Negative) 09/17/24 04:54 Urine Bilirubin Negative (Negative) 09/17/24 04:54 Urine Urobilinogen 1.0 mg/dL (Negative) 09/17/24 04:54 Ur Leukocyte Esterase 1+ (Negative) A 09/17/24 04:54 Urine RBC 0-2 /hpf (0-2) 09/17/24 04:54 Urine WBC >100 /hpf (0-5) H 09/17/24 04:54 Ur Squamous Epith Cells 51-100 /hpf (0-5) 09/17/24 04:54 Amorphous Sediment Not Reportable 09/17/24 04:54 Urine Bacteria 4+ /hpf (NONE) H 09/17/24 04:54 Hyaline Casts 4.11 /lpf 09/17/24 04:54 Urine Opiates Screen Negative ng/mL (Negative) 09/17/24 04:54 Ur Barbiturates Screen Negative ng/mL (Negative) 09/17/24 04:54 Ur Phencyclidine Scrn Negative ng/mL (Negative) 09/17/24 04:54 Ur Amphetamines Screen Negative ng/mL (Negative) 09/17/24 04:54 U Benzodiazepines Scrn Negative ng/mL (Negative) 09/17/24 04:54 Urine Cocaine Screen Negative ng/mL (Negative) 09/17/24 04:54 U Marijuana (THC) Screen Negative ng/mL (Negative) 09/17/24 04:54 Discharge Plan Discharge Patient Disposition: Admitted As Inpatient Admit Provider: Neville Christie Clinical Impression: Myxedema, 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 Patient's care was discussed, and care was transferred from Carmelita Lacey MD to Uri Paredes DO. Coding Level of Care Code ED Industrial Education Instructor for Chg Fwd Documented by User: Uri Paredes DO 09/17/24 11:18 HPI - General Adult General: Chief complaint: Anxiety Stated complaint: Anxiety Time Seen by Provider: 09/17/24 05:22 Related Data Home Medications ?Medication ?Instructions ?Recorded ?Confirmed buspirone 15 mg tablet 15 mg PO BID 07/11/24 09/17/24 levothyroxine 200 mcg tablet 200 mcg PO DAILY 07/11/24 09/17/24 Previous Rx's ?Medication ?Instructions ?Recorded polyethylene glycol 3350 17 17 g PO DAILY #510 grams 06/07/24 gram/dose oral powder (Miralax) Allergies Allergy/AdvReac Type Severity Reaction Status Date / Time amoxicillin Allergy ADR-Nausea Verified 08/30/24 06:15 Fish Containing Products Allergy ADR-Nausea Verified 08/30/24 06:15 Penicillins Allergy ADR-Nausea Verified 08/30/24 06:15 shellfish derived Allergy ADR-Itching Verified 08/30/24 06:15 PFS ED PFSH: Medical History Migraine Anxiety 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 Adrenal insufficiency No pertinent family history Surgical History History of tonsillectomy and adenoidectomy History of myringotomy twice as a child History of laparoscopic appendectomy History of laparoscopic cholecystectomy History of cleft palate with cleft lip History of thyroid surgery (~2020) Full thyroidectomy-- performed in [place] Family History Grandmother Diabetes mellitus, type 2 MGM Hypertension PGM Grandfather Hypertension PGF Denies family history of Colon cancer Ovarian cancer Prostate cancer CAD (coronary artery disease) Hyperlipidemia Chronic kidney disease (CKD) Breast cancer Bleeding disorder Family history of premature coronary artery disease Uterine cancer Thyroid disease Social History Smoking and tobacco/nicotine status: never used tobacco/nicotine Second hand smoke exposure: No Alcohol intake: current Alcohol intake frequency: holidays/special occasions only Substance/Drug Use: never Adopted: No Caregiver/support person: No Lives independently: Yes Household members: spouse and children Housing: House Marital status: Highest education level completed: High School Graduate service: No Current occupational status: employed 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 Paredes at shift change. Care assumed at change of shift. Patient has characteristics of early myxedema. She is bradycardic hypotensive her renal function is worsening. Her sodium is still in the normal range. Her TSH is 500 her free T4 is nearly undetectable as is her T3. She has had previous episodes of this however not to this extent. Echocardiogram and cortisol level are pending. Will admit to ICU for early myxedema. Dr. Bello is aware of the patient, she has told me that she will be to the emergency room to see her shortly. Change of shift for the hospitalist contacted Dr. Tavares ski he will accept the patient. Reviewed echocardiogram with the insulator technician they did not note pericardial effusion official over read is still pending. Cortisol level in the normal range. She does have a cystitis. She had been seen a few weeks ago for a episode of pelvic pain/abdominal pain that showed fluid in the pelvis suggestive of a ruptured ovarian cyst at that time test was negative is also negative today she had no vaginal discharge has none today either. Will admit to the ICU. Patient has early findings suggestive of myxedema. She is bradycardic and hypotensive at this time as well. Dr. Christie will follow. Medical Records I reviewed the patient's medical records. Lab Data I reviewed the patient's lab results. 09/17/24 04:54 09/17/24 04:54 Radiology Impressions Chest X-Ray 09/17/24 06:25 IMPRESSION: No acute findings. Renal Ultrasound 09/17/24 09:05 IMPRESSION: 1. No hydronephrosis in either kidney. 2. Mild diffuse bladder wall thickening can be seen with cystitis. Recommend correlation for UTI. Laboratory Results WBC 5.44 10^3/uL (3.29-11.43) 09/17/24 04:54 RBC 3.56 10^6/uL (3.85-5.65) L 09/17/24 04:54 Hgb 10.30 g/dL (11.27-16.99) L 09/17/24 04:54 Hct 31.3 % (36-47) L 09/17/24 04:54 MCV 87.9 fl (85-98) 09/17/24 04:54 MCH 28.9 pg (27-33) 09/17/24 04:54 MCHC 32.9 g/dL (30-55) 09/17/24 04:54 RDW 15.2 % (12.1-15.1) H 09/17/24 04:54 Plt Count 222 10^3/cmm (157-399) 09/17/24 04:54 MPV 11.1 fL (7.4-10.4) H 09/17/24 04:54 Neut % (Auto) 37.1 % 09/17/24 04:54 Lymph % (Auto) 56.6 % 09/17/24 04:54 Ceiba % (Auto) 3.7 % 09/17/24 04:54 Eos % (Auto) 1.7 % 09/17/24 04:54 Baso % (Auto) 0.7 % 09/17/24 04:54 Neut # (Auto) 2.02 10^3/uL (1.8-7.7) 09/17/24 04:54 Lymph # (Auto) 3.1 10^3/uL (0.8-4.8) 09/17/24 04:54 Ceiba # (Auto) 0.2 10^3/uL (0.2-0.9) 09/17/24 04:54 Eos # (Auto) 0.1 10^3/uL (0.0-0.8) 09/17/24 04:54 Baso # (Auto) 0.0 10^3/uL (0.0-0.1) 09/17/24 04:54 Nucleated RBC % (auto) 0 % 09/17/24 04:54 Nucleated RBCs # 0.0 /100WBC 09/17/24 04:54 Sodium 139 mmol/L (136-145) 09/17/24 04:54 Potassium 3.5 mmol/L (3.5-5.1) 09/17/24 04:54 Chloride 101 mmol/L (98-107) 09/17/24 04:54 Carbon Dioxide 24 mmol/L (22-29) 09/17/24 04:54 Anion Gap 17.5 (5-19) 09/17/24 04:54 BUN 11 mg/dL (6-20) 09/17/24 04:54 Creatinine 1.5 mg/dL (0.5-0.9) H 09/17/24 04:54 GFR Calculation 42.3 mL/min (90-130) L 09/17/24 04:54 Glucose 92 mg/dL (65-115) 09/17/24 04:54 Calculated Osmolality 287 mOsm/kg (285-295) 09/17/24 04:54 Calcium 8.0 mg/dL (8.5-10.5) L 09/17/24 04:54 Total Bilirubin 0.4 mg/dL (0.15-1.2) 09/17/24 04:54 AST 32 U/L (0-32) 09/17/24 04:54 ALT 14 U/L (0-33) 09/17/24 04:54 Alkaline Phosphatase 47 U/L (35-105) 09/17/24 04:54 Total Protein 6.3 g/dL (6.6-8.7) L 09/17/24 04:54 Albumin 4.3 g/dL (3.5-5.2) 09/17/24 04:54 Globulin 2.0 g/dL (1.3-4.6) 09/17/24 04:54 TSH 500.70 uIU/mL (0.27-4.20) H 09/17/24 04:54 Free T4 0.10 ng/dL (0.82-1.77) L 09/17/24 04:54 Free T3 0.4 PG/ML (2.0-4.4) L 09/17/24 04:54 HCG, Qual Negative (Negative) 09/17/24 03:00 Random Cortisol 5.25 ug/dL (2.47-19.5) 09/17/24 04:54 Urine Color Yellow (Yellow) 09/17/24 04:54 Urine Appearance Turbid (CLEAR) A 09/17/24 04:54 Urine pH 6.0 (5-7) 09/17/24 04:54 Ur Specific Lanse 1.035 (1.005-1.030) H 09/17/24 04:54 Urine Protein 1+ (Negative) A 09/17/24 04:54 Urine Glucose (UA) Negative (Normal) 09/17/24 04:54 Urine Ketones Trace (Negative) 09/17/24 04:54 Urine Blood Negative (Negative) 09/17/24 04:54 Urine Nitrate Negative (Negative) 09/17/24 04:54 Urine Bilirubin Negative (Negative) 09/17/24 04:54 Urine Urobilinogen 1.0 mg/dL (Negative) 09/17/24 04:54 Ur Leukocyte Esterase 1+ (Negative) A 09/17/24 04:54 Urine RBC 0-2 /hpf (0-2) 09/17/24 04:54 Urine WBC >100 /hpf (0-5) H 09/17/24 04:54 Ur Squamous Epith Cells 51-100 /hpf (0-5) 09/17/24 04:54 Amorphous Sediment Not Reportable 09/17/24 04:54 Urine Bacteria 4+ /hpf (NONE) H 09/17/24 04:54 Hyaline Casts 4.11 /lpf 09/17/24 04:54 Urine Opiates Screen Negative ng/mL (Negative) 09/17/24 04:54 Ur Barbiturates Screen Negative ng/mL (Negative) 09/17/24 04:54 Ur Phencyclidine Scrn Negative ng/mL (Negative) 09/17/24 04:54 Ur Amphetamines Screen Negative ng/mL (Negative) 09/17/24 04:54 U Benzodiazepines Scrn Negative ng/mL (Negative) 09/17/24 04:54 Urine Cocaine Screen Negative ng/mL (Negative) 09/17/24 04:54 U Marijuana (THC) Screen Negative ng/mL (Negative) 09/17/24 04:54 All radiology interpretation(s) finalized by discharge Discharge Plan Discharge Patient Disposition: Admitted As Inpatient Admit Provider: Neville Christie Clinical Impression: Myxedema, 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 Patient's care was discussed, and care was transferred from Carmelita Lacey MD to Uri Paredes DO. Coding Level of Care Code ED Industrial Education Instructor for [employer]le
[2024-09-17 05:47] LABS: Hematocrit 31.3 % (36-47); Hemoglobin 10.30 g/dL (11.27-16.99); Mean Corpuscular HGB Conc 32.9 g/dL (30-55); Mean Corpuscular Hemoglobin 28.9 pg (27-33); Mean Corpuscular Volume 87.9 fl (85-98); Nucleated Red Blood Cells % 0 %; Platelet Count 222 10^3/cmm (157-399); Red Blood Count 3.56 10^6/uL (3.85-5.65); White Blood Count 5.44 10^3/uL (3.29-11.43)
[2024-09-17 05:52] LABS: HCG Qualitative Urine. Negative (Negative)
[2024-09-17 05:57] LABS: PCP Screen Urine Negative (Negative)
[2024-09-17 06:01] LABS: Glucose Urine UA Negative (Normal); Nitrate Urine Negative (Negative); Specific Gravity, Urine 1.035 (1.005-1.030)
[2024-09-17 06:07] LABS: Thyroid Stimulating Hormone 500.70 uIU/mL (0.27-4.20)
[2024-09-17 06:09] LABS: Alanine Aminotransferase 14 U/L (0-33); Albumin Level 4.3 g/dL (3.5-5.2); Alkaline Phosphatase 47 U/L (35-105); Anion Gap 17.5 (5-19); Aspartate Amino Transferase 32 U/L (0-32); Blood Urea Nitrogen 11 mg/dL (6-20); Calcium 8.0 mg/dL (8.5-10.5); Carbon Dioxide 24 mmol/L (22-29); Chloride 101 mmol/L (98-107); Creatinine Clr Calc Pharmacy 54.3378; Free T4 Free Thyroxine 0.10 ng/dL (0.82-1.77); Globulin 2.0 g/dL (1.3-4.6); Glucose 92 mg/dL (65-115); Osmolality Calculated 287 mOsm/kg (285-295); Potassium 3.5 mmol/L (3.5-5.1); Sodium 139 mmol/L (136-145); Total Protein 6.3 g/dL (6.6-8.7)
[2024-09-17 06:22] LABS: UA Slide Review UA Slide Review Perf
--- NOTE | 2024-09-17 06:22 | USCV_ITS ---
Farhad Ardon Age: 24 Gender: F : 2000 Exam Date: 09/17/2024 06:32 Ordering Phys: Technologist: Exam [place] [facility] [place]ication: ? per eff BP: 94 / 72 HR: 65 Rhythm: Sinus Technical Quality: Adequate MEASUREMENTS (Male / Female) Normal Values 2D ECHO LV Diastolic Diameter PLAX 4.2 cm 4.2 - 5.9 / 3.9 - 5.3 cm IVS Diastolic Thickness 1.0 cm 0.6 - 1.0 / 0.6 - 0.9 cm IVS Systolic Thickness 1.2 cm LVPW Diastolic Thickness 0.8 cm 0.6 - 1.0 / 0.6 - 0.9 cm LVPW Systolic Thickness 1.2 cm LVOT Diameter 2.0 cm LV Ejection Fraction 2D Teich 61.3 % LV Ejection Fraction MOD 4C 68.1 % LV Ejection Fraction MOD 2C 59.4 % LV Ejection Fraction 2C AL 57.5 % LA Diameter 2.5 cm RA Systolic Volume 4C AL 20.0 ml RA Systolic Volume 4C MOD 19.1 ml Aorta at Sinotubular Diameter 2.4 cm M-MODE LA Ao Ratio MM 1.2 AV Cusp Separation MM 1.7 cm DOPPLER AV Peak Velocity 84.0 cm/s LVOT Peak Velocity 65.0 cm/s AV Area Cont Eq vti 2.9 cm squared AV Area Cont Eq pk 2.5 cm squared MV Peak Velocity 90.0 cm/s MV Area PHT 2.7 cm squared Mitral E to A Ratio 2.6 TV Peak Velocity 181.0 cm/s TR Peak Velocity 182.0 cm/s TR Peak Gradient 13.2 mmHg TV Peak E Velocity 76.0 cm/s PV Peak Velocity 59.0 cm/s FINDINGS Left Ventricle Normal left ventricular size, systolic function and wall thickness, with no regional wall motion abnormalities. Left ventricular ejection fraction is estimated at 60 %. Grade II/IV diastolic dysfunction, moderately elevated filling pressures. Right Ventricle The right ventricle is normal in size and function. Right Atrium The right atrium is normal in size. Left Atrium Moderately increased left atrial size. Mitral Valve No mitral valve stenosis. Mild mitral valve regurgitation. Aortic Valve Structurally normal aortic valve without significant sclerosis or stenosis. There is no aortic regurgitation. Tricuspid Valve Structurally normal tricuspid valve without significant stenosis or regurgitation. Pulmonary artery systolic pressure is normal. Pulmonic Valve Trace pulmonary valve regurgitation. Pericardium Normal pericardium without effusion. Aorta Normal ascending aorta dimension. IVC The inferior vena cava appears normal. CONCLUSIONS Normal left ventricular size, systolic function and wall thickness, with no regional wall motion abnormalities. Left ventricular ejection fraction is estimated at 60 %. Grade II/IV diastolic dysfunction, moderately elevated filling pressures. Moderately increased left atrial size. There is no pericardial effusion. Right atrial pressure is around 5 mm of mercury. Sandra Daley MD (Electronically Signed) Final Date: 18 September 2024 11:35 S
--- NOTE | 2024-09-17 06:25 | XRR_ITS ---
PROCEDURE INFORMATION: Exam: XR Chest Exam date and time: 09/17/2024 6:54 AM Age: 24 years old Clinical indication: Shortness of breath; Anxiety. PT stated she is not sleeping we; Additional info: Myxedema TECHNIQUE: Imaging protocol: Radiologic exam of the chest. Views: 1 view. COMPARISON: CT kidney stone [id number] 08/30/2024 8:58 AM FINDINGS: Lungs: Unremarkable. No consolidation. Pleural spaces: No pneumothorax. Heart/Mediastinum: Unremarkable. No cardiomegaly. Bones/joints: Unremarkable. XR/XR chest 1V portable [id number] IMPRESSION: No acute findings.
--- NOTE | 2024-09-17 07:06 | ECG_ITS ---
[facility] Test Date: 2024-09-17 Pat Name: Farhad Ardon Department: Room: Gender: Female Training Engineer: : 2000 Requested By: Uri Conteh Order Number: [id number] Fadia MD: Shahram Mota M.D. Measurements Intervals [place] Rate: 42 P: 41 DC: 165 QRS: 97 QRSD: 86 T: 212 QT: 473 QTc: 399 Interpretive Statements SINUS BRADYCARDIA BORDERLINE RIGHT AXIS DEVIATION [QRS AXIS > 90] LOW QRS VOLTAGE IN PRECORDIAL LEADS [QRS DEFLECTION < 1.0 mV IN CHEST LEADS] ABNORMAL QRS-T ANGLE [QRS-T AXIS DIFFERENCE > 60] Compared to ECG 08/16/2023 13:31:30 Low QRS voltage now present Sinus rhythm no longer present Electronically Signed On 09-19-2024 10:26:59 CDT by Shahram Mota M.D. [email or web address]
--- NOTE | 2024-09-17 08:53 | P.HP_ITS ---
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 Earlier today she awoke nauseated after about one hour of sleep but denies vomiting, diarrhea, fever, cough, dyspnea, dysuria, hematuria, or gastrointestinal bleeding. The left lower quadrant pain first prompted an ED visit on 30 Aug 2024, when computed tomography (CT) revealed a moderate complex fluid collection in the posterior pelvis and bowel wall thickening of the left colon; pelvic ultrasound at that time demonstrated free fluid in the cul-de-sac without a solid pelvic mass, and testing was negative. Since that visit the pain has persisted. She follows endocrinology for thyroid disease but has remained on levothyroxine without missed doses. A random cortisol today is 5.25 ?g/dL. In the ED she was noted to be bradycardic (40 bpm) and hypotensive (BP 82/56 mm Hg), with TSH 500 ?IU/mL, mild chronic anemia (Hgb 10.3 g/dL), creatinine 1.5 mg/dL (baseline 1.3), and urinalysis showing pyuria (>100 WBC), bacteria, and leukocyte esterase. She receives ceftriaxone empirically. She reports only intermittent use of diclofenac for pain. No leg swelling, rash, urinary frequency, or dysuria. She denies recent NSAID overuse and is otherwise without additional complaints. Review of Systems 2 Const: Reports: fatigue; Denies: fever(s), chills, body aches or malaise ENMT: Denies: throat pain Card: Denies: chest pain, edema, pre-syncope or dyspnea on exertion Resp: Denies: dyspnea, productive cough, change in phlegm color or hemoptysis GI: Denies: abdominal pain, nausea, vomiting, diarrhea, constipation, hematochezia or melena : Reports: other (LLQ pain has not gone away when asked about); Denies: flank pain, difficulty voiding, dysuria, urinary frequency, urinary urgency, hematuria, genital lesions or vaginal bleeding Musc: Denies: back pain, joint swelling or joint redness Skin/Breast: Denies: rash or new lesions Neuro: Denies: headache(s) or confusion Medications/Allergies Home Medications ?Medication ?Instructions ?Recorded ?Confirmed ?Last Taken ?Type polyethylene glycol 3350 17 17 g PO DAILY #510 grams 0 06/07/24 09/17/24 Unknown Rx gram/dose oral powder (Miralax) buspirone 15 mg tablet 15 mg PO BID 07/11/2409/16/24 History levothyroxine 200 mcg tablet 200 mcg PO DAILY 07/11/24 09/17/24 09/16/24 History Allergies Allergy/AdvReac Type Severity Reaction Status Date / Time amoxicillin Allergy ADR-Nausea Verified 08/30/24 06:15 Fish Containing Products Allergy ADR-Nausea Verified 08/30/24 06:15 Penicillins Allergy ADR-Nausea Verified 08/30/24 06:15 shellfish derived Allergy ADR-Itching Verified 08/30/24 06:15 PFSH Acute 2 PFSH: Medical History Migraine Anxiety 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 Adrenal insufficiency No pertinent family history Surgical History History of tonsillectomy and adenoidectomy History of myringotomy twice as a child History of laparoscopic appendectomy History of laparoscopic cholecystectomy History of cleft palate with cleft lip History of thyroid surgery (~2020) Full thyroidectomy-- performed in [place] Family History Grandmother Diabetes mellitus, type 2 MGM Hypertension PGM Grandfather Hypertension PGF Denies family history of Colon cancer Ovarian cancer Prostate cancer CAD (coronary artery disease) Hyperlipidemia Chronic kidney disease (CKD) Breast cancer Bleeding disorder Family history of premature coronary artery disease Uterine cancer Thyroid disease Social History Smoking and tobacco/nicotine status: never used tobacco/nicotine Second hand smoke exposure: No Alcohol intake: current Alcohol intake frequency: holidays/special occasions only Substance/Drug Use: never Adopted: No Caregiver/support person: No Lives independently: Yes Household members: spouse and children Housing: House Marital status: Highest education level completed: High School Graduate service: No Current occupational status: employed Current occupation: [employer] Current occupational exposures/hazards: No Female Reproductive History: Date of last menstrual period: 08/14/24 Vitals/I&O/Wt Last Vital Signs Temp 97.8 F 09/17/24 04:50 Pulse 40 L 09/17/24 07:39 Resp 16 09/17/24 07:39 BP 82/56 09/17/24 07:39 Pulse Ox 99 09/17/24 07:39 O2 Del Method Room Air 09/17/24 07:39 Weight last 48 hrs Weight 68.039 kg Physical Exam 2 Const: COMMON NORMALS: patient oriented x3 and alert GENERAL APPEARANCE: c ooperative ORIENTATION/CONSCIOUSNESS: Yes awake OTHER: Minimally delayed movements. HENMT: COMMON NORMALS: oropharynx normal Neck/C-Spine: COMMON NORMALS: no JVD Resp: COMMON NORMALS: normal respiratory effort and clear to auscultation bilaterally AUSCULTATION: clear to auscultation bilaterally Cardio: COMMON NORMALS: no JVD, regular rhythm, S1 normal heart sound present, S2 normal heart sound present and No murmurs present (Cardio) RHYTHM: regular rhythm HEART SOUNDS: S1 normal heart sound present and S2 normal heart sound present GI: COMMON NORMALS: Normal to inspection, nondistended, normoactive bowel sounds present, Soft to palpation and non-tender PALPATION: Yes Soft to palpation Extremity: COMMON NORMALS: no joint enlargement and no pedal edema Neuro: COMMON NORMALS: patient oriented x3 and moves all extremities S ENSORIUM/ORIENTATION: Yes alert Skin: COMMON NORMALS: no rashes or lesions noted GENERAL SKIN EXAM: no rashes or lesions noted Data 09/17/24 04:54 09/17/24 04:54 A&P Assessment and plan 1. Hypoparathyroidism: Severe symptomatic hypothyroidism (myxedema) : TSH 500 ?IU/mL with low free T4, symptomatic fatigue, bradycardia, and hypotension; differential includes medication non-adherence versus disease progression; possibly developing myxedema based on prior history and current labs. Reviewed vitals, CBC, CMP, UA, UDS, chest x-ray, EKG, ED provider note, discussed with ED provider. - Initiate intravenous levothyroxine with stress dose steroids, hydrocortisone 50 mg every 6 hours, levothyroxine 80 mcg daily based on weight. Monitor on telemetry with risk of arrhythmia. - Admit to intensive care unit for close monitoring of blood pressure, heart rate, and mental status. Case with nursing, showcase trimmer. 2. Adrenal insufficiency: With hypotension, requested fluid bolus 500 cc. Monitor blood pressure, monitor for signs of adrenal crisis/shock. Consider repeat boluses. Monitor for risk of fluid overload Known adrenal insufficiency with soft blood pressure and random cortisol 5.25 ?g/dL suggesting inadequate endogenous steroid production. - Administer stress-dose corticosteroids (because of possible adrenal crisis and to support blood pressure). 3. NIKKO (acute kidney injury): Acute kidney injury : Creatinine increased to 1.5 mg/dL from baseline 1.3 mg/dL; possible contributing factors include NSAID use and hemodynamic instability. - Hold and discontinue all non-steroidal anti-inflammatory drugs. - Order renal ultrasound to evaluate kidneys. - Monitor renal function with repeat creatinine. 4. Abnormal finding on urinalysis: Possible urinary tract infection : Urinalysis with pyuria, bacteria, leukocyte esterase; patient without classic dysuria but nausea and pelvic discomfort; urinary tract infection (UTI) versus asymptomatic bacteriuria. - Continue empiric ceftriaxone started in ED. - Send urine culture and adjust antibiotics per culture results. 5. Left lower quadrant abdominal pain: Pelvic fluid collection with left lower quadrant pain : Persistent pelvic free fluid and pain since 30 Aug 2024; differential includes ruptured ovarian cyst, pelvic inflammatory disease (PID), or other gynecologic source. - Order repeat pelvic ultrasound, including transvaginal imaging, to reassess fluid collection. - Consider CT abdomen/pelvis if ultrasound remains inconclusive. Plan: Anxiety: Continue buspirone PDMP PDMP Reviewed: Not Reviewed Attestations 2 Medical Necessity Statement*: Admission over 2 midnights anticipated for severe symptomatic hypothyroidism with adrenal insufficiency, hypotension, NIKKO, possible UTI. Diagnoses Hypoparathyroidism E20.9 Adrenal insufficiency E27.40 NIKKO (acute kidney injury) N17.9 Abnormal finding on urinalysis R82.90 Left lower quadrant abdominal pain R10.32
--- NOTE | 2024-09-17 09:05 | US_ITS ---
WS: [id number] ULTRASOUND RENAL TECHNIQUE: Ultrasound examination of both kidneys. CLINICAL INFORMATION: vamshi, uti COMPARISON: None. FINDINGS: RIGHT: Right kidney is normal in size and appearance. Echogenicity: Normal. Cortical thickness: 1.1 cm; Normal. Hydronephrosis: None. Perinephric fluid: None. Right kidney measures: 9.0 cm x 4.4 cm x 5.4 cm. LEFT: Left kidney is normal in size and appearance. Echogenicity: Normal. Cortical thickness: 1.1 cm; Normal. Hydronephrosis: None. Perinephric fluid: None. Left kidney measures: 7.9 cm x 3.9 cm x 3.3 cm. Normal visualized aorta. Mild diffuse bladder wall thickening. Bladder is partially decompressed. US/US renal BI* [id number] IMPRESSION: 1. No hydronephrosis in either kidney. 2. Mild diffuse bladder wall thickening can be seen with cystitis. Recommend c orrelation for UTI.
--- NOTE | 2024-09-17 09:11 | US_ITS ---
WS: [id number] US pelv w/transvag [id number] HISTORY: follow up complex pelvic collection COMPARISON: 08/30/2024, Uterus: 7.4 cm x 5.0 cm x 3.7 cm. Normal size anteverted uterus. No fibroid or mass. Endometrium: 0.5 cm. Normal Right ovary: 5.3 cm x 2.4 cm x 3.7 cm. RIGHT ovary is enlarged. Cyst with simple daughter cysts associated with the RIGHT ovary. This is a thin-walled cyst with through transmission measuring 4.9 x 2.7 x 2.0 cm. This was also described on prior imaging studies. Normal vascularity within the wall of the ovary. Left ovary: 2.8 cm x 2.5 cm x 2.4 cm. Normal size and vascularity, no cystic or solid masses. Numerous small follicles. Small amount of complex free fluid in the cul-de-sac. US/US pelv w/transvag [id number] IMPRESSION: 1. RIGHT ovarian cyst measures 4.9 x 2.7 x 2.0 cm. There are daughter cyst wit hin a cyst which is a reassuring component. This is probably the same cyst that was described on recent CT and pelvic ultrasound. Cyst has decreased in size f rom the CT of 08/30/2024. 2. Physiologic mildly complex free fluid in the pelvis.
[2024-09-17] MEDS: cefTRIAXone 1,000 mg SDV 1000 MG IVP (09:14)
[2024-09-17] MEDS: water for injection-sterile 10 ML 100 ML (09:22)
[2024-09-17] MEDS: hydrocortisone 100 mg/2 mL SDV 50 MG IVP ×2 (09:36→14:45)
--- NOTE | 2024-09-17 11:15 | PC.NURSE ---
1030 Patient agreed to have the transvaginal ultrasound. Pt to xray dept via wheelchair with monitor. I remained with patient for renal u/s and the transvaginal pelvic u/s. Patient tolerated well. Back to room. No c/o's.
--- NOTE | 2024-09-17 11:44 | PC.NURSE ---
1130 Patient says tylenol did not relieve generalized pain at all. Notified dr sarah of given 650mg tylenol at 0944 and no relief. Orders to repeat tylenol now then will consider additional pain meds.
--- NOTE | 2024-09-17 14:50 | PC.NURSE ---
1440 pt sleeping, blood pressure sys in 60's, woke her up, retook pressure, still in 60's. No c/o's. Notified dr. sarah. New order for another 500ml saline bolus, then chetah afterwards
--- NOTE | 2024-09-17 15:31 | PC.NURSE ---
1530 2nd 500ml fluid bolus for low bp completed, then administered the Cheetah, result was NOt fluid Responsive, Sent screenshot to Dr. Barrera, no further orders at this time.
[2024-09-17] MEDS: norepinephrine 4 MG/250 ML BAG 7.5 MG IV (15:46)
[2024-09-17] MEDS: DOPamine drip 400 MG/250 ML PREMIX 13.61 MG IV (17:27)
[2024-09-17] MEDS: HYDROcodone-acetaminophen 5-325 mg Tablet 1 TAB PO (17:33)
[2024-09-17] MEDS: hydrocortisone 100 mg/2 mL SDV IVP (19:29)
[2024-09-17] MEDS: ondansetron 2 mg/ML SDV 2 mL 4 MG IVP (19:29)
--- NOTE | 2024-09-17 21:23 | PC.NURSE ---
Dopamine titrated to keep MAP greater than 65, but heart rate has persisted in low 40's. Patient voices no complaints, peripheral pulses 3+, and cap refill >2 seconds. Attempted to call and message Dr. Steel to make aware and request parameters for heart rate. Unable to reach at this time.
--- NOTE | 2024-09-17 22:19 | PC.NURSE ---
Contact made via phone with Dr. Andrade. Reported increasing nausea, new orders received to increase zofran frequency to q4 prn, and add compazine 10 mg IV q 6 hours prn. Discussed vital signs and dopamine, clarified that she would like heart rate to be in 50-60 range.
--- NOTE | 2024-09-17 23:39 | PC.NURSE ---
Pt heart rate sustaining in high 30's with adequate blood pressures despite dopamine titrations. Contacted Dr. Steel and made aware of current dosage and unimproving heart rate. Stated she would consult cardiology, no orders received at this time.
[2024-09-18] VITALS (86 sets, daily range): BP systolic 61–152; BP diastolic 46–100; PULSE 39–78; RESP 0–21; TEMP 36.6; O2SAT 96–100
--- NOTE | 2024-09-18 00:03 | PC.NURSE ---
Received call from Dr. Steel, stated she had consulted Dr. Mota and heart rate is ok in 40's if asymptomatic. Informed that current dose of Dopamine is 17.5 mcg/kg/min, allowed to titrate up to 20 per protocol, BP maintaining well, and current rate variable between 40-50.
[2024-09-18] MEDS: DOPamine drip 400 MG/250 ML PREMIX 47.63 MG IV (01:08)
[2024-09-18] MEDS: HYDROcodone-acetaminophen 5-325 mg Tablet 1 TAB PO ×3 (02:47→19:34)
[2024-09-18] MEDS: hydrocortisone 100 mg/2 mL SDV IVP ×4 (02:47→19:20)
[2024-09-18] MEDS: ondansetron 2 mg/ML SDV 2 mL 4 MG IVP ×3 (03:25→19:20)
[2024-09-18 04:05] LABS: Hematocrit 41.4 % (36-47); Hemoglobin 13.60 g/dL (11.27-16.99); Mean Corpuscular HGB Conc 32.9 g/dL (30-55); Mean Corpuscular Hemoglobin 28.8 pg (27-33); Mean Corpuscular Volume 87.5 fl (85-98); Nucleated Red Blood Cells % 0 %; Platelet Count 292 10^3/cmm (157-399); Red Blood Count 4.73 10^6/uL (3.85-5.65); White Blood Count 14.14 10^3/uL (3.29-11.43)
[2024-09-18 04:36] LABS: Anion Gap 21.0 (5-19); Blood Urea Nitrogen 7 mg/dL (6-20); Calcium 8.7 mg/dL (8.5-10.5); Carbon Dioxide 23 mmol/L (22-29); Chloride 102 mmol/L (98-107); Creatinine Clr Calc Pharmacy 64.5923; Glucose 176 mg/dL (65-115); Magnesium 2.4 mg/dL (1.7-2.3); Osmolality Calculated 296 mOsm/kg (285-295); Potassium 4.0 mmol/L (3.5-5.1); Sodium 142 mmol/L (136-145)
[2024-09-18] MEDS: DOPamine drip 400 MG/250 ML PREMIX 34.02 MG IV (06:42)
[2024-09-18] MEDS: cefTRIAXone 1,000 mg SDV 1000 MG IVP (08:06)
--- NOTE | 2024-09-18 08:12 | ECG_ITS ---
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 Measurements Intervals [place] Rate: 75 P: 68 NM: 147 QRS: 93 QRSD: 82 T: 94 QT: 416 QTc: 467 Interpretive Statements SINUS RHYTHM BORDERLINE RIGHT AXIS DEVIATION [QRS AXIS > 90] LOW QRS VOLTAGE IN PRECORDIAL LEADS [QRS DEFLECTION < 1.0 mV IN CHEST LEADS] NON DIAGNOSTIC ST ELEVATION IN SEPTAL LEADS Compared to ECG 09/17/2024 07:06:06 ST (T wave) deviation now present Sinus bradycardia no longer present Electronically Signed On 09-19-2024 10:25:21 CDT by Shahram Mota M.D. [email or web address]
--- NOTE | 2024-09-18 08:28 | P.PN_ITS ---
Subjective 2 Subjective: She states overall she is doing all right but had nausea and vomiting episodes overnight. Arm bent this morning, IV unable to infuse, discussed with her to keep the arm straight. Discussed with her obtaining a PICC line. Later this morning became hypotensive after getting up to the bathroom. Vitals/I&O/Wt Last Vital Signs Temp 97.8 F 09/17/24 20:00 Pulse 39 L 09/18/24 06:30 Resp 13 09/18/24 06:30 BP 125/72 09/18/24 06:15 Pulse Ox 99 09/18/24 06:30 O2 Del Method Room Air 09/17/24 20:00 09/17/24 09/18/24 09/18/24 22:59 06:59 14:59 Intake Total 1075.582 / 1585.582 634.187 / 2219.769 Balance 1075.582 / 1585.582 634.187 / 2219.769 Weight last 48 hrs Weight 73.028 kg Weight 72.575 kg Weight 68.039 kg Physical Exam 2 Const: COMMON NORMALS: patient oriented x3 and alert GENERAL APPEARANCE: c ooperative ORIENTATION/CONSCIOUSNESS: Yes awake OTHER: Mildly delayed movements. HENMT: COMMON NORMALS: oropharynx normal Neck/C-Spine: COMMON NORMALS: no JVD Resp: COMMON NORMALS: normal respiratory effort and clear to auscultation bilaterally AUSCULTATION: clear to auscultation bilaterally Cardio: COMMON NORMALS: no JVD, regular rhythm, S1 normal heart sound present, S2 normal heart sound present and No murmurs present (Cardio) RATE: b radycardic RHYTHM: regular rhythm HEART SOUNDS: S1 normal heart sound present and S2 normal heart sound present GI: COMMON NORMALS: Normal to inspection, nondistended, normoactive bowel sounds present and Soft to palpation PALPATION: Yes Soft to palpation and Yes Tenderness to palpation present (GI) (Lower) Details: other Extremity: COMMON NORMALS: no joint enlargement and no pedal edema Neuro: COMMON NORMALS: patient oriented x3 and moves all extremities S ENSORIUM/ORIENTATION: Yes alert Skin: COMMON NORMALS: no rashes or lesions noted GENERAL SKIN EXAM: no rashes or lesions noted Data 09/18/24 03:35 09/18/24 03:35 A&P Assessment and plan 1. Adrenal crisis: Adrenal crisis with progression of hypotension, required to start pressor, initially Levophed, but with episodes of bradycardia switched over to dopamine. Not fluid responsive after 2 boluses. Continue with stress dose IV corticosteroid. Overnight appears pressor requirement had increased. Discussed with her request for PICC line. Maintain bedrest. Less likely septic shock as otherwise not feeling sepsis criteria, does have UTI. But continue antibiotic. Echocardiogram has been obtained and pending. Follow-up. ST segment changes in V1 and V2 this morning, troponin EKG series requested. Continue to monitor on telemetry. 2. Hypoparathyroidism: Severe symptomatic hypothyroidism with adrenal crisis. Continue stress dose steroids as above. Adjusted levothyroxine dose to 88 mcg as that appears to be the optimize dose she improved with last admission. TSH 500 ?IU/mL with low free T4, symptomatic fatigue, bradycardia, and hypotension; differential includes medication non-adherence versus disease progression; possibly developing myxedema based on prior history and current labs. She states she has been taking her medications. Her senior portfolio manager did not change and she is currently following up in [facility]. Appears she is on levothyroxine 200 mcg daily at home. He does appear in the past was at 475 mcg IM per most recent endocrinology note. - Initiate intravenous levothyroxine with stress dose steroids, hydrocortisone 50 mg every 6 hours, levothyroxine 80 mcg daily based on weight. Monitor on telemetry with risk of arrhythmia. - Admit to intensive care unit for close monitoring of blood pressure, heart rate, and mental status. Case with nursing, case specialist. 3. NIKKO (acute kidney injury): With noted improvement today, BUN reviewed 7, creatinine reviewed 1.3. Hold and discontinue NSAIDs. Continue hemodynamic support, maintain blood pressure, heart rates. - Hold and discontinue all non-steroidal anti-inflammatory drugs. Reviewed renal ultrasound to evaluate kidneys. No evidence of obstructive uropathy. - Monitor renal function with repeat creatinine. Monitor MARNIE. 4. UTI (urinary tract infection): With noted urinary bladder wall thickening on ultrasound. Continue ceftriaxone. Urine culture pending, follow-up. Reviewed prior urine culture. Assess C/G. Reviewed kidney ultrasound, no evidence of obstructive uropathy/hydronephrosis. 5. Left lower quadrant abdominal pain: Pelvic fluid collection with left lower quadrant pain : Obtained kidney, pelvic/transvaginal ultrasound. Discussed with her. Noted urinary bladder wall thickening with suspected cystitis. Continue treatment for UTI. Discussed with her also noted right ovarian cyst measuring 4.9 x 2.7 x 2 cm with daughter cysts within, are reassuring component. Suspected same cyst as described on the recent CT and pelvic ultrasound. It has decreased in size from prior. Physiologic mildly complex free fluid in the pelvis. On presentation persistent pelvic free fluid and pain since 30 Aug 2024; differential includes ruptured ovarian cyst, pelvic inflammatory disease (PID), or other gynecologic source. - Order repeat pelvic ultrasound, including transvaginal imaging, to reassess fluid collection. - Consider CT abdomen/pelvis if ultrasound remains inconclusive. Plan: EKG changes: This morning EKG with ST segment elevation in V1 V2 without normal T wave inflection. Discussed with cardiology. Appreciate assessment. Complete troponin EKG series. Monitor telemetry. Follow-up echocardiogram. Rhabdomyolysis: CK 1163 yesterday, repeat today 1320. Did have nausea and vomiting overnight. States feeling better this morning, however, in case of further nausea vomiting, poor oral intake, consider addition of gentle IV hydration. Anxiety: Continue buspirone, Xanax as needed. PDMP PDMP Reviewed: Not Reviewed Attestations 2 Medical Necessity Statement*: Continue admission for assessment management of adrenal crisis, severe symptomatic hypothyroidism, UTI, NIKKO, EKG changes and bradycardia, additional problems as above. Coding Level of Care Code Critical Care >/= 30 minutes Critical care time (in minutes): 40 The high probability of a clinically significant, sudden or life threatening deterioration, as referenced in this documentation, required my full and direct attention, intervention and personal management. The critical care time shown is in addition to time spent performing any reported separately billable procedures and includes the following: [x] Data and vital sign review and interpretation [x ] Patient assessment, examination and intervention [x] Medication orders and management [x] Patient/Family updates as able [x] Care Coordination and Documentation. Diagnoses Adrenal crisis E27.2 Hypoparathyroidism E20.9 NIKKO (acute kidney injury) N17.9 UTI (urinary tract infection) N39.0 Left lower quadrant abdominal pain R10.32
[2024-09-18] MEDS: pantoprazole 40 mg SDV IVP ×2 (09:08→19:34)
[2024-09-18 09:12] LABS: Lactate (Lactic Acid level) 2.1 mmol/L (0.5-2.2)
[2024-09-18 09:15] LABS: Troponin(5th) Baseline 12 ng/L (0-10)
--- NOTE | 2024-09-18 09:23 | PC.NURSE ---
Patients v/s remain unstable, bradycardic, hypotensive, after using restroom patient became dizzy and feeling faint, got patient back into bed, obtained ekg which was abnormal, notified Dr. Fernandez and Dr. Mota of EKG, see chart. Dr. Mota came bedside seen patient received orders for labs, nothing further at this time.
[2024-09-18 09:53] LABS: Thyroid Stimulating Hormone 490.20 uIU/mL (0.27-4.20)
--- NOTE | 2024-09-18 10:17 | P.CONIM_ITS ---
<Statement entered by Shahram Mota M.D - 09/19/24 11:58> Patient was evaluated and cared for in conjunction with an advanced practice practitioner.? I personally examined the patient and reviewed the chart and all pertinent data including imaging, telemetry, and laboratory results.? I discussed the patient in detail with the advanced practice practitioner.? Please see? their note for complete consult note, testing results and agreed upon plan of care for the patient. Patient is stable hemodynamically. Blood pressure is normal. No chest pain. Patient has sinus bradycardia. Once patient's thyroid levels improve, heart rate will improve. At this time we will continue to follow. GENERAL: Patient is alert, awake and oriented x3. HEART: Regular S1 and S2, bradycardia LUNGS: Clear to auscultate bilaterally. CENTRAL NERVOUS SYSTEM: Grossly nonfocal. EXTREMITIES: Lower extremities without edema bilaterally. Providers/Reason For Consult 2 Consulting Physician/Specialty*: Dr. 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 She presented to the emergency room 09/17/2024 with anxiety, fatigue, left lower abdominal discomfort. She does see endocrinology, had not missed any doses of levothyroxine. TSH 500, low free T4, felt to be developing myxedema. She was bradycardic in the 40s and hypotensive in the ER, admitted to the ICU started on dopamine, started on intravenous levothyroxine, steroids, received 500 cc fluid bolus. Creatinine 1.5, evaluation of kidneys with renal ultrasound pending. She remains bradycardic intermittently this morning heart rate ranging from 42- 70 bpm, she is asymptomatic with the bradycardia, no chest pain or shortness of breath. She is very sleepy, was awakened for the exam. Review of Systems 2 Narrative: sleepy but arouses to voice and touch Const: Reports: fatigue; Denies: fever(s), chills, change in weight or diaphoresis Eyes: Denies: change in vision ENMT: Denies: epistaxis Card: Denies: chest pain, palpitations, irregular heart rhythm, edema, syncope, pre-syncope, dyspnea on exertion, orthopnea or leg pain with exertion Resp: Denies: dyspnea, productive cough or wheezing GI: Denies: nausea, vomiting, hematemesis, hematochezia or melena : Denies: hematuria Musc: Denies: extremity swelling Alok/Lymph: Denies: easy bruising or easy bleeding Medications/Allergies Home Medications ?Medication ?Instructions ?Recorded ?Confirmed ?Last Taken ?Type polyethylene glycol 3350 17 17 g PO DAILY #510 grams 0 06/07/24 09/17/24 Unknown Rx gram/dose oral powder (Miralax) buspirone 15 mg tablet 15 mg PO BID 07/11/2409/16/24 History levothyroxine 200 mcg tablet 200 mcg PO DAILY 07/11/24 09/17/24 09/16/24 History Allergies Allergy/AdvReac Type Severity Reaction Status Date / Time amoxicillin Allergy ADR-Nausea Verified 08/30/24 06:15 Fish Containing Products Allergy ADR-Nausea Verified 08/30/24 06:15 Penicillins Allergy ADR-Nausea Verified 08/30/24 06:15 shellfish derived Allergy ADR-Itching Verified 08/30/24 06:15 Current Medications Generic Name Dose Route Start Last Admin Trade Name Rodrigoq PRN Reason Stop Dose Admin Acetaminophen 650 mg 09/17/24 08:59 09/17/24 11:42 Acetaminophen 325 Mg Tablet PO 650 mg Q6H PRN Administration Mild/Mod Pain Or Temp >/= 101 Hydrocodone Bitart/Acetaminophen 1 tab 09/17/24 11:35 09/18/24 02:47 Hydrocodone-Acetaminophen 5-325 Mg Tablet PO 1 tab Q4H PRN Administration MODERATE PAIN Alprazolam 0.5 mg 09/17/24 12:58 09/17/24 23:02 Alprazolam 0.5 Mg Tablet PO 0.5 mg TID PRN Administration ANXIETY Buspirone HCl 15 mg 09/17/24 13:00 09/18/24 08:09 Buspirone 10 Mg Tablet PO 15 mg BID TOYA Administration Ceftriaxone Sodium 1,000 mg 09/18/24 08:00 09/18/24 08:06 Ceftriaxone 1,000 Mg Sdv IVP 1,000 mg Q24H TOYA Administration Protocol Enoxaparin Sodium 40 mg 09/17/24 09:00 09/18/24 08:08 Enoxaparin 40 Mg/0.4 Ml Syringe SUBCUT 40 mg Q24H TOYA Administration Hydrocortisone Sodium Succinate 100 mg 09/17/24 20:00 09/18/24 08:05 Hydrocortisone 100 Mg/2 Ml Sdv IVP 100 mg Q6H TOYA Administration Dopamine HCl/Dextrose 400 mg in 250 mls @ 13.608 mls/hr 09/17/24 17:30 09/18/24 06:47 Intropin Drip IV 15 mcg/kg/min CONT TOYA 40.82 mls/hr Protocol Titration 5 MCG/KG/MIN Levothyroxine Sodium 88 mcg 09/18/24 08:00 09/18/24 09:06 Levothyroxine 100 Mcg Sdv IVP Not Given DAILY TOYA Ondansetron HCl 4 mg 09/17/24 22:22 09/18/24 09:12 Ondansetron 2 Mg/Ml Sdv 2 Ml IVP 4 mg Q4H PRN Administration NAUSEA AND VOMITING Pantoprazole Sodium 40 mg 09/18/24 08:30 09/18/24 09:08 Pantoprazole 40 Mg Sdv IVP 40 mg Q12H TOYA Administration Prochlorperazine Edisylate 10 mg 09/17/24 22:23 09/18/24 06:41 Prochlorperazine 10 Mg/2 Ml Inj IVP 10 mg Q6H PRN Administration NAUSEA PFSH Acute 2 PFSH: Medical History Migraine Anxiety 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 Adrenal crisis No pertinent family history Surgical History History of tonsillectomy and adenoidectomy History of myringotomy twice as a child History of laparoscopic appendectomy History of laparoscopic cholecystectomy History of cleft palate with cleft lip History of thyroid surgery (~2020) Full thyroidectomy-- performed in [place] Family History Grandmother Diabetes mellitus, type 2 MGM Hypertension PGM Grandfather Hypertension PGF Denies family history of Colon cancer Ovarian cancer Prostate cancer CAD (coronary artery disease) Hyperlipidemia Chronic kidney disease (CKD) Breast cancer Bleeding disorder Family history of premature coronary artery disease Uterine cancer Thyroid disease Social History Smoking and tobacco/nicotine status: never used tobacco/nicotine Second hand smoke exposure: No Alcohol intake: current Alcohol intake frequency: holidays/special occasions only Substance/Drug Use: never Adopted: No Caregiver/support person: No Lives independently: Yes Household members: spouse and children Housing: House Marital status: Highest education level completed: High School Graduate service: No Current occupational status: employed Current occupation: [employer] Current occupational exposures/hazards: No Female Reproductive History: Date of last menstrual period: 08/14/24 Vitals/I&O/Wt Last Vital Signs Temp 97.9 F 09/18/24 09:00 Pulse 51 L 09/18/24 09:00 Resp 13 09/18/24 09:00 BP 143/98 09/18/24 09:00 Pulse Ox 98 09/18/24 09:00 O2 Del Method Room Air 09/17/24 20:00 09/17/24 09/18/24 09/18/24 22:59 06:59 14:59 Intake Total 1075.582 / 2219.769 634.187 / 2219.769 Balance 1075.582 / 2219.769 634.187 / 2219.769 Weight last 48 hrs Weight 161 lb Weight 160 lb Weight 150 lb Physical Exam 2 Const: COMMON NORMALS: no acute distress and patient oriented x3 GENERAL APPEARANCE: cooperative and comfortable ORIENTATION/CONSCIOUSNESS: Yes awake, Yes oriented to person, Yes oriented to place and Yes oriented to time Chest: COMMONS NORMALS: normal inspection of the chest and normal palpation of entire chest wall CHEST: Yes Symmetrical chest wall rise Resp: COMMON NORMALS: normal respiratory effort, No retractions, No use of accessory muscles and clear to auscultation bilaterally EFFORT & INSPECTION: Yes symmetric chest movement AUSCULTATION: clear to auscultation bilaterally Cardio: COMMON NORMALS: regular rate, regular rhythm, S1 normal heart sound present, S2 normal heart sound present, No gallops present (Cardio), No clicks present (Cardio), No murmurs present (Cardio) and No rub (Cardio) RATE: r egular rate RHYTHM: regular rhythm HEART SOUNDS: S1 normal heart sound present and S2 normal heart sound present PERIPHERAL PULSES: radial pulses present Extremity: COMMON NORMALS: no pedal edema Neuro: COMMON NORMALS: patient oriented x3 and moves all extremities S ENSORIUM/ORIENTATION: Yes oriented to person, Yes oriented to place and Yes oriented to time Data 09/18/24 03:35 09/18/24 03:35 A&P Assessment and plan 1. 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 Myxedema: 3. Adrenal crisis: 4. NIKKO (acute kidney injury): 5. UTI (urinary tract infection): 6. Bradycardia: Plan: She is currently on dopamine infusion 15 mcg/kg/min. Blood pressure is maintaining well. Troponin series is pending, baseline 12. CK 1320. TSH down to 490 from 500 yesterday morning. Do not recommend any atropine unless heart rate drops less than 40 bpm. PDMP PDMP Reviewed: Not Reviewed Coding Level of Care Code Acute Code for Chg Fwd Diagnoses 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 E06.3 Myxedema E03.9 Adrenal crisis E27.2 NIKOK (acute kidney injury) N17.9 UTI (urinary tract infection) N39.0 Bradycardia R00.1
--- NOTE | 2024-09-18 10:18 | ECG_ITS ---
[facility] Test Date: 2024-09-18 Pat Name: Farhad Ardon Department: Room: 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 Measurements Intervals [place] Rate: 49 P: 67 CA: 169 QRS: 101 QRSD: 93 T: 69 QT: 534 QTc: 483 Interpretive Statements SINUS BRADYCARDIA RIGHT AXIS DEVIATION [QRS AXIS > 100] NONSPECIFIC ST & T-WAVE ABNORMALITY PROLONGED QT INTERVAL Compared to ECG 09/18/2024 08:12:07 T-wave abnormality now present Prolonged QT interval now present Sinus rhythm no longer present ST (T wave) deviation no longer present Electronically Signed On 09-19-2024 10:29:48 CDT by Shahram Mota M.D. [email or web address]
[2024-09-18 11:20] LABS: Troponin 5 2HR 11.01 ng/L (0-10)
[2024-09-18 11:22] LABS: Troponin 5 2HR Delta -0.99 ABS# (0-10)
[2024-09-18 12:07] LABS: Neisseria Gonorrhea NOT DETECTED (Negative)
[2024-09-18] MEDS: DOPamine drip 400 MG/250 ML PREMIX 40.82 MG IV ×2 (13:01→19:17)
[2024-09-18 15:53] LABS: Troponin 5 6HR 11.32 ng/L (0-10); Troponin 5 6HR Delta -0.68 ng/L (0-12)
--- NOTE | 2024-09-18 16:10 | ECG_ITS ---
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 Measurements Intervals [place] Rate: 43 P: 0 MS: 0 QRS: 96 QRSD: 85 T: 81 QT: 578 QTc: 492 Interpretive Statements SINUS BRADYCARDIA BORDERLINE RIGHT AXIS DEVIATION [QRS AXIS > 90] ST DEVIATION AND MODERATE T-WAVE ABNORMALITY, CONSIDER LATERAL ISCHEMIA [-0.1+ mV T-WAVE IN I/aVL/V5/V6] PROLONGED QT INTERVAL CRITICAL TEST RESULT Compared to ECG 09/18/2024 10:37:46 Possible ischemia now present Sinus bradycardia no longer present T-wave abnormality still present Electronically Signed On 09-19-2024 10:29:12 CDT by Shahram Mota M.D. [id number] [id number]
[2024-09-18] MEDS: meropenem 1,000 mg SDV 1000 MG IVP (16:50)
[2024-09-18 19:17] LABS: MRSA PCR OZH (swab) NOT DETECTED (Not Detecte)
[2024-09-19] VITALS (65 sets, daily range): BP systolic 79–138; BP diastolic 45–90; PULSE 38–64; RESP 10–24; TEMP 36.6; O2SAT 95–100; BMI 27.8
[2024-09-19] MEDS: meropenem 1,000 mg SDV 1000 MG IVP ×3 (00:19→16:04)
[2024-09-19] MEDS: DOPamine drip 400 MG/250 ML PREMIX 40.82 MG IV (01:29)
[2024-09-19] MEDS: hydrocortisone 100 mg/2 mL SDV IVP ×4 (01:29→19:37)
[2024-09-19] MEDS: ondansetron 2 mg/ML SDV 2 mL 4 MG IVP ×3 (04:36→16:04)
[2024-09-19] MEDS: HYDROcodone-acetaminophen 5-325 mg Tablet 1 TAB PO ×2 (04:37→12:13)
[2024-09-19 05:30] LABS: Hematocrit 39.2 % (36-47); Hemoglobin 12.80 g/dL (11.27-16.99); Mean Corpuscular HGB Conc 32.7 g/dL (30-55); Mean Corpuscular Hemoglobin 28.6 pg (27-33); Mean Corpuscular Volume 87.7 fl (85-98); Nucleated Red Blood Cells % 0 %; Platelet Count 324 10^3/cmm (157-399); Red Blood Count 4.47 10^6/uL (3.85-5.65); White Blood Count 22.96 10^3/uL (3.29-11.43)
[2024-09-19 06:02] LABS: Blood Urea Nitrogen 7 mg/dL (6-20); Calcium 8.2 mg/dL (8.5-10.5); Carbon Dioxide 23 mmol/L (22-29); Chloride 100 mmol/L (98-107); Creatinine Clr Calc Pharmacy 70.1800; Glucose 141 mg/dL (65-115); Osmolality Calculated 288 mOsm/kg (285-295); Sodium 139 mmol/L (136-145)
[2024-09-19 06:04] LABS: Anion Gap 20.2 (5-19); Potassium 4.2 mmol/L (3.5-5.1)
[2024-09-19] MEDS: DOPamine drip 400 MG/250 ML PREMIX 27.22 MG IV (08:03)
[2024-09-19] MEDS: pantoprazole 40 mg SDV IVP ×2 (08:14→19:37)
--- NOTE | 2024-09-19 08:30 | P.PN_ITS ---
<Statement entered by Shahram Mota M.D - 09/24/24 07:40> Patient was cared for in conjunction with an advanced practice practitioner.? I reviewed the chart and all pertinent data including imaging, telemetry, and laboratory results.? I discussed the patient in detail with the advanced practice practitioner.? Please see?their note for progress note, testing results and agreed upon plan of care for the patient. Subjective 2 Subjective: She remains sinus bradycardic with heart rates in the 40s, blood pressure stable on dopamine infusion, reduced to 10 mcg this morning. She is awake and alert, asymptomatic. Free T4 0.15. Vitals/I&O/Wt Last Vital Signs Temp 98 F 09/19/24 04:30 Pulse 49 L 09/19/24 08:00 Resp 13 09/19/24 08:00 BP 125/86 09/19/24 08:00 Pulse Ox 98 09/19/24 08:00 O2 Del Method Room Air 09/19/24 04:30 09/18/24 09/19/24 09/19/24 22:59 06:59 14:59 Intake Total 490 / 1357.789 380.624 / 1357.789 369.376 / 369.376 Output Total 800 / 1250 450 / 1250 Balance -310 / 107.789 -69.376 / 107.789 369.376 / 369.376 Weight last 48 hrs Weight 162 lb Weight 161 lb Physical Exam 2 Const: COMMON NORMALS: no acute distress and patient oriented x3 GENERAL APPEARANCE: cooperative and comfortable ORIENTATION/CONSCIOUSNESS: Yes awake, Yes oriented to person, Yes oriented to place and Yes oriented to time Chest: COMMONS NORMALS: normal inspection of the chest and normal palpation of entire chest wall CHEST: Yes Symmetrical chest wall rise Resp: COMMON NORMALS: normal respiratory effort, No retractions, No use of accessory muscles and clear to auscultation bilaterally EFFORT & INSPECTION: Yes symmetric chest movement AUSCULTATION: clear to auscultation bilaterally Cardio: COMMON NORMALS: regular rate, regular rhythm, S1 normal heart sound present, S2 normal heart sound present, No gallops present (Cardio), No clicks present (Cardio), No murmurs present (Cardio) and No rub (Cardio) RATE: r egular rate RHYTHM: regular rhythm HEART SOUNDS: S1 normal heart sound present and S2 normal heart sound present PERIPHERAL PULSES: radial pulses present Extremity: COMMON NORMALS: no pedal edema Neuro: COMMON NORMALS: patient oriented x3 and moves all extremities S ENSORIUM/ORIENTATION: Yes oriented to person, Yes oriented to place and Yes oriented to time Urinary Catheter Management: Moseley: Cath Placed During This Visit: yes Reason for Continuing Indwelling Catheter: Accurate Measurement of Urinary Output in Critically Ill Patients Urinary Catheter Date of Insertion: 09/18/24 Urinary Catheter Time of Insertion: 10:33 Data 09/19/24 04:33 09/19/24 04:33 Micro: Microbiology 09/17/24 04:54 Urine Culture - Preliminary Urine,Clean Catch 09/18/24 17:01 Blood Culture - Preliminary Blood SPECIMEN COLLECTED 09/18/24 16:57 Blood Culture - Preliminary Blood SPECIMEN COLLECTED A&P Assessment and plan 1. 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 Myxedema: 3. Adrenal crisis: 4. NIKKO (acute kidney injury): 5. UTI (urinary tract infection): 6. Bradycardia: Plan: She appears stable from a cardiovascular perspective. Continue dopamine for blood pressure and heart rate. PDMP PDMP Reviewed: Not Reviewed Attestations 2 Medical Necessity Statement*: Bradycardia and hypotension requiring vasopressor Coding Level of Care Code Acute Code for Chg Fwd Diagnoses 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 E06.3 Myxedema E03.9 Adrenal crisis E27.2 NIKKO (acute kidney injury) N17.9 UTI (urinary tract infection) N39.0 Bradycardia R00.1
[2024-09-19 08:47] LABS: Free T4 Free Thyroxine 0.15 ng/dL (0.82-1.77)
--- NOTE | 2024-09-19 09:08 | PM.PN ---
Subjective Subjective: She states she is doing fine this morning. Denies new complaints. She has some milder nausea overnight but no further vomiting. No new abdominal pain, still some tenderness in the lower abdomen. Vitals/I&O/Wt Last Vital Signs Temp 98 F 09/19/24 04:30 Pulse 49 L 09/19/24 08:00 Resp 13 09/19/24 08:00 BP 125/86 09/19/24 08:00 Pulse Ox 98 09/19/24 08:00 O2 Del Method Room Air 09/19/24 04:30 09/18/24 09/19/24 09/19/24 22:59 06:59 14:59 Intake Total 490 / 977.165 380.624 / 1357.789 119.376 / 119.376 Output Total 800 / 800 450 / 1250 Balance -310 / 177.165 -69.376 / 107.789 119.376 / 119.376 Weight last 48 hrs Weight 73.482 kg Weight 73.028 kg Weight 72.575 kg Physical Exam Const: COMMON NORMALS: patient oriented x3 and alert GENERAL APPEARANCE: cooperative ORIENTATION/CONSCIOUSNESS: Yes awake OTHER: Mildly delayed movements. HENMT: COMMON NORMALS: oropharynx normal Neck/C-Spine: COMMON NORMALS: no JVD Resp: COMMON NORMALS: normal respiratory effort and clear to auscultation bilaterally AUSCULTATION: clear to auscultation bilaterally Cardio: COMMON NORMALS: no JVD, regular rhythm, S1 normal heart sound present, S2 normal heart sound present and No murmurs present (Cardio) RATE: bradycardic RHYTHM: regular rhythm HEART SOUNDS: S1 normal heart sound present and S2 normal heart sound present GI: COMMON NORMALS: Normal to inspection, nondistended, normoactive bowel sounds present, Soft to palpation and non-tender PALPATION: Yes Soft to palpation and Yes Tenderness to palpation present (GI) (Lower) Extremity: COMMON NORMALS: no joint enlargement and no pedal edema Neuro: COMMON NORMALS: patient oriented x3 and moves all extremities SENSORIUM/ORIENTATION: Yes alert Skin: COMMON NORMALS: no rashes or lesions noted GENERAL SKIN EXAM: no rashes or lesions noted Urinary Catheter Management: Moseley: Cath Placed During This Visit: yes Reason for Continuing Indwelling Catheter: Accurate Measurement of Urinary Output in Critically Ill Patients Urinary Catheter Date of Insertion: 09/18/24 Urinary Catheter Time of Insertion: 10:33 Data 09/19/24 04:33 09/19/24 04:33 Micro: Microbiology 09/18/24 17:01 Blood Culture - Preliminary Blood SPECIMEN COLLECTED 09/18/24 16:57 Blood Culture - Preliminary Blood SPECIMEN COLLECTED A&P Assessment and plan 1. Adrenal crisis: Reviewed vitals, CBC, CMP, urine culture, nasal MRSA PCR. Discussed with her yesterday with mild leukocytosis, today with some progression of 22. Yesterday adjusted antibiotic to meropenem, although leukocytosis more likely secondary to demargination with corticosteroid. Blood cultures were obtained yesterday as well. Follow-up. Reviewed chlamydia/gonorrhea studies, negative. Continue stress dose corticosteroids, continue to attempt to wean off dopamine, today attempting to come down to 10 mcg/kg/min infusion. Monitor heart rates with bradycardia and blood pressures with shock. Monitor for any change in symptoms. Discussed with nursing. Adrenal crisis with progression of hypotension, required to start pressor, initially Levophed, but with episodes of bradycardia switched over to dopamine. Not fluid responsive after 2 boluses. Continue with stress dose IV corticosteroid. Obtain PICC line. Echocardiogram reviewed. Noted normal EF. Grade [address] segment changes in V1 and V2 this morning, troponin EKG series requested. Continue to monitor on telemetry. Appreciate cardiology consultation. Suspected related likely to hypothyroidism. 2. Hypoparathyroidism: Continue intravenous levothyroxine. Recheck free T4. Absorption test for levothyroxine was considered during last admission although I do not see that it was performed. She does not recall. TSH 500 ?IU/mL with low free T4, symptomatic fatigue, bradycardia, and hypotension; differential includes medication non-adherence versus disease progression; possibly developing myxedema based on prior history and current labs. She states she has been taking her medications. Her home health care case manager did not change and she is currently following up in [facility]. Appears she is on levothyroxine 200 mcg daily at home. He does appear in the past was at 475 mcg IM per most recent endocrinology note. - Initiate intravenous levothyroxine with stress dose steroids, hydrocortisone 50 mg every 6 hours, levothyroxine 80 mcg daily based on weight. Monitor on telemetry with risk of arrhythmia. - Admit to intensive care unit for close monitoring of blood pressure, heart rate, and mental status. Case with nursing, case filler. 3. NIKKO (acute kidney injury): With noted improvement today, BUN reviewed 7, creatinine reviewed 1.3. Hold and discontinue NSAIDs. Continue hemodynamic support, maintain blood pressure, heart rates. - Hold and discontinue all non-steroidal anti-inflammatory drugs. Reviewed renal ultrasound to evaluate kidneys. No evidence of obstructive uropathy. - Monitor renal function with repeat creatinine. Monitor MARNIE. 4. UTI (urinary tract infection): With noted urinary bladder wall thickening on ultrasound. Continue ceftriaxone. Urine culture pending, follow-up. Reviewed prior urine culture. Assess C/G. Reviewed kidney ultrasound, no evidence of obstructive uropathy/hydronephrosis. 5. Left lower quadrant abdominal pain: Pelvic fluid collection with lower abdominal tenderness. Obtained kidney, pelvic/transvaginal ultrasound. Discussed with her. Noted urinary bladder wall thickening with suspected cystitis. Continue treatment for UTI. Discussed with her also noted right ovarian cyst measuring 4.9 x 2.7 x 2 cm with daughter cysts within, are reassuring component. Suspected same cyst as described on the recent CT and pelvic ultrasound. It has decreased in size from prior. Physiologic mildly complex free fluid in the pelvis. On presentation persistent pelvic free fluid and pain since 30 Aug 2024; differential includes ruptured ovarian cyst, pelvic inflammatory disease (PID), or other gynecologic source. - Consider CT abdomen/pelvis Plan: Possible NSAID induced gastritis: No further vomiting so far. Mild nausea still overnight. Continue IV PPI twice daily. EKG changes: This morning EKG with ST segment elevation in V1 V2 without normal T wave inflection. Discussed with cardiology. Suspected secondary to hypothyroidism. Appreciate assessment. Complete troponin EKG series. Monitor telemetry. Reviewed echocardiogram. No RWMA. Rhabdomyolysis: Reviewed CK, decreasing down to 859. Repeat CK, renal function. Anxiety: Continue buspirone, Xanax as needed. PDMP PDMP Reviewed: Not Reviewed Attestations Medical Necessity Statement*: Continue admission for assessment management of adrenal crisis, severe symptomatic hypothyroidism, UTI, additional problems as above. Coding Level of Care Code Critical Care >/= 30 minutes Critical care time (in minutes): 35 The high probability of a clinically significant, sudden or life threatening deterioration, as referenced in this documentation, required my full and direct attention, intervention and personal management. The critical care time shown is in addition to time spent performing any reported separately billable procedures and includes the following: [x] Data and vital sign review and interpretation [x] Patient assessment, examination and intervention [x] Medication orders and management [x] Patient/Family updates as able [x] Care Coordination and Documentation. Diagnoses Adrenal crisis E27.2 Hypoparathyroidism E20.9 NIKKO (acute kidney injury) N17.9 UTI (urinary tract infection) N39.0 Left lower quadrant abdominal pain R10.32
--- NOTE | 2024-09-19 17:16 | SUR.PREOP ---
PICC NOTE In to discuss picc line and obtain consent. After discussion patient is refusing the picc at this time. Geovanna TOM notified. made aware. Pending further orders. Line cancelled at this time.
[2024-09-19] MEDS: DOPamine drip 400 MG/250 ML PREMIX 20.41 MG IV (19:19)
[2024-09-20] VITALS (83 sets, daily range): BP systolic 68–137; BP diastolic 42–88; PULSE 37–73; RESP 7–21; TEMP 36.3–36.8; O2SAT 95–100
[2024-09-20] MEDS: hydrocortisone 100 mg/2 mL SDV IVP ×4 (01:13→21:28)
[2024-09-20] MEDS: meropenem 1,000 mg SDV 1000 MG IVP ×4 (01:13→23:59)
[2024-09-20] MEDS: HYDROcodone-acetaminophen 5-325 mg Tablet 1 TAB PO ×3 (01:21→23:34)
[2024-09-20] MEDS: ondansetron 2 mg/ML SDV 2 mL 4 MG IVP ×4 (01:22→23:59)
[2024-09-20] MEDS: DOPamine drip 400 MG/250 ML PREMIX 27.22 MG IV (04:40)
[2024-09-20 05:24] LABS: Hematocrit 37.2 % (36-47); Hemoglobin 12.00 g/dL (11.27-16.99); Mean Corpuscular HGB Conc 32.3 g/dL (30-55); Mean Corpuscular Hemoglobin 28.4 pg (27-33); Mean Corpuscular Volume 87.9 fl (85-98); Nucleated Red Blood Cells % 0 %; Platelet Count 310 10^3/cmm (157-399); Red Blood Count 4.23 10^6/uL (3.85-5.65); White Blood Count 16.79 10^3/uL (3.29-11.43)
[2024-09-20 05:41] LABS: Anion Gap 20.0 (5-19); Blood Urea Nitrogen 9 mg/dL (6-20); Calcium 7.8 mg/dL (8.5-10.5); Carbon Dioxide 24 mmol/L (22-29); Chloride 98 mmol/L (98-107); Creatinine Clr Calc Pharmacy 70.1596; Glucose 134 mg/dL (65-115); Osmolality Calculated 287 mOsm/kg (285-295); Potassium 4.0 mmol/L (3.5-5.1); Sodium 138 mmol/L (136-145)
[2024-09-20 05:50] LABS: Free T4 Free Thyroxine 0.23 ng/dL (0.82-1.77)
[2024-09-20] MEDS: pantoprazole 40 mg SDV IVP ×2 (08:40→21:28)
--- NOTE | 2024-09-20 08:45 | P.PN_ITS ---
<Statement entered by Shahram Mota M.D - 09/24/24 08:09> Patient was cared for in conjunction with an advanced practice practitioner.? I reviewed the chart and all pertinent data including imaging, telemetry, and laboratory results.? I discussed the patient in detail with the advanced practice practitioner.? Please see?their note for progress note, testing results and agreed upon plan of care for the patient. Subjective 2 Subjective: She appears improved, more alert. Heart rate remains consistently in the 40s, sinus bradycardia. CK down to 456, free T4 up to 0.23. She remains on dopamine infusion, attempting to wean, now at 5 mcg. Vitals/I&O/Wt Last Vital Signs Temp 98 F 09/20/24 04:30 Pulse 48 L 09/20/24 11:45 Resp 11 L 09/20/24 11:45 BP 80/55 09/20/24 11:45 Pulse Ox 98 09/20/24 11:45 O2 Del Method Room Air 09/20/24 04:30 09/20/24 09/20/24 09/20/24 06:59 14:59 22:59 Intake Total 544.897 / 1419.376 164.785 / 164.785 Output Total 275 / 975 Balance 269.897 / 444.376 164.785 / 164.785 Weight last 48 hrs Weight 160 lb 14.4 oz Weight 162 lb Physical Exam 2 Const: COMMON NORMALS: no acute distress and patient oriented x3 GENERAL APPEARANCE: cooperative and comfortable ORIENTATION/CONSCIOUSNESS: Yes awake, Yes oriented to person, Yes oriented to place and Yes oriented to time Chest: COMMONS NORMALS: normal inspection of the chest and normal palpation of entire chest wall CHEST: Yes Symmetrical chest wall rise Resp: COMMON NORMALS: normal respiratory effort, No retractions, No use of accessory muscles and clear to auscultation bilaterally EFFORT & INSPECTION: Yes symmetric chest movement AUSCULTATION: clear to auscultation bilaterally Cardio: COMMON NORMALS: regular rhythm, S1 normal heart sound present, S2 normal heart sound present, No gallops present (Cardio), No clicks present (Cardio), No murmurs present (Cardio) and No rub (Cardio) RATE: bradycardic RHYTHM: regular rhythm HEART SOUNDS: S1 normal heart sound present and S2 normal heart sound present PERIPHERAL PULSES: radial pulses present Extremity: COMMON NORMALS: no pedal edema Neuro: COMMON NORMALS: patient oriented x3 and moves all extremities S ENSORIUM/ORIENTATION: Yes oriented to person, Yes oriented to place and Yes oriented to time Urinary Catheter Management: Moseley: Cath Placed During This Visit: yes Reason for Continuing Indwelling Catheter: Accurate Measurement of Urinary Output in Critically Ill Patients Urinary Catheter Date of Insertion: 09/18/24 Urinary Catheter Time of Insertion: 10:33 Data 09/20/24 03:44 09/20/24 03:44 Micro: Microbiology 09/17/24 04:54 Urine Culture - Final Urine,Clean Catch 09/18/24 17:01 Blood Culture - Preliminary Blood NEGATIVE TO DATE 09/18/24 16:57 Blood Culture - Preliminary Blood NEGATIVE TO DATE A&P Assessment and plan 1. Bradycardia: 2. Myxedema: 3. Adrenal crisis: 4. NIKKO (acute kidney injury): Plan: Making slow progress. She remains asymptomatic. Blood pressures in the 100-120 systolic range. PDMP PDMP Reviewed: Not Reviewed Attestations 2 Medical Necessity Statement*: Bradycardia and hypotension requiring vasopressor Coding Level of Care Code Acute Code for [facility] Diagnoses Bradycardia R00.1 Myxedema E03.9 Adrenal crisis E27.2 NIKKO (acute kidney injury) N17.9
--- NOTE | 2024-09-20 12:55 | P.PN_ITS ---
Subjective 2 Subjective: She states she is doing all right. Still had mild nausea overnight, but overall getting better. No vomiting. No other new symptoms. Having some constipation. Vitals/I&O/Wt Last Vital Signs Temp 98 F 09/20/24 04:30 Pulse 48 L 09/20/24 11:45 Resp 11 L 09/20/24 11:45 BP 80/55 09/20/24 11:45 Pulse Ox 98 09/20/24 11:45 O2 Del Method Room Air 09/20/24 04:30 09/19/24 09/20/24 09/20/24 22:59 06:59 14:59 Intake Total 67.285 / 874.479 544.897 / 1419.376 164.785 / 164.785 Output Total 700 / 700 275 / 975 Balance -632.715 / 174.479 269.897 / 444.376 164.785 / 164.785 Weight last 48 hrs Weight 72.983 kg Weight 73.482 kg Physical Exam 2 Const: COMMON NORMALS: patient oriented x3 and alert GENERAL APPEARANCE: c ooperative ORIENTATION/CONSCIOUSNESS: Yes awake OTHER: Mildly delayed movements. HENMT: COMMON NORMALS: oropharynx normal Neck/C-Spine: COMMON NORMALS: no JVD Resp: COMMON NORMALS: normal respiratory effort and clear to auscultation bilaterally AUSCULTATION: clear to auscultation bilaterally Cardio: COMMON NORMALS: no JVD, regular rhythm, S1 normal heart sound present, S2 normal heart sound present and No murmurs present (Cardio) RATE: b radycardic RHYTHM: regular rhythm HEART SOUNDS: S1 normal heart sound present and S2 normal heart sound present GI: COMMON NORMALS: Normal to inspection, nondistended, normoactive bowel sounds present, Soft to palpation and non-tender PALPATION: Yes Soft to palpation and Yes Tenderness to palpation present (GI) (Lower) Extremity: COMMON NORMALS: no joint enlargement and no pedal edema Neuro: COMMON NORMALS: patient oriented x3 and moves all extremities S ENSORIUM/ORIENTATION: Yes alert Skin: COMMON NORMALS: no rashes or lesions noted GENERAL SKIN EXAM: no rashes or lesions noted Urinary Catheter Management: Moseley: Cath Placed During This Visit: yes Reason for Continuing Indwelling Catheter: Accurate Measurement of Urinary Output in Critically Ill Patients Urinary Catheter Date of Insertion: 09/18/24 Urinary Catheter Time of Insertion: 10:33 Data 09/20/24 03:44 09/20/24 03:44 Micro: Microbiology 09/17/24 04:54 Urine Culture - Final Urine,Clean Catch 09/18/24 17:01 Blood Culture - Preliminary Blood NEGATIVE TO DATE 09/18/24 16:57 Blood Culture - Preliminary Blood NEGATIVE TO DATE A&P Assessment and plan 1. Adrenal crisis: She is overall gradually improving. Still requiring pressor, discussed with her risk of continued dopamine infusion, discussed risk of externalization, tissue ischemia, necrosis, revisited reasoning behind order of PICC line. She verbalized understanding. Reviewed vitals, CBC, CMP, urine culture. Discussed with her yesterday with mild leukocytosis, today with improved to 16.7. Continue adjusted antibiotic to meropenem, although leukocytosis more likely secondary to demargination with corticosteroid. Blood cultures were obtained yesterday as well. Follow-up. Reviewed chlamydia/gonorrhea studies, negative. Continue stress dose corticosteroids, continue to attempt to wean off dopamine, today attempting to come down to 5 mcg/kg/min infusion. Monitor heart rates with bradycardia and blood pressures with shock. Monitor for any change in symptoms. Discussed with nursing. Adrenal crisis with progression of hypotension, required to start pressor, initially Levophed, but with episodes of bradycardia switched over to dopamine. Not fluid responsive after 2 boluses. Continue with stress dose IV corticosteroid. Declined PICC line. Echocardiogram reviewed. Noted normal EF. Grade [address] segment changes in V1 and V2 this morning, troponin EKG series requested. Continue to monitor on telemetry. Appreciate cardiology consultation. Suspected related likely to hypothyroidism. 2. Hypoparathyroidism: Continue intravenous levothyroxine. Reviewed fT4. Gradually improving. Recheck free T4. Absorption test for levothyroxine was considered during last admission although I do not see that it was performed. She does not recall. Requested records from [facility] endocrinology. She states she has been following up with them. She again confirms that she has not missed any doses of her medications. There may be an issue with absorption. However, she states while she was taking oral medication and is doing well with good levels. Discussed with her after discharge she will need prompt follow-up within the week with her endocrinology team to further consider options going forward. Discussed with our piledriver carpenter who had seen her in the past. At this time continue IV levothyroxine. Monitor for risk of arrhythmia. Continue dopamine infusion. Reassess free T4. Noted gradually rising today up to 0.23. Discussed with nursing, director case management. TSH 500 ?IU/mL with low free T4, symptomatic fatigue, bradycardia, and hypotension; differential includes medication non-adherence versus disease progression; possibly developing myxedema based on prior history and current labs. She states she has been taking her medications. Her piledriver carpenter did not change and she is currently following up in [facility]. Appears she is on levothyroxine 200 mcg daily at home. He does appear in the past was at 475 mcg IM per week per most recent endocrinology note. 3. NIKKO (acute kidney injury): With noted improvement today, BUN reviewed 7, creatinine reviewed 1.2. Hold and discontinue NSAIDs. Continue hemodynamic support, maintain blood pressure, heart rates. - Hold and discontinue all non-steroidal anti-inflammatory drugs. Reviewed renal ultrasound to evaluate kidneys. No evidence of obstructive uropathy. - Monitor renal function with repeat creatinine. Monitor MARNEI. 4. UTI (urinary tract infection): With noted urinary bladder wall thickening on ultrasound. Continue ceftriaxone. Unfortunately urine culture unrevealing reviewed prior urine culture. Reviewed C/G. Reviewed kidney ultrasound, no evidence of obstructive uropathy/hydronephrosis. 5. Left lower quadrant abdominal pain: Pelvic fluid collection with lower abdominal tenderness. Obtained kidney, pelvic/transvaginal ultrasound. Discussed with her. Noted urinary bladder wall thickening with suspected cystitis. Continue treatment for UTI. Discussed with her also noted right ovarian cyst measuring 4.9 x 2.7 x 2 cm with daughter cysts within, are reassuring component. Suspected same cyst as described on the recent CT and pelvic ultrasound. It has decreased in size from prior. Physiologic mildly complex free fluid in the pelvis. On presentation persistent pelvic free fluid and pain since 30 Aug 2024; differential includes ruptured ovarian cyst, pelvic inflammatory disease (PID), or other gynecologic source. - Consider CT abdomen/pelvis Plan: Possible NSAID induced gastritis: No further vomiting so far. Mild nausea still overnight. Continue IV PPI twice daily. EKG changes: This morning EKG with ST segment elevation in V1 V2 without normal T wave inflection. Discussed with cardiology. Suspected secondary to hypothyroidism. Appreciate assessment. Complete troponin EKG series. Monitor telemetry. Reviewed echocardiogram. No RWMA. Rhabdomyolysis: Reviewed CK, decreasing down to 456. Repeat CK, renal function. Anxiety: Continue buspirone, Xanax as needed. PDMP PDMP Reviewed: Not Reviewed Attestations 2 Medical Necessity Statement*: Continue admission for assessment management of adrenal crisis, severe symptomatic hypothyroidism, UTI, additional problems as above. Coding Level of Care Code Critical Care >/= 30 minutes Critical care time (in minutes): 35 The high probability of a clinically significant, sudden or life threatening deterioration, as referenced in this documentation, required my full and direct attention, intervention and personal management. The critical care time shown is in addition to time spent performing any reported separately billable procedures and includes the following: [x] Data and vital sign review and interpretation [x ] Patient assessment, examination and intervention [x] Medication orders and management [x] Patient/Family updates as able [x] Care Coordination and Documentation. Diagnoses Adrenal crisis E27.2 Hypoparathyroidism E20.9 NIKKO (acute kidney injury) N17.9 UTI (urinary tract infection) N39.0 Left lower quadrant abdominal pain R10.32
[2024-09-20] MEDS: polyethylene glycol 3350 Pkt 17 gm PO ×2 (13:19→17:38)
[2024-09-20] MEDS: DOPamine drip 400 MG/250 ML PREMIX 13.61 MG IV (16:31)
[2024-09-21] VITALS (64 sets, daily range): BP systolic 83–146; BP diastolic 57–93; PULSE 36–79; RESP 2–25; TEMP 36.2–36.9; O2SAT 96–100
[2024-09-21] MEDS: hydrocortisone 100 mg/2 mL SDV IVP ×4 (02:09→19:57)
[2024-09-21 03:30] LABS: Hematocrit 38.5 % (36-47); Hemoglobin 12.30 g/dL (11.27-16.99); Mean Corpuscular HGB Conc 31.9 g/dL (30-55); Mean Corpuscular Hemoglobin 28.9 pg (27-33); Mean Corpuscular Volume 90.6 fl (85-98); Nucleated Red Blood Cells % 0 %; Platelet Count 287 10^3/cmm (157-399); Red Blood Count 4.25 10^6/uL (3.85-5.65); White Blood Count 15.29 10^3/uL (3.29-11.43)
[2024-09-21 03:43] LABS: Anion Gap 16.1 (5-19); Blood Urea Nitrogen 12 mg/dL (6-20); Calcium 7.9 mg/dL (8.5-10.5); Carbon Dioxide 27 mmol/L (22-29); Chloride 98 mmol/L (98-107); Creatinine Clr Calc Pharmacy 64.7627; Glucose 130 mg/dL (65-115); Osmolality Calculated 286 mOsm/kg (285-295); Potassium 4.1 mmol/L (3.5-5.1); Sodium 137 mmol/L (136-145)
[2024-09-21 03:53] LABS: Free T4 Free Thyroxine 0.29 ng/dL (0.82-1.77)
[2024-09-21] MEDS: DOPamine drip 400 MG/250 ML PREMIX 27.22 MG IV (05:07)
[2024-09-21] MEDS: ondansetron 2 mg/ML SDV 2 mL 4 MG IVP ×3 (07:47→21:11)
[2024-09-21] MEDS: pantoprazole 40 mg SDV IVP ×2 (07:52→19:57)
[2024-09-21] MEDS: meropenem 1,000 mg SDV 1000 MG IVP ×3 (07:52→23:32)
[2024-09-21] MEDS: polyethylene glycol 3350 Pkt 17 gm PO (08:06)
[2024-09-21] MEDS: calcium gluconate 0.9% NaCL 1 GM/50 ML PREMIX IV (12:20)
[2024-09-21] MEDS: HYDROcodone-acetaminophen 5-325 mg Tablet 1 TAB PO ×3 (12:33→21:11)
--- NOTE | 2024-09-21 13:41 | PM.PN ---
Subjective Subjective: Patient doing well. free T4 level slowly improving. Vitals/I&O/Wt Last Vital Signs Temp 97.4 F L 09/21/24 07:45 Pulse 40 L 09/21/24 08:00 Resp 9 L 09/21/24 08:00 BP 106/57 09/21/24 08:00 Pulse Ox 97 09/21/24 08:00 O2 Del Method Room Air 09/21/24 08:00 09/20/24 09/21/24 09/21/24 22:59 06:59 14:59 Intake Total 660.977 / 1475.762 165.116 / 1640.878 51.264 / 51.264 Output Total 1000 / 1000 550 / 1550 Balance -339.023 / 475.762 -384.884 / 90.878 51.264 / 51.264 Weight last 48 hrs Weight 164 lb 7.437 oz Weight 160 lb 14.4 oz Physical Exam Narrative: GENERAL: Patient is alert, awake and oriented x3. [] NECK: No jugular vein distension. [] HEENT: No cyanosis. No icterus. No pallor. [] HEART: Bradycardia LUNGS: Clear to auscultate bilaterally. [] CENTRAL NERVOUS SYSTEM: Grossly nonfocal. [] EXTREMITIES: Lower extremities with no edema bilaterally. Urinary Catheter Management: Moseley: Cath Placed During This Visit: yes Reason for Continuing Indwelling Catheter: Accurate Measurement of Urinary Output in Critically Ill Patients Urinary Catheter Date of Insertion: 09/18/24 Urinary Catheter Time of Insertion: 10:33 Data 09/22/24 03:40 09/22/24 03:40 Micro: Microbiology 09/17/24 04:54 Urine Culture - Final Urine,Clean Catch A&P Assessment and plan 1. Bradycardia: 2. Myxedema: 3. Adrenal crisis: 4. NIKKO (acute kidney injury): Plan: Patient is slowly improving with improving free T4. Heart rates are better than before. Thank you for involving us with care of this patient. We will continue to follow. Please call with questions. PDMP PDMP Reviewed: Not Reviewed Attestations Medical Necessity Statement*: Care expected to cross 2 midnights. Coding Level of Care Code Acute Code for [facility] Fwd Diagnoses Bradycardia R00.1 Myxedema E03.9 Adrenal crisis E27.2 NIKKO (acute kidney injury) N17.9
--- NOTE | 2024-09-21 15:34 | PM.PN ---
Subjective Subjective: Free T4 improving, working on weaning pressor. Vitals/I&O/Wt Last Vital Signs Temp 97.2 F L 09/21/24 13:00 Pulse 38 L 09/21/24 14:00 Resp 14 09/21/24 14:00 BP 110/66 09/21/24 14:00 Pulse Ox 96 09/21/24 14:00 O2 Del Method Room Air 09/21/24 14:00 09/21/24 09/21/24 09/21/24 06:59 14:59 22:59 Intake Total 165.116 / 1640.878 451.264 / 451.264 Output Total 550 / 1550 Balance -384.884 / 90.878 451.264 / 451.264 Weight last 48 hrs Weight 74.6 kg Weight 72.983 kg Physical Exam Const: COMMON NORMALS: no acute distress, average body habitus, patient oriented x3 and alert HENMT: COMMON NORMALS: normocephalic and atraumatic HEAD & SCALP: normocephalic and atraumatic Eye: COMMON NORMALS: Equal, round and reactive pupils present PUPIL: Yes Equal, round and reactive pupils present Neck/C-Spine: COMMON NORMALS: no lymphadenopathy and supple Resp: COMMON NORMALS: normal respiratory effort, No retractions and clear to auscultation bilaterally AUSCULTATION: clear to auscultation bilaterally Cardio: COMMON NORMALS: regular rate, regular rhythm, No gallops present (Cardio), No murmurs present (Cardio) and No rub (Cardio) RATE: regular rate RHYTHM: regular rhythm GI: COMMON NORMALS: Soft to palpation, non-tender and no masses PALPATION: Yes Soft to palpation Extremity: COMMON NORMALS: no pedal edema Neuro: COMMON NORMALS: patient oriented x3 and CN's II-XII intact bilaterally SENSORIUM/ORIENTATION: Yes alert Psych: COMMON NORMALS: mental status grossly normal and Normal thought process present THOUGHT PROCESS: Normal thought process present Urinary Catheter Management: Moseley: Cath Placed During This Visit: yes Reason for Continuing Indwelling Catheter: Accurate Measurement of Urinary Output in Critically Ill Patients Urinary Catheter Date of Insertion: 09/18/24 Urinary Catheter Time of Insertion: 10:33 Data 09/21/24 02:42 09/21/24 02:42 A&P Assessment and plan 1. 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 Anxiety: Plan: 24 year old female presentin with adrenal crisis. 1. Adrenal crisis: w/ hypotension - cont. dopamine, wean as able - mild leukocytosis has been downtrending, likely secondary to demargination with corticosteroid. - Blood cultures NGTD. - chlamydia/gonorrhea studies, negative. - Continue with stress dose IV corticosteroid. - Declined PICC line. - Echocardiogram reviewed. Noted normal EF. Grade 2 diastolic dysfunction. - ST segment changes in V1 and V2, troponin slightly elevated. - Continue to monitor on telemetry. - Appreciate cardiology consultation. 2. Hypoparathyroidism: Continue intravenous levothyroxine. Reviewed fT4. Gradually improving. - Recheck free T4. - Absorption test for levothyroxine was considered during last admission, she is unsure if it was performed. - Requested records from [facility] endocrinology. - She states she has been taking her medications, on levothyroxine 200 mcg daily at home. He does appear in the past was at 475 mcg IM per week per most recent endocrinology note. 3. NIKKO (acute kidney injury): - stable mild increase in creatinine - Hold and discontinue NSAIDs. Continue hemodynamic support, maintain blood pressure, heart rates. - renal ultrasound to evaluate kidneys without evidence of obstructive uropathy. - Monitor renal function with repeat creatinine. Monitor MARNIE. 4. UTI (urinary tract infection): With noted urinary bladder wall thickening on ultrasound. Continue ceftriaxone. Unfortunately urine culture unrevealing reviewed prior urine culture. Reviewed C/G. Reviewed kidney ultrasound, no evidence of obstructive uropathy/hydronephrosis. 5. Left lower quadrant abdominal pain: Pelvic fluid collection with lower abdominal tenderness. Obtained kidney, pelvic/transvaginal ultrasound shows urinary bladder wall thickening with suspected cystitis. Continue treatment for UTI. - right ovarian cyst measuring 4.9 x 2.7 x 2 cm with daughter cysts within, are reassuring component. Suspected same cyst as described on the recent CT and pelvic ultrasound. It has decreased in size from prior. Physiologic mildly complex free fluid in the pelvis. - may follow up with [facility] outpatient if ongoing pelvic pain. On presentation persistent pelvic free fluid and pain since 30 Aug 2024; differential includes ruptured ovarian cyst, pelvic inflammatory disease (PID), or other gynecologic source. - Consider CT abdomen/pelvis Plan: Possible NSAID induced gastritis: No further vomiting so far. - Mild nausea still overnight. Continue IV PPI twice daily. Rhabdomyolysis: Reviewed CK, decreasing down to 456. Anxiety: Continue buspirone, Xanax as needed. Disposition - cont. ICU care on pressor. PDMP PDMP Reviewed: Not Reviewed Attestations Medical Necessity Statement*: Continue admission for assessment management of adrenal crisis, severe symptomatic hypothyroidism, UTI, additional problems as above. Time Spent in Patient Care: Greater than 35 minutes (>than 50% of time spent in counselling and/or direct pt care on unit). Critical Care Time: The high probability of a clinically significant, sudden or life threatening deterioration of the patient's [] system(s) required my full and direct attention, intervention and personal management. The critical care time is as shown. 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
[2024-09-21] MEDS: DOPamine drip 400 MG/250 ML PREMIX 20.41 MG IV (17:15)
--- NOTE | 2024-09-21 19:06 | PC.NURSE ---
Shift summary: Pt rested in bed throughout shift. Heart rate 39-64 this shift. Sinus noted on monitor. NO issues with Bp. Dopamine at 7.5mcg/kg/min today. RIght AC IV tender, it was removed. Pt did not want another IV start this shift. She has one good peripheral in left basilic. She has a very poor appetite, just picks at her food. She has been encouraged to drink m ore fluids yesterday and today. Merepenem admin this evening in IV line with dopamine ( they are compatible) Pt grabbed her head and said a migraine started. Zofran and Hydrocodone administered. Nausea did not dirk, emesis 100ml noted. Compazine admin. Pt is now , at this time, resting in her bed with her eyes closed. Urine output of 450 ml noted
[2024-09-22] VITALS (45 sets, daily range): BP systolic 77–116; BP diastolic 39–75; PULSE 41–105; RESP 7–22; TEMP 36.3–36.8; O2SAT 93–100
[2024-09-22] MEDS: hydrocortisone 100 mg/2 mL SDV IVP ×4 (02:22→21:53)
[2024-09-22 04:01] LABS: Hematocrit 35.5 % (36-47); Hemoglobin 11.30 g/dL (11.27-16.99); Mean Corpuscular HGB Conc 31.8 g/dL (30-55); Mean Corpuscular Hemoglobin 28.5 pg (27-33); Mean Corpuscular Volume 89.4 fl (85-98); Nucleated Red Blood Cells % 0 %; Platelet Count 282 10^3/cmm (157-399); Red Blood Count 3.97 10^6/uL (3.85-5.65); White Blood Count 13.11 10^3/uL (3.29-11.43)
[2024-09-22 04:24] LABS: Alanine Aminotransferase 114 U/L (0-33); Albumin Level 4.3 g/dL (3.5-5.2); Alkaline Phosphatase 55 U/L (35-105); Anion Gap 15.0 (5-19); Aspartate Amino Transferase 101 U/L (0-32); Blood Urea Nitrogen 14 mg/dL (6-20); Calcium 7.9 mg/dL (8.5-10.5); Carbon Dioxide 28 mmol/L (22-29); Chloride 98 mmol/L (98-107); Creatinine Clr Calc Pharmacy 70.8914; Globulin 2.1 g/dL (1.3-4.6); Glucose 125 mg/dL (65-115); Osmolality Calculated 286 mOsm/kg (285-295); Potassium 4.0 mmol/L (3.5-5.1); Sodium 137 mmol/L (136-145); Total Protein 6.4 g/dL (6.6-8.7)
[2024-09-22 04:42] LABS: Free T4 Free Thyroxine 0.36 ng/dL (0.82-1.77)
[2024-09-22] MEDS: DOPamine drip 400 MG/250 ML PREMIX 13.61 MG IV (06:37)
--- NOTE | 2024-09-22 08:35 | P.PN_ITS ---
Subjective 2 Subjective: Patient feeling well. Free T4 level slowly increasing. Heart rate is better. Vitals/I&O/Wt Last Vital Signs Temp 98.2 F 09/22/24 05:00 Pulse 47 L 09/22/24 06:30 Resp 12 09/22/24 06:30 BP 97/57 09/22/24 06:30 Pulse Ox 95 09/22/24 06:30 O2 Del Method Room Air 09/21/24 18:30 09/21/24 09/22/24 09/22/24 22:59 06:59 14:59 Intake Total 708.736 / 1160.000 490.000 / 1650.000 Output Total 550 / 550 400 / 950 Balance 158.736 / 610.000 90.000 / 700.000 Weight last 48 hrs Weight 162 lb Weight 164 lb 7.437 oz Physical Exam 2 Narrative: GENERAL: Patient is alert, awake and oriented x3. [] NECK: No jugular vein distension. [] HEENT: No cyanosis. No icterus. No pallor. [] HEART: Bradycardia LUNGS: Clear to auscultate bilaterally. [] CENTRAL NERVOUS SYSTEM: Grossly nonfocal. [] EXTREMITIES: Lower extremities with no edema bilaterally. Urinary Catheter Management: Moseley: Cath Placed During This Visit: yes Reason for Continuing Indwelling Catheter: Accurate Measurement of Urinary Output in Critically Ill Patients Urinary Catheter Date of Insertion: 09/18/24 Urinary Catheter Time of Insertion: 10:33 Data 09/23/24 05:40 09/23/24 05:40 A&P Assessment and plan 1. Bradycardia: 2. Myxedema: 3. Adrenal crisis: 4. NIKKO (acute kidney injury): Plan: Heart rate is improving with increasing free T4. Can wean off dopamine. Thank you for involving us with care of this patient. We will continue to follow. Please call with questions. PDMP PDMP Reviewed: Not Reviewed Attestations 2 Medical Necessity Statement*: Care expected to cross 2 midnights. Coding Level of Care Code Acute Code for [facility] Fwd Diagnoses Bradycardia R00.1 Myxedema E03.9 Adrenal crisis E27.2 NIKKO (acute kidney injury) N17.9
[2024-09-22] MEDS: polyethylene glycol 3350 Pkt 17 gm PO ×2 (09:16→17:19)
[2024-09-22] MEDS: meropenem 1,000 mg SDV 1000 MG IVP ×2 (09:18→17:23)
[2024-09-22] MEDS: pantoprazole 40 mg SDV IVP ×2 (09:22→21:52)
--- NOTE | 2024-09-22 13:02 | P.PN_ITS ---
Subjective 2 Subjective: No new issues. Free T4 increasing. Vitals/I&O/Wt Last Vital Signs Temp 98.2 F 09/22/24 05:00 Pulse 47 L 09/22/24 06:30 Resp 12 09/22/24 06:30 BP 97/57 09/22/24 06:30 Pulse Ox 95 09/22/24 06:30 O2 Del Method Room Air 09/21/24 18:30 09/21/24 09/22/24 09/22/24 22:59 06:59 14:59 Intake Total 708.736 / 1160.000 490.000 / 1650.000 Output Total 550 / 550 400 / 950 Balance 158.736 / 610.000 90.000 / 700.000 Weight last 48 hrs Weight 73.482 kg Weight 74.6 kg Physical Exam 2 Const: COMMON NORMALS: no acute distress, average body habitus, patient oriented x3 and alert HENMT: COMMON NORMALS: normocephalic and atraumatic HEAD & SCALP: n ormocephalic and atraumatic Eye: COMMON NORMALS: Equal, round and reactive pupils present PUPIL: Yes Equal, round and reactive pupils present Neck/C-Spine: COMMON NORMALS: no lymphadenopathy and supple Resp: COMMON NORMALS: normal respiratory effort, No retractions and clear to auscultation bilaterally AUSCULTATION: clear to auscultation bilaterally Cardio: COMMON NORMALS: regular rate, regular rhythm, No gallops present (Cardio), No murmurs present (Cardio) and No rub (Cardio) RATE: regular rate RHYTHM: regular rhythm GI: COMMON NORMALS: Soft to palpation, non-tender and no masses PALPATION: Yes Soft to palpation Extremity: COMMON NORMALS: no pedal edema Neuro: COMMON NORMALS: patient oriented x3 and CN's II-XII intact bilaterally SENSORIUM/ORIENTATION: Yes alert Psych: COMMON NORMALS: mental status grossly normal and Normal thought process present THOUGHT PROCESS: Normal thought process present Urinary Catheter Management: Moseley: Cath Placed During This Visit: yes Reason for Continuing Indwelling Catheter: Accurate Measurement of Urinary Output in Critically Ill Patients Urinary Catheter Date of Insertion: 09/18/24 Urinary Catheter Time of Insertion: 10:33 Data 09/22/24 03:40 09/22/24 03:40 A&P Assessment and plan 1. 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 Hypoparathyroidism: 3. Vitamin D deficiency: 4. Bradycardia: Plan: 24 year old female presentin with adrenal crisis. 1. Adrenal crisis: w/ hypotension - cont. dopamine, wean as able - mild leukocytosis has been downtrending, likely secondary to demargination with corticosteroid. - Blood cultures NGTD. - chlamydia/gonorrhea studies, negative. - Continue with stress dose IV corticosteroid. - Declined PICC line. - Echocardiogram reviewed. Noted normal EF. Grade [address] dysfunction[address] - ST segment changes in V1 and V2, troponin slightly elevated. - Continue to monitor on telemetry. - Appreciate cardiology consultation. 2. Hypoparathyroidism: Continue intravenous levothyroxine. Reviewed fT4. Gradually improving. - Recheck free T4. - Absorption test for levothyroxine was considered during last admission, she is unsure if it was performed. - Requested records from [facility] endocrinology. - She states she has been taking her medications, on levothyroxine 200 mcg daily at home. He does appear in the past was at 475 mcg IM per week per most recent endocrinology note. 3. NIKKO (acute kidney injury): - stable mild increase in creatinine - Hold and discontinue NSAIDs. Continue hemodynamic support, maintain blood pressure, heart rates. - renal ultrasound to evaluate kidneys without evidence of obstructive uropathy. - Monitor renal function with repeat creatinine. Monitor MARNIE. 4. UTI (urinary tract infection): With noted urinary bladder wall thickening on ultrasound. Continue ceftriaxone. Unfortunately urine culture unrevealing reviewed prior urine culture. Reviewed C/G. Reviewed kidney ultrasound, no evidence of obstructive uropathy/hydronephrosis. 5. Left lower quadrant abdominal pain: Pelvic fluid collection with lower abdominal tenderness. Obtained kidney, pelvic/transvaginal ultrasound shows urinary bladder wall thickening with suspected cystitis. Continue treatment for UTI. - right ovarian cyst measuring 4.9 x 2.7 x 2 cm with daughter cysts within, are reassuring component. Suspected same cyst as described on the recent CT and pelvic ultrasound. It has decreased in size from prior. Physiologic mildly complex free fluid in the pelvis. - may follow up with [facility] outpatient if ongoing pelvic pain. On presentation persistent pelvic free fluid and pain since 30 Aug 2024; differential includes ruptured ovarian cyst, pelvic inflammatory disease (PID), or other gynecologic source. - Consider CT abdomen/pelvis Plan: Possible NSAID induced gastritis: No further vomiting so far. - Mild nausea still overnight. Continue IV PPI twice daily. Rhabdomyolysis: Reviewed CK, decreasing down to 456. Anxiety: Continue buspirone, she takes qHS, Xanax as needed. Disposition - cont. ICU care on pressor. PDMP PDMP Reviewed: Not Reviewed Attestations 2 Medical Necessity Statement*: Continue admission for assessment management of adrenal crisis, severe symptomatic hypothyroidism, UTI, additional problems as above. Time Spent in Patient Care: 16 - 35 minutes (>than 50% of time sp ent in counselling and/or direct pt care on unit) . 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
[2024-09-22] MEDS: ondansetron 2 mg/ML SDV 2 mL 4 MG IVP ×2 (17:22→21:57)
--- NOTE | 2024-09-22 19:46 | PC.NURSE ---
Shift summary: Pt continues to rest in bed. Heart rate 40-60's today, it is improving. Pt states her normal Bp is on the low side. SBP 87-120. Dopamine is off at this time, started the day at 5mcg/kg/min. She is tolerating it thus foar. She has not requested pain or anxiety medication today. She requested nausea medication only once this shift, around 1700. No emesis noted. She has hhad 2 Bms this shift. She has stated previously she had her gallbladder out so she usually has several BMs a day. She only had 450 Ml of dark yellow urine output. Her appetite remaiins poor. Pt encouraged to drink much more water and other fluids.
[2024-09-23] VITALS (46 sets, daily range): BP systolic 75–97; BP diastolic 39–59; PULSE 43–80; RESP 7–24; TEMP 36.8–36.9; O2SAT 92–99
[2024-09-23] MEDS: hydrocortisone 100 mg/2 mL SDV IVP ×4 (01:54→20:21)
[2024-09-23] MEDS: meropenem 1,000 mg SDV 1000 MG IVP ×4 (01:54→23:31)
[2024-09-23 06:19] LABS: Hematocrit 31.6 % (36-47); Hemoglobin 10.10 g/dL (11.27-16.99); Mean Corpuscular HGB Conc 32.0 g/dL (30-55); Mean Corpuscular Hemoglobin 28.4 pg (27-33); Mean Corpuscular Volume 88.8 fl (85-98); Nucleated Red Blood Cells % 0 %; Platelet Count 216 10^3/cmm (157-399); Red Blood Count 3.56 10^6/uL (3.85-5.65); White Blood Count 10.61 10^3/uL (3.29-11.43)
[2024-09-23 06:36] LABS: Anion Gap 12.5 (5-19); Blood Urea Nitrogen 15 mg/dL (6-20); Calcium 7.5 mg/dL (8.5-10.5); Carbon Dioxide 29 mmol/L (22-29); Chloride 99 mmol/L (98-107); Creatinine Clr Calc Pharmacy 76.7841; Glucose 122 mg/dL (65-115); Osmolality Calculated 286 mOsm/kg (285-295); Potassium 3.5 mmol/L (3.5-5.1); Sodium 137 mmol/L (136-145)
[2024-09-23] MEDS: pantoprazole 40 mg SDV IVP ×2 (08:18→20:21)
[2024-09-23] MEDS: polyethylene glycol 3350 Pkt 17 gm PO ×2 (08:19→17:16)
[2024-09-23] MEDS: ondansetron 2 mg/ML SDV 2 mL 4 MG IVP ×2 (08:23→17:16)
[2024-09-23 10:29] LABS: Lactate (Lactic Acid level) 1.9 mmol/L (0.5-2.2)
--- NOTE | 2024-09-23 11:58 | P.PN_ITS ---
<Statement entered by Shahram Mota M.D - 09/24/24 10:08> Patient was cared for in conjunction with an advanced practice practitioner.? I reviewed the chart and all pertinent data including imaging, telemetry, and laboratory results.? I discussed the patient in detail with the advanced practice practitioner.? Please see?their note for progress note, testing results and agreed upon plan of care for the patient. Subjective 2 Subjective: Continues gradual improvement. Free T4 0.36 Yesterday. Heart rates running 50-70. Dopamine has been turned off. Blood pressures upper 80s to lower 90 systolic. She is asymptomatic. Vitals/I&O/Wt Last Vital Signs Temp 98.4 F 09/23/24 08:00 Pulse 53 L 09/23/24 10:30 Resp 12 09/23/24 10:30 BP 82/42 09/23/24 10:30 Pulse Ox 99 09/23/24 10:30 O2 Del Method Room Air 09/22/24 19:00 09/22/24 09/23/24 09/23/24 22:59 06:59 14:59 Intake Total 649.548 / 1299.155 60 / 1299.155 200 / 200 Output Total 450 / 750 300 / 750 Balance 199.548 / 549.155 -240 / 549.155 200 / 200 Weight last 48 hrs Weight 160 lb Weight 162 lb Physical Exam 2 Const: COMMON NORMALS: no acute distress and patient oriented x3 GENERAL APPEARANCE: cooperative and comfortable ORIENTATION/CONSCIOUSNESS: Yes awake, Yes oriented to person, Yes oriented to place and Yes oriented to time Chest: COMMONS NORMALS: normal inspection of the chest and normal palpation of entire chest wall CHEST: Yes Symmetrical chest wall rise Resp: COMMON NORMALS: normal respiratory effort, No retractions, No use of accessory muscles and clear to auscultation bilaterally EFFORT & INSPECTION: Yes symmetric chest movement AUSCULTATION: clear to auscultation bilaterally Cardio: COMMON NORMALS: regular rate, regular rhythm, S1 normal heart sound present, S2 normal heart sound present, No gallops present (Cardio), No clicks present (Cardio), No murmurs present (Cardio) and No rub (Cardio) RATE: r egular rate RHYTHM: regular rhythm HEART SOUNDS: S1 normal heart sound present and S2 normal heart sound present PERIPHERAL PULSES: radial pulses present Extremity: COMMON NORMALS: no pedal edema Neuro: COMMON NORMALS: patient oriented x3 and moves all extremities S ENSORIUM/ORIENTATION: Yes oriented to person, Yes oriented to place and Yes oriented to time Urinary Catheter Management: Moseley: Cath Placed During This Visit: yes Reason for Continuing Indwelling Catheter: Accurate Measurement of Urinary Output in Critically Ill Patients Urinary Catheter Date of Insertion: 09/18/24 Urinary Catheter Time of Insertion: 10:33 Data 09/23/24 05:40 09/23/24 05:40 A&P Assessment and plan 1. Bradycardia: 2. Myxedema: 3. Adrenal crisis: 4. NIKKO (acute kidney injury): Plan: Will continue to monitor blood pressure closely off of dopamine. Stable from a cardiovascular perspective. PDMP PDMP Reviewed: Not Reviewed Attestations 2 Medical Necessity Statement*: bradycardia Coding Level of Care Code Acute Code for [facility] Diagnoses Bradycardia R00.1 Myxedema E03.9 Adrenal crisis E27.2 NIKKO (acute kidney injury) N17.9
[2024-09-23] MEDS: HYDROcodone-acetaminophen 5-325 mg Tablet 1 TAB PO ×2 (13:38→23:30)
[2024-09-23 14:44] LABS: Free T4 Free Thyroxine 0.64 ng/dL (0.82-1.77)
--- NOTE | 2024-09-23 20:20 | P.PN_ITS ---
Subjective 2 Subjective: the patient was seen in the morning. no acute concerns however she complained of headache while on dopamine MAP in the range of 60-65. The patient tolerated OT PT and mobilization without any dizziness, syncope or any other signs of hypotension. Vitals/I&O/Wt Last Vital Signs Temp 98.2 F 09/23/24 20:20 Pulse 57 L 09/23/24 17:30 Resp 11 L 09/23/24 17:30 BP 88/47 09/23/24 17:30 Pulse Ox 97 09/23/24 17:30 O2 Del Method Room Air 09/22/24 19:00 09/23/24 09/23/24 09/23/24 06:59 14:59 22:59 Intake Total 60 / 1299.155 350 / 350 Output Total 300 / 750 800 / 800 Balance -240 / 549.155 350 / 350 -800 / -450 Weight last 48 hrs Weight 72.575 kg Weight 73.482 kg Physical Exam 2 Narrative: General: Alert oriented x3, patient seen lying comfortably on the bed, warm peripheries, mild decreased urine output, normal capillary refill HEENT: Normocephalic, atraumatic, EOMI, breathing comfortably at room air without any desaturation Cardio: Regular rate rhythm, normal S1-S2, no murmurs rubs gallops, JVD normal Respiratory: Good bilateral air entry, no wheezes no rhonchi appreciated GI: Abdomen soft, nontender, nondistended, normoactive bowel sounds present all 4 quadrants, Neuro: Cranial nerves II to XII intact, strength 5/5, sensation 5/5, no gross neurological deficit Behavior: Appropriate and cooperative Extremities: Pulses 2+, no edema, no cyanosis Skin: Visible skin intact, no rashes Urinary Catheter Management: Moseley: Cath Placed During This Visit: yes Reason for Continuing Indwelling Catheter: Accurate Measurement of Urinary Output in Critically Ill Patients Urinary Catheter Date of Insertion: 09/18/24 Urinary Catheter Time of Insertion: 10:33 Data 09/23/24 05:40 09/23/24 05:40 Micro: Microbiology 09/18/24 17:01 Blood Culture - Final Blood NO GROWTH AFTER 5 DAYS 09/18/24 16:57 Blood Culture - Final Blood NO GROWTH AFTER 5 DAYS A&P Assessment and plan 1. Bradycardia: 2. 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 Migraine: 4. Myxedema: Plan: Continue managing myxedema and adrenal crisis with IV levothyroxine 88 mcg Continue on dopamine as needed for the blood pressure maintenance with MAP of above 60-65 Continue OT PT for her better mobilization out of bed Continue to monitor for heart rate and bradycardia currently asymptomatic. Hydrocortisone 100 mg IV every 6 hourly to continue Adequate analgesics and antiemetics for migraine Regular labs in the morning along with free T4 PT prophylaxis with enoxaparin 40 mg daily subcut PDMP PDMP Reviewed: Not Reviewed Attestations 2 Medical Necessity Statement*: The patient will stay more than 2 midnights for further optimization of her current critical condition Critical Care Time: I spent 45 minutes on this encounter before, during and after the visit, examining the patient, reviewing labs, writing orders and documenting the note and discussing with nursing staff taking care of the patient At length discussion with the patient has been done, risk and benefits of the management has been conveyed and the patient understand agrees with the plan of care without any language barrier. Other Attestations: This documentation was created and transcribed by [employer] software efforts were made for the accuracy. 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
[2024-09-24] VITALS (49 sets, daily range): BP systolic 75–122; BP diastolic 30–70; PULSE 42–69; RESP 9–22; TEMP 36.6–36.8; O2SAT 93–99
[2024-09-24] MEDS: hydrocortisone 100 mg/2 mL SDV IVP ×4 (02:23→19:38)
[2024-09-24 05:33] LABS: Hematocrit 28.3 % (36-47); Hemoglobin 9.20 g/dL (11.27-16.99); Mean Corpuscular HGB Conc 32.5 g/dL (30-55); Mean Corpuscular Hemoglobin 28.6 pg (27-33); Mean Corpuscular Volume 87.9 fl (85-98); Nucleated Red Blood Cells % 0 %; Platelet Count 187 10^3/cmm (157-399); Red Blood Count 3.22 10^6/uL (3.85-5.65); White Blood Count 10.32 10^3/uL (3.29-11.43)
[2024-09-24 06:05] LABS: Lactate (Lactic Acid level) 1.5 mmol/L (0.5-2.2)
[2024-09-24 06:10] LABS: Alanine Aminotransferase 57 U/L (0-33); Albumin Level 3.6 g/dL (3.5-5.2); Alkaline Phosphatase 43 U/L (35-105); Anion Gap 10.5 (5-19); Aspartate Amino Transferase 33 U/L (0-32); Blood Urea Nitrogen 13 mg/dL (6-20); Calcium 7.0 mg/dL (8.5-10.5); Carbon Dioxide 30 mmol/L (22-29); Chloride 102 mmol/L (98-107); Creatinine Clr Calc Pharmacy 76.3363; Globulin 1.8 g/dL (1.3-4.6); Glucose 126 mg/dL (65-115); Osmolality Calculated 290 mOsm/kg (285-295); Potassium 3.5 mmol/L (3.5-5.1); Sodium 139 mmol/L (136-145); Total Protein 5.4 g/dL (6.6-8.7)
[2024-09-24 06:13] LABS: Free T4 Free Thyroxine 0.54 ng/dL (0.82-1.77)
[2024-09-24 06:44] LABS: Slide Review Slide Review Perform
[2024-09-24] MEDS: meropenem 1,000 mg SDV 1000 MG IVP ×2 (08:16→17:35)
[2024-09-24] MEDS: pantoprazole 40 mg SDV IVP ×2 (08:17→19:38)
[2024-09-24] MEDS: polyethylene glycol 3350 Pkt 17 gm PO ×2 (08:17→17:35)
[2024-09-24] MEDS: ondansetron 2 mg/ML SDV 2 mL 4 MG IVP ×2 (08:20→17:42)
[2024-09-24] MEDS: HYDROcodone-acetaminophen 5-325 mg Tablet 1 TAB PO ×2 (08:23→21:44)
--- NOTE | 2024-09-24 11:33 | P.PN_ITS ---
<Statement entered by Shahram Mota M.D - 09/24/24 11:43> Patient was cared for in conjunction with an advanced practice practitioner.? I reviewed the chart and all pertinent data including imaging, telemetry, and laboratory results.? I discussed the patient in detail with the advanced practice practitioner.? Please see?their note for progress note, testing results and agreed upon plan of care for the patient. Subjective 2 Subjective: Patient is doing well this morning with no complaints. She is off of her dopamine drip. She has been off since the third. When patient is sleeping her heart rate goes in the 40s but otherwise stay stable at 60. Vital signs are stable although blood pressure remains soft which is at patient's baseline. Renal function trending down and stable. Free T4 is coming up at 0.54 from 0.29. Vitals/I&O/Wt Last Vital Signs Temp 97.9 F 09/24/24 08:00 Pulse 60 09/24/24 10:00 Resp 17 09/24/24 10:00 BP 75/53 09/24/24 09:00 Pulse Ox 94 09/24/24 10:00 O2 Del Method Room Air 09/22/24 19:00 09/23/24 09/24/24 09/24/24 22:59 06:59 14:59 Intake Total 1200 / 1550 120 / 1670 250 / 250 Output Total 1600 / 1600 300 / 1900 Balance -400 / -50 -180 / -230 250 / 250 Weight last 48 hrs Weight 164 lb Weight 160 lb Physical Exam 2 Narrative: General: No apparent distress HENMT: normoceophalic Muskuloskeletal: Full ROM Respiratory: Normal respiratory effort, clear to auscultation bilaterally throughout all lung núñez, no use of accessory muscles Cardio: No JVD, regular rate, regular rhythm, S1 S2 normal, no murmurs, peripheral pulses 2+ radial paplated bilaterally Extremities: Full ROM, normal, normal capillary refill, no cyanosis or edema Neuro: Alert and oriented x4, no focal motor deficits Psych: Affect normal, mental status grossly normal Skin: No rashes or lesions noted, no wounds Urinary Catheter Management: Moseley: Cath Placed During This Visit: yes Reason for Continuing Indwelling Catheter: Accurate Measurement of Urinary Output in Critically Ill Patients Urinary Catheter Date of Insertion: 09/18/24 Urinary Catheter Time of Insertion: 10:33 Data 09/24/24 05:12 09/24/24 05:12 Micro: Microbiology 09/18/24 17:01 Blood Culture - Final Blood NO GROWTH AFTER 5 DAYS 09/18/24 16:57 Blood Culture - Final Blood NO GROWTH AFTER 5 DAYS A&P Assessment and plan 1. Bradycardia: 2. Myxedema: 3. Adrenal crisis: 4. NIKKO (acute kidney injury): Plan: Patient is currently off dopamine drip and pulse is remaining stable. Would continue current care. Continue to monitor for signs or symptoms of bradycardia. Thyroid is being adressed by primary. This is improving. PDMP PDMP Reviewed: Not Reviewed Attestations 2 Medical Necessity Statement*: Deferred to primary. Coding Level of Care Code Acute Code for [facility] Diagnoses Bradycardia R00.1 Myxedema E03.9 Adrenal crisis E27.2 NIKKO (acute kidney injury) N17.9
--- NOTE | 2024-09-24 13:01 | PC.OT ---
OT orders received. Evaluation attempted. Patient reported no concerns with completing functional ADLs. She reports she showered independently yesterday. She has been ambulating without assistance. PT has also discharged patient. OT orders will be discharged/cancelled at this time per patient request.
--- NOTE | 2024-09-24 19:05 | P.PN_ITS ---
Subjective 2 Subjective: Patient is doing well this morning with no complaints. She is off of her dopamine drip. She has been off since the third. When patient is sleeping her heart rate goes in the 40s but otherwise stay stable at 60. Vital signs are stable although blood pressure remains soft which is at patient's baseline. Free T4 trend is coming up however to follow tomorrow since today the trend was relatively down as compared to the yesterday. Vitals/I&O/Wt Last Vital Signs Temp 98.3 F 09/24/24 12:00 Pulse 48 L 09/24/24 18:00 Resp 10 L 09/24/24 18:00 BP 83/51 09/24/24 18:00 Pulse Ox 94 09/24/24 18:00 O2 Del Method Room Air 09/22/24 19:00 09/24/24 09/24/24 09/24/24 06:59 14:59 22:59 Intake Total 120 / 1670 550 / 550 Output Total 300 / 1900 600 / 600 Balance -180 / -230 550 / 550 -600 / -50 Weight last 48 hrs Weight 74.389 kg Weight 72.575 kg Physical Exam 2 Narrative: General: Alert oriented x3, patient seen lying comfortably on the bed, warm peripheries, mild decreased urine output, normal capillary refill HEENT: Normocephalic, atraumatic, EOMI, breathing comfortably at room air without any desaturation Cardio: Regular rate rhythm, normal S1-S2, no murmurs rubs gallops, JVD normal Respiratory: Good bilateral air entry, no wheezes no rhonchi appreciated GI: Abdomen soft, nontender, nondistended, normoactive bowel sounds present all 4 quadrants, Neuro: Cranial nerves II to XII intact, strength 5/5, sensation 5/5, no gross neurological deficit Behavior: Appropriate and cooperative Extremities: Pulses 2+, no edema, no cyanosis Skin: Visible skin intact, no rashes Urinary Catheter Management: Moseley: Cath Placed During This Visit: yes Reason for Continuing Indwelling Catheter: Accurate Measurement of Urinary Output in Critically Ill Patients Urinary Catheter Date of Insertion: 09/18/24 Urinary Catheter Time of Insertion: 10:33 Data 09/24/24 05:12 09/24/24 05:12 Micro: Microbiology 09/18/24 17:01 Blood Culture - Final Blood NO GROWTH AFTER 5 DAYS 09/18/24 16:57 Blood Culture - Final Blood NO GROWTH AFTER 5 DAYS A&P Assessment and plan 1. Bradycardia: 2. 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 Migraine: 4. Myxedema: Plan: Continue managing myxedema and adrenal crisis with IV levothyroxine 88 mcg and if free T4 value is trending down then to consider endocrinology on board for further management Continue on dopamine as needed for the blood pressure maintenance with MAP of above 60-65 Continue OT PT for her better mobilization out of bed Continue to monitor for heart rate and bradycardia currently asymptomatic. Hydrocortisone 100 mg IV every 6 hourly to continue Adequate analgesics and antiemetics for migraine Regular labs in the morning along with free T4 PT prophylaxis with enoxaparin 40 mg daily subcut PDMP PDMP Reviewed: Not Reviewed Attestations 2 Medical Necessity Statement*: The patient will stay more than 2 midnights for her management Time Spent in Patient Care: 45 minutes Other Attestations: I spent 45 minutes on this encounter before, during and after the visit, examining the patient, reviewing labs, writing orders and documenting the note and discussing with nursing staff taking care of the patient. This documentation was created by [employer] lithographic general worker software. Every effort was made to ensure accuracy of lithographic general worker.? Any obvious errors or omissions should be clarified with the author of the document. 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
--- NOTE | 2024-09-24 21:49 | PC.NURSE ---
Administered Buspar this evening, patient requested 10 mg instead of 15 mg. Extra 10 mg pill placed in pharmacy bin for return.
[2024-09-25] VITALS (43 sets, daily range): BP systolic 76–108; BP diastolic 39–69; PULSE 40–71; RESP 11–20; TEMP 36.4–36.9; O2SAT 93–98
[2024-09-25] MEDS: ondansetron 2 mg/ML SDV 2 mL 4 MG IVP ×3 (01:09→17:10)
[2024-09-25] MEDS: hydrocortisone 100 mg/2 mL SDV IVP ×4 (01:10→19:46)
[2024-09-25] MEDS: meropenem 1,000 mg SDV 1000 MG IVP ×3 (01:10→17:11)
[2024-09-25 02:47] LABS: Hematocrit 29.0 % (36-47); Hemoglobin 9.40 g/dL (11.27-16.99); Mean Corpuscular HGB Conc 32.4 g/dL (30-55); Mean Corpuscular Hemoglobin 29.2 pg (27-33); Mean Corpuscular Volume 90.1 fl (85-98); Nucleated Red Blood Cells % 0 %; Platelet Count 201 10^3/cmm (157-399); Red Blood Count 3.22 10^6/uL (3.85-5.65); White Blood Count 11.48 10^3/uL (3.29-11.43)
[2024-09-25 03:15] LABS: Alanine Aminotransferase 56 U/L (0-33); Albumin Level 3.5 g/dL (3.5-5.2); Alkaline Phosphatase 49 U/L (35-105); Anion Gap 13.3 (5-19); Aspartate Amino Transferase 34 U/L (0-32); Blood Urea Nitrogen 14 mg/dL (6-20); Calcium 7.0 mg/dL (8.5-10.5); Carbon Dioxide 28 mmol/L (22-29); Chloride 100 mmol/L (98-107); Creatinine Clr Calc Pharmacy 84.9551; Globulin 1.9 g/dL (1.3-4.6); Glucose 137 mg/dL (65-115); Osmolality Calculated 289 mOsm/kg (285-295); Potassium 3.3 mmol/L (3.5-5.1); Sodium 138 mmol/L (136-145); Total Protein 5.4 g/dL (6.6-8.7)
[2024-09-25 03:26] LABS: Free T4 Free Thyroxine 0.66 ng/dL (0.82-1.77)
[2024-09-25 03:34] LABS: Slide Review Slide Review Perform
[2024-09-25] MEDS: polyethylene glycol 3350 Pkt 17 gm PO ×2 (08:23→17:11)
[2024-09-25] MEDS: pantoprazole 40 mg SDV IVP ×2 (08:23→19:46)
--- NOTE | 2024-09-25 10:56 | P.PN_ITS ---
<Statement entered by Shahram Mota M.D - 09/25/24 11:13> Patient was cared for in conjunction with an advanced practice practitioner.? I reviewed the chart and all pertinent data including imaging, telemetry, and laboratory results.? I discussed the patient in detail with the advanced practice practitioner.? Please see?their note for progress note, testing results and agreed upon plan of care for the patient. Subjective 2 Subjective: Patient doing well without complaints. HR is in the 60s when she is awake. Free t4 increased to 0.66. Continues to not require dopamine drip. Vitals/I&O/Wt Last Vital Signs Temp 98.1 F 09/25/24 08:00 Pulse 54 L 09/25/24 10:00 Resp 13 09/25/24 10:00 BP 84/44 09/25/24 10:00 Pulse Ox 97 09/25/24 10:00 O2 Del Method Room Air 09/22/24 19:00 09/24/24 09/25/24 09/25/24 22:59 06:59 14:59 Intake Total 480 / 1030 240 / 1270 150 / 150 Output Total 600 / 600 450 / 1050 Balance -120 / 430 -210 / 220 150 / 150 Weight last 48 hrs Weight 166 lb Weight 164 lb Physical Exam 2 Narrative: General: No apparent distress HENMT: normoceophalic Muskuloskeletal: Full ROM Respiratory: Normal respiratory effort, clear to auscultation bilaterally throughout all lung núñez, no use of accessory muscles Cardio: No JVD, regular rate, regular rhythm, S1 S2 normal, no murmurs, peripheral pulses 2+ radial paplated bilaterally Extremities: Full ROM, normal, normal capillary refill, no cyanosis or edema Neuro: Alert and oriented x4, no focal motor deficits Psych: Affect normal, mental status grossly normal Skin: No rashes or lesions noted, no wounds Urinary Catheter Management: Moseley: Cath Placed During This Visit: yes Reason for Continuing Indwelling Catheter: Accurate Measurement of Urinary Output in Critically Ill Patients Urinary Catheter Date of Insertion: 09/18/24 Urinary Catheter Time of Insertion: 10:33 Data 09/25/24 02:12 09/25/24 02:12 A&P Assessment and plan 1. Bradycardia: 2. Myxedema: 3. Adrenal crisis: 4. NIKKO (acute kidney injury): Plan: Patient is currently off dopamine drip and pulse is remaining stable. Would continue current care. Continue to monitor for signs or symptoms of bradycardia. Thyroid is being adressed by primary. This is improving. PDMP PDMP Reviewed: Not Reviewed Attestations 2 Medical Necessity Statement*: Deferred to primary. Coding Level of Care Code Acute Code for [facility] Diagnoses Bradycardia R00.1 Myxedema E03.9 Adrenal crisis E27.2 NIKKO (acute kidney injury) N17.9
--- NOTE | 2024-09-25 14:10 | P.PN_ITS ---
Subjective 2 Subjective: Patient doing well without complaints. HR is in the 60s when she is awake. Free t4 increased to 0.66. the patient is ambulating well and for transfer to [facility] Vitals/I&O/Wt Last Vital Signs Temp 98.5 F 09/25/24 12:00 Pulse 59 L 09/25/24 12:00 Resp 19 H 09/25/24 12:00 BP 85/44 09/25/24 12:00 Pulse Ox 95 09/25/24 12:00 O2 Del Method Room Air 09/22/24 19:00 09/24/24 09/25/24 09/25/24 22:59 06:59 14:59 Intake Total 480 / 1030 240 / 1270 150 / 150 Output Total 600 / 600 450 / 1050 Balance -120 / 430 -210 / 220 150 / 150 Weight last 48 hrs Weight 75.296 kg Weight 74.389 kg Physical Exam 2 Narrative: General: Alert oriented x3, patient seen lying comfortably on the bed, warm peripheries, mild decreased urine output, normal capillary refill HEENT: Normocephalic, atraumatic, EOMI, breathing comfortably at room air without any desaturation Cardio: Regular rate rhythm, normal S1-S2, no murmurs rubs gallops, JVD normal Respiratory: Good bilateral air entry, no wheezes no rhonchi appreciated GI: Abdomen soft, nontender, nondistended, normoactive bowel sounds present all 4 quadrants, Neuro: Cranial nerves II to XII intact, strength 5/5, sensation 5/5, no gross neurological deficit Behavior: Appropriate and cooperative Extremities: Pulses 2+, no edema, no cyanosis Skin: Visible skin intact, no rashes Urinary Catheter Management: Moseley: Cath Placed During This Visit: yes Reason for Continuing Indwelling Catheter: Accurate Measurement of Urinary Output in Critically Ill Patients Urinary Catheter Date of Insertion: 09/18/24 Urinary Catheter Time of Insertion: 10:33 Data 09/25/24 02:12 09/25/24 02:12 A&P Assessment and plan 1. Bradycardia: 2. 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 Migraine: 4. Myxedema: Plan: Continue managing myxedema and adrenal crisis with IV levothyroxine 88 mcg and if free T4 value is trending down then to consider endocrinology on board for further management endocrinology consult for further management and plan of care Continue OT PT for her better mobilization out of bed Continue to monitor for heart rate and bradycardia currently asymptomatic. Hydrocortisone 100 mg IV every 6 hourly to continue Adequate analgesics and antiemetics for migraine Regular labs in the morning along with free T4 PT prophylaxis with enoxaparin 40 mg daily subcut PDMP PDMP Reviewed: Not Reviewed Attestations 2 Medical Necessity Statement*: the patient will continue to stay for the management of her adrenal crisis and hypothyroidism, that is getting better however on and off having asymptomatic bradycardia, Time Spent in Patient Care: Greater than 35 minutes (>than 50% of time spent in counselling and/or direct pt care on unit) . Critical Care Time: The high probability of a clinically significant, sudden or life threatening deterioration, as referenced in this documentation, required my full and direct attention, intervention and personal management. The critical care time shown is in addition to time spent performing any reported separately billable procedures and includes the following: [x] Data and vital sign review and interpretation [x ] Patient assessment, examination and intervention [x] Medication orders and management [x] Patient/Family updates as able [x] Care Coordination and Documentation. 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
--- NOTE | 2024-09-25 21:25 | PC.NURSE ---
patient transfer over to [facility], report given to Stephany TOM, patient updated family on move, all belonging moved with patient
[2024-09-25] MEDS: HYDROcodone-acetaminophen 5-325 mg Tablet 1 TAB PO (22:25)
[2024-09-26] VITALS (30 sets, daily range): BP systolic 97–104; BP diastolic 57–67; PULSE 39–80; RESP 2–20; TEMP 36.1–37; O2SAT 94–97
[2024-09-26] MEDS: hydrocortisone 100 mg/2 mL SDV IVP ×4 (01:18→21:05)
[2024-09-26] MEDS: meropenem 1,000 mg SDV 1000 MG IVP ×3 (01:18→17:04)
[2024-09-26] MEDS: ondansetron 2 mg/ML SDV 2 mL 4 MG IVP ×3 (01:18→17:04)
[2024-09-26 03:20] LABS: Hematocrit 29.4 % (36-47); Hemoglobin 9.80 g/dL (11.27-16.99); Mean Corpuscular HGB Conc 33.3 g/dL (30-55); Mean Corpuscular Hemoglobin 29.7 pg (27-33); Mean Corpuscular Volume 89.1 fl (85-98); Nucleated Red Blood Cells % 0.1 %; Platelet Count 209 10^3/cmm (157-399); Red Blood Count 3.30 10^6/uL (3.85-5.65); White Blood Count 13.53 10^3/uL (3.29-11.43)
[2024-09-26 03:52] LABS: Free T4 Free Thyroxine 0.79 ng/dL (0.82-1.77)
[2024-09-26 03:53] LABS: Alanine Aminotransferase 42 U/L (0-33); Albumin Level 3.5 g/dL (3.5-5.2); Alkaline Phosphatase 45 U/L (35-105); Anion Gap 11.4 (5-19); Aspartate Amino Transferase 20 U/L (0-32); Blood Urea Nitrogen 15 mg/dL (6-20); Calcium 7.1 mg/dL (8.5-10.5); Carbon Dioxide 30 mmol/L (22-29); Chloride 102 mmol/L (98-107); Creatinine Clr Calc Pharmacy 94.9418; Globulin 1.8 g/dL (1.3-4.6); Glucose 125 mg/dL (65-115); Osmolality Calculated 292 mOsm/kg (285-295); Potassium 3.4 mmol/L (3.5-5.1); Sodium 140 mmol/L (136-145); Total Protein 5.3 g/dL (6.6-8.7)
[2024-09-26 04:05] LABS: Slide Review Slide Review Perform
[2024-09-26] MEDS: pantoprazole 40 mg SDV IVP ×2 (08:55→21:05)
--- NOTE | 2024-09-26 11:30 | P.PN_ITS ---
Subjective 2 Subjective: Patient doing well without complaints. HR is in the 60s when she is awake. Free t4 increased to 0.79. Continues to not require dopamine drip. Vitals/I&O/Wt Last Vital Signs Temp 96.9 F L 09/26/24 07:28 Pulse 47 L 09/26/24 07:28 Resp 17 09/26/24 07:28 BP 98/61 09/26/24 07:28 Pulse Ox 95 09/26/24 07:28 O2 Del Method Room Air 09/26/24 04:00 09/25/24 09/26/24 09/26/24 22:59 06:59 14:59 Intake Total 250 / 400 240 / 240 Output Total 850 / 850 Balance -600 / -450 240 / 240 Weight last 48 hrs Weight 162 lb Weight 166 lb Physical Exam 2 Narrative: General: No apparent distress HENMT: normoceophalic Muskuloskeletal: Full ROM Respiratory: Normal respiratory effort, clear to auscultation bilaterally throughout all lung núñez, no use of accessory muscles Cardio: No JVD, regular rate, regular rhythm, S1 S2 normal, no murmurs, peripheral pulses 2+ radial paplated bilaterally Extremities: Full ROM, normal, normal capillary refill, no cyanosis or edema Neuro: Alert and oriented x4, no focal motor deficits Psych: Affect normal, mental status grossly normal Skin: No rashes or lesions noted, no wounds Urinary Catheter Management: Moseley: Cath Placed During This Visit: yes Reason for Continuing Indwelling Catheter: Accurate Measurement of Urinary Output in Critically Ill Patients Urinary Catheter Date of Insertion: 09/18/24 Urinary Catheter Time of Insertion: 10:33 Data 09/26/24 02:52 09/26/24 02:52 A&P Assessment and plan 1. Bradycardia: 2. Myxedema: 3. Adrenal crisis: 4. NIKKO (acute kidney injury): Plan: Patient is currently off dopamine drip and pulse is remaining stable. Would continue current care. Continue to monitor for signs or symptoms of bradycardia. Thyroid is being adressed by primary. This is improving. PDMP PDMP Reviewed: Not Reviewed Attestations 2 Medical Necessity Statement*: Deferred to primary Coding Level of Care Code Acute Code for Chg Fwd Diagnoses Bradycardia R00.1 Myxedema E03.9 Adrenal crisis E27.2 NIKKO (acute kidney injury) N17.9
[2024-09-26] MEDS: HYDROcodone-acetaminophen 5-325 mg Tablet 1 TAB PO ×2 (11:49→22:30)
--- NOTE | 2024-09-26 20:18 | PM.HP ---
Providers/Chief Complaint Admitting Physician: Neville Christie Primary Care Provider: Herminio Wayne MD Chief Complaint: Anxiety History of Present Illness Farhad Ardon is a 24 year old female Review of Systems Narrative: sleepy but arouses to voice and touch Const: Reports: fatigue; Denies: fever(s), chills, body aches, change in weight, malaise or diaphoresis Eyes: Denies: change in vision or photophobia ENMT: Denies: throat pain, enlarged tonsils or epistaxis Card: Denies: chest pain, palpitations, irregular heart rhythm, edema, syncope, pre-syncope, dyspnea on exertion, orthopnea or leg pain with exertion Resp: Denies: dyspnea, productive cough, wheezing, change in phlegm color or hemoptysis GI: Denies: abdominal pain, nausea, vomiting, hematemesis, diarrhea, constipation, hematochezia or melena : Reports: other (LLQ pain has not gone away when asked about); Denies: flank pain, difficulty voiding, dysuria, urinary frequency, urinary urgency, hematuria, genital lesions or vaginal bleeding Musc: Denies: back pain, extremity swelling, joint swelling or joint redness Skin/Breast: Denies: rash or new lesions Neuro: Denies: headache(s) or confusion Alok/Lymph: Denies: easy bruising or easy bleeding All/Imm: Denies: acute wheezing Medications/Allergies Home Medications ?Medication ?Instructions ?Recorded ?Confirmed ?Last Taken ?Type polyethylene glycol 3350 17 17 g PO DAILY #510 grams 06/07/24 09/17/24 Unknown Rx gram/dose oral powder (Miralax) buspirone 15 mg tablet 15 mg PO BID 07/11/24 09/17/24 09/16/24 History levothyroxine 200 mcg tablet 200 mcg PO DAILY 07/11/24 09/17/24 09/16/24 History Allergies Allergy/AdvReac Type Severity Reaction Status Date / Time amoxicillin Allergy ADR-Nausea Verified 08/30/24 06:15 Fish Containing Products Allergy ADR-Nausea Verified 08/30/24 06:15 Penicillins Allergy ADR-Nausea Verified 08/30/24 06:15 shellfish derived Allergy ADR-Itching Verified 08/30/24 06:15 PFSH Acute PFSH: Medical History (Updated 09/18/24 @ 10:29 by MALINDA Nettles) Migraine Anxiety 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 Adrenal crisis No pertinent family history Surgical History History of tonsillectomy and adenoidectomy History of myringotomy twice as a child History of laparoscopic appendectomy History of laparoscopic cholecystectomy History of cleft palate with cleft lip History of thyroid surgery (~2020) Full thyroidectomy-- performed in [place] Family History Grandmother Diabetes mellitus, type 2 MGM Hypertension PGM Grandfather Hypertension PGF Denies family history of Colon cancer Ovarian cancer Prostate cancer CAD (coronary artery disease) Hyperlipidemia Chronic kidney disease (CKD) Breast cancer Bleeding disorder Family history of premature coronary artery disease Uterine cancer Thyroid disease Social History Smoking and tobacco/nicotine status: never used tobacco/nicotine Second hand smoke exposure: No Alcohol intake: current Alcohol intake frequency: holidays/special occasions only Substance/Drug Use: never Adopted: No Caregiver/support person: No Lives independently: Yes Household members: spouse and children Housing: House Marital status: Highest education level completed: High School Graduate service: No Current occupational status: employed Current occupation: [employer] Current occupational exposures/hazards: No Female Reproductive History: Date of last menstrual period: 08/14/24 Vitals/I&O/Wt Last Vital Signs Temp 98.6 F 09/26/24 20:00 Pulse 66 09/26/24 20:00 Resp 18 09/26/24 20:00 BP 101/58 09/26/24 20:00 Pulse Ox 97 09/26/24 20:00 O2 Del Method Room Air 09/26/24 04:00 09/26/24 09/26/24 09/26/24 06:59 14:59 22:59 Intake Total 720 / 720 360 / 1080 Output Total Balance 720 / 720 359 / 1079 Weight last 48 hrs Weight 73.482 kg Weight 75.296 kg Physical Exam Narrative: General: Alert oriented x3, patient seen lying comfortably on the bed, warm peripheries, mild decreased urine output, normal capillary refill HEENT: Normocephalic, atraumatic, EOMI, breathing comfortably at room air without any desaturation Cardio: Regular rate rhythm, normal S1-S2, no murmurs rubs gallops, JVD normal Respiratory: Good bilateral air entry, no wheezes no rhonchi appreciated GI: Abdomen soft, nontender, nondistended, normoactive bowel sounds present all 4 quadrants, Neuro: Cranial nerves II to XII intact, strength 5/5, sensation 5/5, no gross neurological deficit Behavior: Appropriate and cooperative Extremities: Pulses 2+, no edema, no cyanosis Skin: Visible skin intact, no rashes Urinary Catheter Management: Moseley: Cath Placed During This Visit: yes Reason for Continuing Indwelling Catheter: Accurate Measurement of Urinary Output in Critically Ill Patients Urinary Catheter Date of Insertion: 09/18/24 Urinary Catheter Time of Insertion: 10:33 Data 09/26/24 02:52 09/26/24 02:52 A&P Assessment and plan 1. Bradycardia: 2. 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 Migraine: 4. Myxedema: Plan: Continue managing myxedema and adrenal crisis with IV levothyroxine 88 mcg and hydrocortisone, ft4 is improving Endocrinology on board and consulted with dr Van in [facility] and Dr Goins outpatient [facility]. As per Dr. 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 Hydrocortisone 100 mg IV every 6 hourly to continue Adequate analgesics and antiemetics for migraine Regular labs in the morning along with free T4 PT prophylaxis with enoxaparin 40 mg daily subcut PDMP PDMP Reviewed: Not Reviewed Attestations Medical Necessity Statement*: The patient will require to be monitored in the hospital for further management of her severe hypothyroidism requiring IV levothyroxine Time Spent in Patient Care: Greater than 35 minutes (>than 50% of time spent in counselling and/or direct pt care on unit). 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
[2024-09-27] VITALS: BP 98/56; PULSE 52; RESP 18; TEMP 36.9; O2SAT 97
[2024-09-27] MEDS: ondansetron 2 mg/ML SDV 2 mL 4 MG IVP ×2 (00:54→09:53)
[2024-09-27] MEDS: hydrocortisone 100 mg/2 mL SDV IVP ×3 (00:54→14:47)
[2024-09-27] MEDS: meropenem 1,000 mg SDV 1000 MG IVP ×2 (00:55→09:56)
[2024-09-27 04:00] VITALS: BP 96/61; PULSE 56; RESP 16; TEMP 36.6; O2SAT 97
[2024-09-27 04:22] VITALS: PULSE 40
[2024-09-27 07:42] VITALS: BP 93/55; PULSE 50; RESP 16; TEMP 36.1; O2SAT 98
--- NOTE | 2024-09-27 08:29 | P.PN_ITS ---
Subjective 2 Subjective: Patient is doing well off dopamine drip since 3 to 4 days. No symptoms. Vital stable and able to mobilize Vitals/I&O/Wt Last Vital Signs Temp 96.9 F L 09/27/24 07:42 Pulse 50 L 09/27/24 07:42 Resp 16 09/27/24 07:42 BP 93/55 09/27/24 07:42 Pulse Ox 98 09/27/24 07:42 O2 Del Method Room Air 09/27/24 04:00 09/26/24 09/27/24 09/27/24 22:59 06:59 14:59 Intake Total 460 / 1180 240 / 1420 Output Total Balance 459 / 1179 240 / 1419 Weight last 48 hrs Weight 72.665 kg Weight 73.482 kg Physical Exam 2 Narrative: General: Alert oriented x3, patient seen lying comfortably on the bed, warm peripheries, mild decreased urine output, normal capillary refill HEENT: Normocephalic, atraumatic, EOMI, breathing comfortably at room air without any desaturation Cardio: Regular rate rhythm, normal S1-S2, no murmurs rubs gallops, JVD normal Respiratory: Good bilateral air entry, no wheezes no rhonchi appreciated GI: Abdomen soft, nontender, nondistended, normoactive bowel sounds present all 4 quadrants, Neuro: Cranial nerves II to XII intact, strength 5/5, sensation 5/5, no gross neurological deficit Behavior: Appropriate and cooperative Extremities: Pulses 2+, no edema, no cyanosis Skin: Visible skin intact, no rashes Urinary Catheter Management: Moseley: Cath Placed During This Visit: yes Reason for Continuing Indwelling Catheter: Accurate Measurement of Urinary Output in Critically Ill Patients Urinary Catheter Date of Insertion: 09/18/24 Urinary Catheter Time of Insertion: 10:33 Data 09/26/24 02:52 09/26/24 02:52 A&P Assessment and plan 1. Bradycardia: 2. 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 Migraine: 4. Myxedema: Plan: Continue managing myxedema and adrenal crisis with IV levothyroxine 88 mcg and hydrocortisone, ft4 is improving Endocrinology on board and consulted with dr Van in [facility] and Dr Goins outpatient [facility]. As per Dr. 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 Hydrocortisone 100 mg IV every 6 hourly to continue Adequate analgesics and antiemetics for migraine Regular labs in the morning along with free T4 PT prophylaxis with enoxaparin 40 mg daily subcut PDMP PDMP Reviewed: Not Reviewed Attestations 2 Medical Necessity Statement*: The patient to be discharged after endocrinology plan therefore will need to stay off for safe disposition Time Spent in Patient Care: Greater than 35 minutes (>than 50% of time spent in counselling and/or direct pt care on unit) . 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
--- NOTE | 2024-09-27 08:33 | PM.PN ---
Subjective Subjective: Patient is doing well off dopamine drip. No symptoms. Vital stable and able to mobilize was seeing holding her child and in a good mood, Vitals/I&O/Wt Last Vital Signs Temp 96.9 F L 09/27/24 07:42 Pulse 50 L 09/27/24 07:42 Resp 16 09/27/24 07:42 BP 93/55 09/27/24 07:42 Pulse Ox 98 09/27/24 07:42 O2 Del Method Room Air 09/27/24 04:00 09/26/24 09/27/24 09/27/24 22:59 06:59 14:59 Intake Total 460 / 1180 240 / 1420 Output Total Balance 459 / 1179 240 / 1419 Weight last 48 hrs Weight 72.665 kg Weight 73.482 kg Physical Exam Narrative: General: Alert oriented x3, patient seen lying comfortably on the bed, warm peripheries, mild decreased urine output, normal capillary refill HEENT: Normocephalic, atraumatic, EOMI, breathing comfortably at room air without any desaturation Cardio: Regular rate rhythm, normal S1-S2, no murmurs rubs gallops, JVD normal Respiratory: Good bilateral air entry, no wheezes no rhonchi appreciated GI: Abdomen soft, nontender, nondistended, normoactive bowel sounds present all 4 quadrants, Neuro: Cranial nerves II to XII intact, strength 5/5, sensation 5/5, no gross neurological deficit Behavior: Appropriate and cooperative Extremities: Pulses 2+, no edema, no cyanosis Skin: Visible skin intact, no rashes Urinary Catheter Management: Moseley: Cath Placed During This Visit: yes Reason for Continuing Indwelling Catheter: Accurate Measurement of Urinary Output in Critically Ill Patients Urinary Catheter Date of Insertion: 09/18/24 Urinary Catheter Time of Insertion: 10:33 Data 09/26/24 02:52 09/26/24 02:52 A&P Assessment and plan 1. Bradycardia: 2. 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 Migraine: 4. Myxedema: Plan: Continue managing myxedema and adrenal crisis with IV levothyroxine 88 mcg and hydrocortisone, ft4 is improving Endocrinology on board and consulted with dr Van in [facility] and Dr Goins outpatient [facility]. As per Dr. 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 Hydrocortisone 100 mg IV every 6 hourly to continue Adequate analgesics and antiemetics for migraine Regular labs in the morning along with free T4 PT prophylaxis with enoxaparin 40 mg daily subcut PDMP PDMP Reviewed: Not Reviewed Attestations Medical Necessity Statement*: Patient will require endocrinology plan before discharge for her safe disposition Time Spent in Patient Care: Greater than 35 minutes (>than 50% of time spent in counselling and/or direct pt care on unit). 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
[2024-09-27 08:48] LABS: Hematocrit 31.1 % (36-47); Hemoglobin 9.90 g/dL (11.27-16.99); Mean Corpuscular HGB Conc 31.8 g/dL (30-55); Mean Corpuscular Hemoglobin 28.9 pg (27-33); Mean Corpuscular Volume 90.7 fl (85-98); Platelet Count 189 10^3/cmm (157-399); Red Blood Count 3.43 10^6/uL (3.85-5.65); White Blood Count 14.54 10^3/uL (3.29-11.43)
[2024-09-27 09:05] LABS: Alanine Aminotransferase 34 U/L (0-33); Albumin Level 3.4 g/dL (3.5-5.2); Alkaline Phosphatase 47 U/L (35-105); Anion Gap 13.2 (5-19); Aspartate Amino Transferase 17 U/L (0-32); Blood Urea Nitrogen 15 mg/dL (6-20); Calcium 6.8 mg/dL (8.5-10.5); Carbon Dioxide 27 mmol/L (22-29); Chloride 102 mmol/L (98-107); Creatinine Clr Calc Pharmacy 105.0236; Globulin 1.9 g/dL (1.3-4.6); Glucose 156 mg/dL (65-115); Osmolality Calculated 292 mOsm/kg (285-295); Potassium 3.2 mmol/L (3.5-5.1); Sodium 139 mmol/L (136-145); Total Protein 5.3 g/dL (6.6-8.7)
[2024-09-27 09:12] LABS: Free T4 Free Thyroxine 0.88 ng/dL (0.82-1.77)
[2024-09-27 09:55] LABS: Slide Review Slide Review Perform
[2024-09-27] MEDS: pantoprazole 40 mg SDV IVP (09:55)
[2024-09-27 10:06] LABS: Absolute Segmented Neutrophil 12.1 10/cmm (1.6-7.1); Band Neutrophils Absolute 0.1 10^3/cmm (0.0-1.2); Total Cells Counted 100 (0-100)
[2024-09-27 10:07] LABS: Atypical Lymphs 0.0 % (0-5)
--- NOTE | 2024-09-27 14:13 | P.PN_ITS ---
<Statement entered by Sandra Daley MD - 09/30/24 19:52> Patient was evaluated and cared for in conjunction with an advanced practice practitioner. I personally examined the patient and reviewed the chart and all pertinent data including imaging, telemetry, and laboratory results. I discussed the patient in detail with the advanced practice practitioner. Please see their note for complete H&P testing result and agreed upon plan of care for the patient. Subjective 2 Subjective: Patient doing well without complaints. HR is in the 60s when she is awake. Free t4 increased to 0.79. Continues to not require dopamine drip. Vitals/I&O/Wt Last Vital Signs Temp 96.9 F L 09/27/24 07:42 Pulse 50 L 09/27/24 07:42 Resp 16 09/27/24 07:42 BP 93/55 09/27/24 07:42 Pulse Ox 98 09/27/24 07:42 O2 Del Method Room Air 09/27/24 04:00 09/26/24 09/27/24 09/27/24 22:59 06:59 14:59 Intake Total 460 / 1180 240 / 1420 480 / 480 Output Total Balance 459 / 1179 240 / 1419 480 / 480 Weight last 48 hrs Weight 160 lb 3.2 oz Weight 162 lb Physical Exam 2 Narrative: General: No apparent distress HENMT: normoceophalic Muskuloskeletal: Full ROM Respiratory: Normal respiratory effort, clear to auscultation bilaterally throughout all lung núñez, no use of accessory muscles Cardio: No JVD, regular rate, regular rhythm, S1 S2 normal, no murmurs, peripheral pulses 2+ radial paplated bilaterally Extremities: Full ROM, normal, normal capillary refill, no cyanosis or edema Neuro: Alert and oriented x4, no focal motor deficits Psych: Affect normal, mental status grossly normal Skin: No rashes or lesions noted, no wounds Urinary Catheter Management: Moseley: Cath Placed During This Visit: yes Reason for Continuing Indwelling Catheter: Accurate Measurement of Urinary Output in Critically Ill Patients Urinary Catheter Date of Insertion: 09/18/24 Urinary Catheter Time of Insertion: 10:33 Data 09/27/24 08:39 09/27/24 08:39 A&P Assessment and plan 1. Bradycardia: 2. Myxedema: 3. Adrenal crisis: 4. NIKKO (acute kidney injury): Plan: Patient is currently off dopamine drip and pulse is remaining stable. Would continue current care. Continue to monitor for signs or symptoms of bradycardia. Thyroid is being adressed by primary. This is improving. Recommend continue thyroid management. Patient appears to be at baseline at this time. At this time, cardiology will sign off of this patient. As always, if our assistance is needed in the future, please consult us. Thank you for allowing us to take care of this very pleasant patient. PDMP PDMP Reviewed: Not Reviewed Attestations 2 Medical Necessity Statement*: Deferred to primary Coding Level of Care Code Acute Code for Chg Fwd Diagnoses Bradycardia R00.1 Myxedema E03.9 Adrenal crisis E27.2 NIKKO (acute kidney injury) N17.9
--- NOTE | 2024-09-27 14:56 | PM.DCS ---
Discharge Providers Date of Admission: 09/17/24 08:10 Date of Discharge: September 27, 2024 Attending Provider at Admission: Neville Christie Attending Provider at Discharge: Maday Brown MD Primary Care Provider: Herminio Wayne MD Diagnoses at Discharge Discharge Diagnosis 1. Bradycardia: 2. Myxedema: 3. Adrenal crisis: 4. 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 Earlier today she awoke nauseated after about one hour of sleep but denies vomiting, diarrhea, fever, cough, dyspnea, dysuria, hematuria, or gastrointestinal bleeding. The left lower quadrant pain first prompted an ED visit on 30 Aug 2024, when computed tomography (CT) revealed a moderate complex fluid collection in the posterior pelvis and bowel wall thickening of the left colon; pelvic ultrasound at that time demonstrated free fluid in the cul-de-sac without a solid pelvic mass, and testing was negative. Since that visit the pain has persisted. She follows endocrinology for thyroid disease but has remained on levothyroxine without missed doses. A random cortisol today is 5.25 ?g/dL. In the ED she was noted to be bradycardic (40 bpm) and hypotensive (BP 82/56 mm Hg), with TSH 500 ?IU/mL, mild chronic anemia (Hgb 10.3 g/dL), creatinine 1.5 mg/dL (baseline 1.3), and urinalysis showing pyuria (>100 WBC), bacteria, and leukocyte esterase. She receives ceftriaxone empirically. She reports only intermittent use of diclofenac for pain. No leg swelling, rash, urinary frequency, or dysuria. She denies recent NSAID overuse and is otherwise without additional complaints. Hospital Course Hospital Course During her hospital stay he was diagnosed with a case of adrenal insufficiency that required fluid resuscitation and she was in adrenal crisis/shock. She was started on stress dose hydrocortisone. She had also acute kidney injury that could be related to her hypotension versus NSAID use. Her kidney function improved during her stay. She was also started on broad-spectrum antibiotics that further improved her condition. Her myxedema was likely possibly related to medication nonadherence versus disease progression however after starting IV levothyroxine the patient condition improved and her free T4 became in normal range. She was kept in ICU on dopamine infusion for her hypotension that further improved. Cardiology followed up with the patient and signed off. Her condition was discussed with Dr. Reddy from [facility] and also Dr. Goins/machinery rigger from [facility]. She was following at [facility] during her type. Since her primary CHRONIC CARE NURSE was in [facility] and she was taking infusion of 475 mcg intramuscular shots of levothyroxine every week and oral 75 mcg daily. Later on after discussing with both machinery rigger the patient preferred to follow at [place] since it is easy to follow here. Dr. Goins was taken on board and after discussing her case discharge with oral 75 mcg levothyroxine. 10 mg of hydrocortisone twice daily. She was also found to have on and off hypokalemia and correction was done accordingly. Her potassium was 3.2 and she received 40 mEq of KCl. The patient was asymptomatic and eager to go home. The plan of care was informed, all her acute condition and plan discussed and she agreed with it. Follow-up plan also referred to the patient and she agreed to follow. Outpatient intramuscular/infusion already arranged by the machinery rigger and the patient will follow-up with Physical Exam Narrative: General: Alert oriented x3, patient seen lying comfortably on the bed, warm peripheries, mild decreased urine output, normal capillary refill HEENT: Normocephalic, atraumatic, EOMI, breathing comfortably at room air without any desaturation Cardio: Regular rate rhythm, normal S1-S2, no murmurs rubs gallops, JVD normal Respiratory: Good bilateral air entry, no wheezes no rhonchi appreciated GI: Abdomen soft, nontender, nondistended, normoactive bowel sounds present all 4 quadrants, Neuro: Cranial nerves II to XII intact, strength 5/5, sensation 5/5, no gross neurological deficit Behavior: Appropriate and cooperative Extremities: Pulses 2+, no edema, no cyanosis Skin: Visible skin intact, no rashes Urinary Catheter Management: Moseley: Cath Placed During This Visit: yes Reason for Continuing Indwelling Catheter: Accurate Measurement of Urinary Output in Critically Ill Patients Urinary Catheter Date of Insertion: 09/18/24 Urinary Catheter Time of Insertion: 10:33 Discharge Data Studies Completed and Pending Completed Studies During Hospitalization Category Date Time Status XR chest 1V portable [id number] Stat Exams 09/17/24 06:25 Completed US echo complete [CV. echo complete* [id number]] Stat Ultrasound 09/17/24 06:22 Completed US pelv w/transvag [id number] Routine Ultrasound 09/17/24 09:11 Completed US renal BI* [id number] Routine Ultrasound 09/17/24 09:05 Completed Pending at discharge Category Date Time Status CBC Auto Diff [Complete Blood Count w/Auto] AM LABS Lab 09/28/24 04:00 Ordered CMP [Comprehensive Metabolic Panel] AM LABS Lab 09/28/24 04:00 Ordered Free T4 Free Thyroxine AM LABS Lab 09/28/24 04:00 Ordered Radiology Impressions Chest X-Ray 09/17/24 06:25 IMPRESSION: No acute findings. Renal Ultrasound 09/17/24 09:05 IMPRESSION: 1. No hydronephrosis in either kidney. 2. Mild diffuse bladder wall thickening can be seen with cystitis. Recommend correlation for UTI. Pelvic/Transvag US 09/17/24 09:11 IMPRESSION: 1. RIGHT ovarian cyst measures 4.9 x 2.7 x 2.0 cm. There are daughter cyst within a cyst which is a reassuring component. This is probably the same cyst that was described on recent CT and pelvic ultrasound. Cyst has decreased in size from the CT of 08/30/2024. 2. Physiologic mildly complex free fluid in the pelvis. Laboratory Results WBC 14.54 10^3/uL (3.29-11.43) H 09/27/24 08:39 RBC 3.43 10^6/uL (3.85-5.65) L 09/27/24 08:39 Hgb 9.90 g/dL (11.27-16.99) L 09/27/24 08:39 Hct 31.1 % (36-47) L 09/27/24 08:39 MCV 90.7 fl (85-98) 09/27/24 08:39 MCH 28.9 pg (27-33) 09/27/24 08:39 MCHC 31.8 g/dL (30-55) 09/27/24 08:39 RDW 15.5 % (12.1-15.1) H 09/27/24 08:39 Plt Count 189 10^3/cmm (157-399) 09/27/24 08:39 MPV 10.8 fL (7.4-10.4) H 09/27/24 08:39 Neut % (Auto) 70.9 % 09/26/24 02:52 Lymph % (Auto) Not Reportable 09/27/24 08:39 [place] % (Auto) Not Reportable 09/27/24 08:39 Eos % (Auto) 0.0 % 09/26/24 02:52 Baso % (Auto) 0.3 % 09/26/24 02:52 Neut # (Auto) 9.59 10^3/uL (1.8-7.7) H 09/26/24 02:52 Lymph # (Auto) Not Reportable 09/27/24 08:39 [place] # (Auto) Not Reportable 09/27/24 08:39 Eos # (Auto) 0.0 10^3/uL (0.0-0.8) 09/26/24 02:52 Baso # (Auto) 0.0 10^3/uL (0.0-0.1) 09/26/24 02:52 Nucleated RBC % (auto) 0.1 % 09/26/24 02:52 Total Counted 100 (0-100) 09/27/24 08:39 Atypical Lymphs % 0.0 % (0-5) 09/27/24 08:39 Absolute Neutrophils 12.2 10^3/cmm (1.4-6.5) H 09/27/24 08:39 Segmented Neutrophils 83 % 09/27/24 08:39 Band Neutrophils 1.0 % 09/27/24 08:39 Absolute Lymphocytes 1.5 10^3/cmm (1.2-3.4) 09/27/24 08:39 Lymphocytes (Manual) 10 % 09/27/24 08:39 Monocytes (Manual) 4.0 % 09/27/24 08:39 Absolute Monocytes 0.6 10^3/cmm (0.1-0.6) 09/27/24 08:39 Eosinophils (Manual) 0 % 09/27/24 08:39 Absolute Eosinophils 0.0 10^3/cmm (0.0-0.7) 09/27/24 08:39 Basophils (Manual) 0.0 % 09/27/24 08:39 Absolute Basophils 0.0 10^3/cmm (0.0-0.2) 09/27/24 08:39 Metamyelocytes 1.0 % 09/27/24 08:39 Myelocytes 1.0 % 09/27/24 08:39 Nucleated RBCs # 0.0 /100WBC 09/26/24 02:52 Platelet Estimate Normal (Normal) 09/27/24 08:39 Sodium 139 mmol/L (136-145) 09/27/24 08:39 Potassium 3.2 mmol/L (3.5-5.1) L 09/27/24 08:39 Chloride 102 mmol/L (98-107) 09/27/24 08:39 Carbon Dioxide 27 mmol/L (22-29) 09/27/24 08:39 Anion Gap 13.2 (5-19) 09/27/24 08:39 BUN 15 mg/dL (6-20) 09/27/24 08:39 Creatinine 0.8 mg/dL (0.5-0.9) 09/27/24 08:39 GFR Calculation 87.4 mL/min (90-130) L 09/27/24 08:39 Glucose 156 mg/dL (65-115) H 09/27/24 08:39 POC Glucose 123 mg/dL (70-110) H 09/25/24 15:47 Calculated Osmolality 292 mOsm/kg (285-295) 09/27/24 08:39 Lactate 1.5 mmol/L (0.5-2.2) 09/24/24 05:12 Calcium 6.8 mg/dL (8.5-10.5) L 09/27/24 08:39 Magnesium 2.4 mg/dL (1.7-2.3) H 09/18/24 03:35 Total Bilirubin 0.3 mg/dL (0.15-1.2) 09/27/24 08:39 AST 17 U/L (0-32) 09/27/24 08:39 ALT 34 U/L (0-33) H 09/27/24 08:39 Alkaline Phosphatase 47 U/L (35-105) 09/27/24 08:39 Creatine Kinase 313 U/L (26-192) H 09/21/24 02:42 Troponin T Baseline 12 ng/L (0-10) H 09/18/24 08:42 Troponin T 120 Minute 11.01 ng/L (0-10) H 09/18/24 10:48 Delta Troponin T -0.99 ABS# (0-10) L 09/18/24 10:48 Troponin T Hi Sens 6Hr 11.32 ng/L (0-10) H 09/18/24 15:09 Troponin T Hi Sens 6Hr Delta -0.68 ng/L (0-12) L 09/18/24 15:09 Total Protein 5.3 g/dL (6.6-8.7) L 09/27/24 08:39 Albumin 3.4 g/dL (3.5-5.2) L 09/27/24 08:39 Globulin 1.9 g/dL (1.3-4.6) 09/27/24 08:39 TSH 490.20 uIU/mL (0.27-4.20) H 09/18/24 08:42 Free T4 0.88 ng/dL (0.82-1.77) 09/27/24 08:39 Free T3 0.4 PG/ML (2.0-4.4) L 09/17/24 04:54 HCG, Qual Negative (Negative) 09/17/24 03:00 Random Cortisol 5.25 ug/dL (2.47-19.5) 09/17/24 04:54 Urine Color Yellow (Yellow) 09/17/24 04:54 Urine Appearance Turbid (CLEAR) A 09/17/24 04:54 Urine pH 6.0 (5-7) 09/17/24 04:54 Ur Specific [place] 1.035 (1.005-1.030) H 09/17/24 04:54 Urine Protein 1+ (Negative) A 09/17/24 04:54 Urine Glucose (UA) Negative (Normal) 09/17/24 04:54 Urine Ketones Trace (Negative) 09/17/24 04:54 Urine Blood Negative (Negative) 09/17/24 04:54 Urine Nitrate Negative (Negative) 09/17/24 04:54 Urine Bilirubin Negative (Negative) 09/17/24 04:54 Urine Urobilinogen 1.0 mg/dL (Negative) 09/17/24 04:54 Ur Leukocyte Esterase 1+ (Negative) A 09/17/24 04:54 Urine RBC 0-2 /hpf (0-2) 09/17/24 04:54 Urine WBC >100 /hpf (0-5) H 09/17/24 04:54 Ur Squamous Epith Cells 51-100 /hpf (0-5) 09/17/24 04:54 Amorphous Sediment Not Reportable 09/17/24 04:54 Urine Bacteria 4+ /hpf (NONE) H 09/17/24 04:54 Hyaline Casts 4.11 /lpf 09/17/24 04:54 Nasal MRSA (PCR) Not detected (Not Detecte) 09/18/24 17:00 Urine Opiates Screen Negative ng/mL (Negative) 09/17/24 04:54 Ur Barbiturates Screen Negative ng/mL (Negative) 09/17/24 04:54 Ur Phencyclidine Scrn Negative ng/mL (Negative) 09/17/24 04:54 Ur Amphetamines Screen Negative ng/mL (Negative) 09/17/24 04:54 U Benzodiazepines Scrn Negative ng/mL (Negative) 09/17/24 04:54 Urine Cocaine Screen Negative ng/mL (Negative) 09/17/24 04:54 U Marijuana (THC) Screen Negative ng/mL (Negative) 09/17/24 04:54 C. trachomatis (PCR) Not detected (Negative) 09/18/24 10:32 N. gonorrhoeae (PCR) Not detected (Negative) 09/18/24 10:32 Vitals Last Vital Signs Temp 96.9 F L 09/27/24 07:42 Pulse 50 L 09/27/24 07:42 Resp 16 09/27/24 07:42 BP 93/55 09/27/24 07:42 Pulse Ox 98 09/27/24 07:42 O2 Del Method Room Air 09/27/24 04:00 Discharge Plan Discharge Patient Disposition: Home Condition: Stable Prescriptions: New hydrocodone-acetaminophen 5-325 mg Tablet 1 tab PO Q8H PRN (Reason: Moderate Pain) 10 Days Qty: 10 0RF hydrocortisone 10 mg tablet 10 mg PO BID Qty: 90 0RF Continued buspirone 15 mg tablet 15 mg PO BID polyethylene glycol 3350 [Miralax] 17 gram/dose powder 17 g PO DAILY Qty: 510 0RF Changed levothyroxine 200 mcg tablet 75 mcg PO DAILY 120 Days Qty: 120 0RF Casting Repairer OK for DC: Cardiology Discharge Order = DC NOW: Discharge Order (Routine); Ordered 09/27/24 Ordered By: Maday Brown Referrals: Bradley Goins MD [Physician, Endocrinology] Herminio Wayne MD [Primary Care Provider, Family Practice] - 10/01/24 Discharge Diet: Advance as tolerated and As Directed Discharge Activity: Resume usual activity and Increase activity as tolerated Patient Instructions: Headache - Migraine (Adult), Hypothyroidism (DC), Bradycardia (DC), Opioid Safety, Patient Portal & Jeff Instructions Discharge Attestations Time Spent in Discharge Care*: greater than 30 min Specific Discharge Activities: educating patient, educating and/or supporting family/caregiver, discussing with pcp/other providers, discussing with immigration case worker/social workers/dc planners, documenting/other paperwork and evaluating patient/reviewing data Status at Discharge: Cognitive status at discharge: cognitively intact, Behavioral status at discharge: cooperative, Functional status at discharge: independent ambulation, Overall status at discharge: patient is back to baseline Quality Metrics Clinical Quality Measures [ No reported AMI, CVA or VTE this stay] Coding Level of Care Code 27672 Diagnoses Bradycardia R00.1 Myxedema E03.9 Adrenal crisis E27.2 NIKKO (acute kidney injury) N17.9
--- NOTE | 2024-09-27 15:40 | PC.NURSE ---
discharge instructions given and explained to pt and spouse....emphasizing importance of follow-up appoints with md office appointments.they verb understanding of instructions.discharged via w/c to exit at this time.
[2024-09-27 15:51] VITALS: BP 93/55; PULSE 55; RESP 16; O2SAT 96
--- NOTE | 2024-09-27 16:25 | PC.NURSE ---
discharge instructions given and explained .pt verb understanding of instructions.discharged via w/c at this time.spouse to drive pt home
== END 2024-09-27 16:27 | disposition home or self-care (01) | DRG 644 ==
LOC: ER 06:42 → ICU 08:11 → CSU 09-25 21:27
PROVIDERS: Emergency Medicine; Internal Medicine; Admitting Provider Internal Medicine; Emergency Provider Family Medicine; PCP Family Medicine; Visit Provider Student in an Organized Health Care Education/Training Program
DX: E06.3 Autoimmune thyroiditis (principal); E27.2 Addisonian crisis; M62.82 Rhabdomyolysis; N17.9 Acute kidney failure, unspecified; R00.1 Bradycardia, unspecified; I95.9 Hypotension, unspecified; D64.9 Anemia, unspecified; E87.6 Hypokalemia; F41.9 Anxiety disorder, unspecified; N30.90 Cystitis, unspecified without hematuria; E20.9 Hypoparathyroidism, unspecified; N83.201 Unspecified ovarian cyst, right side; K29.70 Gastritis, unspecified, without bleeding; T39.395A Adverse effect of other nonsteroidal anti-inflammatory drugs [NSAID], initial encounter
CPT/HCPCS: 36415; 36416; 51702; 71045; 76770; 76830; 76856; 80048; 80053; 80306; 81001; 81025; 82533; 82550; 82962; 83605; 83735; 84439; 84443; 84481; 84484; 85007; 85025; 87040; 87086; 87491; 87591; 93005; 93306; 96372; 97161; 99285; J0612; J0696; J0780; J1265; J1650; J1720; J1885; J2060; J2185; J2405; J2470; J3490; J7040; J9999

== ENCOUNTER 2024-10-16 15:00 | Oncology outpatient (recurring) (ONCR) | payer BC, MEDICAID, SELFPAY ==
[2024-10-09 15:07] VITALS: BP 94/59; PULSE 58; RESP 17; TEMP 36.4; O2SAT 95
[2024-10-09] MEDS: levothyroxine 200 mcg/5 mL SDV 450 MCG IVP (15:16)
[2024-10-09 15:29] VITALS: BP 90/58; PULSE 62; RESP 16; TEMP 36.4; O2SAT 98
[2024-10-16] MEDS: levothyroxine 200 mcg/5 mL SDV 450 MCG IVP (15:17)
[2024-10-16 16:03] VITALS: BP 91/63; PULSE 76; RESP 16; TEMP 36.3; O2SAT 98
== END 2024-10-20 23:59 | disposition home or self-care (01) ==
PROVIDERS: PCP Family Medicine; Visit Provider Internal Medicine
DX: Z53.9 Procedure and treatment not carried out, unspecified reason (principal); E03.8 Other specified hypothyroidism; E06.3 Autoimmune thyroiditis; Z79.899 Other long term (current) drug therapy
CPT/HCPCS: 36415; 80053; 80061; 82044; 82306; 82310; 83036; 83970; 84439; 84443; 96374; J0651

== ENCOUNTER 2024-11-04 12:23 | Outpatient (CLI) | payer MEDICAID, SELFPAY ==
[2024-11-04 13:40] LABS: Free T4 Free Thyroxine 1.31 ng/dL (0.82-1.77)
== END 2024-11-04 12:24 | disposition home or self-care (01) ==
LOC: LAB 12:24
PROVIDERS: PCP Family Medicine; Visit Provider Internal Medicine
DX: E03.8 Other specified hypothyroidism (principal); E06.3 Autoimmune thyroiditis
CPT/HCPCS: 36415; 84439

== ENCOUNTER 2024-11-14 08:00 | Oncology outpatient (recurring) (ONCR) | payer MEDICAID, SELFPAY ==
[2024-10-23] MEDS: levothyroxine 200 mcg/5 mL SDV 450 MCG IV (13:10)
[2024-10-23 13:18] VITALS: BP 96/64; PULSE 68; RESP 16; O2SAT 98
[2024-10-30 08:17] VITALS: BP 95/67; PULSE 93; RESP 17; TEMP 36.6; O2SAT 99
[2024-10-30] MEDS: levothyroxine 200 mcg/5 mL SDV 450 MCG IVP (08:24)
[2024-11-06] MEDS: levothyroxine 200 mcg SDV 450 MCG IM (14:06)
[2024-11-14] MEDS: levothyroxine 200 mcg SDV 450 MCG IM (08:23)
[2024-11-14 08:29] VITALS: BP 82/60; PULSE 74; RESP 16; TEMP 36.6; O2SAT 97
== END 2024-11-19 23:59 | disposition home or self-care (01) ==
PROVIDERS: PCP Family Medicine; Visit Provider Internal Medicine
DX: Z53.9 Procedure and treatment not carried out, unspecified reason; E03.9 Hypothyroidism, unspecified; Z79.899 Other long term (current) drug therapy
CPT/HCPCS: 96372; 96374; J0650; J0651

== ENCOUNTER 2024-12-19 09:00 | Oncology outpatient (recurring) (ONCR) | payer MEDICAID, SELFPAY ==
[2024-11-21] MEDS: levothyroxine 200 mcg SDV 450 MCG IM (08:43)
[2024-11-28] MEDS: levothyroxine 200 mcg SDV 450 MCG IM (08:32)
[2024-12-12 10:03] VITALS: BP 86/52; PULSE 63; RESP 16; TEMP 36.1; O2SAT 98
[2024-12-12] MEDS: levothyroxine 100 mcg/mL SDV 450 MCG IM (10:07)
[2024-12-19] MEDS: levothyroxine 100 mcg/mL SDV 450 MCG IM (09:27)
== END 2024-12-20 23:59 | disposition home or self-care (01) ==
PROVIDERS: PCP Family Medicine; Visit Provider Internal Medicine
DX: Z53.9 Procedure and treatment not carried out, unspecified reason; E03.8 Other specified hypothyroidism; E06.3 Autoimmune thyroiditis; E20.9 Hypoparathyroidism, unspecified; Z79.899 Other long term (current) drug therapy
CPT/HCPCS: 96372; J0650; J9999

== ENCOUNTER 2025-01-09 09:15 | Oncology outpatient (recurring) (ONCR) | payer MEDICAID, SELFPAY ==
[2024-12-26] MEDS: levothyroxine 100 mcg/mL SDV 450 MCG IM (09:38)
[2025-01-02] MEDS: levothyroxine 100 mcg/mL SDV 450 MCG IM (10:02)
[2025-01-09] MEDS: levothyroxine 100 mcg/mL SDV 450 MCG IM (09:04)
== END 2025-01-19 23:59 | disposition home or self-care (01) ==
PROVIDERS: PCP Family Medicine; Visit Provider Internal Medicine
DX: E03.8 Other specified hypothyroidism; Z79.899 Other long term (current) drug therapy; Z53.9 Procedure and treatment not carried out, unspecified reason
CPT/HCPCS: 96372; J9999

== ENCOUNTER 2025-02-04 19:05 | Emergency (ER) | payer MEDICAID, SELFPAY ==
--- OUTSIDE RECORDS SUMMARY | 2023-12-16 03:00 | XMS_ITS ---
Author Organization [facility] Address [address] [place] [address] Care Team Providers Care Sanitor Name Role Phone Herminio Shoemaker Primary Care Provider Unavailabl e Migration, Provider Unavailable Unavailable REASON FOR VISIT EMR-Jovon Encounters Encounter Location Date Provider Diagnosis Migrated_Facility 0 0 12/16/2023 Provider Migration Plan Of Treatment No Information Progress Notes * Farhad BUITRAGO DarryneeDOB: (24 yo F)Acc No.[id number]:12/16/2023 Patient: Farhad KENYON :2000 A ge:23 Y S ex:Female Address:[address] [place] [address], [id number] Subjective: * Chief Complaints: * E MR-Jovon * * Date:
--- OUTSIDE RECORDS SUMMARY | 2023-12-17 03:00 | XMS_ITS ---
Author Organization [facility] Address [address] [place] [address] Care Team Providers Care Credentialer Name Role Phone Herminio Shoemaker Primary Care Provider Unavailabl e Migration, Provider Unavailable Unavailable Allergies Allergen (clinical drug ingredient) Drug/Non Drug Allergy documented on EMR Reaction Allergy Type Onset Date Status amoxicillin Amoxicillin Vomiting, Itching Drug Allergy Active Substance with penicillin structure and antibacterial mechanism of action (substance) Penicillins Vomiting, Itching Drug Allergy Active REASON FOR VISIT EMR-Ojvon Medications Medication SIG (Take, Route, Frequency, Duration) Notes Start Date End Date Status hydrOXYzine HCl *Pick strength-f orm from [facility] for eRX* Active tizanidine *Reorder from [facility] for eRx and Interaction Alerts* Active duloxetine *Reorder from [facility] for eRx and Interaction Alerts* Active Ketorolac *[facility] and Interaction Alert[facility]* Active Ibuprofen *[facility]* Active Tirosint *[facility]* Active Social History Social History Additional Details Category Social Info Options Details Migrated Social History Migrated Social History Alcoholic beverages? - Yes, Applying for disability? - No, Currently on disability? - No, Drug or substance abuse? - No, If yes, frequency of alcoholic beverages - less than 1 drink per week. : seldom, Involved in any legal proceedings or lawsuits? - No, Marital Status - , Nonprescription drug use? - No, Participation in detoxification or rehabilitation - No, Smoking - No, Working currently? - Yes Encounters Encounter Location Date Provider Diagnosis Migrated_Facility 0 0 12/17/2023 Provider Migration Plan Of Treatment No Information Progress Notes * Farhad BUITRAGO DarryneeDOB: (24 yo F)Acc No.[id number]:12/17/2023 Patient: Farhad KENYON :2000 A ge:23 Y S ex:Female Address:[address] [place] [id number] Subjective: * Chief Complaints: * E MR-Jovon * Surgical History: cleft palate and lip Since 1999 2000 Ear tube placement Since 2000 2001 Tonsillectomy Since 2006 adenoidectomy Since 2006 appendectomy Since 2012 cholecystectomy Since 2020 Total thyroidectomy Since 2020 * Family History: M igrated Family History: : Cancer, D iabetes, l upus, R heumatoid arthritis. * Social History: M igrated Social History: M igrated Social History: Alcoholic beverages? - Yes, A pplying for disability? - No, C urrently on disability? - No, D rug or substance abuse? - No, I f yes, frequency of alcoholic beverages - less than 1 drink per week. : seldom, I nvolved in any legal proceedings or lawsuits? - No, M arital Status - , N onprescription drug use? - No, P articipation in detoxification or rehabilitation - No, S moking - No, W orking currently? - Yes. * Medications: T akingIbuprofen , Notes to Pharmacist: *Pick strength-form from [facility] for eRX*Tirosint , Notes to Pharmacist: *Pick strength-form from [facility] for eRX*tizanidine , Notes to Pharmacist: *Reorder from [facility] for eRx and Interaction Alerts*hydrOXYzine HCl , Notes to Pharmacist: *Pick strength-form from [facility] for eRX*Ketorolac , Notes to Pharmacist: *Reorder from [facility] for eRx and Interaction Alerts*duloxetine , Notes to Pharmacist: *Reorder from [facility] for eRx and Interaction Alerts*Taking Ibuprofen , Notes to Pharmacist: *Pick strength-form from [facility] for eRX*Taking Tirosint , Notes to Pharmacist: *Pick strength-form from [facility] for eRX*Taking tizanidine , Notes to Pharmacist: *Reorder from [facility] for eRx and Interaction Alerts*Taking hydrOXYzine HCl , Notes to Pharmacist: *Pick strength-form from [facility] for eRX*Taking Ketorolac , Notes to Pharmacist: *Reorder from [facility] for eRx and Interaction Alerts*Taking duloxetine , Notes to Pharmacist: *Reorder from [facility] for eRx and Interaction Alerts* * Allergies: A moxicillin: Vomiting, Itching - AllergyPenicillins: Vomiting, Itching - Allergy * * Date:
--- OUTSIDE RECORDS SUMMARY | 2024-02-19 08:40 | XMS_ITS ---
Author Organization [facility] Address [address] [place] [address] Care Team Providers Care Acute Care Certified Nursing Assistant Name Role Phone Herminio Shoemaker Primary Care Provider Unavailabl Malachi Castellano Unavailable REASON FOR VISIT Est care Encounters Encounter Location Date Provider Diagnosis [facility] [address] [place] [phone] 02/19/2024 Malachi Pierce Plan Of Treatment No Information Progress Notes * Farhad BUITRAGOeeDOB: (24 yo F)Acc No.[id number]:02/19/2024 Progress Notes Patient: Farhad Hilario Provider: Reny Pierce MD :2000 A ge:23 Y S ex:Female Date:02/19/2024 Address:[address] [place] [address] [facility] Pcp:Herimnio Shoemaker Subjective: * Chief Complaints: * E st care * Electronic signature of Joanie Pierce MD on 02/04/2025 at 07:11 PM INTERNET MARKETING ANALYST Sign off status: Pending * Provider: Reny Pierce MD Date: Generated for Fito orozco/Paula/Fransiscosmitting on: 04/07/2024 07:11 PM INTERNET MARKETING ANALYST
--- OUTSIDE RECORDS SUMMARY | 2024-08-09 09:30 | XMS_ITS ---
Author Organization [facility] Address [address] [place] [address] Care Team Providers Care Continuous Drier Operator Name Role Phone ( [facility] ), PHYSICIAN NOT IDENTIFIED Primary Care Provider Unavailable Mian Damon Unavailable [phone] REASON FOR VISIT Ref/Pano/ car issues Encounters Encounter Location Date Provider Diagnosis [address] [place] [address] Dental Clinic [address], [place] [address] 08/09/2024 Mian Damon Plan Of Treatment No Information Progress Notes * Viola ARDONOB: 0 (24 yo F)Acc No.[id number]:08/09/2024 Patient: Farhad Nava Provider: Cali Damon DDS :2000 A ge:24 Y S ex:Female Date:08/09/2024 Address:[address] [place], [place] [id number] Pcp:PHYSICIAN NOT IDENTIFIED ( [facility] ) Subjective: * Chief Complaints: * R ef/Pano/ car issues Billing Information: * Procedure Codes: * Electronic signature of Zenon Damon on 02/04/2025 at 07:10 PM MANAGER OF BUSINESS Sign off status: Pending * Provider: Cali Damon DDS Date: 0 08/09/2024 Generated for Printi ng/Faxing/eTransmitting on: 1 04/07/2024 07:10 PM MANAGER OF BUSINESS
--- OUTSIDE RECORDS SUMMARY | 2025-02-04 19:10 | XMS_ITS | Clinical Summary ---
Author Organization [facility] Address [address] [place] [address] Phone Care Team Providers Care Sash Sticker Name Role Phone Unavailable Primary Care Provider [...] on file Legal Sex Female 5:32 PM JAVA WEB USER INTERFACE DEVELOPER Gender Identity Not on file Sexual Orientation Not on file Last Filed Vital Signs Vital Sign Reading Time Taken Comments Blood Pressure 125/72 04/16/2023 6:42 PM JAVA WEB USER INTERFACE DEVELOPER Pulse 82 04/16/2023 6:30 PM JAVA WE[employer] USER INTERFACE DEVELOPER Temperature 36.9 C (98.4 F) 04/16/2023 6:42 PM JAVA WEB USER INTERFACE DEVELOPER Respiratory Rate 16 04/16/2023 6:42 PM JAVA WEB USER INTERFACE DEVELOPER Oxygen Saturation 100% 04/16/2023 6:42 PM JAVA WEB USER INTERFACE DEVELOPER Inhaled Oxygen Concentration - - Weight 60.8 kg (134 lb) 04/16/2023 5:47 PM JAVA WEB USER INTERFACE DEVELOPER Height 162.6 cm (5' 4 ) 04/16/2023 5:47 PM JAVA WEB USER INTERFACE DEVELOPER Body Mass Index 23 04/16/2023 5:47 PM JAVA WEB USER INTERFACE DEVELOPER Plan of Treatment Health Maintenance Due Date Last Done Comments HPV VACCINES (1 - 3-dose series) 07/03/2014 DTAP/TDAP/TD VACCINES (1 - Tdap) 07/03/2018 HEPATITIS B VACCINES (1 of 3 - 19+ 3-dose series) 06/20 CERVICAL CANCER SCREENING 07/03/2020 HPV/Cotest (21-29) 07/03/2020 PAP SMEAR 07/03/2020 INFLUENZA VACCINE (#1) 2024 Insurance [facility] [id number] [employer] CHOICE POS II
--- OUTSIDE RECORDS SUMMARY | 2025-02-04 19:10 | XMS_ITS | Data Portability ---
Author Organization [place] - [facility] [employer] [facility], [facility] Address [address] [address] Care Team Providers Care Lining Cutter Name Role Phone LEAH SANCHEZ Primary Care Provider Assessment No assessment recorded. Plan of Treatment Reminders Order Date Submit Date Provider Last Modified By Organization Details Last Modified Time Details Appointments None recorded. Lab pap, LB 2023 [address] [facility], [address] [place], [address], 4 10:15:01 CT + NG DNA, PCR, unspecified specimen 2023 [address] [facility], [address] [place], [address], 4 10:15:02 CBC w/ auto diff 2023 024 JANSEN [facility], [address] [place], [address], 4 11:08:00 Referral None recorded. Procedures None recorded. Surgeries None recorded. Imaging US, obstetric, 1st trimester 2023 024 JANSEN In-Office Order, Internal Use Only DO Not Attach Compendium DO Not Attach Compendium, Do Not Delete/merge, [id number] 4 11:32:16 Medication Orders Lysteda 650 mg tablet 2023 024 JANSEN [id number], [address], [place], [id number], 11:55:08 Patient TargetsNo targets recorded. Patient Instructions Encounter Date Encounter Id Patient Instructions Last Modified By Organization Details Last Modified Time 04/06/2023 [id number] self breast exam education amyl Not available 04/06/2023 11:55:02 osteoporosis education amyl Not available 04/06/2023 11:55:02 Reason for Referral None Reported. Results Created Date Observation Date Name Description Value Unit Range Abnormal Flag Note LastModifiedBy Organization Detail LastModifiedTime 04/06/19 24 04/07/2023 CBC (INCL UDES DIFF/ PLT) white blood cell count 8.9 thous and/u L 3.8-10 .8 normal Not Available [facility] [address], [address], 04/07/2023 11:08:00 04/06/19 24 04/07/2023 CBC (INCL UDES DIFF/ PLT) red blood cell count 4.24 charles on/uL 3.80-5 .10 normal Not Available [facility] [address], [address], 04/07/2023 11:08:00 04/06/1904/07/2023 CBC (INCL UDES DIFF/ PLT) hemoglobin 12.4 g/dL 11.7-1 5.5 normal Not Available [facility] [address], [address], 04/07/2023 11:08:00 04/06/1904/07/2023 CBC (INCL UDES DIFF/ PLT) hematocrit 36.9 % 35.0-4 5.0 normal Not Available [facility] [address], [address], 04/07/2023 11:08:00 04/06/19 24 04/07/2023 CBC (INCL UDES DIFF/ PLT) MCV 87.0 fL 80.0-1 00.0 normal Not Available [facility] [address], [address], 04/07/2023 11:08:00 04/06/19 24 04/07/2023 CBC (INCL UDES DIFF/ PLT) MCH 29.2 pg 27.0-3 3.0 normal Not Available [address], [address], 04/07/2023 11:08:00 04/06/19 24 04/07/2023 CBC (INCL UDES DIFF/ PLT) MCHC 33.6 g/dL 32.0-3 6.0 normal Not Available [address], [address], 04/07/2023 11:08:00 04/06/19 24 04/07/2023 CBC (INCL UDES DIFF/ PLT) RDW 12.7 % 11.0-1 5.0 normal Not Available [address], [address], 04/07/2023 11:08:00 04/06/19 24 04/07/2023 CBC (INCL UDES DIFF/ PLT) platelet count 482 thous and/u L 140-40 0 high Not Available [address], [address], 04/07/2023 11:08:00 04/06/19 24 04/07/2023 CBC (INCL UDES DIFF/ PLT) MPV 10.6 fL 7.5-12 .5 normal Not Available [address], [address], 04/07/2023 11:08:00 04/06/19 24 04/07/2023 CBC (INCL UDES DIFF/ PLT) absolute neutrophils 4904 cells /uL 1500-7 800 normal Not Available [address], [address], 04/07/2023 11:08:00 04/06/19 24 04/07/2023 CBC (INCL UDES DIFF/ PLT) absolute lymphocytes 3186 cells /uL 850-39 00 normal Not Available [address], [address], 04/07/2023 11:08:00 04/06/19 24 04/07/2023 CBC (INCL UDES DIFF/ PLT) absolute monocytes 703 cells /uL 200-95 0 normal Not Available [address], [address], 04/07/2023 11:08:00 04/06/19 24 04/07/2023 CBC (INCL UDES DIFF/ PLT) absolute eosinophils 53 cells /uL 15-500 normal Not Available [address], [address], 04/07/2023 11:08:00 04/06/19 24 04/07/2023 CBC (INCL UDES DIFF/ PLT) absolute basophils 53 cells /uL 0-200 normal Not Available [address], [address], 04/07/2023 11:08:00 04/06/19 24 04/07/2023 CBC (INCL UDES DIFF/ PLT) neutrophils 55.1 % normal Not Available [address], [address], 04/07/2023 11:08:00 04/06/19 24 04/07/2023 CBC (INCL UDES DIFF/ PLT) lymphocytes 35.8 % normal Not Available [address], [address], 04/07/2023 11:08:00 04/06/19 24 04/07/2023 CBC (INCL UDES DIFF/ PLT) monocytes 7.9 % normal Not Available [address], [address], 04/07/2023 11:08:00 04/06/19 24 04/07/2023 CBC (INCL UDES DIFF/ PLT) eosinophils 0.6 % normal Not Available [facility] [address] [place], [address], 04/07/2023 11:08:00 04/06/19 24 04/07/2023 CBC (INCL UDES DIFF/ PLT) basophils 0.6 % normal Not Available [facility] [address] [place], [address], 04/07/2023 11:08:00 04/06/19 24 04/10/2023 THINP REP PAP TEST thinprep Pap test NEGATI VE negati ve normal . -- THIN PREP PAP TEST -- LUPE CTED DATE: 04/06 SEX: F : [birth year] AGE: 22 [id number] CLINI C ID: [id number] SS: PHYSI TAMMY: [facility] CTED BY: . Negat janina for Intra [...] c Signa ture 2023 08:59 ) . [facility] , [address] , [place] [address] , CLIA# [id number] Medic al Direc tor: Ernesto [address], DO Not Available [facility] [place] [address] [place], [address], 04/10/2023 10:15:00 04/06/19 24 04/06/2023 GONOR HESHAM/ CHLAM YDIA AMPLI FIED gonorrhea, amplified NEGATI VE negati ve normal Not Available [facility] [place] [address] [place], [address], 04/10/2023 10:15:02 04/06/19 24 04/07/2023 GONOR HESHAM/ CHLAM YDIA AMPLI FIED chlamydia, amplified NEGATI VE negati ve normal . DNA Test Resul LUPE CTED DATE: 04/06 SEX: F : 07/03 AGE: 22 [id number] CLINI C ID: [id number] SS: MIRANDA OROSCON: NIKKI [facility] CTED BY: M2024 -1018 0 Speci men Sourc e: Cervi x Speci men Type: ThinP rep PAP Corre latin g Pap: [id number] . Neiss eria gonor rhoea e: NEGAT JANINA Latesha l Value : Negat janina . Chlam ydia trach omati s: NEGAT JANINA Latesha l Value : Negat janina . [facility] , [address] , [place] [address] , CLIA# [id number] Medic al Direc tor: Ernesto d [address], DO Not Available [employer] [facility] [facility] [address], [place], [address], 04/10/2023 10:15:02 04/06/19 24 04/06/2023 pregn sarah test, urine Result negati ve Not Available In-Office Order Internal Use Only DO Not Attach Compendium DO Not Attach Compendium, Do Not Delete/merge, [id number] 04/06/2023 12:52:55 05/22/19 24 05/22/2023 US, trans vagin al No observ ation record ed. [email or web address] Not Available 05/21 10:41:50 05/22/19 24 05/22/2023 US, obste tric, 1st trime ster No observ ation record ed. [email or web address] In-Office Order Internal Use Only DO Not Attach Compendium DO Not Attach Compendium, Do Not Delete/merge, [id number] 05/26/2023 11:32:16 05/22/19 24 05/22/2023 imagi ng/di agnos tic resul t No observ ation record ed. [email or web address] Not Available 2023 15:06:47 Result Notes None recorded. 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 10:20:19 Hypothyroidism 22310546 Active 2023 DAYO [place] - [facility] 10:20:25 Problem Notes None recorded. Procedures Surgical History Date Name Laterality Status Provider Name and Address Organization Details Recorded Time Appendectomy completed Karlie Palafox [place] [facility] 04/06/2023 10:24:14 cholecystectomy completed Karlie Palafox [place] [facility] 04/06/2023 10:24:23 tonsillectomy completed Karlie Palafox [place] [facility] 04/06/2023 10:24:27 thyroidectomy completed Karlie Palafox [place] [facility] 04/06/2023 10:24:34 repair of cleft lip completed Karlie Palafox [place] [facility] 04/06/2023 10:24:41 repair of cleft palate completed Karlie Palafox [place] [facility] 04/06/2023 10:24:49 Imaging Results None recorded. Procedure Notes None recorded. Medical Equipment None Reported. Allergies Allergen ID Allergen Name Allergen Category Reaction Reaction Severity Criticality Documentation Date Start Date Code Code System Note Provider Name and Address Organization Details Recorded Time 16872 amoxicill in medicatio n nausea vomiting Not available Not available Not available 04/06/2023 723 RxNorm all -cill ins Karlie thomas, [place] - [facility] 4 10:17:32 41002 shellfish derived food,medi cation nausea vomiting Not available Not available Not available 04/06/2023 Karlie thoams, DAYO - [facility] 4 10:17:46 Medications Name Sig Start Date Stop [...] Not Available Not Available No t Available M-Makeda Plus 27 mg iron-1 mg tablet TAKE ONE TABLET BY MOUTH ONCE A DAY active Not Available Not Available No t Available Vitals Date Recorded Body weight Body mass index (BMI) Body height Systolic And Diastolic Provider Name and Address Organization Details Last Updated DateTime 04/06/2023 10428.49 g 19.8 kg/m2 165.1 cm 120/62 mm[Hg] Karlie Palafox [place] [facility] 04/06/2023 10:17:03 Date Recorded Body height Body mass index (BMI) Body weight Systolic And Diastolic Provider Name and Address Organization Details Last Updated DateTime 05/22/2023 165.1 cm 20.6 kg/m2 23934.45 g 114/68 mm[Hg] Genesis Jose [place] - [facility] 05/22/2023 10:50:57 Social History Question Answer Notes LastModified by Organizat ion Details LastModified Time Tobacco Smoking Status Never Smoker Karlie Palafox null, [place] - [facility] 04/06/2023 10:23:21 What Is Your Level Of Caffeine Consumption? Heavy [email or web address] Information not available 04/06/2023 Who Is Your Employer? [employer] [email or web address] Information not available 04/06/2023 How Many Children Do You Have? 2 [email or web address] Information not available 04/06/2023 What Is Your Relationship Status? [email or web address] Information not available 04/06/2023 Are You Sexually Active? Yes [email or web address] Information not available 04/06/2023 Sex: Unknown Functional Status Question Answer Note LastModified by Organizat ion Details LastModified Time Do you use any illicit or recreational drugs? No [email or web address] Information not available 04/06/2023 Do you or have you ever used any other forms of tobacco or nicotine? No Information not available 04/06/2023 What is your level of alcohol consumption? Occasional [email or web address] Information not available 04/06/2023 Are you currently employed? Yes [email or web address] Information not available 04/06/2023 What is your occupation? [employer] Information not available 04/06/2023 What is your exercise level? None [email or web address] Information not available 04/06/2023 Mental Status None recorded. Family History Relationship Description Onset Age of this Age Resolved Age Notes LastModified by Organization Details LastModified Time Maternal Grandmother Diabetes mellitus [email or web address] Not available 2023 10:22:45 Maternal Grandmother Hypertensive disorder Not available 2023 10:22:59 Paternal Grandmother Diabetes mellitus [email or web address] Not available 2023 10:22:45 Medical History Condition Response Ovarian cancer N Diabetes N Blood Clots/DVT N Influenza Vaccine Y Thyroid disease Y Endometriosis N Breast Cancer N Hyperlipidemia N Heart Disease N Hypertension N Gynecological [...] Diagnosis SNOMED-CT Code Diagnosis ICD10 Code Diagnosis IMO Codes Diagnosis Note [id number] Nikki Cordova APRN, [facility] [address] [place] [address] 04/06/2023 09:56:47 04/07/2023 06:44:45 Menorrhagia 390677215 N92.0 *script for sid is currently on [...] report if positive Specialize d medical examination 21819917 Z01.419 *yearly exam with pap/cultur esnormal examcurren tly on cycleHx Alireza' s - sees endo, on thyroid injections .Recommend she start a vitamin. Venereal d isease screening 425517159 Z11.3 Anemia screening 07 Z13.0 Dysmenorrhea 649143804 N 94.6 *see notes abovehisto ry of painful periods - but worse more recentlycu rrently desires conception may need tv pelvic us if persists [id number] Nikki Cordova APRN, [facility] [email or web address] [place], [address] [place] [address] 05/22/2023 09:21:11 05/22/2023 18:22:16 test positive 076910927 Z32.01 *Farhad, 22 year old , hx [...] *SELF PAY* Al teresa Ardon 05/22/2023 2 [facility] ([place] ROSA ELENA Buitrago [id number] Farhad Ardon 05/22/2023 1 [facility] (POS II) [id number] Farhad Ardon [id number] Farhad Ardon Notes Date Note Type Note Provider Name and Address Organization Details Recorded Time 04/06/2023 text/html Carmen is here with c/o irregular, heavy bleeding.IUD (Mirena) removed 11/2022 [...] thyroid injections. Nikki Cordova APRN, [address], [place] [address], [place], [address], [facility] - [facility] 04/06/2023 11:55:09 05/22/2023 text/html Farhad is here for an early OB scan.She is a 22 [...] (appt 06/29/23). Nikki Cordova APRN, [address], [address], [place], [address], [place] - [facility] 05/22/2023 13:51:16 OBGyn Episode No OBEpisode recorded.
--- OUTSIDE RECORDS SUMMARY | 2025-02-04 19:11 | XMS_ITS | Patient Health Record ---
Author Organization [facility] Address [address] [place] [address] Support Name Relationship Address Phone Farhad Ardon Guarantor Unknown Unavailable Allergies Allergen (clinical drug ingredient) Drug/Non Drug Allergy documented on EMR Reaction Allergy Type Onset Date Status amoxicillin Amoxicillin Nausea / Vomiting Drug Allergy Active Penicillin Nausea / Vomiting Drug Allergy Active Reason For Referral No Information Medications Medication SIG (Take, Route, Fr equency, Duration) Notes Start Date End Date Status predniSONE 10 MG 1 tablet Orally Once a day; Duration: 10 days 01/30/2024 Active Methocarbamol 750 MG TAKE 1 TABLET BY MO UT EVERY 6 HOURS NEEDED FOR SPASMS Oral; Duration: 5 Days Active Naproxen 500 MG TAKE 1 TABLET BY ELPIDIO TWICE DAILY NEEDED FOR PAIN Oral; Duration: 10 Days Active predniSONE 20 MG TAKE 3 TABLETS BY MO UT ONCE DAILY FOR 3 DAYS THEN 2 ONCE DAILY FOR 3 DAYS THEN 1 ONCE DAILY FOR 3 DAYS THEN 1/2 (ONE-HALF) ONCE DAILY FOR 2 DAYS Oral; Duration: 7 Days Acti ve Ondansetron 4 MG DISSOLVE 1 TABLET IN MOUTH EVERY 6 HOURS NEEDED FOR NAUSEA AND VOMITING Oral; Duration: 4 Days Active Social History Tobacco Use: Social History Observation Description Date Details (start date - stop date) Never Smoker NA - NA Tobacco Control (Standard) Question Answer Notes Tobacco use: Nonsmoker Plan Of Treatment No Information Insurance Providers Payer Name Payer Address Payer Phone Subscriber Number Group Number Insured Name Patient Relationship to Insured Coverage Start Date Coverage End Date [facility] [address] [place] [address] [id number] Farhad Ardon Self - patient is the insured Medical (General) History Medical History History ICD Code Hypothyroidism 11/2021 Chronic pain
--- OUTSIDE RECORDS SUMMARY | 2025-02-04 19:11 | XMS_ITS | Data Portability ---
Author Organization DAYO Price [facility] Galindo Montero [facility] Address [address] [place] [address] Assessment No assessment recorded. Plan of Treatment [...] acetonide 0.1 % topical cream [address] [facility] [address] [place], [address], 4 09:51:53 clotrimazol e 1 % topical cream [address] [facility] [address] [place], [address], 4 09:53:22 ketorolac 30 mg/mL (1 mL) injection solution 2022 023 [email or web address] Not available 4 09:31:19 Patient TargetsNo targets recorded. Patient Instructions Encounter Date Encounter Id Patient Instructions Last Modified By Organization Details Last Modified Time 08/27/2022 [id number] JORGE. Patient to follow with PCP on Monday [email or web address] Not available 08/27/2022 15:18:07 11/11/2023 [id number] Follow up for worsening or no improvement [email or web address] Not available 11/11/2023 10:28:49 Reason for Referral None Reported. Procedures Surgical History Date Name Laterality Status Provider Name and Address Organization Details Recorded Time Tonsillectomy completed [facility] 11/11/2023 09:34:31 Appendectomy completed [facility], L[facility] 11/11/2023 09:34:37 Gallbladder Surgery completed [facility], LDuranLDuranCDuran 11/11/2023 09:34:44 operation on oral cavity completed [facility], LDuranLDuranCDuran 11/11/2023 09:34:57 Imaging Results None recorded. Procedure Notes None recorded. Medical Equipment None Reported. Allergies Allergen ID Allergen Name Allergen Category Reaction Reaction Severity Criticality Documentation Date Start Date Code Code System Note Provider Name and Address Organization Details Recorded Time 5149 Product containin g penicilli n (product) medicatio n anaphylax is Not available Not available 08/27/2022 03803 8001 SNOMED Throa t swell ing. MAZIN PORTER [facility] 14:53:40 Medications Name Sig Start [...] Vitals Date Recorded Body weight Oxygen saturation Heart rate Body temperature Provider Name and Address Organization Details Last Updated DateTime 08/27/2022 30529.08 g 99 % 61 /min 98.3 [degF] MAZIN PORTER [facility] 08/27/2022 14:52:53 Date Recorded Body height Body mass index (BMI) Body weight Oxygen saturation Heart rate Respiratory rate Body temperature Systolic And Diastolic Provider Name and Address Organization Details Last Updated DateTime 4 162.56 cm 23.5 kg/m2 66582.1 5 g 98 % 116 /min 16 /min 98.2 [degF] 108/60 mm[Hg] Nemo Chavez [facility] 4 09:34:05 Date Recorded Body height Body mass index (BMI) Body weight Respiratory rate Heart rate Oxygen saturation Body temperature Systolic And Diastolic Provider Name and Address Organization Details Last Updated DateTime 4 162.56 cm 25 kg/m2 56708.9 9 g 16 /min 75 /min 99 % 97.8 [degF] 104/60 mm[Hg] MARIA EUGENIA CALABRESE [facility] 4 12:18:47 Social History None recorded. Functional Status Question Answer Note LastModified by Organization D etails LastModified Time What is your level of alcohol consumption? None [email or web address] Information not available 08/27/2022 Mental Status None recorded. Family History Nothing Reported. Medical History No medical history recorded. Gynecological HistoryNo gynecological history recorded. Obstetrics History GPAL:G 0 P 0 0 0 0 Past Encounters Encounter ID Performer Location Encounter Start Date Encounter Closed Date Diagnosis/Indication Diagnosis SNOMED-CT Code Diagnosis ICD10 Code Diagnosis IMO Codes Diagnosis Note [id number] MALINDA MANN [facility] ([facility]) [address] [place] [address] 08/27/2022 14:41:10 08/27/2022 15:27:32 Pain of hip region 36832876 M25.711 [id number] ZEB MONTOYA APRN [facility] ([facility]) [address] [place] [address] 11/11/2023 09:28:22 11/11/2023 10:26:17 Pruritic rash 65483045 L28.2 [id number] MALINDA MANN [facility] ([facility]) [address] [place] [address] 12/30/2023 12:12:51 12/30/2023 12:57:11 Low back pain 931307634 M54.50 With radiculopa thy - Left side. [...] Shrestha Member ID Guarantor Name 12/30/2023 1 [facility] ([place] - [place]) ROSA ELENA Farhad Ardon [id number] Farhad Ardon 09/07/2022 1 *SELF PAY* Al teresa Ardon Notes Date Note Type Note Provider Name and Address Organization Details Recorded Time 08/27/2022 text/html Musculoskeletal PainReported by PatientHPIFor location, patient reportspain radiating to the legs rightbut reportsright hip. For quality, patient reportssharp. For timing, patient reportsdate of onset:andconstant(sta rted .).Patient complains of right hip pain since . States that she has taken IBU, icy hot etc for the pain without much relief. States that the pain is constant. Denies any trauma to the area.ROS as noted in the HPI Drove home from [place] Monday night and woke up with terrible hip pain. MALINDA MANN [address] [place], [address], [facility], LDuranLTravis 08/27/2022 15:18:28 11/11/2023 text/html Skin LesionRepor [email or web address] by PatientGYN had told her to apply hydrocortisone creamROS as noted in the HPI walk in patientpatient is here today for a rash in her inner thighs, patient said that the rash started on her arms 2 weeks ago and that went away with OTC cream but the rash on her inner thigh's is not going away and is very itchy and brady. Patient is 32 weeks ZEB MONTOYA APRN [address] [place], [address], [facility], LDuranLDuranCDuran 11/11/2023 10:29:33 12/30/2023 text/html Joint PainReport ed by PatientHPIFor location, patient reportspain radiating to the buttocksandpain radiating to the legs leftbut reportsleft hip. For quality, patient reportssharp. For associated symptoms, patient reportsweak limbsandnumbness of the legs/feetbut reportsno fever. For duration, patient reportspresent <1 month.ROS as noted in the HPI 2 weeks PostpartumShe has been having sciatic pain since delivery, sciatic pain on left side, current treatment of Flexeril, ibuprofen is not helping. Pt stated that she took a round of steroids that she finished yesterday. Patient delivery was in [place]. LEESA VALENZUELA, [facility] [address] [place], [address], DAYO [facility], [place] 12/30/2023 12:54:01 OBGyn Episode No OBEpisode recorded.
--- OUTSIDE RECORDS SUMMARY | 2025-02-04 19:11 | XMS_ITS | Patient Health Record ---
Author Organization [facility] Address [address] [place] [id number] Care Team Providers Care Inspector Watch Train Name Role Phone ( [facility] ), PHYSICIAN NOT IDENTIFIED Primary Care Provider Unavailable Mian Damon Unavailable [phone] Allergies Allergen (clinical drug ingredient) Drug/Non Drug Allergy documented on EMR Reaction Allergy Type Onset Date Status amoxicillin Amoxicillin Unknown Drug Allergy Act rodriguez Penicillin Unknown Drug Allergy Active Reason For Referral No Information Medications Medication SIG (Take, Route, Frequency, Duration) Notes Start Date End Date Status Chlorhexidine Gluconate 0.12 % Solution 15 mL swish for 30 seconds, then spit. Do not swallow. Mouth/Throat Twice a day; Duration: 10 days 10/18/2024 Active Clindamycin HCl 150 MG Capsule 1 capsule Orally every 6 hours; Duration: 7 days 10/18/2024 Active BuSpar Active Synthroid Active Problems Problem Type SNOMED Code ICD Code Onset Dates Problem Status W/U Status Risk Notes Problem Other dental procedure status (Z98.818) Active confirmed Vital Signs Heart Rate 74 /min 10/18/2024 Oximetry 99 % 10/18/2024 Height-cm 165.1 cm 10/18/2024 Blood pressure diastolic 72 mm Hg 10/18/2024 Weight-kg 69.85 kg 08/28/2024 Height 65 in 10/18/2024 Blood pressure systolic 108 mm Hg 10/18/2024 Weight 154 lbs 08/28/2024 BMI 25.62 kg/m2 08/28/2024 Encounters Encounter Location Date Provider Diagnosis [address] [place] [address] [facility] [address] [place] [address] 08/28/2024 Mian Damon [facility] [address] [place] [address] 10/18/2024 Mian Damon Other dental procedure status Z98.818 Assessments Encounter Date Diagnosis (ICD Code) Assessment Notes Treatment Notes Treatment Clinical Notes Section Notes 10/18/2024 Other dental procedure status (ICD-10 - Z98.818) Plan Of Treatment No Information Insurance Providers Payer Name Payer Address Payer Phone Subscriber Number Group Number Insured Name Patient Relationship to Insured Coverage Start Date Coverage End Date [facility] [address] [place] [address] [id number] Farhad Ardon Self - patient is the insured [facility] Plan of [place] [address] [place] [address] [id number] Farhad Ardon Self - patient is the insured Medications Administered Medication Instructions Date of Administration Dosage Notes Ondansetron 4mg/2ml 10/18/2024 4 mg Atropine Sulfate 10/18/2024 0.4 mg Clindamycin Phosphate 10/18/2024 600 mg dexAMETHasone Sodium Phosphate 10/18/2024 10 mg Ketamine HCl 10/18/2024 15 mg Ketorolac Tromethamine 10/18/2024 30 mg Midazolam 10/18/2024 5 mg Propofol 10/18/2024 70 mg
--- OUTSIDE RECORDS SUMMARY | 2025-02-04 19:11 | XMS_ITS | Patient Health Record ---
Author Organization [facility] Address [address] [place] [address] Care Team Providers Care Ehr Trainer Name Role Phone Herminio Shoemaker Primary Care Provider UnavailMalachi Delgado Unavailable [phone] Reason For Referral No Information Medications Medication SIG (Take, Route, Frequency, Duration) Notes Start Date End Date Status hydrOXYzine HCl *[facility]* Active tizanidine [facility] and Interaction Alerts* Active Tirosint *[facility]* Active duloxetine [facility] and Interaction Alert[facility]* Active Ketorolac [facility] and Interaction Alert[facility]* Active Ibuprofen *[facility]* Active Social History Social [...] Smoking - No, Working currently? - Yes Plan Of Treatment No Information Medical (General) History Surgical History Surgery Date(Month/Year) cleft palate and lip Since 1999 2000 Ear tube placement Since 2000 2001 Tonsillectomy Since 2006 adenoidectomy Since 2006 appendectomy Since 2012 cholecystectomy Since 2020 Total thyroidectomy Since 2020
[2025-02-04 19:14] VITALS: BP 98/65; PULSE 79; RESP 15; TEMP 36.6; O2SAT 100; BMI 22.3
--- NOTE | 2025-02-04 19:16 | XRR_ITS ---
PROCEDURE INFORMATION: Exam: XR Left Hip Exam date and time: 02/04/2025 7:21 PM Age: 24 years old Clinical indication: Hip pain; Left hip; Additional info: Pain x2 days TECHNIQUE: Imaging protocol: Radiologic exam of the left hip. Views: 2 or 3 views hip with pelvis when performed. COMPARISON: CT kidney stone [id number] 08/30/2024 8:58 AM FINDINGS: Bones/joints: Unremarkable. No acute fracture. Soft tissues: Unremarkable. XR/XR hip LT 2-3V wo/w pel* [id number] IMPRESSION: No acute findings.
[2025-02-04 19:31] VITALS: PULSE 88; O2SAT 99
[2025-02-04 20:30] VITALS: BP 95/57; PULSE 67; O2SAT 97
--- NOTE | 2025-02-04 22:10 | ED_ITS ---
HPI - Extremity Problem General: Chief complaint: Extremity Problem,Nontraumatic Stated complaint: Left Side Hip Pain Time Seen by Provider: 02/04/25 19:12 Source: patient Mode of arrival: ambulatory Limitations: no limitations History of Present Illness: Patient is a 24-year-old female who presents emergency department complaining of left-sided hip pain for the past couple of days. States that she took a fall couple days ago and landed directly to the side of her left hip and has had pain since. Has been ambulatory but states that walking makes it worse. Rating the pain as severe 9/10 to triage. Denies any changes in bowel or bladder habits. No dysuria or hematuria. No redness over the left hip joint or swelling. She is denying any fever or nausea/vomiting. Her vital stable at this time. Has been taking jdkv-trs-razxqes pain medication with little relief. MD Complaint: joint pain Onset (ago): day(s) Pain Consistency: constant Location: left and lower extremity (hip) Severity scale (1-10): 9 Exacerbating factors: walking Related Data Previous Rx's ?Medication ?Instructions ?Recorded polyethylene glycol 3350 17 17 g PO DAILY #510 grams 0 06/07/24 gram/dose oral powder (Miralax) cyclobenzaprine 10 mg tablet 10 mg PO Q8H PRN muscle s pasm #30 11/01/24 tabs diclofenac sodium 75 mg 75 mg PO BID #30 tabs tablet,delayed release albuterol sulfate 90 mcg/actuation 2 puff inhalation Q 6H PRN 01/30/25 aerosol inhaler shortness of breath or wheez ing #8.5 grams ljrpbbjsyhveibr-jjrjuzhjbftsepn-GS 5 ml PO Q6H PRN col d symptoms #118 01/30/25 2 mg-30 mg-10 mg/5 mL oral syrup mL (Bromfed DM) doxycycline hyclate 100 mg tablet 100 mg PO BID 7 days #14 tabs 01/30/25 Allergies Allergy/AdvReac Type Severity Reaction Status Date / Time amoxicillin Allergy ADR-Nausea Verified 02/04/25 19:18 Fish Containing Products Allergy ADR-Nausea Verified 02/04/25 19:18 Penicillins Allergy ADR-Nausea Verified 02/04/25 19:18 shellfish derived Allergy ADR-Itching Verified 02/04/25 19:18 PFSH ED PFSH: Medical History Sacroiliitis Migraine Anxiety 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 Adrenal crisis No pertinent family history Surgical History History of tonsillectomy and adenoidectomy History of myringotomy twice as a child History of laparoscopic appendectomy History of laparoscopic cholecystectomy History of cleft palate with cleft lip History of thyroid surgery (~2020) Full thyroidectomy-- performed in [place] Family History Grandmother Diabetes mellitus, type 2 MGM Hypertension PGM Grandfather Hypertension PGF Denies family history of Colon cancer Ovarian cancer Prostate cancer CAD (coronary artery disease) Hyperlipidemia Chronic kidney disease (CKD) Breast cancer Bleeding disorder Family history of premature coronary artery disease Uterine cancer Thyroid disease Social History Smoking and tobacco/nicotine status: never used tobacco/nicotine Second hand smoke exposure: No Alcohol intake: current Alcohol intake frequency: holidays/special occasions only Substance/Drug Use: never Adopted: No Caregiver/support person: No Lives independently: Yes Household members: spouse and children Housing: House Marital status: Highest education level completed: High School Graduate service: No Current occupational status: employed Current occupation: [employer] Current occupational exposures/hazards: No Physical Exam Const: COMMON NORMALS: no acute distress, patient oriented x3, no limitations, healthy appearing, alert and well nourished HENMT: COMMON NORMALS: normocephalic and atraumatic HEAD & SCALP: normocephalic and atraumatic Neck/C-Spine: COMMON NORMALS: full ROM, supple and no meningeal signs Extremity: COMMON NORMALS: full ROM, capillary refill normal, no joint enlargement and no clubbing, cyanosis or edema NARRATIVE EXTREMITY EXAM: Mild reproducible tenderness to palpation to left lateral hip, no overlying skin changes or warmth to the joint. Range of motion is intact, distal neurovascular exam intact. Neuro: COMMON NORMALS: patient oriented x3, moves all extremities, no focal motor deficits and no sensory deficits noted SENSORIUM/ORIENTATION: Yes alert MENINGEAL SIGNS: Yes no meningeal signs Skin: COMMON NORMALS: no rashes or lesions noted GENERAL SKIN EXAM: no rashes or lesions noted Course Vital Signs: Vital signs: Vital Signs Temperature 97.9 F 02/04/25 19:14 Pulse Rate 67 02/04/25 20:30 Respiratory Rate 15 02/04/25 19:14 Blood Pressure 95/57 02/04/25 20:30 Pulse Oximetry 97 02/04/25 20:30 Oxygen Delivery Me thod Room Air 02/04/25 19:31 MDM - Extremity (Nontraumatic) Medical Decision Making Patient presenting with a couple of days of left hip pain after falling, it is worse with ambulation. The neurovascular exam is intact, there are no concerning findings that may be think of a septic joint and she has no systemic symptoms to support this. Her vitals are stable she appears well pain is really only reproduced with movement. X-ray negative for any acute traumatic findings. This could present as a proximal IT band syndrome, left hip contusion, versus other benign etiology but symptomatically we will treat at home and follow-up with primary care if she continues to have symptoms may require MRI. Lab Data Radiology Impressions Hip/Pelvis X-Ray 02/04/25 19:16 IMPRESSION: No acute findings. All radiology interpretation(s) finalized by discharge Discharge Plan Discharge Patient Disposition: Home Clinical Impression: Hip pain, left Condition: Stable Prescriptions: No Action cyclobenzaprine 10 mg tablet 10 mg PO Q8H PRN (Reason: muscle spasm) Qty: 30 0RF albuterol sulfate 90 mcg/actuation HFA aerosol inhaler 2 puff inhalation Q6H PRN (Reason: shortness of breath or wheezing) Qty: 8.5 0RF xhwgjbmoopyhoqj-laefwuyyh-FI [Bromfed DM] 2-30-10 mg/5 mL syrup 5 ml PO Q6H PRN (Reason: cold symptoms) Qty: 118 0RF doxycycline hyclate 100 mg tablet 100 mg PO BID 7 Days Qty: 14 0RF diclofenac sodium 75 mg tablet,delayed release (DR/EC) 75 mg PO BID Qty: 30 0RF polyethylene glycol 3350 [Miralax] 17 gram/dose powder 17 g PO DAILY Qty: 510 0RF Discharge Orders: Discharge ED (Routine); Ordered 02/04/25 Ordered By: Clemente Estrella Referrals: Herminio Wayne MD [Primary Care Provider, Family Practice] Patient Instructions: Patient Portal & Jeff Instructions Activity Restrictions/Additional Instructions: Hip Pain Discharge Instructions Diagnosis: You were evaluated today for left hip pain. Your X-ray was normal, and there were no signs of infection or other serious problems. Your hip pain is most likely related to muscles, tendons, or other soft tissues around the hip joint. What to Expect Hip pain in young adults often improves with conservative treatment. More than half of patients with hip pain similar to yours experience satisfactory improvement without surgery. Recovery may take several weeks to months. Home Care Instructions Activity Modification: - Avoid activities that worsen your pain, such as deep squatting, heavy lifting, or prolonged sitting - You may continue light activities as tolerated - Gradually return to normal activities as pain improves Pain Management: - Take acetaminophen (Tylenol) up to 4,000 mg per day as needed for pain - If acetaminophen does not provide adequate relief, you may use bvjk-joe-eeaeqqm ibuprofen (Advil, Motrin) or naproxen (Aleve) at the lowest effective dose - Take NSAIDs (ibuprofen, naproxen) with food to reduce stomach upset - Avoid NSAIDs if you have a history of stomach ulcers, kidney disease, or are taking blood thinners Physical Therapy: - Physical therapy focusing on hip strengthening and core stabilization is recommended and has been shown to improve symptoms - Exercises should include hip muscle strengthening and improving hip range of motion When to Seek Further Evaluation Contact your primary care physician if: - Pain worsens or does not improve within 4-6 weeks - You develop new symptoms such as fever, severe swelling, or inability to bear weight - Pain interferes significantly with daily activities or sleep Follow-Up Care - Schedule an appointment with your primary care physician within 2-4 weeks - If symptoms worsen or do not improve with conservative treatment, your doctor may recommend additional imaging such as an MRI to evaluate soft tissue structures around the hip - Your primary care physician can also refer you to physical therapy or an podiatric foot and ankle specialist if needed Important Notes - Do not ignore worsening pain, as early evaluation can help identify conditions that may benefit from specific treatments - Continue to monitor your symptoms and keep track of what makes them better or worse - Maintain a healthy weight, as this can reduce stress on your hip joint Print Language: Lithuanian Coding Level of Care Code ED Coding Spec for Jim Engle
== END 2025-02-04 20:31 | disposition home or self-care (01) ==
PROVIDERS: Emergency Provider Physician Assistant; PCP Family Medicine
DX: M25.552 Pain in left hip (principal)
CPT/HCPCS: 73502; 96372; 99284; J1885

== ENCOUNTER 2025-02-06 09:09 | Oncology outpatient (recurring) (ONCR) | payer MEDICAID, SELFPAY ==
[2025-01-23 09:42] VITALS: BP 124/68; PULSE 102; RESP 16; O2SAT 98
[2025-01-23] MEDS: levothyroxine 100 mcg/mL SDV 450 MCG IM (09:42)
[2025-01-30] MEDS: levothyroxine 100 mcg/mL SDV 450 MCG IM (09:18)
[2025-01-30 09:23] VITALS: BP 91/63; PULSE 75; RESP 17; TEMP 36.6; O2SAT 99
[2025-02-06 09:19] VITALS: BP 114/72; PULSE 74; RESP 17; TEMP 36.6; O2SAT 97
[2025-02-06] MEDS: levothyroxine 100 mcg/mL SDV 450 MCG IM (09:27)
== END 2025-02-19 23:59 | disposition home or self-care (01) ==
PROVIDERS: PCP Family Medicine; Visit Provider Internal Medicine
DX: E03.8 Other specified hypothyroidism (principal); Z79.899 Other long term (current) drug therapy
CPT/HCPCS: 96372; 96402; J9999